=== PATIENT | male | born 1980 ===

== ENCOUNTER 2021-01-23 18:41 | Emergency (ER) | payer BC, SELFPAY ==
--- NOTE | ~2021-01-23 | CT_ITS ---
EXAMINATION: CT HEAD WITHOUT CONTRAST CLINICAL INFORMATION: Stroke symptoms, left-sided weakness COMPARISON: None TECHNIQUE: Contiguous axial imaging was performed from the skull base to vertex without intravenous administration of contrast. This CT examination was performed using dose optimization techniques as appropriate, variously including the following: *Automated exposure control *Adjustment of mA and/or kV according to patient size (this includes techniques or standardized protocols for targeted exams where dose is matched to indication/reason for exam; i.e. extremities or head) *Use of iterative reconstruction technique DLP: 674 mGy-cm FINDINGS: No evidence of acute intracranial hemorrhage or extra-axial fluid collection. No evidence of mass lesion, mass effect or midline shift. The ventricles are symmetric in configuration and normal in size. The basal cisterns are patent. No acute territorial infarction. Cystic lesion posterior fossa, most likely an arachnoid cyst. The calvarium is intact. Limited views of the paranasal sinuses are unremarkable. Mastoid air cells are well aerated and middle ear cavities are clear. CT/CT head/brain wo con IMPRESSION: No acute intracranial pathology. Probable arachnoid cyst posterior fossa.
--- NOTE | 2021-01-23 18:55 | ECG_ITS ---
Test Reason : RULING OUT STROKE Blood Pressure : / mmHG Vent. Rate : 065 BPM Atrial Rate : 065 BPM P-R Int : 144 ms QRS Dur : 082 ms QT Int : 380 ms P-R-T Axes : 061 065 052 degrees QTc Int : 395 ms Normal sinus rhythm Early repolarization Normal ECG No previous ECGs available Referred By: America Riggins Electronically Signed By:KIERAN ANG
[2021-01-23 19:10] VITALS: BP 100/66; BP 138/72; PULSE 68; PULSE 71; RESP 16; TEMP 36.5; O2SAT 97; O2SAT 99; BMI 22.7
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
[2021-01-23 19:27] LABS: MANUAL DIFF FLAG NO
[2021-01-23 19:29] LABS: Basophils Percent Auto 0.2 % (0-2); Eosinophils Percent Auto 0.2 % (0-4); Hematocrit 43.6 % (42-52); Hemoglobin 14.3 g/dl (14.0-18.0); Imm Gran Abs Auto 0.01 X10*3/uL (0.00-0.03); Imm Gran Pct Auto 0.2 % (0.0-0.4); Lymphocytes Absolute Auto 1.4 X10*3/uL (1.2-4.9); Lymphocytes Percent Auto 32.9 % (20-40); Mean Corpuscular HGB Conc 32.8 g/dl (31.0-36.0); Mean Corpuscular Hemoglobin 29.5 pg (27.0-33.0); Mean Corpuscular Volume 89.9 fL (80-98); Mean Platelet Volume 9.6 fL (9.4-12.4); Monocytes Absolute Auto 0.2 X10*3/uL (0.1-1.2); Monocytes Percent Auto 4.9 % (2-11); Neutrophils Absolute Auto 2.5 X10*3/uL (2.0-8.3); Neutrophils Percent Auto 61.6 % (45-73); Platelet Count 246 X10*3/uL (160-400); Red Blood Count 4.85 X10*6/uL (4.60-5.80); Red Cell Distribution Width 12.9 % (11.0-16.0); White Blood Count 4.1 X10*3/uL (4.8-10.8)
--- NOTE | 2021-01-23 19:30 | PC.NURSE ---
2ND IV PLACED TO RAC, LABS DRAWN TO LAB. COVID SWAB OBTAINED TO LAB. PT UNABLE TO URINATE AT THIS TIME. PT REQUESTING FOOD AND THE LIGHTS OUT.
[2021-01-23 19:34] LABS: INTERNATIONAL NORM RATIO 1.1 (0.9-1.1); Prothrombin Time 12.6 SEC (9.9-13.0)
[2021-01-23 19:37] LABS: Partial Thromboplastin Time 36.9 SEC (24.1-38.0)
[2021-01-23 19:47] LABS: Alanine Aminotransferase 25 U/L (0-40); Albumin Level 4.7 g/dL (3.5-5.0); Alkaline Phosphatase 43 U/L (39-117); Anion Gap 10 (12-20); Aspartate Amino Transferase 25 U/L (5-37); Bilirubin Direct 0.4 mg/dL (0.0-0.5); Bilirubin Total 1.4 mg/dL (0.0-1.0); Blood Urea Nitrogen 18 mg/dL (9-16); Calcium 10.1 mg/dL (8.4-10.2); Carbon Dioxide 30 mmol/L (22-29); Chloride 104 mmol/L (96-108); Estimated Glomerular Filt Rate > 60; Glucose Random 87 mg/dL (60-115); Lipase 15 U/L (8-78); Potassium 4.3 mmol/L (3.3-5.1); Sodium 140 mmol/L (135-145); Total Protein 7.6 g/dL (6.5-8.0)
[2021-01-23 19:47] LABS: COVID-19 Test Negative (Negative); IDNOW Serial# 9DD0AD1C
[2021-01-23 19:50] LABS: Troponin-I High Sensitivity < 3.5 ng/L (<3.5-35.0)
== END 2021-01-23 21:49 | disposition home or self-care (01) ==
PROVIDERS: Nurse Practitioner Family; Emergency Provider Emergency Medicine
DX: R42 Dizziness and giddiness (principal); R29.810 Facial weakness; Z20.822 Contact with and (suspected) exposure to COVID-19; F14.90 Cocaine use, unspecified, uncomplicated; Z86.73 Personal history of transient ischemic attack (TIA), and cerebral infarction without residual deficits; Z91.19 Patient's noncompliance with other medical treatment and regimen
CPT/HCPCS: 36415; 70450; 80048; 80076; 83690; 84484; 85025; 85610; 85730; 87635; 93005; 99283; 99284

== ENCOUNTER 2021-01-31 00:37 | Emergency (ER) | payer BC, SELFPAY ==
[2021-01-31 00:47] VITALS: BP 112/71; PULSE 88; RESP 14; TEMP 35.9; O2SAT 98; BMI 23.7
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
[2021-01-31 03:20] LABS: MANUAL DIFF FLAG NO
[2021-01-31 03:23] LABS: Basophils Percent Auto 0.2 % (0-2); Eosinophils Absolute Auto 0.1 X10*3/uL (0.0-0.4); Eosinophils Percent Auto 1.6 % (0-4); Hematocrit 37.3 % (42-52); Hemoglobin 12.4 g/dl (14.0-18.0); Lymphocytes Absolute Auto 1.8 X10*3/uL (1.2-4.9); Lymphocytes Percent Auto 39.9 % (20-40); Mean Corpuscular HGB Conc 33.2 g/dl (31.0-36.0); Mean Corpuscular Hemoglobin 29.5 pg (27.0-33.0); Mean Corpuscular Volume 88.6 fL (80-98); Mean Platelet Volume 9.5 fL (9.4-12.4); Monocytes Absolute Auto 0.3 X10*3/uL (0.1-1.2); Neutrophils Absolute Auto 2.3 X10*3/uL (2.0-8.3); Neutrophils Percent Auto 51.3 % (45-73); Platelet Count 207 X10*3/uL (160-400); Red Blood Count 4.21 X10*6/uL (4.60-5.80); White Blood Count 4.4 X10*3/uL (4.8-10.8)
[2021-01-31 03:40] LABS: IDNOW Serial# 9DD0AD1C
[2021-01-31 03:41] LABS: COVID-19 Test Negative (Negative)
[2021-01-31] MEDS: Acetaminophen 325 MG TABLET 975 MG PO (03:44)
[2021-01-31 03:45] LABS: Alanine Aminotransferase 24 U/L (0-40); Albumin Level 3.9 g/dL (3.5-5.0); Alkaline Phosphatase 46 U/L (39-117); Anion Gap 10 (12-20); Aspartate Amino Transferase 26 U/L (5-37); Bilirubin Total 0.9 mg/dL (0.0-1.0); Blood Urea Nitrogen 14 mg/dL (9-16); C Reactive Protein 0.07 mg/dL (< or = 0.50); Calcium 9.4 mg/dL (8.4-10.2); Carbon Dioxide 30 mmol/L (22-29); Chloride 105 mmol/L (96-108); Creatinine Clr Calc Pharmacy 120.2; Estimated Glomerular Filt Rate > 60; Glucose Random 132 mg/dL (60-115); Potassium 3.5 mmol/L (3.3-5.1); Sodium 141 mmol/L (135-145); Total Protein 6.3 g/dL (6.5-8.0)
--- NOTE | 2021-01-31 03:59 | ED.GENADULT ---
HPI - General Adult General Chief complaint: General Medical Stated complaint: headache/hand cramps Time Seen by Provider: 01/31/21 02:56 Source: patient and science interpreter Mode of arrival: ambulatory History of Present Illness HPI narrative: 40-year-old male who is homeless and has a significant past medical history CVA in August of this year presents with complaints of left-sided face pain as well as left-sided abdominal discomfort and has complaints hand cramps. He states that he is supposed to be on medication but does not take any of it and does not have a primary care provider here [place]. He states he is in the middle of transferring primary care providers from [place]. Otherwise, he denies fevers but has to feels and denies nausea, vomiting and states that his residual CVA deficits are left-sided weakness. Related Data Previous Rx's Medication Instructions Recorded tramadol 50 mg tablet 50 mg PO BID PRN #4 tab 01/31/21 Allergies Allergy/AdvReac Type Severity Reaction Status Date / Time ibuprofen Allergy Unknown Unknown Verified 01/23/21 19:29 Iodinated Contrast Media Allergy Unknown Unknown Verified 01/23/21 19:29 [Contrast Dye] shellfish derived Allergy Unknown Verified 01/31/21 00:47 Review of Systems Review of Systems: Pertinent positives and negatives as stated in HPI 10 point review of systems is otherwise negative. PMFSH Past Medical History Source: nursing notes reviewed Medical History CVA (cerebral vascular accident) Social History Social History Advance Directives: No Physical Exam Vital Signs: Vital Signs: Last Vital Signs Temp 98.6 F 01/31/21 05:56 Pulse 62 01/31/21 05:56 Resp 16 01/31/21 05:56 BP 105/63 01/31/21 05:56 Pulse Ox 100 01/31/21 05:56 Body Mass Index 23.7 VITAL SIGNS: Reviewed. GENERAL: Well developed, well nourished, in no acute distress. HEAD: Normocephalic/atraumatic EYES: PERRLA, EOMI intact without pain, no nystagmus EARS: Ext canals without abnormality, TMs non-bulging and non-erythematous NOSE: Nares patent bilateral OROPHARYNX: no oral lesions noted, posterior pharynx clear and non-erythematous without noted tonsillar enlargement/erythema/exudates NECK: Supple, no adenopathy LUNGS: Normal breath sounds. No adventitious sounds or accessory muscle use. SpO2<98> CARDIOVASCULAR: Regular rate and rhythm without noted murmurs ABDOMEN: Soft, non-tender, non-distended with bowel sounds. SKIN: Inspection of the skin reveals no rashes, vesicles NEUROLOGIC: Alert and oriented x 4. Strength and sensation to light touch were grossly intact x 4, BASELINE: Facial asymmetry, left-sided strength deficits with reported sensory difference. Course Course Course Narrative: 40-year-old male with history and clinical presentation not consistent with shingles and will evaluate for presence of infection or electrolyte abnormalities that may better explain patient's hand cramps. Review of all investigations negative for acute findings to better explain patient's cramps within his hands. He was strongly encouraged to establish care with a primary care provider and the slight decrease in H&H is noted without history of hematemesis/melena/hematochezia. Medical Decision Making Lab Data Result diagrams: 01/31/21 03:14 01/31/21 03:14 Labs: Lab Results 01/31/21 01/31/21 01/31/21 Range/Units 03:14 03:14 03:14 WBC 4.4 L (4.8-10.8) X10*3/uL RBC 4.21 L (4.60-5.80) X10*6/uL Hgb 12.4 L (14.0-18.0) g/dl Hct 37.3 L (42-52) % MCV 88.6 (80-98) fL MCH 29.5 (27.0-33.0) pg MCHC 33.2 (31.0-36.0) g/dl RDW 13.0 (11.0-16.0) % Plt Count 207 (160-400) X10*3/uL MPV 9.5 (9.4-12.4) fL Immature Gran % (Auto) 0.0 (0.0-0.4) % Neut % (Auto) 51.3 (45-73) % Lymph % (Auto) 39.9 (20-40) % [place] % (Auto) 7.0 (2-11) % Eos % (Auto) 1.6 (0-4) % Baso % (Auto) 0.2 (0-2) % Lymph # (Auto) 1.8 (1.2-4.9) X10*3/uL [place] # (Auto) 0.3 (0.1-1.2) X10*3/uL Eos # (Auto) 0.1 (0.0-0.4) X10*3/uL Baso # (Auto) 0.0 (0.0-0.2) X10*3/uL Abs Immat Gran (auto) 0.00 (0.00-0.03) X10*3/uL Absolute Neuts (auto) 2.3 (2.0-8.3) X10*3/uL Absolute Nucleated RBC 0.000 (0.0-0.012) X10*3/uL Nucleated RBC % (auto) 0.0 (0.0-0.2) /100WBC ESR 5 (0-15) MM/HR Sodium 141 (135-145) mmol/L Potassium 3.5 (3.3-5.1) mmol/L Chloride 105 (96-108) mmol/L Carbon Dioxide 30 H (22-29) mmol/L Anion Gap 10 L (12-20) BUN 14 (9-16) mg/dL Creatinine 0.87 (0.5-1.4) mg/dL Estim Creat Clear Calc 120.2 Estimated GFR > 60 Random Glucose 132 H D (60-115) mg/dL Calcium 9.4 D (8.4-10.2) mg/dL Total Bilirubin 0.9 (0.0-1.0) mg/dL AST 26 (5-37) U/L ALT 24 (0-40) U/L Alkaline Phosphatase 46 (39-117) U/L C-Reactive Protein 0.07 (< or = 0.50) mg/dL Total Protein 6.3 L (6.5-8.0) g/dL Albumin 3.9 (3.5-5.0) g/dL COVID-19 (DEANDRE) (Negative) COVID-19 Clin Com 01/31/21 Range/Units 03:14 WBC (4.8-10.8) X10*3/uL RBC (4.60-5.80) X10*6/uL Hgb (14.0-18.0) g/dl Hct (42-52) % MCV (80-98) fL MCH (27.0-33.0) pg MCHC (31.0-36.0) g/dl RDW (11.0-16.0) % Plt Count (160-400) X10*3/uL MPV (9.4-12.4) fL Immature Gran % (Auto) (0.0-0.4) % Neut % (Auto) (45-73) % Lymph % (Auto) (20-40) % [place] % (Auto) (2-11) % Eos % (Auto) (0-4) % Baso % (Auto) (0-2) % Lymph # (Auto) (1.2-4.9) X10*3/uL [place] # (Auto) (0.1-1.2) X10*3/uL Eos # (Auto) (0.0-0.4) X10*3/uL Baso # (Auto) (0.0-0.2) X10*3/uL Abs Immat Gran (auto) (0.00-0.03) X10*3/uL Absolute Neuts (auto) (2.0-8.3) X10*3/uL Absolute Nucleated RBC (0.0-0.012) X10*3/uL Nucleated RBC % (auto) (0.0-0.2) /100WBC ESR (0-15) MM/HR Sodium (135-145) mmol/L Potassium (3.3-5.1) mmol/L Chloride (96-108) mmol/L Carbon Dioxide (22-29) mmol/L Anion Gap (12-20) BUN (9-16) mg/dL Creatinine (0.5-1.4) mg/dL Estim Creat Clear Calc Estimated GFR Random Glucose (60-115) mg/dL Calcium (8.4-10.2) mg/dL Total Bilirubin (0.0-1.0) mg/dL AST (5-37) U/L ALT (0-40) U/L Alkaline Phosphatase (39-117) U/L C-Reactive Protein (< or = 0.50) mg/dL Total Protein (6.5-8.0) g/dL Albumin (3.5-5.0) g/dL COVID-19 (DEANDRE) Negative (Negative) COVID-19 Clin Com See Note Discharge Plan Discharge Clinical Impression: Cramping of hands Patient Disposition: Home, Self-Care Instructions: Muscle Cramp (ED), Heat Pack Application (ED) Additional Instructions: Follow-up with your primary care provider at your earliest convenience for re-evaluation and review of your medications. Return to the ER for acute worsening of symptoms. Prescriptions: New tramadol 50 mg tablet 50 mg PO BID PRN (Reason: pain) Qty: 4 RF: 0 Referrals: Physician,None [Primary Care Provider] - 2 days Print Language: Mongolian
[2021-01-31 04:12] LABS: Erythrocyte Sedimentation Rate 5 MM/HR (0-15)
[2021-01-31 04:49] VITALS: BP 112/57; PULSE 58; TEMP 36.4; O2SAT 98
[2021-01-31 04:57] VITALS: RESP 16
[2021-01-31 05:56] VITALS: BP 105/63; PULSE 62; RESP 16; TEMP 37; O2SAT 100
[2021-01-31 07:26] VITALS: BP 112/68; PULSE 56; RESP 14; TEMP 36.5; O2SAT 99
== END 2021-01-31 08:16 | disposition home or self-care (01) ==
PROVIDERS: Emergency Provider Student in an Organized Health Care Education/Training Program
DX: M79.642 Pain in left hand (principal); M79.641 Pain in right hand; R51.9 Headache, unspecified; R10.9 Unspecified abdominal pain; Z20.822 Contact with and (suspected) exposure to COVID-19; Z86.73 Personal history of transient ischemic attack (TIA), and cerebral infarction without residual deficits; Z79.899 Other long term (current) drug therapy
CPT/HCPCS: 36415; 80053; 85025; 85652; 86140; 87086; 87635; 99283; 99284

== ENCOUNTER 2021-02-08 19:52 | Inpatient (IN) | payer BC, SELFPAY ==
--- NOTE | ~2021-02-08 | CT_ITS ---
EXAMINATION: CT HEAD WITHOUT CONTRAST CLINICAL INFORMATION: Stroke like symptoms COMPARISON: 01/23/2021 TECHNIQUE: Contiguous axial imaging was performed from the skull base to vertex without intravenous contrast. This CT examination was performed using dose optimization techniques as appropriate, variously including the following: * Automated exposure control * Adjustment of mA and/or kV according to patient size (this includes techniques or standardized protocols for targeted exams where dose is matched to indication/reason for exam; i.e. extremities or head) Use of iterative reconstruction technique DLP: 686 mGy-cm. FINDINGS: There is no evidence of acute intracranial hemorrhage or territorial infarction. No abnormal mass effect or midline shift is seen. [place] to white matter differentiation is well preserved. No extra-axial fluid collections are identified. No hydrocephalus. No significant volume loss. There is no abnormal attenuation within the brain parenchyma. The osseous structures and soft tissues are normal. The mastoid air cells and visualized portions of the paranasal sinuses are well aerated. CT/CT head for stroke IMPRESSION: No acute intracranial pathology. This critical result was discussed with Moiz Cuellar MD by telephone at 02/08/2021 8:14 PM and it was ascertained that the content and urgency of the report was understood at the time of direct communication.
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
--- NOTE | ~2021-02-08 | MR_ITS ---
EXAMINATION: MRI BRAIN WITHOUT CONTRAST CLINICAL INFORMATION: Evaluate for cerebrovascular accident. COMPARISON: CT scan of the head 02/08/2021. TECHNIQUE: Multiplanar MR imaging of the brain was performed without contrast. FINDINGS: There are scattered nonspecific foci of T2 FLAIR signal hyperintensity within the periventricular white matter. No acute territorial infarct. No pathological magnetic susceptibility artifact. Intracranial vascular flow voids are maintained. There is no intracranial mass effect or midline shift. No abnormal extra-axial collection. Lateral and third ventricles are normal. No hydrocephalus. Midline structures including the cervicomedullary junction are normal. No acute bone marrow signal changes. There is no mastoid or middle ear effusion. Trivial mucosal thickening within ethmoid air cells and the alveolar recess of the right maxillary sinus. Globes and orbits are symmetric. MR/MR head/brain wo con IMPRESSION: No evidence of acute territorial infarct or hemorrhage.
--- NOTE | ~2021-02-08 | XR_ITS ---
EXAMINATION: XR ANKLE, RIGHT CLINICAL INFORMATION: Pain. COMPARISON: None TECHNIQUE: 3 views of the right ankle. FINDINGS: The bones and soft tissues are normal. No fracture. Alignment is anatomic. Joint spaces are maintained. No joint effusion. XR/XR ankle RT 2V IMPRESSION: Normal right ankle.
--- NOTE | ~2021-02-08 | XR_ITS ---
EXAMINATION: XR CHEST CLINICAL INFORMATION: Stroke COMPARISON: None TECHNIQUE: Frontal view of the chest was obtained. FINDINGS: The lungs are well expanded. There is no focal consolidation, edema, or effusion. No pneumothorax. The cardiomediastinal silhouette is within normal limits. No acute osseous abnormality. XR/XR chest 1V IMPRESSION: No acute pulmonary finding.
--- NOTE | 2021-02-08 19:59 | ECG_ITS ---
Test Reason : STROKE Blood Pressure : / mmHG Vent. Rate : 067 BPM Atrial Rate : 067 BPM P-R Int : 138 ms QRS Dur : 084 ms QT Int : 392 ms P-R-T Axes : 066 081 042 degrees QTc Int : 414 ms Normal sinus rhythm Early repolarization Normal ECG When compared with ECG of 23-JAN-2021 19:10, No significant change was found Referred By: Moiz Cuellar Electronically Signed By:KIERAN ANG
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
--- NOTE | 2021-02-08 20:06 | PC.NURSE ---
PT TO ED VIA AMBULANCE WITH C/O LEFT SIDED NUMBNESS/WEAKNESS AND TINGLING. PT SEEN BY MD AT NURSING STATION AND DIRECTLY TO CT. PT ALERT AND IN NAD. 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
--- NOTE | 2021-02-08 20:07 | ED.GENADULT ---
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 Patient had a jaw surgery on the left side so there is some chronic left facial droop. Patient had a history of stroke with tPA treatment 2 years ago at some [place]. Patient declined any headache dizziness. Related Data Previous Rx's Medication Instructions Recorded tramadol 50 mg tablet 50 mg PO BID PRN #4 tab 01/31/21 Allergies Allergy/AdvReac Type Severity Reaction Status Date / Time ibuprofen Allergy Unknown Unknown Verified 01/23/21 19:29 Iodinated Contrast Media Allergy Unknown Unknown Verified 01/23/21 19:29 [Contrast Dye] shellfish derived Allergy Unknown Verified 01/31/21 00:47 Review of Systems Review of Systems: All other systems are reviewed and are negative Constitutional: Reports as per HPI and Reports no additional constitutional complaints Eyes: Reports as per HPI and Reports no additional eye complaints Reports system reviewed and no additional complaints, except as documented Cardiovascular: Reports as per HPI and Reports no additional cardiovascular complaints Respiratory: Reports as per HPI and Reports no additional respiratory complaints Gastrointestinal: Reports as per HPI and Reports no additional gastrointestinal complaints Genitourinary: Reports no additional female genitourinary complaints Musculoskeletal: Reports no additional musculoskeletal complaints Skin/Breast: Reports system reviewed and no additional complaints, except as docu Psychiatric: Reports no additional psychiatric complaints Endocrine: Reports no additional endocrine complaints Hematologic/Lymphatic: Reports no additional hematologic/lymphatic complaints Allergic/Immunologic: Reports no additional allergic/immunologic complaints Reports system reviewed and no additional complaints, except as documented and Reports Abnormal speech present [facility] Past Medical History Medical History CVA (cerebral vascular accident) Social History Social History Advance Directives: No Advance Directives Information Provided: Yes Physical Exam Vital Signs: Vital Signs: Last Vital Signs Temp 98 F 02/08/21 20:12 Pulse 70 02/08/21 20:12 Resp 16 02/08/21 20:12 BP 99/59 L 02/08/21 20:12 Pulse Ox 99 02/08/21 20:12 Body Mass Index 23.0 Vital signs have been reviewed as appeared to be correct. Blood pressure normal. Heart rate normal. Respiration rate normal. Temperature normal. Oxygen saturation normal. Appearance: Alert. Oriented X3. No acute distress. Head: Normal external exam. Normocephalic. Atraumatic. No Cruz signs noted. No raccoon eyes noted Eyes: PERRLA. EOMI. Conjunctiva and sclera normal. Eyelids normal. ENT: TM's Normal. Pharynx normal. Uvula midline. Moist mucous membranes. No trismus noted. No drooling noted. No muffled voice noted. Neck: Normal inspection. Neck supple. FROM. No adenopathy. Thyroid Normal. No meningeal signs. No neck mass noted. CVS: Normal heart rate and rhythm. Heart sound normal. No murmurs noted. Pulses normal throughout. Respiratory: No respiratory distress. Painless inspiration. Breath sounds normal. No wheezes/rales/rhonchi noted. Chest nontender. No accessory muscle usage noted or decreased air movement noted. Abdomen: Soft and nontender. Bowel sounds normal in all 4 quadrants. No distention noted. No organomegaly noted. No visible injury noted. Back: No CVA tenderness. Full range of motion noted. Skin: Skin warm and dry. Normal skin color. Normal skin turgor. No rashes/lesions/lacerations noted. Extremities: No lower extremity edema. Extremities exhibit normal range of motion. Extremities nontender. Neuro: Oriented X 3. Cranial nerve exam: II-XII are grossly intact No motor deficit. No sensory deficit. Reflexes normal. NIH Stroke Scale Level of Consciousness: Alert Level of Consciousness Questions: Answers both questions correctly Level of Consciousness Commands: Performs both tasks correctly Best Gaze: Normal Visual: No visual loss Facial Palsy: Minor paralyis Motor Arm (Right): No drift Motor Arm (Left): No drift Motor Leg (Right): No drift Motor Leg (Left): No drift Limb Ataxia: Absent Sensory: Mild to moderate sensory loss Best Language: No aphasia Dysarthia: Normal Extinction and Inattention: No abnormality Score: 2 Course Course Course Narrative: Assessment and plan. 40-year-old male history of stroke in the past (reportedly received tPA last August), came in with left-sided numbness, NIH score is 2 which is low, no motor deficit, patient had a history of facial surgery that is causing chronic left facial mild droop, CT head is unremarkable, will admit for MRI in the morning. Case discussed with Dr. Giang. Patient is not a candidate for tPA very mild symptoms and low NIH score. Medical Decision Making Lab Data Lab results reviewed: Yes I reviewed the patient's lab results. Result diagrams: 02/08/21 21:13 02/08/21 21:13 Labs: Lab Results 02/08/21 02/08/21 02/08/21 Range/Units 20:14 20:15 21:13 WBC 4.5 L (4.8-10.8) X10*3/uL RBC 4.51 L (4.60-5.80) X10*6/uL Hgb 13.7 L (14.0-18.0) g/dl Hct 40.6 L (42-52) % MCV 90.0 (80-98) fL MCH 30.4 (27.0-33.0) pg MCHC 33.7 (31.0-36.0) g/dl RDW 13.2 (11.0-16.0) % Plt Count 226 (160-400) X10*3/uL MPV 9.7 (9.4-12.4) fL Immature Gran % (Auto) 0.0 (0.0-0.4) % Neut % (Auto) 60.4 (45-73) % Lymph % (Auto) 31.9 (20-40) % [place] % (Auto) 6.2 (2-11) % Eos % (Auto) 1.1 (0-4) % Baso % (Auto) 0.4 (0-2) % Lymph # (Auto) 1.5 (1.2-4.9) X10*3/uL [place] # (Auto) 0.3 (0.1-1.2) X10*3/uL Eos # (Auto) 0.1 (0.0-0.4) X10*3/uL Baso # (Auto) 0.0 (0.0-0.2) X10*3/uL Abs Immat Gran (auto) 0.00 (0.00-0.03) X10*3/uL Absolute Neuts (auto) 2.7 (2.0-8.3) X10*3/uL Absolute Nucleated RBC 0.000 (0.0-0.012) X10*3/uL Nucleated RBC % (auto) 0.0 (0.0-0.2) /100WBC Whole Blood PT 13.8 H (11.1-13.5) sec Whole Blood INR 1.1 (0.9-1.1) Coag Specimen Comment Sodium (135-145) mmol/L Potassium (3.3-5.1) mmol/L Chloride (96-108) mmol/L Carbon Dioxide (22-29) mmol/L Anion Gap (12-20) BUN (9-16) mg/dL Creatinine (0.5-1.4) mg/dL Estim Creat Clear Calc Estimated GFR POC Glucose 153 H (60-115) mg/dL Random Glucose (60-115) mg/dL Calcium (8.4-10.2) mg/dL Total Creatine Kinase (38-174) U/L Troponin I High Sens (<3.5-35.0) ng/L COVID-19 ([facility]RE) (Negative) COVID-19 Clin Com 02/08/21 02/08/21 02/08/21 Range/Units 21:13 21:13 21:13 WBC (4.8-10.8) X10*3/uL RBC (4.60-5.80) X10*6/uL Hgb (14.0-18.0) g/dl Hct (42-52) % MCV (80-98) fL MCH (27.0-33.0) pg MCHC (31.0-36.0) g/dl RDW (11.0-16.0) % Plt Count (160-400) X10*3/uL MPV (9.4-12.4) fL Immature Gran % (Auto) (0.0-0.4) % Neut % (Auto) (45-73) % Lymph % (Auto) (20-40) % [place] % (Auto) (2-11) % Eos % (Auto) (0-4) % Baso % (Auto) (0-2) % Lymph # (Auto) (1.2-4.9) X10*3/uL [place] # (Auto) (0.1-1.2) X10*3/uL Eos # (Auto) (0.0-0.4) X10*3/uL Baso # (Auto) (0.0-0.2) X10*3/uL Abs Immat Gran (auto) (0.00-0.03) X10*3/uL Absolute Neuts (auto) (2.0-8.3) X10*3/uL Absolute Nucleated RBC (0.0-0.012) X10*3/uL Nucleated RBC % (auto) (0.0-0.2) /100WBC Whole Blood PT (11.1-13.5) sec Whole Blood INR (0.9-1.1) Coag Specimen Comment Cancelled Sodium 143 (135-145) mmol/L Potassium 3.8 (3.3-5.1) mmol/L Chloride 105 (96-108) mmol/L Carbon Dioxide 33 H (22-29) mmol/L Anion Gap 9 L (12-20) BUN 16 (9-16) mg/dL Creatinine 0.99 (0.5-1.4) mg/dL Estim Creat Clear Calc 89.5 Estimated GFR > 60 POC Glucose (60-115) mg/dL Random Glucose 78 D (60-115) mg/dL Calcium 9.4 (8.4-10.2) mg/dL Total Creatine Kinase 413 H (38-174) U/L Troponin I High Sens < 3.5 (<3.5-35.0) ng/L COVID-19 ([facility]) (Negative) COVID-19 Clin Com 02/08/21 02/08/21 Range/Units 21:13 21:30 WBC (4.8-10.8) X10*3/uL RBC (4.60-5.80) X10*6/uL Hgb (14.0-18.0) g/dl Hct (42-52) % MCV (80-98) fL MCH (27.0-33.0) pg MCHC (31.0-36.0) g/dl RDW (11.0-16.0) % Plt Count (160-400) X10*3/uL MPV (9.4-12.4) fL Immature Gran % (Auto) (0.0-0.4) % Neut % (Auto) (45-73) % Lymph % (Auto) (20-40) % [place] % (Auto) (2-11) % Eos % (Auto) (0-4) % Baso % (Auto) (0-2) % Lymph # (Auto) (1.2-4.9) X10*3/uL [place] # (Auto) (0.1-1.2) X10*3/uL Eos # (Auto) (0.0-0.4) X10*3/uL Baso # (Auto) (0.0-0.2) X10*3/uL Abs Immat Gran (auto) (0.00-0.03) X10*3/uL Absolute Neuts (auto) (2.0-8.3) X10*3/uL Absolute Nucleated RBC (0.0-0.012) X10*3/uL Nucleated RBC % (auto) (0.0-0.2) /100WBC Whole Blood PT (11.1-13.5) sec Whole Blood INR (0.9-1.1) Coag Specimen Comment DELAY Sodium (135-145) mmol/L Potassium (3.3-5.1) mmol/L Chloride (96-108) mmol/L Carbon Dioxide (22-29) mmol/L Anion Gap (12-20) BUN (9-16) mg/dL Creatinine (0.5-1.4) mg/dL Estim Creat Clear Calc Estimated GFR POC Glucose (60-115) mg/dL Random Glucose (60-115) mg/dL Calcium (8.4-10.2) mg/dL Total Creatine Kinase (38-174) U/L Troponin I High Sens (<3.5-35.0) ng/L COVID-19 ([facility]ANDRE) Negative (Negative) COVID-19 Clin Com See Note Imaging Data CT scan - head: Radiologist's impression: No acute intracranial pathology. Right ankle x-ray: Radiologist's impression: Normal right ankle. Chest x-ray: Radiologist's impression: No acute pulmonary finding. ECG Data Attestation: I personally reviewed and interpreted this ECG as follows: Interpretation: Normal sinus rhythm at 67 beats per minutes, normal intervals, no ST-T changes. Discharge Plan Discharge Clinical Impression: Paresthesia Patient Disposition: Admitted As Inpatient
[2021-02-08 20:12] VITALS: BP 108/64; BP 99/59; PULSE 68; PULSE 70; RESP 16; TEMP 36.6; O2SAT 99; BMI 23.0
[2021-02-08 20:19] LABS: Glucose, Whole Blood 153 mg/dL (60-115)
--- NOTE | 2021-02-08 20:42 | PC.NURSE ---
pt on monitor with hr 65. VS obtained. pt is constantly requesting the MD in room, pillows, phone, and blankets.
[2021-02-08 20:46] LABS: Prothrombin Time Whole Bld POC 13.8 sec (11.1-13.5); ~PT, ~INR - Anti Coag Clinic 1.1 (0.9-1.1)
[2021-02-08 21:20] LABS: MANUAL DIFF FLAG NO
[2021-02-08 21:22] LABS: Basophils Percent Auto 0.4 % (0-2); Eosinophils Absolute Auto 0.1 X10*3/uL (0.0-0.4); Eosinophils Percent Auto 1.1 % (0-4); Hematocrit 40.6 % (42-52); Hemoglobin 13.7 g/dl (14.0-18.0); Lymphocytes Absolute Auto 1.5 X10*3/uL (1.2-4.9); Lymphocytes Percent Auto 31.9 % (20-40); Mean Corpuscular HGB Conc 33.7 g/dl (31.0-36.0); Mean Corpuscular Hemoglobin 30.4 pg (27.0-33.0); Mean Platelet Volume 9.7 fL (9.4-12.4); Monocytes Absolute Auto 0.3 X10*3/uL (0.1-1.2); Monocytes Percent Auto 6.2 % (2-11); Neutrophils Absolute Auto 2.7 X10*3/uL (2.0-8.3); Neutrophils Percent Auto 60.4 % (45-73); Platelet Count 226 X10*3/uL (160-400); Red Blood Count 4.51 X10*6/uL (4.60-5.80); Red Cell Distribution Width 13.2 % (11.0-16.0); White Blood Count 4.5 X10*3/uL (4.8-10.8)
[2021-02-08 21:31] LABS: Delay - Coag DELAY
[2021-02-08 21:36] LABS: COVID-19 Test Negative (Negative)
[2021-02-08 21:41] LABS: Troponin-I High Sensitivity < 3.5 ng/L (<3.5-35.0)
[2021-02-08 21:48] LABS: Anion Gap 9 (12-20); Blood Urea Nitrogen 16 mg/dL (9-16); Calcium 9.4 mg/dL (8.4-10.2); Carbon Dioxide 33 mmol/L (22-29); Chloride 105 mmol/L (96-108); Creatinine Clr Calc Pharmacy 89.5; Estimated Glomerular Filt Rate > 60; Glucose Random 78 mg/dL (60-115); Potassium 3.8 mmol/L (3.3-5.1); Sodium 143 mmol/L (135-145)
[2021-02-08 22:00] VITALS: BP 104/64; PULSE 81; RESP 18
--- NOTE | 2021-02-08 22:00 | PC.NURSE ---
PT APPEARS TO BE EXTREMELY SLEEPY AT THIS TIME. security in room and obtained back pack and pt's belongings.
[2021-02-08 23:15] LABS: Prothrombin Time 11.4 SEC (9.9-13.0)
[2021-02-08 23:17] LABS: Partial Thromboplastin Time 35.9 SEC (24.1-38.0)
[2021-02-08 23:19] LABS: Stroke Lab Use COMPLETE
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
--- NOTE | 2021-02-09 00:05 | PC.NURSE ---
PT YELLING AT STAFF, PT IS CONSTANTLY PACKING [employer]SE [employer] STERLING REQUESTING FOOD.
--- NOTE | 2021-02-09 00:49 | PC.NURSE ---
Pt disrespectful and rude. Yelling requesting food and demanding pain medication. Security at the bed side trying to assist nursing staff. Multiple attempt to explain plan of care. pt continues to be argumentive with nursing staff. Provider in to assess and redirect patient.
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
--- NOTE | 2021-02-09 01:22 | PC.NURSE ---
CHG NURSE IN ROOM WITH VOLUNTEER SERVICES COORDINATOR AT BEDSIDE.
--- NOTE | 2021-02-09 02:07 | PC.NURSE ---
FLOOR IS NOT TAKING REPORT AT THIS TIME.
[2021-02-09 02:09] VITALS: BP 102/58; PULSE 80; RESP 18; O2SAT 98
--- NOTE | 2021-02-09 02:21 | PC.NURSE ---
REPORT GIVEN TO FLOOR. PT TO FLOOR IN STRETCHER. PT LEFT ED IN NAD.
[2021-02-09] MEDS: Enoxaparin Sodium 40 MG/0.4 ML SYRINGE SUBCUT (03:55)
[2021-02-09] MEDS: Acetaminophen 325 MG TABLET 650 MG PO (03:57)
[2021-02-09 04:00] VITALS: BP 116/68; PULSE 62; RESP 16; TEMP 35.9; O2SAT 100
[2021-02-09] MEDS: Lactated Ringers 1,000 ML 125 ML IVCONT ×3 (07:35→22:20)
[2021-02-09 08:00] VITALS: BP 126/71; PULSE 63; RESP 19; TEMP 36.4; O2SAT 99
[2021-02-09 09:41] LABS: MANUAL DIFF FLAG NO
[2021-02-09 09:43] LABS: Basophils Percent Auto 0.2 % (0-2); Eosinophils Absolute Auto 0.1 X10*3/uL (0.0-0.4); Eosinophils Percent Auto 1.2 % (0-4); Hematocrit 45.4 % (42-52); Hemoglobin 14.8 g/dl (14.0-18.0); Lymphocytes Absolute Auto 1.4 X10*3/uL (1.2-4.9); Lymphocytes Percent Auto 33.5 % (20-40); Mean Corpuscular HGB Conc 32.6 g/dl (31.0-36.0); Mean Corpuscular Hemoglobin 29.7 pg (27.0-33.0); Mean Corpuscular Volume 91.2 fL (80-98); Mean Platelet Volume 9.7 fL (9.4-12.4); Monocytes Absolute Auto 0.3 X10*3/uL (0.1-1.2); Monocytes Percent Auto 6.5 % (2-11); Neutrophils Absolute Auto 2.4 X10*3/uL (2.0-8.3); Neutrophils Percent Auto 58.6 % (45-73); Platelet Count 243 X10*3/uL (160-400); Red Blood Count 4.98 X10*6/uL (4.60-5.80); Red Cell Distribution Width 13.2 % (11.0-16.0)
[2021-02-09 09:57] LABS: Anion Gap 11 (12-20); Blood Urea Nitrogen 11 mg/dL (9-16); Calcium 9.2 mg/dL (8.4-10.2); Carbon Dioxide 31 mmol/L (22-29); Chloride 105 mmol/L (96-108); Cholesterol 158 mg/dL; Creatinine Clr Calc Pharmacy 91.3; Estimated Glomerular Filt Rate > 60; Glucose Random 77 mg/dL (60-115); HDL Cholesterol 58 mg/dL; LDL Cholesterol Calculated 79 mg/dl; Potassium 3.8 mmol/L (3.3-5.1); Sodium 143 mmol/L (135-145); Triglycerides 109 mg/dL
[2021-02-09 09:59] LABS: Anion Gap 11 (12-20); Blood Urea Nitrogen 11 mg/dL (9-16); Calcium 9.5 mg/dL (8.4-10.2); Carbon Dioxide 31 mmol/L (22-29); Chloride 106 mmol/L (96-108); Creatinine Clr Calc Pharmacy 89.5; Estimated Glomerular Filt Rate > 60; Glucose Random 75 mg/dL (60-115); Potassium 3.8 mmol/L (3.3-5.1); Sodium 144 mmol/L (135-145)
[2021-02-09] MEDS: Buprenorphine/Naloxone 8/2 mg FILM 1 FILM SUBLINGUAL (10:45)
[2021-02-09] MEDS: Aspirin Enteric Coated 81 MG TABLET.DR PO (10:46)
[2021-02-09] MEDS: Atorvastatin Calcium 80 MG TABLET PO (10:46)
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
[2021-02-09 13:04] LABS: Estimated Average Glucose 111 mg/dL; Hemoglobin A1c % 5.5 %
[2021-02-09 13:33] VITALS: BP 126/71; PULSE 63; O2SAT 99
--- NOTE | 2021-02-09 14:19 | P.CNPS_ITS ---
History of Present Illness Date of Service: 02/09/21 Chief Complaint: TIA Reason for Consult: Question mood disorder Requesting physician: Jeyson De Anda Discussed with referring provider: Yes Sources of Information: patient interviewed and chart reviewed HPI Narrative: Patient is a 40-year-old Liberian-speaking only male, who presented into the hospital with complaints of numbness to his left face. Patient reported he has a history of stroke back in August 2020 status post tPA. Patient has elevated CPK. Psychiatry was asked to meet with patient regarding possibi lity of mood disorder, versus substance use. Patient was already started on Suboxone 8mg-2mg mg SL b.i.d., as he reported that he receives this medication regularly from [facility]. This scenario writer met with patient this afternoon, along with Liberian-speaking lang interpreter. Patient was labile at times during encounter, raising his voice. His speech was pressured at times. He was circumstantial during encounter, and needed redirection back to topic several times. There had also been suspicion that he was using illicit substances within the past 24 hours, while he was in the ED. he denied any type of thoughts of harm to self, although he does report he would like to harm the officer that arrested him. He denies any type of auditory or visual hallucinations, and did not appear to be responding to any. Patient reports that he wished to meet with Psychiatry, ?because I am crazy ?. He reports that he carries a diagnosis of schizoaffective disorder. He also reports that he has experienced traumatizing events since September 06 of this year. He reports a case of mistaken identity, in which he was incarcerated, and that the experience was traumatic. He reports that he now has PTSD. He states that he moved here in August 2020 from [place], when he was arrested for mistaken identity. He reports that since August he has not received any psychiatric medications. He does say that he has been using Percocets and cocaine, as he explains that he has had pain related to mandible surgery within the past several months. A Mass Pat search yielded no results for any medications, either in [place] or [place]. Several version of spellings of his name or ente red, with no results. He does report that at [facility] he was receiving gabapentin 600 mg t.i.d. within the past few months. He had also reported that they prescribed Suboxone. He has asked this scenario writer for Ambien, as well as Abilify. He states that he was prescribed these when he was living in [place]. He does not remember the name of the clinic or the prescriber that he used to see there. Patient is asking for Ambien, Abilify, and medication for his anxiety to be started. Past Psychiatric History: Patient reports that he was under psychiatric care in [place] starting in 2015, up until August 2020. Unknown as to whether patient has histtor of IPLOC, PHP, IOP, therapist. Medical Evaluation Reviewed: Yes Personal & Social History: Patient reports he is homeless, relocated here in August 2020. Reports he incarcerated in [place] recently. Liberian speaking only. Review of Systems Review of Systems A full review of systems was completed and was negative with the exception of pertinent positives noted in the history of the presenting illness (HPI). Constitutional: Reports as per HPI and Reports no additional constitutional complaints Eyes: Reports no additional eye complaints Reports Normal hearing present Cardiovascular: Reports no additional cardiovascular complaints Respiratory: Reports no additional respiratory complaints Gastrointestinal: Reports no additional gastrointestinal complaints Genitourinary: Reports no additional male genitourinary complaints Musculoskeletal: Reports no additional musculoskeletal complaints Reports Normal hearing present Psychiatric: Reports anxiety Endocrine: Reports as per HPI Hematologic/Lymphatic: Reports no additional hematologic/lymphatic complaints Allergic/Immunologic: Reports no additional allergic/immunologic complaints [facility] Medical History CVA (cerebral vascular accident) Surgical History No significant past surgical history Family History: Patient did not report. Social History: Currently homeless in [place]. Substance History: Reports history of Percocets, cocaine, states has relapsed over past few months. Trauma History: Reports being arrested due to mistaken identity has been very traumatic. Diagnostics Vital Signs (24Hr): Vital Signs - 24 hr 02/08/21 20:12 02/08/21 22:00 02/09/21 02:09 Temperature 98 F Pulse Rate 70 81 80 Respiratory Rate 16 18 18 Blood Pressure 99/59 L 104/64 102/58 L Pulse Oximetry 99 98 02/09/21 04:00 02/09/21 08:00 02/09/21 13:33 Temperature 96.6 F L 97.5 F Pulse Rate 62 63 63 Respiratory Rate 16 19 Blood Pressure 116/68 126/71 126/71 Pulse Oximetry 100 99 99 Body Mass Index 23.0 Labs Results: 02/09/21 09:33 02/09/21 09:33 Labs: Laboratory Results - last 48 hr 02/08/21 02/08/21 02/08/21 20:14 20:15 21:13 WBC 4.5 L RBC 4.51 L Hgb 13.7 L Hct 40.6 L MCV 90.0 MCH 30.4 MCHC 33.7 RDW 13.2 Plt Count 226 MPV 9.7 Immature Gran % (Auto) 0.0 Neut % (Auto) 60.4 Lymph % (Auto) 31.9 [place]born % (Auto) 6.2 Eos % (Auto) 1.1 Baso % (Auto) 0.4 Lymph # (Auto) 1.5 [place] # (Auto) 0.3 Eos # (Auto) 0.1 Baso # (Auto) 0.0 Abs Immat Gran (auto) 0.00 Absolute Neuts (auto) 2.7 Absolute Nucleated RBC 0.000 Nucleated RBC % (auto) 0.0 PT Whole Blood PT 13.8 H INR Whole Blood INR 1.1 APTT Coag Specimen Comment Sodium Potassium Chloride Carbon Dioxide Anion Gap BUN Creatinine Estim Creat Clear Calc Estimated GFR POC Glucose 153 H Random Glucose Estimat Average Glucose Hemoglobin A1c % Calcium Total Creatine Kinase Troponin I High Sens Triglycerides Cholesterol LDL Cholesterol, Calc HDL Cholesterol COVID-19 (DEANDRE) COVID-19 Clin Com 02/08/21 02/08/21 02/08/21 21:13 21:13 21:13 WBC RBC Hgb Hct MCV MCH MCHC RDW Plt Count MPV Immature Gran % (Auto) Neut % (Auto) Lymph % (Auto) Sanborn % (Auto) Eos % (Auto) Baso % (Auto) Lymph # (Auto) [place]born # (Auto) Eos # (Auto) Baso # (Auto) Abs Immat Gran (auto) Absolute Neuts (auto) Absolute Nucleated RBC Nucleated RBC % (auto) PT Whole Blood PT INR Whole Blood INR APTT Coag Specimen Comment Cancelled Sodium 143 Potassium 3.8 Chloride 105 Carbon Dioxide 33 H Anion Gap 9 L BUN 16 Creatinine 0.99 Estim Creat Clear Calc 89.5 Estimated GFR > 60 POC Glucose Random Glucose 78 D Estimat Average Glucose Hemoglobin A1c % Calcium 9.4 Total Creatine Kinase 413 H Troponin I High Sens < 3.5 Triglycerides Cholesterol LDL Cholesterol, Calc HDL Cholesterol COVID-19 (DEANDRE) COVID-19 Clin Com 02/08/21 02/08/21 02/08/21 21:13 21:30 23:04 WBC RBC Hgb Hct MCV MCH MCHC RDW Plt Count MPV Immature Gran % (Auto) Neut % (Auto) Lymph % (Auto) San[place] % (Auto) Eos % (Auto) Baso % (Auto) Lymph # (Auto) [place] # (Auto) Eos # (Auto) Baso # (Auto) Abs Immat Gran (auto) Absolute Neuts (auto) Absolute Nucleated RBC Nucleated RBC % (auto) PT 11.4 Whole Blood PT INR 1.0 Whole Blood INR APTT 35.9 Coag Specimen Comment DELAY Sodium Potassium Chloride Carbon Dioxide Anion Gap BUN Creatinine Estim Creat Clear Calc Estimated GFR POC Glucose Random Glucose Estimat Average Glucose Hemoglobin A1c % Calcium Total Creatine Kinase Troponin I High Sens Triglycerides Cholesterol LDL Cholesterol, Calc HDL Cholesterol COVID-19 (DEANDRE) Negative COVID-19 Clin Com See Note 02/09/21 02/09/21 02/09/21 09:33 09:33 09:33 WBC 4.0 L RBC 4.98 Hgb 14.8 Hct 45.4 MCV 91.2 MCH 29.7 MCHC 32.6 RDW 13.2 Plt Count 243 MPV 9.7 Immature Gran % (Auto) 0.0 Neut % (Auto) 58.6 Lymph % (Auto) 33.5 [place] % (Auto) 6.5 Eos % (Auto) 1.2 Baso % (Auto) 0.2 Lymph # (Auto) 1.4 [place] # (Auto) 0.3 Eos # (Auto) 0.1 Baso # (Auto) 0.0 Abs Immat Gran (auto) 0.00 Absolute Neuts (auto) 2.4 Absolute Nucleated RBC 0.000 Nucleated RBC % (auto) 0.0 PT Whole Blood PT INR Whole Blood INR APTT Coag Specimen Comment Sodium 143 Potassium 3.8 Chloride 105 Carbon Dioxide 31 H Anion Gap 11 L BUN 11 Creatinine 0.97 Estim Creat Clear Calc 91.3 Estimated GFR > 60 POC Glucose Random Glucose 77 Estimat Average Glucose Hemoglobin A1c % Calcium 9.2 Total Creatine Kinase 321 H Troponin I High Sens Triglycerides 109 Cholesterol 158 LDL Cholesterol, Calc 79 HDL Cholesterol 58 COVID-19 (DEANDRE) COVID-19 Clin Com 02/09/21 02/09/21 09:33 09:33 WBC RBC Hgb Hct MCV MCH MCHC RDW Plt Count MPV Immature Gran % (Auto) Neut % (Auto) Lymph % (Auto) [place] % (Auto) Eos % (Auto) Baso % (Auto) Lymph # (Auto) [place] # (Auto) Eos # (Auto) Baso # (Auto) Abs Immat Gran (auto) Absolute Neuts (auto) Absolute Nucleated RBC Nucleated RBC % (auto) PT Whole Blood PT INR Whole Blood INR APTT Coag Specimen Comment Sodium 144 Potassium 3.8 Chloride 106 Carbon Dioxide 31 H Anion Gap 11 L BUN 11 Creatinine 0.99 Estim Creat Clear Calc 89.5 Estimated GFR > 60 POC Glucose Random Glucose 75 Estimat Average Glucose 111 Hemoglobin A1c % 5.5 Calcium 9.5 Total Creatine Kinase 318 H Troponin I High Sens Triglycerides Cholesterol LDL Cholesterol, Calc HDL Cholesterol COVID-19 (DEANDRE) COVID-19 Clin Com Imaging Radiology Impressions: ITS Impressions Chest X-Ray 02/08/21 19:59 IMPRESSION: No acute pulmonary finding. Head CT 02/08/21 20:02 IMPRESSION: No acute intracranial pathology. This critical result was discussed with Moiz Cuellar MD by telephone at 02/08/2021 8:14 PM and it was ascertained that the content and urgency of the report was understood at the time of direct communication. Ankle X-Ray 02/08/21 20:08 IMPRESSION: Normal right ankle. Mental Status Exam Mental Status Exam Narrative: Fairly nourished, thin male, in NAD. No active withdrawal s or symptoms of intoxication noted. Patient sitting up at side of bed, somewhat unkempt. Patient Appearance: Disheveled and Unkempt Patient Orientation: Person, Place, Time and Situation Level of Consciousness: Awake, Appropriate and Alert Patient Behavior: Talkative, Restless, Anxious and Good Eye Contact Mood Description: Depressed and Anxious Affect Description: Anxious, Labile and Expansive Patient Cognition Impaired: No Ability to Follow Directions: Good Speech Pattern: Perseverating, Rapid, Pressured and Includes Profanity Memory Description: Episodic Impaired Hallucinations: None Delusions: Not Present Thought Process: Intact Thought Content: positive for Intact and positive for Circumstantial Depressive Symptoms: Increased Anxiety Judgement: Fair Medications Medications Current Medications Acetaminophen (Acetaminophen 325 Mg Tablet) 650 mg PO Q6H PRN PRN Reason: Pain, Mild (Pain Scale 1-3) Last Admin: 02/09/21 03:57 Dose: 650 mg Documented by: Albuterol Sulfate (Albuterol Sulfate 90 Mcg 8 Gm Inhaler) 2 puff INHALE Q4H PRN PRN Reason: Shortness Of Breath Aspirin (Aspirin Enteric Coated 81 Mg Tablet.) 81 mg PO DAILY [facility] Last Admin: 02/09/21 10:46 Dose: 81 mg Documented by: Atorvastatin Calcium (Atorvastatin Calcium 80 Mg Tablet) 80 mg PO DAILY [facility] Last Admin: 02/09/21 10:46 Dose: 80 mg Documented by: Buprenorphine/Naloxone (Buprenorphine/Naloxone 8/2 Mg Film) 1 film SUBLINGUAL BID [facility] Last Admin: 02/09/21 10:45 Dose: 1 film Documented by: Docusate Sodium (Docusate Sodium 100 Mg Capsule) 100 mg PO DAILY PRN PRN Reason: Constipation Enoxaparin Sodium (Enoxaparin Sodium 40 Mg/0.4 Ml Syringe) 40 mg SUBCUT Q24H [facility] Last Admin: 02/09/21 03:55 Dose: 40 mg Documented by: Gabapentin (Gabapentin 600 Mg Tablet) 600 mg PO TID [facility] Lactated Ringer's (Lr) 1,000 mls @ 125 mls/hr IVCONT .Q8H [facility] Last Admin: 02/09/21 07:35 Dose: 125 mls/hr Documented by: Metformin HCl (Metformin Hcl 500 Mg Tablet) 500 mg PO BID [facility] Nicotine (Nicotine 21 Mg Patch.Td24) 21 mg TRANSDERMA DAILY [facility] Ondansetron HCl (Ondansetron Hcl 4 Mg/2 Ml Vial) 4 mg IVPUSH Q8H PRN PRN Reason: Nausea and Vomiting Allergies Allergies Allergy/AdvReac Type Severity Reaction Status Date / Time ibuprofen Allergy Unknown Unknown Verified 01/23/21 19:29 Iodinated Contrast Media Allergy Unknown Unknown Verified 01/23/21 19:29 [Contrast Dye] shellfish derived Allergy Unknown Verified 01/31/21 00:47 Assessment & Plan Assessment & Plan (1) Mood disorder: Status: Acute Code(s): F39 - Unspecified mood [affective] disorder Assessment and Plan: Patient reports he has schizoaffective disorder, however at this time it is unclear as to an actual diagnosis of a mood disorder. He has reported he has been using illicit substances recently, including cocaine. He presents as anxious, but denies any type of thoughts of harm to self, no SI. He also denies any type of auditory or visual, tactile hallucinations, and did not appear to be responding to internal stimuli in any way. He reports that he has taken Abilify in the past for his mood disorder. However, he does not remember doses, and states he has not taken the medications since August of 2020, while in [place]. He does not remember name of provider or clinic. He reports that he has been receiving gabapentin from [facility]. He is already receiving that here. (2) Substance use disorder: Status: Acute Code(s): F19.90 - Other psychoactive substance use, unspecified, uncomplicated Assessment and Plan: Patient reported that he has been taking Suboxone daily. However, a [facility] Pat search yielded no results. Would recommend continuing, as patient has received this medication while here. He did not appear to be in any type of precipitated withdrawals during encounter. He also did not appear to be actively under the influence of any type of substances, and did not appear to be uncomfortable in any way. He did ask several times during encounter if he could please be prescribed Ambien, and ?something for my anxiety ?. It was explained that due to not having a clear history of psychiatric treatment, and the fact that he is stating he has not received any of these medications within the past almost months. I did explain that he is not actively hallucinating, nor experiencing any type of thoughts of self-harm. He became irritated at one point, and stated that he needed ambien and anxiety medications. I did suggest however that he take a list of providers in [facility] that her Liberian speaking. He stated that if he wants to get any psychiatric medications he can go to [facility], as he is already going there. Assessment and Plan: It is difficult at this time to ascertain whether patient actually has mood lability related to a mood disorder, or recent stimulant (cocaine) use. He is however fully alert and oriented, denies any type of SI. There are no safety concerns regarding patient at this time. I had earlier suggested a toxicology screen, due to fact that ED staff had suspected substance use while he was in ED. RECOMMENDATIONS: 1. Would recommend continue with Suboxone as ordered. 2. Recommend continue with gabapentin as ordered. 3. This scenario writer has asked Care team to provide patient with list of Liberian- speaking mental health providers in [place]. I have shared my thoughts and recommendations with Dr. Jeyson De Anda, both in person and via secure messaging. Thank you for this consultation. If you have any further questions or concerns, please do not hesitate to reach out to Psychiatry service. Greater than 50% of the session was spent on counseling and/or coordination of care Patient educated on: diagnosis, medication risk/benefits, substance abuse and therapeutic strategies
[2021-02-09] MEDS: Nicotine 21 MG PATCH.TD24 TRANSDERMA (14:34)
[2021-02-09] MEDS: Gabapentin 600 MG TABLET PO ×2 (14:35→22:22)
[2021-02-09] MEDS: metFORMIN HCl 500 MG TABLET PO ×2 (14:35→22:22)
--- NOTE | 2021-02-09 14:35 | MHC.CARE ---
CARE Team provided Pt with a list of bilingual therapy and psychiatry providers.
--- NOTE | 2021-02-09 15:14 | P.CNNE_ITS ---
History of Present Illness Data of Consult Service Date: 02/09/21 Primary Care Provider: Unknown Physician HPI Reason for consult: Left-sided numbness for 2 days involving face and arm This is a 40-year-old generally healthy man with a history of substance include abuse including alcohol and cocaine who says that he had a stroke a few years ago related to cocaine use another strokelike event in August of this year when he received TPA in [place] and once in [place]. He has previously had left mandible surgery so has facial asymmetry. He has been on Suboxone but used cocaine 2 or 3 days ago. He now comes in with tingling in the left face and left arm, which is slightly better but not resolved. This CAT scan on admission was normal. MRI has not been done. Review of Systems Review of Systems: A full review of systems was completed and was negative with the exception of pertinent positives noted in the history of the presenting illness (HPI). Yes all other systems are reviewed and are negative Constitutional: Constitutional: Reports as per HPI and Reports no additional constitutional complaints Eyes: Eyes: Reports no additional eye complaints ENT: Reports Normal hearing present Cardiovascular: Cardiovascular: Reports no additional cardiovascular complaints Respiratory: Respiratory: Reports no additional respiratory complaints Gastrointestinal: Gastrointestinal: Reports no additional gastrointestinal complaints Genitourinary: Genitourinary: Reports no additional male genitourinary complaints Musculoskeletal: Musculoskeletal: Reports no additional musculoskeletal complaints Neurologic: Reports Normal hearing present Psychiatric: Psychiatric: Reports anxiety Endocrine: Endocrine: Reports as per HPI Hematologic/Lymphatic: Hematologic/Lymphatic: Reports no additional hematologic/lymphatic complaints Allergic/Immunologic: Allergic/Immunologic: Reports no additional allergic/immunologic complaints [facility] Past Medical History Medical History CVA (cerebral vascular accident) Family History Pertinent family history: Denies any past medical history in the family Surgical History Surgical History No significant past surgical history Social History Social History Advance Directives: No Advance Directives Information Provided: Yes service: No Current occupational status: unemployed and other Meds Allergies Allergy/AdvReac Type Severity Reaction Status Date / Time ibuprofen Allergy Unknown Unknown Verified 01/23/21 19:29 Iodinated Contrast Media Allergy Unknown Unknown Verified 01/23/21 19:29 [Contrast Dye] shellfish derived Allergy Unknown Verified 01/31/21 00:47 Active Medications: Current Medications Acetaminophen (Acetaminophen 325 Mg Tablet) 650 mg PO Q6H PRN PRN Reason: Pain, Mild (Pain Scale 1-3) Last Admin: 02/09/21 03:57 Dose: 650 mg Documented by: Albuterol Sulfate (Albuterol Sulfate 90 Mcg 8 Gm Inhaler) 2 puff INHALE Q4H PRN PRN Reason: Shortness Of Breath Aspirin (Aspirin Enteric Coated 81 Mg Tablet.Dr) 81 mg PO DAILY [facility] Last Admin: 02/09/21 10:46 Dose: 81 mg Documented by: Atorvastatin Calcium (Atorvastatin Calcium 80 Mg Tablet) 80 mg PO DAILY [facility] Last Admin: 02/09/21 10:46 Dose: 80 mg Documented by: Buprenorphine/Naloxone (Buprenorphine/Naloxone 8/2 Mg Film) 1 film SUBLINGUAL BID [facility] Last Admin: 02/09/21 10:45 Dose: 1 film Documented by: Docusate Sodium (Docusate Sodium 100 Mg Capsule) 100 mg PO DAILY PRN PRN Reason: Constipation Enoxaparin Sodium (Enoxaparin Sodium 40 Mg/0.4 Ml Syringe) 40 mg SUBCUT Q24H [facility] Last Admin: 02/09/21 03:55 Dose: 40 mg Documented by: Gabapentin (Gabapentin 600 Mg Tablet) 600 mg PO TID [facility] Last Admin: 02/09/21 14:35 Dose: 600 mg Documented by: Lactated Ringer's (Lr) 1,000 mls @ 125 mls/hr IVCONT .Q8H [facility] Last Admin: 02/09/21 14:36 Dose: 125 mls/hr Documented by: Metformin HCl (Metformin Hcl 500 Mg Tablet) 500 mg PO BID [facility] Last Admin: 02/09/21 14:35 Dose: 500 mg Documented by: Nicotine (Nicotine 21 Mg Patch.Td24) 21 mg TRANSDERMA DAILY [facility] Last Admin: 02/09/21 14:34 Dose: 21 mg Documented by: Ondansetron HCl (Ondansetron Hcl 4 Mg/2 Ml Vial) 4 mg IVPUSH Q8H PRN PRN Reason: Nausea and Vomiting Home Medications Medication Instructions Recorded Confirmed Last Taken Type albuterol sulfate 90 mcg/actuation 2 puff INHALATION Q4-6H PRN 02/09/21 02/09/21 Unknown History aerosol inhaler buprenorphine 8 mg-naloxone 2 mg 1 strip SUBLINGUAL BID 02/09/21 02/09/21 Unknown History sublingual film (Suboxone) gabapentin 600 mg tablet 600 mg PO TID 02/09/21 02/09/21 Unknown History metformin 500 mg tablet 500 mg PO BID 02/09/21 02/09/21 Unknown History nicotine (polacrilex) 4 mg buccal 4 mg BUCCAL Q2-4H PRN 02/09/21 02/09/21 Unknown History lozenge nicotine 21 mg/24 hr daily 1 patch TRANSDERMAL DAILY 02/09/21 02/09/21 Unknown History transdermal patch Physical Exam Vital Signs: Vital Signs: Last Vital Signs Temp 97.5 F 02/09/21 08:00 Pulse 63 02/09/21 13:33 Resp 19 02/09/21 08:00 BP 126/71 02/09/21 13:33 Pulse Ox 99 02/09/21 13:33 Body Mass Index 23.0 Const: General: cooperative and no acute distress Orientation/consciousness: patient oriented x3 Eyes: General: appearance normal, both eyes and all related structures Pupils: Equal, round and reactive pupils present Resp: Effort & Inspection: normal respiratory effort Auscultation: clear to auscultation bilaterally Cardio: Rate: regular rate Rhythm: regular rhythm GI: Palpation (GI): Soft to palpation Auscultation: normal bowel sounds Skin: General skin exam: no rashes or lesions noted Neuro: Other: Facial asymmetry due to previous left mandible surgery, otherwise nonfocal examination with no drift. General: patient oriented x3 Cranial nerves: Yes Equal, round and reactive pupils present and Yes Normal hearing present Cognition (Neuro): normal cognition Extrem: General: Yes normal to inspection and Yes no pedal edema Results Labs CBC & Chem 7: 02/09/21 09:33 02/09/21 09:33 Labs: Short CBC 02/08/21 02/09/21 Range/Units 21:13 09:33 WBC 4.5 L 4.0 L (4.8-10.8) X10*3/uL Hgb 13.7 L 14.8 (14.0-18.0) g/dl Hct 40.6 L 45.4 (42-52) % Plt Count 226 243 (160-400) X10*3/uL BMP 02/08/21 02/09/21 02/09/21 21:13 09:33 09:33 Sodium 143 143 144 Potassium 3.8 3.8 3.8 Chloride 105 105 106 Carbon Dioxide 33 H 31 H 31 H BUN 16 11 11 Creatinine 0.99 0.97 0.99 Calcium 9.4 9.2 9.5 Cardiac Enzymes 02/08/21 02/09/21 02/09/21 Range/Units 21:13 09:33 09:33 Total Creatine Kinase 413 H 321 H 318 H (38-174) U/L Assessment and Plan (1) Mood disorder: Status: Acute Patient reports he has schizoaffective disorder, however at this time it is unclear as to an actual diagnosis of a mood disorder. He has reported he has been using illicit substances recently, including cocaine. (2) Substance use disorder: Status: Acute Left-sided paresthesia rule out small thalamic strokes. Recommendation MRI of the brain without contrast with sedation using lorazepam because of his claustrophobia. Counseling for drug use Procedures Date of Service Date of Service: 02/09/21
--- NOTE | 2021-02-09 15:32 | HO.PM.IMPN ---
Subjective Subjective Date of Service: 02/09/21 Interval History: ? tia Review of Systems patient says improving,has left sided paresthesia Physical Exam Vital Signs: Vital Signs: Last Vital Signs Temp 97.5 F 02/09/21 08:00 Pulse 63 02/09/21 13:33 Resp 19 02/09/21 08:00 BP 126/71 02/09/21 13:33 Pulse Ox 99 02/09/21 13:33 Body Mass Index 23.0 Appearance: Alert.? Oriented X3.? not in distress.? cvs: [id number], [id number] , no murmur res: clear to auscultation ,no rhonchii or wheezing abd: no rebound or guarding ,nt, bs present. ext pulses present , no cyanosis . neuro: Alert oriented, has left-sided paresthesia Otherwise moving all extremities Objective Data Active Medications Acetaminophen (Acetaminophen 325 Mg Tablet) 650 mg PO Q6H PRN PRN Reason: Pain, Mild (Pain Scale 1-3) Last Admin: 02/09/21 03:57 Dose: 650 mg Documented by: MADI Albuterol Sulfate (Albuterol Sulfate 90 Mcg 8 Gm Inhaler) 2 puff INHALE Q4H PRN PRN Reason: Shortness Of Breath Aspirin (Aspirin Enteric Coated 81 Mg Tablet.) 81 mg PO DAILY FORMERLY [facility], [facility] Last Admin: 02/09/21 10:46 Dose: 81 mg Documented by: ANI Atorvastatin Calcium (Atorvastatin Calcium 80 Mg Tablet) 80 mg PO DAILY FORMERLY [facility], [facility]1983 Last Admin: 02/09/21 10:46 Dose: 80 mg Documented by: ANI Buprenorphine/Naloxone (Buprenorphine/Naloxone 8/2 Mg Film) 1 film SUBLINGUAL BID FORMERLY [facility], [facility]1983 Last Admin: 02/09/21 10:45 Dose: 1 film Documented by: ANI Docusate Sodium (Docusate Sodium 100 Mg Capsule) 100 mg PO DAILY PRN PRN Reason: Constipation Enoxaparin Sodium (Enoxaparin Sodium 40 Mg/0.4 Ml Syringe) 40 mg SUBCUT Q24H FOR[facility]LY [facility], [facility]1983 Last Admin: 02/09/21 03:55 Dose: 40 mg Documented by: MADI Gabapentin (Gabapentin 600 Mg Tablet) 600 mg PO TID FOR[facility]LY [facility], [facility] Last Admin: 02/09/21 14:35 Dose: 600 mg Documented by: ANI Lactated Ringer's (Lr) 1,000 mls @ 125 mls/hr IVCONT .Q8H FOR[facility]LY [facility], [facility] Last Admin: 02/09/21 14:36 Dose: 125 mls/hr Documented by: ANI Metformin HCl (Metformin Hcl 500 Mg Tablet) 500 mg PO BID FOR[facility]LY [facility] Last Admin: 02/09/21 14:35 Dose: 500 mg Documented by: ANI Nicotine (Nicotine 21 Mg Patch.Td24) 21 mg TRANSDERMA DAILY FOR[facility] Last Admin: 02/09/21 14:34 Dose: 21 mg Documented by: ANI Ondansetron HCl (Ondansetron Hcl 4 Mg/2 Ml Vial) 4 mg IVPUSH Q8H PRN PRN Reason: Nausea and Vomiting Tramadol HCl (Tramadol Hcl 50 Mg Tablet) 25 mg PO Q6H PRN PRN Reason: Pain, Mild (Pain Scale 1-3) Labs CBC & Chem 7: 02/09/21 09:33 02/09/21 09:33 Labs: Laboratory Results - last 24 hr 02/08/21 02/08/21 02/08/21 20:14 20:15 21:13 MCV 90.0 MCH 30.4 MCHC 33.7 RDW 13.2 Plt Count 226 MPV 9.7 Immature Gran % (Auto) 0.0 Neut % (Auto) 60.4 Lymph % (Auto) 31.9 Hunt % (Auto) 6.2 Eos % (Auto) 1.1 Baso % (Auto) 0.4 Lymph # (Auto) 1.5 Hunt # (Auto) 0.3 Eos # (Auto) 0.1 Baso # (Auto) 0.0 Abs Immat Gran (auto) 0.00 Absolute Neuts (auto) 2.7 Absolute Nucleated RBC 0.000 Nucleated RBC % (auto) 0.0 PT Whole Blood PT 13.8 H INR Whole Blood INR 1.1 APTT Coag Specimen Comment Anion Gap Estim Creat Clear Calc Estimated GFR POC Glucose 153 H Random Glucose Estimat Average Glucose Hemoglobin A1c % Calcium Total Creatine Kinase Troponin I High Sens Triglycerides Cholesterol LDL Cholesterol, Calc HDL Cholesterol COVID-19 (DEANDRE) COVID-19 Clin Com 02/08/21 02/08/21 02/08/21 21:13 21:13 21:13 MCV MCH MCHC RDW Plt Count MPV Immature Gran % (Auto) Neut % (Auto) Lymph % (Auto) Hunt % (Auto) Eos % (Auto) Baso % (Auto) Lymph # (Auto) Hunt # (Auto) Eos # (Auto) Baso # (Auto) Abs Immat Gran (auto) Absolute Neuts (auto) Absolute Nucleated RBC Nucleated RBC % (auto) PT Whole Blood PT INR Whole Blood INR APTT Coag Specimen Comment Cancelled Anion Gap 9 L Estim Creat Clear Calc 89.5 Estimated GFR > 60 POC Glucose Random Glucose 78 D Estimat Average Glucose Hemoglobin A1c % Calcium 9.4 Total Creatine Kinase 413 H Troponin I High Sens < 3.5 Triglycerides Cholesterol LDL Cholesterol, Calc HDL Cholesterol COVID-19 (DEANDRE) COVID-19 Clin Com 02/08/21 02/08/21 02/08/21 21:13 21:30 23:04 MCV MCH MCHC RDW Plt Count MPV Immature Gran % (Auto) Neut % (Auto) Lymph % (Auto) Hunt % (Auto) Eos % (Auto) Baso % (Auto) Lymph # (Auto) Hunt # (Auto) Eos # (Auto) Baso # (Auto) Abs Immat Gran (auto) Absolute Neuts (auto) Absolute Nucleated RBC Nucleated RBC % (auto) PT 11.4 Whole Blood PT INR 1.0 Whole Blood INR APTT 35.9 Coag Specimen Comment DELAY Anion Gap Estim Creat Clear Calc Estimated GFR POC Glucose Random Glucose Estimat Average Glucose Hemoglobin A1c % Calcium Total Creatine Kinase Troponin I High Sens Triglycerides Cholesterol LDL Cholesterol, Calc HDL Cholesterol COVID-19 (DEANDRE) Negative COVID-19 Clin Com See Note 02/09/21 02/09/21 02/09/21 09:33 09:33 09:33 MCV 91.2 MCH 29.7 MCHC 32.6 RDW 13.2 Plt Count 243 MPV 9.7 Immature Gran % (Auto) 0.0 Neut % (Auto) 58.6 Lymph % (Auto) 33.5 Hunt % (Auto) 6.5 Eos % (Auto) 1.2 Baso % (Auto) 0.2 Lymph # (Auto) 1.4 Hunt # (Auto) 0.3 Eos # (Auto) 0.1 Baso # (Auto) 0.0 Abs Immat Gran (auto) 0.00 Absolute Neuts (auto) 2.4 Absolute Nucleated RBC 0.000 Nucleated RBC % (auto) 0.0 PT Whole Blood PT INR Whole Blood INR APTT Coag Specimen Comment Anion Gap 11 L Estim Creat Clear Calc 91.3 Estimated GFR > 60 POC Glucose Random Glucose 77 Estimat Average Glucose Hemoglobin A1c % Calcium 9.2 Total Creatine Kinase 321 H Troponin I High Sens Triglycerides 109 Cholesterol 158 LDL Cholesterol, Calc 79 HDL Cholesterol 58 COVID-19 (DEANDRE) COVID-19 Clin Com 02/09/21 02/09/21 09:33 09:33 MCV MCH MCHC RDW Plt Count MPV Immature Gran % (Auto) Neut % (Auto) Lymph % (Auto) Hunt % (Auto) Eos % (Auto) Baso % (Auto) Lymph # (Auto) Hunt # (Auto) Eos # (Auto) Baso # (Auto) Abs Immat Gran (auto) Absolute Neuts (auto) Absolute Nucleated RBC Nucleated RBC % (auto) PT Whole Blood PT INR Whole Blood INR APTT Coag Specimen Comment Anion Gap 11 L Estim Creat Clear Calc 89.5 Estimated GFR > 60 POC Glucose Random Glucose 75 Estimat Average Glucose 111 Hemoglobin A1c % 5.5 Calcium 9.5 Total Creatine Kinase 318 H Troponin I High Sens Triglycerides Cholesterol LDL Cholesterol, Calc HDL Cholesterol COVID-19 (DEANDRE) COVID-19 Clin Com Assessment and Plan (1) Elevated CPK: Status: Acute (2) Paresthesia: Status: Acute Assessment and Plan: 49-year-old male with reported history of CVA presents to the hospital with complaints of paresthesia of his left-side of his body 1. paresthesia- stroke versus secondary to drug use - no neurological deficits continue aspirin high-dose statin -? neurology consulted- MRI added 2. elevated CPK - patient homeless therefore this may be secondary to immobility - no kidney failure - will start on IV fluids - follow CPK level and BMP 3. asthma: continue home albuterol 4. dm : hold metformin , poc with sliding scale coverage. Quality Stroke Does the patient have a stroke diagnosis?: No VTE Prior VTE?: No VTE Risk Level:: Medical - moderate - high VTE Device Contraindication: Treatment Not Indicated VTE Drug Contraindication: N/A - Med Ordered
[2021-02-09 15:33] VITALS: BP 102/60; PULSE 66; RESP 14; TEMP 36.4; O2SAT 99
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
[2021-02-09] MEDS: LORazepam 2 MG/ML VIAL 1 MG IVPUSH (16:02)
[2021-02-09] MEDS: traMADoL HCL 50 MG TABLET 25 MG PO (16:03)
[2021-02-09 16:47] LABS: Glucose, Whole Blood 107 mg/dL (60-115)
[2021-02-09 16:50] LABS: Amphetamine Screen Urine Not Detected (Not Detect); Barbiturates, Urine Not Detected (Not Detect); Benzodiazepines Screen Urine Not Detected (Not Detect); Cannabinoid Screen Urine Not Detected (Not Detect); Cocaine Screen Urine POSITIVE (Not Detect); Fentanyl, urine Not Detected (Not Detect); Opiate Screen Urine Not Detected (Not Detect); Phencyclidine Screen Urine Not Detected (Not Detect)
[2021-02-09 19:29] VITALS: BP 141/64; PULSE 62; RESP 16; TEMP 36.1; O2SAT 99
[2021-02-09 20:33] LABS: Glucose, Whole Blood 116 mg/dL (60-115)
--- NOTE | 2021-02-09 22:40 | PC.NURSE ---
Patient sent down to MRI around 21:15, patient refused to go in unless he had more Ativan because he is claustrophobic. This nurse reluctant to ask for more at this time because patient was confused after last dose. Will tell doctors in the morning.
[2021-02-10] VITALS: BP 116/61; PULSE 75; RESP 18; TEMP 36.3; O2SAT 100
[2021-02-10] MEDS: Enoxaparin Sodium 40 MG/0.4 ML SYRINGE SUBCUT (00:09)
[2021-02-10 04:00] VITALS: BP 106/64; PULSE 73; RESP 18; TEMP 36.6; O2SAT 100
[2021-02-10] MEDS: Lactated Ringers 1,000 ML 125 ML IVCONT ×2 (06:04→15:06)
[2021-02-10 07:01] VITALS: BP 136/96; PULSE 66; RESP 20; TEMP 36.1; O2SAT 100
[2021-02-10 08:00] VITALS: BP 136/96; PULSE 66; RESP 20; TEMP 36.1; O2SAT 100
[2021-02-10 08:07] LABS: Glucose, Whole Blood 85 mg/dL (60-115)
[2021-02-10] MEDS: Gabapentin 600 MG TABLET PO ×2 (09:29→15:06)
[2021-02-10] MEDS: Buprenorphine/Naloxone 8/2 mg FILM 1 FILM SUBLINGUAL (09:29)
[2021-02-10] MEDS: metFORMIN HCl 500 MG TABLET PO (09:29)
[2021-02-10] MEDS: Aspirin Enteric Coated 81 MG TABLET.DR PO (09:29)
[2021-02-10] MEDS: Nicotine 21 MG PATCH.TD24 TRANSDERMA (09:29)
[2021-02-10] MEDS: Atorvastatin Calcium 80 MG TABLET PO (09:29)
[2021-02-10 11:23] VITALS: BP 112/58; PULSE 74; RESP 20; TEMP 36.8; O2SAT 99
[2021-02-10] MEDS: traMADoL HCL 50 MG TABLET 25 MG PO (11:28)
[2021-02-10] MEDS: LORazepam 2 MG/ML VIAL IVPUSH (11:28)
[2021-02-10 12:16] LABS: Glucose, Whole Blood 114 mg/dL (60-115)
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
== END 2021-02-10 17:36 | disposition home or self-care (01) | DRG 816 ==
LOC: HO.ED 23:07 → HO.EDOVER 02-09 00:37 → HO.S3 02-09 01:17
PROVIDERS: Admitting Provider Internal Medicine; Emergency Provider Emergency Medicine; Visit Provider Internal Medicine
DX: T40.5X1A Poisoning by cocaine, accidental (unintentional), initial encounter (principal); M62.82 Rhabdomyolysis; F11.20 Opioid dependence, uncomplicated; R20.2 Paresthesia of skin; Y92.9 Unspecified place or not applicable; F39 Unspecified mood [affective] disorder; F19.90 Other psychoactive substance use, unspecified, uncomplicated; Z20.822 Contact with and (suspected) exposure to COVID-19; Z86.73 Personal history of transient ischemic attack (TIA), and cerebral infarction without residual deficits; Z59.0 Homelessness; Z88.6 Allergy status to analgesic agent; Z79.82 Long term (current) use of aspirin; Z79.84 Long term (current) use of oral hypoglycemic drugs; Z79.899 Other long term (current) drug therapy
CPT/HCPCS: 36415; 70450; 70551; 71045; 73552; 73600; 80048; 80061; 80307; 82550; 82947; 83036; 84484; 85025; 85610; 85730; 87635; 93005; 97162; 97166; 99285; J1650; J2060

== ENCOUNTER 2021-02-19 13:40 | Emergency (ER) | payer BC, SELFPAY ==
[2021-02-19 14:00] VITALS: BP 108/70; PULSE 74; O2SAT 100
== END 2021-02-19 14:30 | disposition left against medical advice (07) ==
PROVIDERS: Emergency Provider Emergency Medicine
DX: M79.673 Pain in unspecified foot (principal)

== ENCOUNTER 2021-02-19 15:45 | Emergency (ER) | payer BC, SELFPAY ==
--- NOTE | ~2021-02-19 | XR_ITS ---
EXAMINATION: XR FOOT, BILATERAL CLINICAL INFORMATION: Foot pain. COMPARISON: None TECHNIQUE: 3 views right foot and 2 views left foot. Patient refused third view of the left foot FINDINGS: Right Foot: There is no visible fracture, dislocation or soft tissue abnormality. The ankle mortise and subtalar joints are normal. The intermetatarsal and metatarsophalangeal joints are normal as well. Left Foot: There is no visible acute fracture, dislocation seen. There is a small calcaneal heel enthesophyte. The ankle mortise and subtalar joints are normal. XR/XR foot LT 2V IMPRESSION: 1. Small calcaneal heel enthesophyte. No visible acute fracture, dislocation or subluxation seen. 2. Unremarkable right foot exam.
--- NOTE | ~2021-02-19 | XR_ITS ---
EXAMINATION: XR FOOT, BILATERAL CLINICAL INFORMATION: Foot pain. COMPARISON: None TECHNIQUE: 3 views right foot and 2 views left foot. Patient refused third view of the left foot FINDINGS: Right Foot: There is no visible fracture, dislocation or soft tissue abnormality. The ankle mortise and subtalar joints are normal. The intermetatarsal and metatarsophalangeal joints are normal as well. Left Foot: There is no visible acute fracture, dislocation seen. There is a small calcaneal heel enthesophyte. The ankle mortise and subtalar joints are normal. XR/XR foot RT 2V IMPRESSION: 1. Small calcaneal heel enthesophyte. No visible acute fracture, dislocation or subluxation seen. 2. Unremarkable right foot exam.
[2021-02-19 16:32] VITALS: BP 116/64; PULSE 69; RESP 19; TEMP 36.6; O2SAT 99; BMI 22.6
--- NOTE | 2021-02-19 16:41 | ED.GENADULT ---
HPI - General Adult General Chief complaint: General Medical Stated complaint: unk Time Seen by Provider: 02/19/21 16:40 Related Data Home Medications Medication Instructions Recorded Confirmed albuterol sulfate 90 mcg/actuation 2 puff INHALATION Q4-6H PRN 02/09/21 02/09/21 aerosol inhaler buprenorphine 8 mg-naloxone 2 mg 1 strip SUBLINGUAL BID 02/09/21 02/09/21 sublingual film (Suboxone) gabapentin 600 mg tablet 600 mg PO TID 02/09/21 02/09/21 metformin 500 mg tablet 500 mg PO BID 02/09/21 02/09/21 nicotine (polacrilex) 4 mg buccal 4 mg BUCCAL Q2-4H PRN 02/09/21 02/09/21 lozenge nicotine 21 mg/24 hr daily 1 patch TRANSDERMAL DAILY 02/09/21 02/09/21 transdermal patch Previous Rx's Medication Instructions Recorded aspirin 81 mg tablet,delayed 81 mg PO DAILY #30 tab 02/10/21 release Allergies Allergy/AdvReac Type Severity Reaction Status Date / Time ibuprofen Allergy Unknown Unknown Verified 01/23/21 19:29 Iodinated Contrast Media Allergy Unknown Unknown Verified 01/23/21 19:29 [Contrast Dye] shellfish derived Allergy Unknown Verified 01/31/21 00:47 [facility] Past Medical History Medical History CVA (cerebral vascular accident) Surgical History No significant past surgical history Social History Social History service: No Current occupational status: unemployed and other Physical Exam Vital Signs: Vital Signs: Last Vital Signs Temp 98 F 02/19/21 16:32 Pulse 69 02/19/21 16:32 Resp 19 02/19/21 16:32 BP 116/64 02/19/21 16:32 Pulse Ox 99 02/19/21 16:32 Body Mass Index 22.6 Course Course Course Narrative: Patient presents to the ED for bilateral plantar rash and in between toes and also foot pain due to walking all day. Patient informed he has fungal rash and can benefit from cream and be discharged, but patient refused. no ulcers on feet. patient wants work up. Xrays ordered. Rapid medical screening done in terms of imaging only Discharge Plan Discharge Prescriptions: No Action buprenorphine-naloxone [Suboxone] 8-2 mg film 1 strip sublingual BID RF: 0 metformin 500 mg Tablet 500 mg PO BID RF: 0 gabapentin 600 mg Tablet 600 mg PO TID RF: 0 nicotine 21 mg/24 hr Patch 24 Hour 1 patch TRANSDERMAL DAILY RF: 0 albuterol sulfate 90 mcg/actuation Hfa Aerosol Inhaler 2 puff INHALATION Q4-6H PRN (Reason: Shortness Of Breath) RF: 0 nicotine (polacrilex) 4 mg Lozenge 4 mg BUCCAL Q2-4H PRN (Reason: Nicotine Cravings) RF: 0 aspirin 81 mg Tablet,Delayed Release (Dr/Ec) 81 mg PO DAILY Qty: 30 RF: 0
--- NOTE | 2021-02-19 18:14 | PC.NURSE ---
PT NOT COOPERATIVE WITH RADIOLOGY. PROVIDER AT BEDSIDE TO TALK TO PATIENT IN [place]. PT SAYING CAN'T BEND R LEG. THEN CAN'T BEND LEFT LEG. THEN PATIENT BENDING BOTH LEGS. PT IS MOVING ALL EXTREMITIES FREELY AND FULL ROM. PT STATED TO PROVIDER LEAVE ME ALONE JUST LET ME SLEEP.
[2021-02-19 18:17] LABS: Glucose, Whole Blood 122 mg/dL (60-115)
[2021-02-19 18:42] LABS: MANUAL DIFF FLAG NO
[2021-02-19] MEDS: Acetaminophen 325 MG TABLET 975 MG PO (18:47)
[2021-02-19 18:49] LABS: Basophils Percent Auto 0.2 % (0-2); Eosinophils Absolute Auto 0.1 X10*3/uL (0.0-0.4); Eosinophils Percent Auto 1.3 % (0-4); Hemoglobin 12.8 g/dl (14.0-18.0); Imm Gran Abs Auto 0.01 X10*3/uL (0.00-0.03); Imm Gran Pct Auto 0.2 % (0.0-0.4); Lymphocytes Absolute Auto 2.2 X10*3/uL (1.2-4.9); Lymphocytes Percent Auto 40.7 % (20-40); Mean Corpuscular HGB Conc 33.7 g/dl (31.0-36.0); Mean Corpuscular Hemoglobin 29.9 pg (27.0-33.0); Mean Corpuscular Volume 88.8 fL (80-98); Mean Platelet Volume 9.7 fL (9.4-12.4); Monocytes Absolute Auto 0.5 X10*3/uL (0.1-1.2); Monocytes Percent Auto 9.2 % (2-11); Neutrophils Absolute Auto 2.6 X10*3/uL (2.0-8.3); Neutrophils Percent Auto 48.4 % (45-73); Platelet Count 222 X10*3/uL (160-400); Red Blood Count 4.28 X10*6/uL (4.60-5.80); Red Cell Distribution Width 12.9 % (11.0-16.0); White Blood Count 5.4 X10*3/uL (4.8-10.8)
--- NOTE | 2021-02-19 18:49 | ED_ITS ---
HPI - Extremity Problem General Chief complaint: General Medical <YAEL Fonseca - Last Filed: 02/19/21 19:16> Stated complaint: unk <YAEL Fonseca - Last Filed: 02/19/21 19:16> Time Seen by Provider: 02/19/21 16:40 <YAEL Fonseca - Last Filed: 02/19/21 19:16> Source: patient <YAEL Fonseca Last Filed: 02/19/21 19:16> Mode of arrival: ambulatory <YAEL Fonseca - Last Filed: 02/19/21 19:16> Limitations: language barrier (Cam[place]onian Speaking) <YAEL Fonseca Last Filed: 02/19/21 19:16> History of Present Illness HPI Narrative: 48-year-old Cam[place]onian-speaking male who is homeless presenting to the ED with complaints of pain to his bilateral feet with redness. He reports associated chills. He reports he may have an elevated blood glucose level due to he has not taking his blood glucose level in a few days. He denies any measured fevers, dizziness, headaches, change in vision, nausea/vomiting, neck pain or stiffness, chest pain or shortness of breath, dyspnea exertion, orthopnea, palpitations, abdominal pain, back pain, dysuria, hematuria, general weakness or focal weakness, recent travel or sick contacts or any other symptoms complaints or concerns at this time. Denies any recent falls or injuries. <YAEL Fonseca - Last Filed: 02/19/21 19:16> MD Complaint: extremity pain <YAEL Fonseca - Last Filed: 02/19/21 19:16> Onset (ago): day(s) <YAEL Fonseca - Last Filed: 02/19/21 19:16> Pain Consistency: constant <YAEL Fonseca Last Filed: 02/19/21 19:16> Location: left, right and lower extremity (Feet) <YAEL Fonseca Last Filed: 02/19/21 19:16> Severity scale (1-10): >10 <YAEL Fonseca - Last Filed: 02/19/21 19:16> Quality: aching and constant <YAEL Fonseca Last Filed: 02/19/21 19:16> Radiation: none <YAEL Fonseca - Last Filed: 02/19/21 19:16> Relieving factors: nothing <YAEL Fonseca - Last Filed: 02/19/21 19:16> Exacerbating factors: range of motion, weight bearing and walking <YAEL Fonseca - Last Filed: 02/19/21 19:16> Associated symptoms: other (Chills) <YAEL Fonseca - Last Filed: 02/19/21 19:16> Related Data Home medications: Home Medications Medication Instructions Recorded Confirmed albuterol sulfate 90 mcg/actuation 2 puff INHALATION Q4-6H PRN 02/09/21 02/09/21 aerosol inhaler buprenorphine 8 mg-naloxone 2 mg 1 strip SUBLINGUAL BID 02/09/21 02/09/21 sublingual film (Suboxone) gabapentin 600 mg tablet 600 mg PO TID 02/09/21 02/09/21 metformin 500 mg tablet 500 mg PO BID 02/09/21 02/09/21 nicotine (polacrilex) 4 mg buccal 4 mg BUCCAL Q2-4H PRN 02/09/21 02/09/21 lozenge nicotine 21 mg/24 hr daily 1 patch TRANSDERMAL DAILY 02/09/21 02/09/21 transdermal patch Previous Rx's Medication Instructions Recorded aspirin 81 mg tablet,delayed 81 mg PO DAILY #30 tab 02/10/21 release acetaminophen 500 mg tablet 1,000 mg PO QID PRN #14 tab 02/19/21 (Tylenol Extra Strength) cephalexin 500 mg capsule 500 mg PO Q6H 10 Days #40 cap 02/19/21 clotrimazole 1 % topical ointment 1 appl TOPICAL BID 56 Days #56.7 g 02/19/21 doxycycline hyclate 100 mg tablet 100 mg PO BID 10 Days #20 tab 02/19/21 fluconazole 150 mg tablet 150 mg PO Q3D #2 tab 02/19/21 (Diflucan) <YAEL Fonseca Last Filed: 02/19/21 19:16> Allergies/Adverse reactions: Allergies Allergy/AdvReac Type Severity Reaction Status Date / Time ibuprofen Allergy Unknown Unknown Verified 01/23/21 19:29 Iodinated Contrast Media Allergy Unknown Unknown Verified 01/23/21 19:29 [Contrast Dye] shellfish derived Allergy Unknown Verified 01/31/21 00:47 <YAEL Fonseca - Last Filed: 02/19/21 19:16> Review of Systems Review of Systems: Constitutional : + Chills, No Weight loss, No Fever, No Chills, No Night Sweats, No Fatigue, No Malaise ENT/Mouth : No Hearing loss, No Ear Pain, No Nasal Congestion, No Sinus Pain, No Hoarseness, No sore throat, No Rhinorrhea, No Swallowing Difficulty Eyes: No Eye Pain, No Swelling, No Redness, No Foreign Body, No Discharge, No Vision Changes Cardiovascular : No Chest Pain, No SOB, No Dyspnea on Exertion, No Orthopnea, No Edema, No Palpitations Respiratory : No Cough, No Sputum, No Wheezing, No Smoke Exposure, No Dyspnea Gastrointestinal : No Nausea, No Vomiting, No Diarrhea, No Constipation, No abdominal Pain, No Hematochezia, No Melena Genitourinary : no irregular bleeding, No Dysuria, No Urinary Frequency, No Hematuria, No Urinary Incontinence, No Urgency, No Flank Pain, No Urinary Flow Changes, No Hesitancy Musculoskeletal : + b/l feet pain, No joint pain, No Myalgias, No Joint Swelling Skin : + fungal infection to b/l feet and between toes Neuro : No Weakness, No Numbness, No Paresthesias, No Loss of Consciousness, No Dizziness, No Headache Psych : + Homeless, No Anxiety/Panic, No Depression, No SI/HI/AH/VH Heme/Lymph: No Bruising, No Bleeding,No Lymphadenopathy Endocrine : No Polyuria, No Polydipsia, No Temperature Intolerance <YAEL Fonseca - Last Filed: 02/19/21 19:16> Yes all other systems are reviewed and are negative <YAEL Fonseca - Last Filed: 02/19/21 19:16> [facility] Past Medical History Attestation statement: The following information was validated with the patient. <YAEL Fonseca - Last Filed: 02/19/21 19:16> Medical History: Medical History CVA (cerebral vascular accident) Mood disorder <YAEL Fonseca Last Filed: 02/19/21 19:16> Surgical History: Surgical History No significant past surgical history <YAEL Fonseca - Last Filed: 02/19/21 19:16> Social History Social History: Social History Advance Directives: No Advance Directives Information Provided: No service: No Current occupational status: unemployed and other <YAEL Fonseca - Last Filed: 02/19/21 19:16> Physical Exam Vital Signs: Vital Signs: Last Vital Signs Temp 98.4 F 02/19/21 20:00 Pulse 73 02/19/21 20:00 Resp 18 02/19/21 20:00 BP 127/64 02/19/21 20:00 Pulse Ox 97 02/19/21 20:00 Body Mass Index 22.6 vital signs have been reviewed as normal and appeared to be correct. Blood pressure normal. Heart rate normal. Respiration rate normal. Temperature normal. Oxygen saturation normal. <YAEL Fonseca - Last Filed: 02/19/21 19:16> Vital Signs: Last Vital Signs Temp 98.4 F 02/19/21 20:00 Pulse 73 02/19/21 20:00 Resp 18 02/19/21 20:00 BP 127/64 02/19/21 20:00 Pulse Ox 97 02/19/21 20:00 Body Mass Index 22.6 <YAEL Garza - Last Filed: 02/20/21 15:29> Appearance: Alert. Oriented X3. No acute distress. Head: Normal external exam. Normocephalic. Atraumatic. Eyes: PERRLA. EOMI. Conjunctiva and sclera normal. Eyelids normal. ENT: Pharynx normal. Uvula midline. Moist mucous membranes. Neck: Normal inspection. Neck supple. FROM. No adenopathy. No meningeal signs. CVS: Normal heart rate and rhythm. Heart sound normal. Pulses normal throughout. No murmurs/rales/gallops. Respiratory: No respiratory distress. Painless inspiration. Breath sounds normal. No wheezes/rales/rhonchi noted. Chest nontender. No accessory muscle usage noted or decreased air movement noted. Back:Full range of motion noted. No rashes/lesion/induration/fluctuance or signs of infection noted. Skin: Skin warm and dry. Normal skin color. Normal skin turgor. Bilateral feet are erythematous and macerated and between the toes patient has severe onychomycosis. No purulent drainage/fluctuance/streaking/induration noted. No additional rashes/lesions/lacerations noted. Extremities: Patient with moderate to severe tenderness to bilateral feet. No bony tenderness is noted. No obvious deformities are noted. No lower extremity edema. No calf tenderness are noted. Otherwise all other extremities exhibit normal range of motion and nontender. Neuro: Oriented X 3. No motor deficit. No sensory deficit. Reflexes normal. Normal steady gait. No focal neuro deficits noted. Vascular: + radial pulses/+ 2 distal pedal pulses/+2 dorsalis pedis b/l. Normal cap refill. No cyanosis noted to upper extremity nails and lower extremity toes nails. <YAEL Fonseca - Last Filed: 02/19/21 19:16> Course Course Course Narrative: 18pm - 40-year-old male who is Cam[place]onian-speaking only currently homeless presenting to the ED with pain to his bilateral feet for days worse today. On exam patient is noted to have erythema/maceration and onychomycosis. No streak ing/induration/purulent drainage or fluctuance. Plan: Labs, bilateral foot x-ray then re-evaluate. <YAEL Fonseca - Last Filed: 02/19/21 19:16> Reevaluation(s) Reevaluation #1: - patient mild anemia worse when compared to prior therefore I explained to him the importance of doing a rectal exam to evaluate for possible rectal bleeding/stool occult although patient adamantly refused. - anion gap 11. - random glucose 122. - total bilirubin 1.2. - CRP 1.30. - Covarrubias swab is negative. - x-rays revealed chronic changes no acute processes were noted. Not consistent with osteo. - Cpk is still pending at this time. - sign out to ALEENA Robison if CPK is within normal limits patient will be discharged with antibiotics for cellulitic infection and antifungal for onychomycosis <YAEL Fonseca Last Filed: 02/19/21 19:16> Time: 19:04 <YAEL Fonseca Last Filed: 02/19/21 19:16> Reevaluation #2: Patient's CPK normal. Labs reviewed showing normal. X-ray negative for fracture. Patient to be discharged. <YAEL Garza - Last Filed: 02/20/21 15:29> Time: 20:40 <YAEL Garza - Last Filed: 02/20/21 15:29> MDM - Extremity (Nontraumatic) Lab Data Attestation: I reviewed the patient's lab results. <YAEL Fonseca - Last Filed: 02/19/21 19:16> Result diagrams: : 02/19/21 18:36 02/19/21 18:36 <YAEL Fonseca - Last Filed: 02/19/21 19:16> Labs: Lab Results 02/19/21 02/19/21 02/19/21 Range/Units 18:13 18:36 18:36 WBC 5.4 (4.8-10.8) X10*3/uL RBC 4.28 L (4.60-5.80) X10*6/uL Hgb 12.8 L (14.0-18.0) g/dl Hct 38.0 L (42-52) % MCV 88.8 (80-98) fL MCH 29.9 (27.0-33.0) pg MCHC 33.7 (31.0-36.0) g/dl RDW 12.9 (11.0-16.0) % Plt Count 222 (160-400) X10*3/uL MPV 9.7 (9.4-12.4) fL Immature Gran % (Auto) 0.2 (0.0-0.4) % Neut % (Auto) 48.4 (45-73) % Lymph % (Auto) 40.7 H (20-40) % [place] % (Auto) 9.2 (2-11) % Eos % (Auto) 1.3 (0-4) % Baso % (Auto) 0.2 (0-2) % Lymph # (Auto) 2.2 (1.2-4.9) X10*3/uL [place] # (Auto) 0.5 (0.1-1.2) X10*3/uL Eos # (Auto) 0.1 (0.0-0.4) X10*3/uL Baso # (Auto) 0.0 (0.0-0.2) X10*3/uL Abs Immat Gran (auto) 0.01 (0.00-0.03) X10*3/uL Absolute Neuts (auto) 2.6 (2.0-8.3) X10*3/uL Absolute Nucleated RBC 0.000 (0.0-0.012) X10*3/uL Nucleated RBC % (auto) 0.0 (0.0-0.2) /100WBC ESR 7 (0-15) MM/HR Sodium (135-145) mmol/L Potassium (3.3-5.1) mmol/L Chloride (96-108) mmol/L Carbon Dioxide (22-29) mmol/L Anion Gap (12-20) BUN (9-16) mg/dL Creatinine (0.5-1.4) mg/dL Estim Creat Clear Calc Estimated GFR POC Glucose 122 H (60-115) mg/dL Random Glucose (60-115) mg/dL Calcium (8.4-10.2) mg/dL Magnesium (1.6-2.6) mg/dL Total Bilirubin (0.0-1.0) mg/dL AST (5-37) U/L ALT (0-40) U/L Alkaline Phosphatase (39-117) U/L Total Creatine Kinase (38-174) U/L C-Reactive Protein (< or = 0.50) mg/dL Total Protein (6.5-8.0) g/dL Albumin (3.5-5.0) g/dL COVID-19 (DEANDRE) (Negative) COVID-19 Clin Com 02/19/21 02/19/21 Range/Units 18:36 18:36 WBC (4.8-10.8) X10*3/uL RBC (4.60-5.80) X10*6/uL Hgb (14.0-18.0) g/dl Hct (42-52) % MCV (80-98) fL MCH (27.0-33.0) pg MCHC (31.0-36.0) g/dl RDW (11.0-16.0) % Plt Count (160-400) X10*3/uL MPV (9.4-12.4) fL Immature Gran % (Auto) (0.0-0.4) % Neut % (Auto) (45-73) % Lymph % (Auto) (20-40) % [place] % (Auto) (2-11) % Eos % (Auto) (0-4) % Baso % (Auto) (0-2) % Lymph # (Auto) (1.2-4.9) X10*3/uL [place] # (Auto) (0.1-1.2) X10*3/uL Eos # (Auto) (0.0-0.4) X10*3/uL Baso # (Auto) (0.0-0.2) X10*3/uL Abs Immat Gran (auto) (0.00-0.03) X10*3/uL Absolute Neuts (auto) (2.0-8.3) X10*3/uL Absolute Nucleated RBC (0.0-0.012) X10*3/uL Nucleated RBC % (auto) (0.0-0.2) /100WBC ESR (0-15) MM/HR Sodium 140 (135-145) mmol/L Potassium 3.5 (3.3-5.1) mmol/L Chloride 104 (96-108) mmol/L Carbon Dioxide 29 (22-29) mmol/L Anion Gap 11 L (12-20) BUN 10 (9-16) mg/dL Creatinine 0.88 (0.5-1.4) mg/dL Estim Creat Clear Calc 115.9 Estimated GFR > 60 POC Glucose (60-115) mg/dL Random Glucose 122 H D (60-115) mg/dL Calcium 9.3 (8.4-10.2) mg/dL Magnesium 2.1 (1.6-2.6) mg/dL Total Bilirubin 1.2 H (0.0-1.0) mg/dL AST 23 (5-37) U/L ALT 25 (0-40) U/L Alkaline Phosphatase 52 (39-117) U/L Total Creatine Kinase 365 H D (38-174) U/L C-Reactive Protein 1.30 H (< or = 0.50) mg/dL Total Protein 6.8 (6.5-8.0) g/dL Albumin 4.1 (3.5-5.0) g/dL COVID-19 (DEANDRE) Negative (Negative) COVID-19 Clin Com See Note <YAEL Fonseca - Last Filed: 02/19/21 19:16> Lab Results 02/19/21 02/19/21 02/19/21 Range/Units 18:13 18:36 18:36 WBC 5.4 (4.8-10.8) X10*3/uL RBC 4.28 L (4.60-5.80) X10*6/uL Hgb 12.8 L (14.0-18.0) g/dl Hct 38.0 L (42-52) % MCV 88.8 (80-98) fL MCH 29.9 (27.0-33.0) pg MCHC 33.7 (31.0-36.0) g/dl RDW 12.9 (11.0-16.0) % Plt Count 222 (160-400) X10*3/uL MPV 9.7 (9.4-12.4) fL Immature Gran % (Auto) 0.2 (0.0-0.4) % Neut % (Auto) 48.4 (45-73) % Lymph % (Auto) 40.7 H (20-40) % [place] % (Auto) 9.2 (2-11) % Eos % (Auto) 1.3 (0-4) % Baso % (Auto) 0.2 (0-2) % Lymph # (Auto) 2.2 (1.2-4.9) X10*3/uL [place] # (Auto) 0.5 (0.1-1.2) X10*3/uL Eos # (Auto) 0.1 (0.0-0.4) X10*3/uL Baso # (Auto) 0.0 (0.0-0.2) X10*3/uL Abs Immat Gran (auto) 0.01 (0.00-0.03) X10*3/uL Absolute Neuts (auto) 2.6 (2.0-8.3) X10*3/uL Absolute Nucleated RBC 0.000 (0.0-0.012) X10*3/uL Nucleated RBC % (auto) 0.0 (0.0-0.2) /100WBC ESR 7 (0-15) MM/HR Sodium (135-145) mmol/L Potassium (3.3-5.1) mmol/L Chloride (96-108) mmol/L Carbon Dioxide (22-29) mmol/L Anion Gap (12-20) BUN (9-16) mg/dL Creatinine (0.5-1.4) mg/dL Estim Creat Clear Calc Estimated GFR POC Glucose 122 H (60-115) mg/dL Random Glucose (60-115) mg/dL Calcium (8.4-10.2) mg/dL Magnesium (1.6-2.6) mg/dL Total Bilirubin (0.0-1.0) mg/dL AST (5-37) U/L ALT (0-40) U/L Alkaline Phosphatase (39-117) U/L Total Creatine Kinase (38-174) U/L C-Reactive Protein (< or = 0.50) mg/dL Total Protein (6.5-8.0) g/dL Albumin (3.5-5.0) g/dL COVID-19 (DEANDRE) (Negative) COVID-19 Clin Com 02/19/21 02/19/21 Range/Units 18:36 18:36 WBC (4.8-10.8) X10*3/uL RBC (4.60-5.80) X10*6/uL Hgb (14.0-18.0) g/dl Hct (42-52) % MCV (80-98) fL MCH (27.0-33.0) pg MCHC (31.0-36.0) g/dl RDW (11.0-16.0) % Plt Count (160-400) X10*3/uL MPV (9.4-12.4) fL Immature Gran % (Auto) (0.0-0.4) % Neut % (Auto) (45-73) % Lymph % (Auto) (20-40) % [place] % (Auto) (2-11) % Eos % (Auto) (0-4) % Baso % (Auto) (0-2) % Lymph # (Auto) (1.2-4.9) X10*3/uL [place] # (Auto) (0.1-1.2) X10*3/uL Eos # (Auto) (0.0-0.4) X10*3/uL Baso # (Auto) (0.0-0.2) X10*3/uL Abs Immat Gran (auto) (0.00-0.03) X10*3/uL Absolute Neuts (auto) (2.0-8.3) X10*3/uL Absolute Nucleated RBC (0.0-0.012) X10*3/uL Nucleated RBC % (auto) (0.0-0.2) /100WBC ESR (0-15) MM/HR Sodium 140 (135-145) mmol/L Potassium 3.5 (3.3-5.1) mmol/L Chloride 104 (96-108) mmol/L Carbon Dioxide 29 (22-29) mmol/L Anion Gap 11 L (12-20) BUN 10 (9-16) mg/dL Creatinine 0.88 (0.5-1.4) mg/dL Estim Creat Clear Calc 115.9 Estimated GFR > 60 POC Glucose (60-115) mg/dL Random Glucose 122 H D (60-115) mg/dL Calcium 9.3 (8.4-10.2) mg/dL Magnesium 2.1 (1.6-2.6) mg/dL Total Bilirubin 1.2 H (0.0-1.0) mg/dL AST 23 (5-37) U/L ALT 25 (0-40) U/L Alkaline Phosphatase 52 (39-117) U/L Total Creatine Kinase 365 H D (38-174) U/L C-Reactive Protein 1.30 H (< or = 0.50) mg/dL Total Protein 6.8 (6.5-8.0) g/dL Albumin 4.1 (3.5-5.0) g/dL COVID-19 (DEANDRE) Negative (Negative) COVID-19 Clin Com See Note <YAEL Garza - Last Filed: 02/20/21 15:29> Imaging Data Bilateral feet x-ray: Attestation: I personally reviewed and interpreted this imaging study as follows: <YAEL Fonseca - Last Filed: 02/19/21 19:16> Radiologist's impression: FINDINGS: Right Foot: There is no visible fracture, dislocation or soft tissue abnormality. The ankle mortise and subtalar joints are normal. The intermetatarsal and metatarsophalangeal joints are normal as well. Left Foot: There is no visible acute fracture, dislocation seen. There is a small calcaneal heel enthesophyte. The ankle mortise and subtalar joints are normal.? XR/XR foot RT 2V IMPRESSION: 1. Small calcaneal heel enthesophyte. No visible acute fracture, dislocation or subluxation seen. ? 2. Unremarkable right foot exam.? <YAEL Fonseca - Last Filed: 02/19/21 19:16> Discharge Plan Discharge Clinical Impression: Cellulitis, Onychomycosis <YAEL Fonseca Last Filed: 02/19/21 19:16> Patient Disposition: Home, Self-Care <YAEL Fonseca Last Filed: 02/19/21 19:16> Instructions: Cellulitis (ED), Skin Yeast Infection (ED) <YAEL Fonseca Last Filed: 02/19/21 19:16> Additional Instructions: You were treated for skin infection and foot fungus. Blood work and x-ray came back normal. Return to the ED for worsening foot pain, swelling, redness, calf pain, fever, chills, chest pain, shortness of breath, or any other concerning symptoms. Please follow-up with primary care provider and chicken tender. <YAEL Fonseca Last Filed: 02/19/21 19:16> Prescriptions: New cephalexin 500 mg capsule 500 mg PO Q6H 10 Days Qty: 40 RF: 0 clotrimazole 1 % ointment 1 appl topical BID 56 Days Qty: 56.7 RF: 3 doxycycline hyclate 100 mg tablet 100 mg PO BID 10 Days Qty: 20 RF: 0 fluconazole [Diflucan] 150 mg tablet 150 mg PO Q3D Qty: 2 RF: 0 acetaminophen [Tylenol Extra Strength] 500 mg tablet 1,000 mg PO QID PRN (Reason: fever or pain) Qty: 14 RF: 0 No Action buprenorphine-naloxone [Suboxone] 8-2 mg film 1 strip sublingual BID RF: 0 metformin 500 mg Tablet 500 mg PO BID RF: 0 gabapentin 600 mg Tablet 600 mg PO TID RF: 0 nicotine 21 mg/24 hr Patch 24 Hour 1 patch TRANSDERMAL DAILY RF: 0 albuterol sulfate 90 mcg/actuation Hfa Aerosol Inhaler 2 puff INHALATION Q4-6H PRN (Reason: Shortness Of Breath) RF: 0 nicotine (polacrilex) 4 mg Lozenge 4 mg BUCCAL Q2-4H PRN (Reason: Nicotine Cravings) RF: 0 aspirin 81 mg Tablet,Delayed Release (Dr/Ec) 81 mg PO DAILY Qty: 30 RF: 0 <YAEL Fonseca - Last Filed: 02/19/21 19:16> Referrals: Jaguar Hogan [Physician] - 2 days <YAEL Fonseca - Last Filed: 02/19/21 19:16> Interventions: ED Discharge Assessment Last Done: 02/19/21 20:48 <YAEL Fonseca - Last Filed: 02/19/21 19:16> Discharge Date/Time: 02/19/21 21:19 <YAEL Fonseca - Last Filed: 02/19/21 19:16> Print Language: Cam[place]onian <YAEL Fonseca - Last Filed: 02/19/21 19:16>
[2021-02-19 18:57] LABS: COVID-19 Test Negative (Negative)
[2021-02-19 19:00] LABS: Alanine Aminotransferase 25 U/L (0-40); Albumin Level 4.1 g/dL (3.5-5.0); Alkaline Phosphatase 52 U/L (39-117); Anion Gap 11 (12-20); Aspartate Amino Transferase 23 U/L (5-37); Bilirubin Total 1.2 mg/dL (0.0-1.0); Blood Urea Nitrogen 10 mg/dL (9-16); Calcium 9.3 mg/dL (8.4-10.2); Carbon Dioxide 29 mmol/L (22-29); Chloride 104 mmol/L (96-108); Creatinine Clr Calc Pharmacy 115.9; Estimated Glomerular Filt Rate > 60; Glucose Random 122 mg/dL (60-115); Magnesium 2.1 mg/dL (1.6-2.6); Potassium 3.5 mmol/L (3.3-5.1); Sodium 140 mmol/L (135-145); Total Protein 6.8 g/dL (6.5-8.0)
[2021-02-19 19:36] LABS: Erythrocyte Sedimentation Rate 7 MM/HR (0-15)
[2021-02-19 20:00] VITALS: BP 127/64; PULSE 73; RESP 18; TEMP 36.9; O2SAT 97
[2021-02-19] MEDS: cephALEXin 500 MG CAPSULE PO (21:14)
--- NOTE | 2021-02-19 21:16 | PC.NURSE ---
FIRST DOSE OF ABX GIVEN PRIOR TO D/C. PT ALSO GIVEN SANDWICH AND JUICE. PT WAS REFUSING TO LEAVE. CHARGE NURSE SPOKE WITH PATIENT. LABS WNL. XRAYS WNL. SECURITY ESCORTED PAT TO [facility] VIA WHEEL CHAIR. PT TO ARRANGE RIDE OR WAIT FOR BUS IN AM.
== END 2021-02-19 21:19 | disposition home or self-care (01) ==
PROVIDERS: Physician Assistant Medical; Emergency Provider Emergency Medicine
DX: L03.119 Cellulitis of unspecified part of limb (principal); B35.1 Tinea unguium; M79.672 Pain in left foot; M79.671 Pain in right foot; Z20.822 Contact with and (suspected) exposure to COVID-19; Z79.899 Other long term (current) drug therapy
CPT/HCPCS: 36415; 73620; 80053; 82550; 82947; 83735; 85025; 85652; 86140; 87635; 99284

== ENCOUNTER 2021-04-28 07:48 | Emergency (ER) | payer BC, SELFPAY ==
--- NOTE | ~2021-04-28 | XR_ITS ---
EXAMINATION: XR CHEST CLINICAL INFORMATION: Right-sided bronchi COMPARISON: Previous chest x-ray January 2021 TECHNIQUE: 2 views of the chest were obtained. FINDINGS: No significant abnormality is noted involving the heart, lungs, mediastinum, bony thorax or soft tissues. There are degenerative changes of the spine. XR/XR chest 2V IMPRESSION: No evidence for acute disease in the chest.
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
[2021-04-28 08:12] VITALS: BP 104/58; BP 134/71; PULSE 73; PULSE 87; RESP 16; TEMP 35.6; O2SAT 97; O2SAT 98; BMI 23.7
[2021-04-28 09:05] LABS: MANUAL DIFF FLAG NO
[2021-04-28 09:11] LABS: Basophils Percent Auto 0.4 % (0-2); Eosinophils Percent Auto 0.9 % (0-4); Hematocrit 44.6 % (42.0-52.0); Hemoglobin 14.5 g/dl (14.0-18.0); Imm Gran Abs Auto 0.01 X10*3/uL (0.00-0.03); Imm Gran Pct Auto 0.2 % (0.0-0.4); Lymphocytes Absolute Auto 0.9 X10*3/uL (1.2-4.9); Lymphocytes Percent Auto 20.7 % (20-40); Mean Corpuscular HGB Conc 32.5 g/dl (31.0-36.0); Mean Corpuscular Hemoglobin 29.5 pg (27.0-33.0); Mean Corpuscular Volume 90.7 fL (80.0-98.0); Mean Platelet Volume 9.4 fL (9.4-12.4); Monocytes Absolute Auto 0.4 X10*3/uL (0.1-1.2); Neutrophils Absolute Auto 3.1 x10*3/uL (2.0-8.3); Neutrophils Percent Auto 68.8 % (45-73); Platelet Count 216 X10*3/uL (160-400); Red Blood Count 4.92 X10*6/uL (4.60-5.80); Red Cell Distribution Width 12.9 % (11.0-16.0); White Blood Count 4.5 X10*3/uL (4.8-10.8)
[2021-04-28 09:24] LABS: COVID-19 Test Negative (Negative); IDNOW Serial# 9DD0AD1C
[2021-04-28 09:41] LABS: Alanine Aminotransferase 21 U/L (0-40); Albumin Level 4.3 g/dL (3.5-5.0); Alkaline Phosphatase 51 U/L (39-117); Anion Gap 11 (12-20); Aspartate Amino Transferase 25 U/L (5-37); Bilirubin Direct 0.5 mg/dL (0.0-0.5); Bilirubin Total 1.3 mg/dL (0.0-1.0); Blood Urea Nitrogen 12 mg/dL (9-16); Calcium 9.6 mg/dL (8.4-10.2); Carbon Dioxide 29 mmol/L (22-29); Chloride 104 mmol/L (96-108); Creatinine Clr Calc Pharmacy 100.5; Estimated Glomerular Filt Rate > 60; Glucose Random 91 mg/dL (60-115); Magnesium 2.2 mg/dL (1.6-2.6); Potassium 4.1 mmol/L (3.3-5.1); Sodium 140 mmol/L (135-145); Total Protein 7.2 g/dL (6.5-8.0)
[2021-04-28 09:42] LABS: IDNOW Serial# 9DD0AD1C; Strep A Nucleic Acid Positive (Negative)
--- NOTE | 2021-04-28 10:15 | PC.NURSE ---
pt is not at bedside, mlp Sis aware.
== END 2021-04-28 10:20 | disposition left against medical advice (07) ==
PROVIDERS: Physician Assistant; Emergency Provider Emergency Medicine
DX: J02.0 Streptococcal pharyngitis (principal); R68.84 Jaw pain; Z20.822 Contact with and (suspected) exposure to COVID-19; F19.10 Other psychoactive substance abuse, uncomplicated; F11.20 Opioid dependence, uncomplicated; Z86.73 Personal history of transient ischemic attack (TIA), and cerebral infarction without residual deficits; Z59.00 Homelessness unspecified
CPT/HCPCS: 36415; 71046; 80048; 80076; 83735; 85025; 87635; 87651; 99283

== ENCOUNTER 2021-04-29 12:11 | Emergency (ER) | payer BC, SELFPAY ==
[2021-04-29 12:16] VITALS: BP 115/78; PULSE 78; RESP 18; TEMP 36.9; O2SAT 100; BMI 20.9
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
[2021-04-29] MEDS: Penicillin G Benzathine 2,400,000 UNIT/4 ML SYRINGE 2400000 UNIT IM (12:30)
[2021-04-29] MEDS: Cyclobenzaprine HCl 10 MG TABLET PO (12:31)
== END 2021-04-29 12:46 | disposition home or self-care (01) ==
LOC: HO.ED 12:42
PROVIDERS: Emergency Provider Emergency Medicine
DX: J02.0 Streptococcal pharyngitis (principal); M26.603 Bilateral temporomandibular joint disorder, unspecified; F19.90 Other psychoactive substance use, unspecified, uncomplicated; Z86.73 Personal history of transient ischemic attack (TIA), and cerebral infarction without residual deficits
CPT/HCPCS: 96372; 99284; J0561

== ENCOUNTER 2021-05-09 07:52 | Emergency (ER) | payer BC, SELFPAY ==
[2021-05-09 08:01] VITALS: BP 100/61; PULSE 63; RESP 18; TEMP 37; O2SAT 97
[2021-05-09 08:19] VITALS: BP 100/61; BP 120/76; PULSE 62; PULSE 63; RESP 18; TEMP 36.8; O2SAT 96; O2SAT 97; BMI 24.4
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
== END 2021-05-09 09:00 | disposition home or self-care (01) ==
PROVIDERS: Emergency Provider Emergency Medicine Emergency Medical Services
DX: J45.20 Mild intermittent asthma, uncomplicated (principal); R06.02 Shortness of breath; Z79.899 Other long term (current) drug therapy
CPT/HCPCS: 99283

== ENCOUNTER 2021-05-23 09:27 | Emergency (ER) | payer BC, SELFPAY ==
[2021-05-23 09:32] VITALS: BP 118/70; PULSE 64; O2SAT 98
[2021-05-23 09:46] LABS: Glucose, Whole Blood 97 mg/dL (60-115)
== END 2021-05-23 13:59 | disposition left against medical advice (07) ==
PROVIDERS: Emergency Provider Emergency Medicine
DX: Z04.3 Encounter for examination and observation following other accident (principal)
CPT/HCPCS: 82947; 99282

== ENCOUNTER 2021-05-25 07:27 | Emergency (ER) | payer BC, SELFPAY ==
[2021-05-25 07:31] VITALS: BP 112/62; PULSE 64; O2SAT 100
== END 2021-05-25 09:41 | disposition left against medical advice (07) ==
PROVIDERS: Emergency Provider Emergency Medicine
DX: R06.02 Shortness of breath (principal)

== ENCOUNTER 2021-06-13 10:44 | Emergency (ER) | payer BC, SELFPAY ==
--- NOTE | ~2021-06-13 | XR_ITS ---
EXAMINATION: XR HAND, RIGHT CLINICAL INFORMATION: Fall. COMPARISON: None TECHNIQUE: PA, lateral, and oblique views of the right hand. FINDINGS: The bones and soft tissues are normal. No fracture. Alignment is anatomic. Joint spaces are maintained. No erosions or soft tissue calcifications. XR/XR hand RT 2V IMPRESSION: Unremarkable right hand.
[2021-06-13 10:50] VITALS: BP 146/65; PULSE 77; O2SAT 100
[2021-06-13 11:06] VITALS: BP 120/64; PULSE 69; RESP 16; TEMP 37; O2SAT 98; BMI 22.3
--- NOTE | 2021-06-13 11:31 | ED_ITS ---
HPI - General Adult General Chief complaint: General Medical <YAEL Dickerson - Last Filed: 06/13/21 13:43> Stated complaint: FALL, RT HAND PAIN/NUMBNESS <YAEL Dickerson - Last Filed: 06/13/21 13:43> Time Seen by Provider: 06/13/21 11:11 <YAEL Dickerson - Last Filed: 06/13/21 13:43> Source: patient <YAEL Dickerson - Last Filed: 06/13/21 13:43> Mode of arrival: ambulatory <YAEL Dickerson - Last Filed: 06/13/21 13:43> History of Present Illness HPI narrative: 40-year-old male with a PMHx asthma, CVA, DM, mood disorder, neuropathy, opiate abuse on Suboxone, presenting to the ED complaining of right hand pain, numbness/tingling s/p mechanical fall yesterday downhill. Denies symptoms prior to fall, denies head trauma or LOC. Reports acute on chronic numbness to right hand s/p CVA. Also requesting Suboxone, states was not dosed the past 2 days, because he will not go back to his clinic because they are racist. Denies opiate/drug abuse, weakness, fever, chills, injury to other area <YAEL Dickerson - Last Filed: 06/13/21 13:43> Onset (ago): day(s) <YAEL Dickerson - Last Filed: 06/13/21 13:43> Related Data Home medications: Home Medications Medication Instructions Recorded Confirmed albuterol sulfate 90 mcg/actuation 2 puff INHALATION Q4-6H PRN 02/09/21 02/09/21 aerosol inhaler gabapentin 600 mg tablet 600 mg PO TID 02/09/21 02/09/21 metformin 500 mg tablet 500 mg PO BID 02/09/21 02/09/21 nicotine (polacrilex) 4 mg buccal 4 mg BUCCAL Q2-4H PRN 02/09/21 02/09/21 lozenge nicotine 21 mg/24 hr daily 1 patch TRANSDERMAL DAILY 02/09/21 02/09/21 transdermal patch Previous Rx's Medication Instructions Recorded aspirin 81 mg tablet,delayed 81 mg PO DAILY #30 tab 02/10/21 release acetaminophen 500 mg tablet 1,000 mg PO QID PRN #14 tab 02/19/21 (Tylenol Extra Strength) cephalexin 500 mg capsule 500 mg PO Q6H 10 Days #40 cap 02/19/21 clotrimazole 1 % topical ointment 1 appl TOPICAL BID 56 Days #56.7 g 02/19/21 doxycycline hyclate 100 mg tablet 100 mg PO BID 10 Days #20 tab 02/19/21 fluconazole 150 mg tablet 150 mg PO Q3D #2 tab 02/19/21 (Diflucan) cyclobenzaprine 10 mg tablet 10 mg PO BEDTIME PRN #7 tab 04/29/21 albuterol sulfate 90 mcg/actuation 2 inh INHALATION QID PRN #6.7 g 05/09/21 aerosol inhaler albuterol sulfate 90 mcg/actuation 2 puff INHALATION Q4-6H PRN #8.5 g 06/22/21 aerosol inhaler prednisone 20 mg tablet 60 mg PO DAILY 5 Days #15 tab 06/22/21 clonidine HCl 0.1 mg tablet 0.1 mg PO TID 7 Days #21 tab 06/27/21 buprenorphine 8 mg-naloxone 2 mg 3 film SUBLINGUAL DAILY 30 Days 07/11/21 sublingual film (Suboxone) #90 ea prednisone 50 mg tablet 50 mg PO DAILY #4 tab 07/16/21 <YAEL Dickerson - Last Filed: 06/13/21 13:43> Allergies/adverse reactions: Allergies Allergy/AdvReac Type Severity Reaction Status Date / Time ibuprofen Allergy Unknown Unknown Verified 07/11/21 13:40 Iodinated Contrast Media Allergy Unknown Unknown Verified 07/11/21 13:40 [Contrast Dye] acetaminophen Allergy Rash Verified 07/11/21 13:40 shellfish derived Allergy Unknown Verified 07/11/21 13:40 <YAEL Dickerson - Last Filed: 06/13/21 13:43> Review of Systems Review of Systems: Constitutional: No Fever, No Chills, No Night Sweats, No Fatigue, No Malaise ENT/Mouth: No Ear Pain, No Nasal Congestion, No sore throat, No Rhinorrhea Eyes: No Eye Pain, No Swelling, No Redness Cardiovascular: No Chest Pain, No SOB, No Palpitations Respiratory: No Cough, No Dyspnea Gastrointestinal: No Nausea, No Vomiting, No Diarrhea, No Abdominal pain Genitourinary: No Dysuria, No Hematuria,No Flank Pain Musculoskeletal: + joint pain, No Myalgias, No Joint Swelling Skin: No Skin Lesions, No rash Neuro: No Weakness, + Numbness, + Paresthesias, No Loss of Consciousness, No Dizziness, No Headache <YAEL Dickerson - Last Filed: 06/13/21 13:43> Yes all other systems are reviewed and are negative <YAEL Dickerson - Last Filed: 06/13/21 13:43> [facility] Past Medical History Attestation statement: The following information was validated with the patient. <YAEL Dickerson - Last Filed: 06/13/21 13:43> Medical History: Medical History Asthma CVA (cerebral vascular accident) Diabetes Mood disorder Neuropathy Opiate addiction <YAEL Dickerson - Last Filed: 06/13/21 13:43> Surgical History: Surgical History History of carpal tunnel surgery of left wrist No significant past surgical history <YAEL Dickerson - Last Filed: 06/13/21 13:43> Social History Social History: Social History Alcohol intake: unknown Patient Tobacco Use Status: Never used Tobacco Advance Directives: No Advance Directives Information Provided: Yes service: No Current occupational status: unemployed and other <YAEL Dickerson - Last Filed: 06/13/21 13:43> Course Course Course Narrative: -1147--XR hand RT 2V IMPRESSION: Unremarkable right hand. -1220-- rhea Camilo coach was able to get patient an appointment at the [facility] [place] for 130pm today, patient will be escorted after discharge -1314--tox screen positive for cocaine and THC. Will dose the patient with Suboxone in the ED and then discharged to [facility] appt -1340--patient refused Suboxone dose in the ED secondary to not eating enough food, even though patient ate cheese stick and multiple crackers, and was offered more crackers in the emergency department. There were no sandwiches available. Patient was then escorted to [facility] by recovery engineer <YAEL Dickerson - Last Filed: 06/13/21 13:43> Medical Decision Making MDM Narrative Medical decision making narrative: 40-year-old male with a PMHx asthma, CVA, DM, mood disorder, neuropathy, opiate abuse on Suboxone, presenting to the ED complaining of right hand pain, numbness/tingling s/p mechanical fall yesterday downhill. Also requesting Suboxone, states was not dosed the past 2 days. On exam vital signs stable, NAD/nontoxic, physical exam as above. Rule out fracture vs strain vs MSK pain, Low concern for vascular injury, NV intact Per [facility] review patient filled 6 days worth of Suboxone on 06/07, would be due today should not have run out prior to today > will obtain LAURA and have recovery engineer speak to patient Plan: XR <YAEL Dickerson - Last Filed: 06/13/21 13:43> Medical Records Medical records reviewed: Yes I reviewed the patient's medical records. <YAEL Dickerson - Last Filed: 06/13/21 13:43> Lab Data Lab results reviewed: Yes I reviewed the patient's lab results. <YAEL Dickerson - Last Filed: 06/13/21 13:43> Labs: Lab Results 06/13/21 Range/Units 11:33 Urine Opiates Screen Not Detected (Not Detect) Urine Fentanyl Screen Not Detected (Not Detect) Ur Barbiturates Screen Not Detected (Not Detect) Ur Phencyclidine Scrn Not Detected (Not Detect) Ur Amphetamines Screen Not Detected (Not Detect) U Benzodiazepines Scrn Not Detected (Not Detect) Urine Cocaine Screen POSITIVE H (Not Detect) U Marijuana (THC) Screen POSITIVE H (Not Detect) <YAEL Dickerson Last Filed: 06/13/21 13:43> Discharge Plan Discharge Clinical Impression: Paresthesia, Multiple substance abuse, Fall <YAEL Dickerson Last Filed: 06/13/21 13:43> Patient Disposition: Home, Self-Care <YAEL Dickerson Last Filed: 06/13/21 13:43> Instructions: Paresthesia (ED), Polysubstance Abuse (ED) <YAEL Dickerson - Last Filed: 06/13/21 13:43> Additional Instructions: Your x-rays were unremarkable. Her tox screen was positive for marijuana and cocaine, avoid using drugs. Your given a dose of Suboxone today in the emergency department and then you are scheduled to go to the [facility] [place] for further maintenance therapy/recovery support If your symptoms persist or worsen please return to the ED Tus radiograf?as no ten?an nada especial. Cardozo examen toxicol?gico fue positivo para marihuana y coca?na, evite el uso de drogas. Le dieron bharat dosis de Suboxone hoy en el departamento de emergencias y luego est? programado para ir [facility] para recibir m?s terapia de mantenimiento/apoyo de recuperaci?n. Si juana s?ntomas persisten o empeoran, regrese al servicio de urgencias. <YAEL Dickerson - Last Filed: 06/13/21 13:43> Prescriptions: No Action metformin 500 mg Tablet 500 mg PO BID 0RF gabapentin 600 mg Tablet 600 mg PO TID 0RF nicotine 21 mg/24 hr Patch 24 Hour 1 patch TRANSDERMAL DAILY 0RF albuterol sulfate 90 mcg/actuation Hfa Aerosol Inhaler 2 puff INHALATION Q4-6H PRN (Reason: Shortness Of Breath) 0RF nicotine (polacrilex) 4 mg Lozenge 4 mg BUCCAL Q2-4H PRN (Reason: Nicotine Cravings) 0RF aspirin 81 mg Tablet,Delayed Release (Dr/Ec) 81 mg PO DAILY Qty: 30 0RF cyclobenzaprine 10 mg tablet 10 mg PO BEDTIME PRN (Reason: muscle spasm) Qty: 7 0RF prednisone 50 mg tablet 50 mg PO DAILY Qty: 4 0RF cephalexin 500 mg capsule 500 mg PO Q6H 10 Days Qty: 40 0RF clotrimazole 1 % ointment 1 appl topical BID 56 Days Qty: 56.7 3RF doxycycline hyclate 100 mg tablet 100 mg PO BID 10 Days Qty: 20 0RF fluconazole [Diflucan] 150 mg tablet 150 mg PO Q3D Qty: 2 0RF Rx Instructions: may repeat second dose 72 hrs after first dose if symptoms persist acetaminophen [Tylenol Extra Strength] 500 mg tablet 1,000 mg PO QID PRN (Reason: fever or pain) Qty: 14 0RF albuterol sulfate 90 mcg/actuation HFA aerosol inhaler 2 inh inhalation QID PRN (Reason: shortness of breath or wheezing) Qty: 6.7 0RF prednisone 20 mg tablet 60 mg PO DAILY 5 Days Qty: 15 0RF albuterol sulfate 90 mcg/actuation HFA aerosol inhaler 2 puff inhalation Q4-6H PRN (Reason: shortness of breath or wheezing) Qty: 8.5 0RF clonidine HCl 0.1 mg tablet 0.1 mg PO TID 7 Days Qty: 21 1RF buprenorphine-naloxone [Suboxone] 8-2 mg film 3 film sublingual DAILY 30 Days Qty: 90 0RF Rx Instructions: place 1 strip/tab under (each) side of tongue <YAEL Dickerson - Last Filed: 06/13/21 13:43> Referrals: [facility] [Primary Care Provider] - 2 days <YAEL Dickerson - Last Filed: 06/13/21 13:43> Interventions: ED Discharge Assessment Last Done: 06/13/21 13:44 <YAEL Dickerson - Last Filed: 06/13/21 13:43> Discharge Date/Time: 06/13/21 13:47 <YAEL Dickerson - Last Filed: 06/13/21 13:43> Print Language: Mohawk <YAEL Dickerson - Last Filed: 06/13/21 13:43>
--- NOTE | 2021-06-13 12:10 | MHC.RECOVSUP ---
Addendum entered by Ton Palencia 06/13/21 13:48: Patient was escorted to the [facility] by this press room supervisor at 1:35pm Original Note: ? Reason for consult:recovery support o Current location:[facility]- o Identified substance use concern: Percocet - Withdrawal - Support ? Intervention: o MAT started or to be started o Community resources provided o Harm reduction discussion ? Plan: o Referral to [facility] o Patient to follow up with [facility] after discharge ? Additional information:Patient seeking MAT. referred patient to the [facility]. Patient has a 1:30 appt@the [facility] today.
[2021-06-13 12:52] LABS: Amphetamine Screen Urine Not Detected (Not Detect); Barbiturates, Urine Not Detected (Not Detect); Benzodiazepines Screen Urine Not Detected (Not Detect); Cannabinoid Screen Urine POSITIVE (Not Detect); Cocaine Screen Urine POSITIVE (Not Detect); Fentanyl, urine Not Detected (Not Detect); Opiate Screen Urine Not Detected (Not Detect); Phencyclidine Screen Urine Not Detected (Not Detect)
== END 2021-06-13 13:47 | disposition home or self-care (01) ==
PROVIDERS: Physician Assistant; Emergency Provider Emergency Medicine
DX: R20.2 Paresthesia of skin (principal); M79.641 Pain in right hand; F11.20 Opioid dependence, uncomplicated; F14.10 Cocaine abuse, uncomplicated; F12.10 Cannabis abuse, uncomplicated; E11.9 Type 2 diabetes mellitus without complications
CPT/HCPCS: 73120; 80307; 99284

== ENCOUNTER 2021-06-15 13:14 | Outpatient (REF) | payer MEDICAID, SELFPAY ==
[2021-06-15 17:45] LABS: Fentanyl, urine Not Detected (Not Detect)
== END 2021-06-15 13:15 | disposition home or self-care (01) ==
LOC: HO.LNP 13:14
PROVIDERS: Visit Provider Internal Medicine
DX: F19.20 Other psychoactive substance dependence, uncomplicated (principal); Z79.899 Other long term (current) drug therapy
CPT/HCPCS: 80305; 80307; 99202

== ENCOUNTER → 2021-06-22 11:43 | Outpatient (BNVA) | payer MEDICAID, SELFPAY | PROVIDERS: Visit Provider Internal Medicine ==

== ENCOUNTER 2021-06-22 12:13 | Emergency (ER) | payer MEDICAID, SELFPAY ==
[2021-06-22 12:23] VITALS: BP 117/65; PULSE 78; RESP 16; TEMP 35.9; BMI 26.6
--- NOTE | 2021-06-22 13:07 | ED_ITS ---
HPI - General Adult General Chief complaint: Upper Respiratory Symptoms Stated complaint: SOB Time Seen by Provider: 06/22/21 12:54 History of Present Illness HPI narrative: Patient complains of frequent inhaler use for the last several days, he has both an asthma albuterol inhaler and a Flovent inhaler but he continues with chest tightness that is only briefly relieved with the albuterol and then he comes back, no cough no recent illness no leg pain no calf pain and he says this is similar to many prior asthma flares, no chest pain Related Data Home Medications Medication Instructions Recorded Confirmed albuterol sulfate 90 2 puff INHALATION Q4-6H PRN 02/09/21 02/09/21 mcg/actuation aerosol inhaler buprenorphine 8 mg-naloxone 1 strip SUBLINGUAL BID 02/09/21 02/09/21 2 mg sublingual film (Suboxone) gabapentin 600 mg tablet 600 mg PO TID 02/09/21 02/09/21 metformin 500 mg tablet 500 mg PO BID 02/09/21 02/09/21 nicotine (polacrilex) 4 mg 4 mg BUCCAL Q2-4H PRN 02/09/21 02/09/21 buccal lozenge nicotine 21 mg/24 hr daily 1 patch TRANSDERMAL DAILY 02/09/21 02/09/21 transdermal patch Previous Rx's Medication Instructions Recorded aspirin 81 mg tablet,delayed 81 mg PO DAILY #30 tab 02/10/21 release acetaminophen 500 mg tablet 1,000 mg PO QID PRN #14 tab 02/19/21 (Tylenol Extra Strength) cephalexin 500 mg capsule 500 mg PO Q6H 10 Days #40 cap 02/19/21 clotrimazole 1 % topical ointment 1 appl TOPICAL BID 56 Days #56.7 02/19/21 g doxycycline hyclate 100 mg tablet 100 mg PO BID 10 Days #20 tab 02/19/21 fluconazole 150 mg tablet 150 mg PO Q3D #2 tab 02/19/21 (Diflucan) cyclobenzaprine 10 mg tablet 10 mg PO BEDTIME PRN #7 tab 04/29/21 albuterol sulfate 90 mcg/actuation 2 inh INHALATION QID PRN #6.7 g 05/09/21 aerosol inhaler albuterol sulfate 90 mcg/actuation 2 puff INHALATION Q4-6H PRN #8.5 06/22/21 g aerosol inhaler buprenorphine 8 mg-naloxone 2 mg 3 film SUBLINGUAL DAILY 7 Days 06/22/21 #21 sublingual film (Suboxone) ea prednisone 20 mg tablet 60 mg PO DAILY 5 Days #15 tab 06/22/21 Allergies Allergy/AdvReac Type Severity Reaction Status Date / Time ibuprofen Allergy Unknown Unknown Verified 06/15/21 13:40 Iodinated Contrast Media Allergy Unknown Unknown Verified 06/15/21 13:40 [Contrast Dye] shellfish derived Allergy Unknown Verified 06/15/21 13:40 Review of Systems Verdana 4l Review of Systems: Verdana 4d Verdana 4d Positive for chest tightness and wheezing similar to many prior asthma flares Negatives no fever no chills no fainting no feeling faint no dizziness no weakness no confusion no headache no neck pain no chest pain no palpitations no cough nono sputum no abdominal pain no vomiting no calf pain no leg pain no leg or calf swelling Yes all other systems are reviewed and are negative PMFSH Past Medical History Source: nursing notes reviewed Medical History Asthma CVA (cerebral vascular accident) Diabetes Mood disorder Neuropathy Surgical History No significant past surgical history Social History Social History Alcohol intake: unknown Patient Tobacco Use Status: Never used Tobacco Advance Directives: No Advance Directives Information Provided: No service: No Current occupational status: unemployed and other Physical Exam Verdana 4l Vital Signs: Verdana 4d Verdana 4d Vital Signs: Verdana 4d Verdana 4Bd Last Vital Signs Verdana 4d Felt Puller New 4d Felt Puller New 4d Temp 96.7 F L 06/22/21 12:23 Felt Puller New 4d Pulse 78 06/22/21 12:23 Felt Puller New 4d Resp 16 06/22/21 12:23 BP 117/65 06/22/21 12:23 BMI result Body Mass Index 26.6 General appearance comfortable no acute distress no respiratory distress speaking full sentences ambulates easily The head is normocephalic atraumatic The eyes no redness or discharge The pharynx is clear no redness swelling or exudate mucous membranes moist Neck is supple The chest had faint wheezes and decreased breath sounds mildly bilaterally, good air entry no prolonged expiration no other adventitious sounds Heart no murmur Extremities full range of motion x4 No pedal edema no calf tenderness or swelling Skin no rashes Course Course Course Narrative: Patient with findings consistent with asthma who has been using his inhaler frequently is started on a course of steroids, he remained comfortable, breathing easily ambulating talking on the phone with no problem throughout his ER visit Discharge Plan Discharge Clinical Impression: Asthma Patient Disposition: Home, Self-Care Additional Instructions: We are giving you steroids because the pumps alone at home have not been working, take the prednisone for the next several days as directed, use albuterol pump as needed Return to the ER any time for difficulty breathing any worse condition or any concerns Prescriptions: New prednisone 20 mg tablet 60 mg PO DAILY 5 Days Qty: 15 0RF albuterol sulfate 90 mcg/actuation HFA aerosol inhaler 2 puff inhalation Q4-6H PRN (Reason: shortness of breath or wheezing) Qty: 8.5 0RF No Action buprenorphine-naloxone [Suboxone] 8-2 mg film 1 strip sublingual BID 0RF metformin 500 mg Tablet 500 mg PO BID 0RF gabapentin 600 mg Tablet 600 mg PO TID 0RF nicotine 21 mg/24 hr Patch 24 Hour 1 patch TRANSDERMAL DAILY 0RF albuterol sulfate 90 mcg/actuation Hfa Aerosol Inhaler 2 puff INHALATION Q4-6H PRN (Reason: Shortness Of Breath) 0RF nicotine (polacrilex) 4 mg Lozenge 4 mg BUCCAL Q2-4H PRN (Reason: Nicotine Cravings) 0RF aspirin 81 mg Tablet,Delayed Release (Dr/Ec) 81 mg PO DAILY Qty: 30 0RF cyclobenzaprine 10 mg tablet 10 mg PO BEDTIME PRN (Reason: muscle spasm) Qty: 7 0RF cephalexin 500 mg capsule 500 mg PO Q6H 10 Days Qty: 40 0RF clotrimazole 1 % ointment 1 appl topical BID 56 Days Qty: 56.7 3RF doxycycline hyclate 100 mg tablet 100 mg PO BID 10 Days Qty: 20 0RF fluconazole [Diflucan] 150 mg tablet 150 mg PO Q3D Qty: 2 0RF Rx Instructions: may repeat second dose 72 hrs after first dose if symptoms persist acetaminophen [Tylenol Extra Strength] 500 mg tablet 1,000 mg PO QID PRN (Reason: fever or pain) Qty: 14 0RF albuterol sulfate 90 mcg/actuation HFA aerosol inhaler 2 inh inhalation QID PRN (Reason: shortness of breath or wheezing) Qty: 6.7 0RF buprenorphine-naloxone [Suboxone] 8-2 mg film 3 film sublingual DAILY 7 Days Qty: 21 0RF Rx Instructions: place 1 strip/tab under (each) side of tongue Interventions: ED Discharge Assessment Last Done: 06/22/21 13:17 Discharge Date/Time: 06/22/21 13:19
[2021-06-22] MEDS: predniSONE 20 MG TABLET 60 MG PO (13:17)
== END 2021-06-22 13:19 | disposition home or self-care (01) ==
PROVIDERS: Emergency Provider Emergency Medicine
DX: J45.909 Unspecified asthma, uncomplicated (principal); Z79.51 Long term (current) use of inhaled steroids; Z79.899 Other long term (current) drug therapy
CPT/HCPCS: 99283

== ENCOUNTER → 2021-06-27 11:41 | Outpatient (BNVA) | payer MEDICAID, SELFPAY | PROVIDERS: Visit Provider Internal Medicine | DX: Z51.81 Encounter for therapeutic drug level monitoring (principal); F19.20 Other psychoactive substance dependence, uncomplicated; F14.90 Cocaine use, unspecified, uncomplicated | CPT/HCPCS: 80305; 99212 ==

== ENCOUNTER 2021-06-28 11:12 | Emergency (ER) | payer MEDICAID, SELFPAY ==
[2021-06-28 11:16] VITALS: BP 127/72; PULSE 63; O2SAT 100
--- NOTE | 2021-06-28 12:19 | PC.NURSE ---
no answer to triage at 1219
== END 2021-06-28 12:19 | disposition left against medical advice (07) ==
PROVIDERS: Emergency Provider Emergency Medicine
DX: R68.84 Jaw pain (principal)

== ENCOUNTER 2021-06-30 10:43 | Emergency (ER) | payer MEDICAID, SELFPAY ==
--- NOTE | ~2021-06-30 | CT_ITS ---
EXAMINATION: CT HEAD WITHOUT CONTRAST CT CERVICAL SPINE WITHOUT CONTRAST CT MAXILLOFACIAL WITHOUT CONTRAST CLINICAL INFORMATION: Left-sided facial pain status post fall. Hit head. COMPARISON: None. TECHNIQUE: Multidetector volumetric imaging of the head was performed without the administration of intravenous contrast. Images were also obtained with through the cervical spine as well as the facial bones from the frontal sinuses through the mandible. Multiplanar reconstructed images in coronal and sagittal orientations were submitted. This CT examination was performed using dose optimization techniques as appropriate, variously including the following: *Automated exposure control *Adjustment of mA and/or kV according to patient size (this includes techniques or standardized protocols for targeted exams where dose is matched to indication/reason for exam; i.e. extremities or head) *Use of iterative reconstruction technique DOSE: 1540 mGy-cm FINDINGS: HEAD: There is no evidence of acute intracranial hemorrhage or territorial infarction. No abnormal mass-effect or midline shift. No extra-axial fluid collections. [place] to white matter differentiation is well preserved. The ventricles are normal in size and configuration. There is no abnormal attenuation within the brain parenchyma. The soft tissues and osseous structures are normal. The sinuses and mastoid air cells are clear. MAXILLOFACIAL: The mandible, maxilla, pterygoid plates, nasal bones, zygomatic arches, paranasal sinus [place], and bony orbits are intact. No acute osseous abnormality within the maxillofacial region. The paranasal sinuses and mastoid air cells remain well-aerated. Dental caries are present at multiple maxillary and mandibular teeth bilaterally, most notably on the right at the remaining 2 right maxillary molars. There is significant periapical osteolysis in this region consistent with apical periodontitis. There is an old healed left mandibular fracture status post plate and screw fixation. No significant soft tissue abnormalities are identified. Hypopharynx, nasopharynx, and oropharynx are unremarkable. CERVICAL SPINE: Vertebral body heights are normal. No fractures of the vertebral bodies or posterior elements. Vertebral alignment is normal. No subluxation. Degenerative osteophytes and sclerosis are present at the atlantodental articulation, though normal alignment is maintained. Craniocervical junction is normal. There is moderate degenerative disc disease in lower cervical spine at C4-C5, C5-C6, and C6-C7 with loss of intervertebral disc height, anterior osteophytes, and uncovertebral osteophytes. Facet joints are normal. Posterior disc osteophyte complex produces mild central canal narrowing at the C5-C6 and C6-C7 levels. Uncovertebral osteophytes produce mild multilevel neural foraminal encroachment, most notably at C5-C6 on the right and C5-C6 and C6-C7 on the left. No significant paravertebral soft tissue swelling. Cervical soft tissues are unremarkable. Imaged portions of the lung apices are clear. CT/CT cervical spine wo con IMPRESSION: 1. No acute intracranial pathology. 2. No acute facial fractures or soft tissue injuries are identified. 3. No acute fracture or malalignment in the cervical spine. 4. Multiple dental caries with associated apical periodontitis at the remaining right maxillary molars. 5. Degenerative disc disease in the lower cervical spine.
[2021-06-30 11:06] VITALS: BP 130/62; BP 130/70; PULSE 62; RESP 16; TEMP 36.1; O2SAT 96; O2SAT 98; BMI 32.9
--- NOTE | 2021-06-30 11:22 | ED.GENADULT ---
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 Denies LOC. Denies any fall to the ground. He is reporting since the face strike he has some neck pain and left 3rd-5th finger numbness. No AC use. NO headache, dizziness (had initially but now resolved), vision changes, vomiting. Patient tells me my doctor is crazy and stopped filling all my medications one month ago. unclear why Related Data Home Medications Medication Instructions Recorded Confirmed albuterol sulfate 90 mcg/actuation 2 puff INHALATION Q4-6H PRN 02/09/21 02/09/21 aerosol inhaler gabapentin 600 mg tablet 600 mg PO TID 02/09/21 02/09/21 metformin 500 mg tablet 500 mg PO BID 02/09/21 02/09/21 nicotine (polacrilex) 4 mg buccal 4 mg BUCCAL Q2-4H PRN 02/09/21 02/09/21 lozenge nicotine 21 mg/24 hr daily 1 patch TRANSDERMAL DAILY 02/09/21 02/09/21 transdermal patch Previous Rx's Medication Instructions Recorded aspirin 81 mg tablet,delayed 81 mg PO DAILY #30 tab 02/10/21 release acetaminophen 500 mg tablet 1,000 mg PO QID PRN #14 tab 02/19/21 (Tylenol Extra Strength) cephalexin 500 mg capsule 500 mg PO Q6H 10 Days #40 cap 02/19/21 clotrimazole 1 % topical ointment 1 appl TOPICAL BID 56 Days #56.7 g 02/19/21 doxycycline hyclate 100 mg tablet 100 mg PO BID 10 Days #20 tab 02/19/21 fluconazole 150 mg tablet 150 mg PO Q3D #2 tab 02/19/21 (Diflucan) cyclobenzaprine 10 mg tablet 10 mg PO BEDTIME PRN #7 tab 04/29/21 albuterol sulfate 90 mcg/actuation 2 inh INHALATION QID PRN #6.7 g 05/09/21 aerosol inhaler albuterol sulfate 90 mcg/actuation 2 puff INHALATION Q4-6H PRN #8.5 g 06/22/21 aerosol inhaler prednisone 20 mg tablet 60 mg PO DAILY 5 Days #15 tab 06/22/21 buprenorphine 8 mg-naloxone 2 mg 3 film SUBLINGUAL DAILY 7 Days #21 06/27/21 sublingual film (Suboxone) ea clonidine HCl 0.1 mg tablet 0.1 mg PO TID 7 Days #21 tab 06/27/21 Allergies Allergy/AdvReac Type Severity Reaction Status Date / Time ibuprofen Allergy Unknown Unknown Verified 06/27/21 11:47 Iodinated Contrast Media Allergy Unknown Unknown Verified 06/27/21 11:47 [Contrast Dye] acetaminophen Allergy Rash Verified 06/30/21 11:19 shellfish derived Allergy Unknown Verified 06/27/21 11:47 Review of Systems Review of Systems: Yes all other systems are reviewed and are negative Constitutional: Constitutional: Reports no additional constitutional complaints, Denies body ache(s), Denies chills, Denies fever(s), Denies headache(s) and Denies weakness Eyes: Eyes: Reports no additional eye complaints and Denies change in vision ENT: Reports system reviewed and no additional complaints, except as documented, Denies dizziness, Denies headache(s), Denies nasal congestion, Denies nasal discharge and Reports neck pain Comments: +face pain Cardiovascular: Cardiovascular: Reports no additional cardiovascular complaints, Denies chest pain, Denies leg edema and Denies dyspnea Respiratory: Respiratory: Reports no additional respiratory complaints, Denies cough and Denies dyspnea Gastrointestinal: Gastrointestinal: Reports no additional gastrointestinal complaints, Denies abdominal pain, Denies diarrhea, Denies nausea and Denies vomiting Genitourinary: Genitourinary: Denies urinary incontinence Musculoskeletal: Musculoskeletal: Reports no additional musculoskeletal complaints, Denies back pain, Denies arthralgias, Denies joint swelling, Reports neck pain, Reports numbness and Denies tingling Integumentary/Breasts: Skin/Breast: Reports system reviewed and no additional complaints, except as docu and Denies rash Neurologic: Reports system reviewed and no additional complaints, except as documented, Denies dizziness, Denies headache(s), Reports numbness, Denies tingling and Denies weakness PMF Past Medical History Attestation statement: The following information was validated with the patient. Source: old records reviewed and nursing notes reviewed Medical History Asthma CVA (cerebral vascular accident) Diabetes Mood disorder Neuropathy Surgical History History of carpal tunnel surgery of left wrist No significant past surgical history Social History Social History Alcohol intake: unknown Patient Tobacco Use Status: Never used Tobacco Advance Directives: No Advance Directives Information Provided: No service: No Current occupational status: unemployed and other Physical Exam ED Vital Signs: Vital Signs - 24 hr 06/30/21 11:06 Temperature 96.9 F Pulse Rate 62 Respiratory Rate 16 Blood Pressure 130/62 Pulse Oximetry 98 BMI result Body Mass Index 32.9 Const General: cooperative, healthy appearing, comfortable and no acute distress Orientation/consciousness: patient oriented x3 Limitations: language barrier HENMT Other: No trismus No hemotympanum Head: Yes normal to inspection, No Cruz's sign and No raccoon eyes Head images: 1. Tenderness with no crepitus, ecchymosis or swelling Ears: hearing grossly normal bilaterally and TM's normal bilaterally General nose exam: Normal external nose present Face and sinus: Yes normal facial exam Mouth: Normal oral and palatal mucosa present Throat: Yes posterior oropharynx normal, Yes tonsils normal and Yes uvula midline Neck Other: lower cervical spine tenderness-patient sent in with EMS in cervical collar. When I went into the room he had removed it himself. It was re-applied. Did not assess ROM d/t reports of pain No step offs or deformities Neck: Yes no lymphadenopathy Chest Chest palpation & inspection: normal inspection of the chest Resp Effort & Inspection: normal respiratory effort Auscultation: clear to auscultation bilaterally Cardio Rate: regular rate Peripheral pulses: Peripheral pulses 2+ throughout GI Inspection: Yes normal to inspection Back/Spine/Pelvis Thoracic/Lumbar Spine: thoracic and lumbar spine normal to inspection Skin General skin exam: no rashes or lesions noted Neuro General: patient oriented x3, moves all extremities, Normal light touch and pain sensation and Unable to assess gait Cranial nerves: Yes CN's II-XII intact bilaterally, Yes Bilaterally intact EOM present, Yes Nystagmus not present, Yes Normal facial strength present and Yes Midline tongue present Cognition (Neuro): normal cognition Gait exam (Neuro): Unable to assess gait Motor exam (neuro): 5/5 motor strength present throughout Sensory Exam: Normal double simultaneous stimulation for sensation Deep tendon reflexes (DTR's): Right triceps reflex intensity grade: 2+, Left triceps reflex intensity grade: 2+, Rt Biceps (C5, C6): 2+, Left biceps reflex intensity grade: 2+, Right brachioradialis reflex intensity grade: 2+ and Left brachioradialis reflex intensity grade: 2+ Coordination: [id number] test normal and [id number] test normal Extrem General: Yes normal to inspection and Yes full ROM Course Course Course Narrative: 40yo male with history of CVA with ?residual vision loss left eye, mood disorder, DM, diabetic neuropathy, OUD off all medications >1 month for unclear reasons here after opening the door and hitting his left side of his face. No LOC. initially had dizziness but no headache, vision changes, vomiting. NO fall to the ground or any other injury. After the face strike the patient called EMS and walked out to the front yard to meet them. He reports since hitting his face he has numbness to the left hand only in the 3rd to 5th digits. He was placed in a cervical collar from EMS but removed this prior to my being in the room. On my exam his neuro exam is intact w/ the exception of reporting numbness to the left 3rd to 5th digits and tells me he cannot feel me touching him. Motor intact. He tells me this is new since the ? face strike with no other reports of head injury or fall. He tells me prior to the injury his sensation was normal. He does have some lower cervical tenderness on exam and so the cervical collar was re-applied. On review of chart patient has had several previous visits (one in which he reports chronic right hand numbness/tingling, then on another occasion bilateral hand numbness. Difficult to obtain clear history from patient. Will need CT head, neck, facial bones, labs. 1230-Pt refusing to wear a cervical collar. he is aware he may have a spinal injury and this may cause further damage 1340-Patient didnt want to wait for CT scan results. He is A&Ox4. He is aware he may have a cervical injury, ICH, stroke and/or facial fracture but does not want to wait. Prior to my talking to him about leaving AMA he eloped from the department. Medical Decision Making MDM Narrative Medical decision making narrative: Cervical injury, ICH Medical Records Medical records reviewed: Yes I reviewed the patient's medical records. Lab Data Lab results reviewed: Yes I reviewed the patient's lab results. Result diagrams: 06/30/21 12:12 06/30/21 12:12 Labs: Lab Results 06/30/21 06/30/21 06/30/21 Range/Units 12:12 12:12 12:12 WBC 3.8 L (4.8-10.8) X10*3/uL RBC 4.36 L (4.60-5.80) X10*6/uL Hgb 12.7 L (14.0-18.0) g/dl Hct 39.2 L (42.0-52.0) % MCV 89.9 (80.0-98.0) fL MCH 29.1 (27.0-33.0) pg MCHC 32.4 (31.0-36.0) g/dl RDW 12.9 (11.0-16.0) % Plt Count 211 (160-400) X10*3/uL MPV 10.0 (9.4-12.4) fL Immature Gran % (Auto) 0.0 (0.0-0.4) % Neut % (Auto) 52.5 (45-73) % Lymph % (Auto) 40.4 H (20-40) % [place] % (Auto) 5.5 (2-11) % Eos % (Auto) 1.1 (0-4) % Baso % (Auto) 0.5 (0-2) % Lymph # (Auto) 1.5 (1.2-4.9) X10*3/uL [place] # (Auto) 0.2 (0.1-1.2) X10*3/uL Eos # (Auto) 0.0 (0.0-0.4) X10*3/uL Baso # (Auto) 0.0 (0.0-0.2) X10*3/uL Abs Immat Gran (auto) 0.00 (0.00-0.03) X10*3/uL Absolute Neuts (auto) 2.0 (2.0-8.3) x10*3/uL Absolute Nucleated RBC 0.000 (0.0-0.012) X10*3/uL Nucleated RBC % (auto) 0.0 (0.0-0.2) /100WBC PT 11.1 (9.9-13.0) SEC INR 1.0 (0.9-1.1) APTT 33.9 (24.1-38.0) SEC Sodium 141 (135-145) mmol/L Potassium 4.0 (3.3-5.1) mmol/L Chloride 104 (96-108) mmol/L Carbon Dioxide 31 H (22-29) mmol/L Anion Gap 10 L (12-20) BUN 10 (9-16) mg/dL Creatinine 0.82 (0.5-1.4) mg/dL Estim Creat Clear Calc 149.0 Estimated GFR > 60 Random Glucose 109 (60-115) mg/dL Calcium 9.3 (8.4-10.2) mg/dL Magnesium 1.9 (1.6-2.6) mg/dL Total Bilirubin 0.6 (0.0-1.0) mg/dL Direct Bilirubin 0.2 (0.0-0.5) mg/dL AST 23 (5-37) U/L ALT 18 (0-40) U/L Alkaline Phosphatase 55 (39-117) U/L Total Creatine Kinase 245 H (38-174) U/L Total Protein 6.5 (6.5-8.0) g/dL Albumin 4.0 (3.5-5.0) g/dL Ethyl Alcohol mg/dL 06/30/21 Range/Units 12:12 WBC (4.8-10.8) X10*3/uL RBC (4.60-5.80) X10*6/uL Hgb (14.0-18.0) g/dl Hct (42.0-52.0) % MCV (80.0-98.0) fL MCH (27.0-33.0) pg MCHC (31.0-36.0) g/dl RDW (11.0-16.0) % Plt Count (160-400) X10*3/uL MPV (9.4-12.4) fL Immature Gran % (Auto) (0.0-0.4) % Neut % (Auto) (45-73) % Lymph % (Auto) (20-40) % [place] % (Auto) (2-11) % Eos % (Auto) (0-4) % Baso % (Auto) (0-2) % Lymph # (Auto) (1.2-4.9) X10*3/uL [place] # (Auto) (0.1-1.2) X10*3/uL Eos # (Auto) (0.0-0.4) X10*3/uL Baso # (Auto) (0.0-0.2) X10*3/uL Abs Immat Gran (auto) (0.00-0.03) X10*3/uL Absolute Neuts (auto) (2.0-8.3) x10*3/uL Absolute Nucleated RBC (0.0-0.012) X10*3/uL Nucleated RBC % (auto) (0.0-0.2) /100WBC PT (9.9-13.0) SEC INR (0.9-1.1) APTT (24.1-38.0) SEC Sodium (135-145) mmol/L Potassium (3.3-5.1) mmol/L Chloride (96-108) mmol/L Carbon Dioxide (22-29) mmol/L Anion Gap (12-20) BUN (9-16) mg/dL Creatinine (0.5-1.4) mg/dL Estim Creat Clear Calc Estimated GFR Random Glucose (60-115) mg/dL Calcium (8.4-10.2) mg/dL Magnesium (1.6-2.6) mg/dL Total Bilirubin (0.0-1.0) mg/dL Direct Bilirubin (0.0-0.5) mg/dL AST (5-37) U/L ALT (0-40) U/L Alkaline Phosphatase (39-117) U/L Total Creatine Kinase (38-174) U/L Total Protein (6.5-8.0) g/dL Albumin (3.5-5.0) g/dL Ethyl Alcohol < 10 mg/dL Discharge Plan Discharge Clinical Impression: Contusion of face, Arm paresthesia, left Patient Disposition: Elopement Prescriptions: No Action metformin 500 mg Tablet 500 mg PO BID 0RF gabapentin 600 mg Tablet 600 mg PO TID 0RF nicotine 21 mg/24 hr Patch 24 Hour 1 patch TRANSDERMAL DAILY 0RF albuterol sulfate 90 mcg/actuation Hfa Aerosol Inhaler 2 puff INHALATION Q4-6H PRN (Reason: Shortness Of Breath) 0RF nicotine (polacrilex) 4 mg Lozenge 4 mg BUCCAL Q2-4H PRN (Reason: Nicotine Cravings) 0RF aspirin 81 mg Tablet,Delayed Release (Dr/Ec) 81 mg PO DAILY Qty: 30 0RF cyclobenzaprine 10 mg tablet 10 mg PO BEDTIME PRN (Reason: muscle spasm) Qty: 7 0RF cephalexin 500 mg capsule 500 mg PO Q6H 10 Days Qty: 40 0RF clotrimazole 1 % ointment 1 appl topical BID 56 Days Qty: 56.7 3RF doxycycline hyclate 100 mg tablet 100 mg PO BID 10 Days Qty: 20 0RF fluconazole [Diflucan] 150 mg tablet 150 mg PO Q3D Qty: 2 0RF Rx Instructions: may repeat second dose 72 hrs after first dose if symptoms persist acetaminophen [Tylenol Extra Strength] 500 mg tablet 1,000 mg PO QID PRN (Reason: fever or pain) Qty: 14 0RF albuterol sulfate 90 mcg/actuation HFA aerosol inhaler 2 inh inhalation QID PRN (Reason: shortness of breath or wheezing) Qty: 6.7 0RF prednisone 20 mg tablet 60 mg PO DAILY 5 Days Qty: 15 0RF albuterol sulfate 90 mcg/actuation HFA aerosol inhaler 2 puff inhalation Q4-6H PRN (Reason: shortness of breath or wheezing) Qty: 8.5 0RF buprenorphine-naloxone [Suboxone] 8-2 mg film 3 film sublingual DAILY 7 Days Qty: 21 0RF Rx Instructions: place 1 strip/tab under (each) side of tongue clonidine HCl 0.1 mg tablet 0.1 mg PO TID 7 Days Qty: 21 1RF Stand Alone Forms: Against Medical Advice
[2021-06-30 12:16] LABS: MANUAL DIFF FLAG NO
[2021-06-30 12:20] LABS: Basophils Percent Auto 0.5 % (0-2); Eosinophils Percent Auto 1.1 % (0-4); Hematocrit 39.2 % (42.0-52.0); Hemoglobin 12.7 g/dl (14.0-18.0); Lymphocytes Absolute Auto 1.5 X10*3/uL (1.2-4.9); Lymphocytes Percent Auto 40.4 % (20-40); Mean Corpuscular HGB Conc 32.4 g/dl (31.0-36.0); Mean Corpuscular Hemoglobin 29.1 pg (27.0-33.0); Mean Corpuscular Volume 89.9 fL (80.0-98.0); Monocytes Absolute Auto 0.2 X10*3/uL (0.1-1.2); Monocytes Percent Auto 5.5 % (2-11); Neutrophils Percent Auto 52.5 % (45-73); Platelet Count 211 X10*3/uL (160-400); Red Blood Count 4.36 X10*6/uL (4.60-5.80); Red Cell Distribution Width 12.9 % (11.0-16.0); White Blood Count 3.8 X10*3/uL (4.8-10.8)
[2021-06-30 12:25] LABS: Prothrombin Time 11.1 SEC (9.9-13.0)
[2021-06-30] MEDS: Cyclobenzaprine HCl 10 MG TABLET PO (12:26)
[2021-06-30 12:28] LABS: Partial Thromboplastin Time 33.9 SEC (24.1-38.0)
[2021-06-30 12:37] LABS: Ethanol < 10 mg/dL
[2021-06-30 12:40] LABS: Alanine Aminotransferase 18 U/L (0-40); Alkaline Phosphatase 55 U/L (39-117); Anion Gap 10 (12-20); Aspartate Amino Transferase 23 U/L (5-37); Bilirubin Direct 0.2 mg/dL (0.0-0.5); Bilirubin Total 0.6 mg/dL (0.0-1.0); Blood Urea Nitrogen 10 mg/dL (9-16); Calcium 9.3 mg/dL (8.4-10.2); Carbon Dioxide 31 mmol/L (22-29); Chloride 104 mmol/L (96-108); Estimated Glomerular Filt Rate > 60; Glucose Random 109 mg/dL (60-115); Magnesium 1.9 mg/dL (1.6-2.6); Sodium 141 mmol/L (135-145); Total Protein 6.5 g/dL (6.5-8.0)
== END 2021-06-30 15:31 | disposition left against medical advice (07) ==
PROVIDERS: Nurse Practitioner Family; Emergency Provider Emergency Medicine Emergency Medical Services; PCP Internal Medicine
DX: S00.83XA Contusion of other part of head, initial encounter (principal); W22.09XA Striking against other stationary object, initial encounter; R20.2 Paresthesia of skin; E11.9 Type 2 diabetes mellitus without complications; I69.398 Other sequelae of cerebral infarction; H54.62 Unqualified visual loss, left eye, normal vision right eye; Z79.82 Long term (current) use of aspirin; Y93.89 Activity, other specified; Y92.9 Unspecified place or not applicable; Y99.9 Unspecified external cause status
CPT/HCPCS: 36415; 70450; 70486; 72125; 80048; 80076; 82077; 82550; 83735; 85025; 85610; 85730; 99284

== ENCOUNTER → 2021-07-03 12:04 | Outpatient (BNVA) | payer MEDICAID, SELFPAY | PROVIDERS: Visit Provider Internal Medicine | DX: F19.90 Other psychoactive substance use, unspecified, uncomplicated (principal); Z51.81 Encounter for therapeutic drug level monitoring; Z79.899 Other long term (current) drug therapy | CPT/HCPCS: 80305; 99212 ==

== ENCOUNTER 2021-07-04 11:56 | Emergency (ER) | payer MEDICAID, SELFPAY ==
[2021-07-04 12:05] VITALS: BP 122/75; PULSE 63; O2SAT 100
[2021-07-04 12:13] VITALS: BP 99/42; PULSE 64; RESP 16; TEMP 36.6; O2SAT 99; BMI 20.7
== END 2021-07-04 13:20 | disposition left against medical advice (07) ==
LOC: HO.ED 13:03
PROVIDERS: Emergency Provider Emergency Medicine; PCP Internal Medicine
DX: S29.9XXA Unspecified injury of thorax, initial encounter (principal); Y04.2XXA Assault by strike against or bumped into by another person, initial encounter; Y93.9 Activity, unspecified; Y92.410 Unspecified street and highway as the place of occurrence of the external cause; Y99.9 Unspecified external cause status
CPT/HCPCS: 99281; 99282

== ENCOUNTER → 2021-07-11 11:28 | Outpatient (BNVA) | payer MEDICAID, SELFPAY | PROVIDERS: Visit Provider Internal Medicine | DX: F19.90 Other psychoactive substance use, unspecified, uncomplicated (principal); Z51.81 Encounter for therapeutic drug level monitoring; Z79.899 Other long term (current) drug therapy | CPT/HCPCS: 80305; 99212 ==

== ENCOUNTER 2021-07-16 05:30 | Emergency (ER) | payer MEDICAID, SELFPAY ==
--- NOTE | 2021-07-16 05:41 | ED_ITS ---
HPI - General Adult General Chief complaint: Dental/Oral Stated complaint: lip swelling Time Seen by Provider: 07/16/21 05:31 Source: patient and EMS Mode of arrival: EMS Limitations: no limitations History of Present Illness HPI narrative: Patient comes to emergency room complaining of lip swelling, and a sore on the tongue that has been present for 10 days. Patient states that it started 10 days ago after he had an MRI done. Patient denies any difficulty breathing, no wheezing, no chest pain, no shortness of breath. Related Data Home Medications Medication Instructions Recorded Confirmed albuterol sulfate 90 mcg/actuation 2 puff INHALATION Q4-6H PRN 02/09/21 02/09/21 aerosol inhaler gabapentin 600 mg tablet 600 mg PO TID 02/09/21 02/09/21 metformin 500 mg tablet 500 mg PO BID 02/09/21 02/09/21 nicotine (polacrilex) 4 mg buccal 4 mg BUCCAL Q2-4H PRN 02/09/21 02/09/21 lozenge nicotine 21 mg/24 hr daily 1 patch TRANSDERMAL DAILY 02/09/21 02/09/21 transdermal patch Previous Rx's Medication Instructions Recorded aspirin 81 mg tablet,delayed 81 mg PO DAILY #30 tab 02/10/21 release acetaminophen 500 mg tablet 1,000 mg PO QID PRN #14 tab 02/19/21 (Tylenol Extra Strength) cephalexin 500 mg capsule 500 mg PO Q6H 10 Days #40 cap 02/19/21 clotrimazole 1 % topical ointment 1 appl TOPICAL BID 56 Days #56.7 g 02/19/21 doxycycline hyclate 100 mg tablet 100 mg PO BID 10 Days #20 tab 02/19/21 fluconazole 150 mg tablet 150 mg PO Q3D #2 tab 02/19/21 (Diflucan) cyclobenzaprine 10 mg tablet 10 mg PO BEDTIME PRN #7 tab 04/29/21 albuterol sulfate 90 mcg/actuation 2 inh INHALATION QID PRN #6.7 g 05/09/21 aerosol inhaler albuterol sulfate 90 mcg/actuation 2 puff INHALATION Q4-6H PRN #8.5 g 06/22/21 aerosol inhaler prednisone 20 mg tablet 60 mg PO DAILY 5 Days #15 tab 06/22/21 clonidine HCl 0.1 mg tablet 0.1 mg PO TID 7 Days #21 tab 06/27/21 buprenorphine 8 mg-naloxone 2 mg 3 film SUBLINGUAL DAILY 30 Days 07/11/21 sublingual film (Suboxone) #90 ea prednisone 50 mg tablet 50 mg PO DAILY #4 tab 07/16/21 Allergies Allergy/AdvReac Type Severity Reaction Status Date / Time ibuprofen Allergy Unknown Unknown Verified 07/11/21 13:40 Iodinated Contrast Media Allergy Unknown Unknown Verified 07/11/21 13:40 [Contrast Dye] acetaminophen Allergy Rash Verified 07/11/21 13:40 shellfish derived Allergy Unknown Verified 07/11/21 13:40 Review of Systems Review of Systems: Constitutional : No Weight loss, No Fever, No Chills, No Night Sweats, No Fatigue, No Malaise ENT/Mouth : No Hearing loss, No Ear Pain, No Nasal Congestion, No Sinus Pain, No Hoarseness, No sore throat, No Rhinorrhea, No Swallowing Difficulty, complaining of lower lip swelling, and lateral tongue swelling Eyes: No Eye Pain, No Swelling, No Redness, No Foreign Body, No Discharge, No Vision Changes Cardiovascular : No Chest Pain, No SOB, No Dyspnea on Exertion, No Orthopnea, No Edema, No Palpitations Respiratory : No Cough, No Sputum, No Wheezing, No Smoke Exposure, No Dyspnea Gastrointestinal : No Nausea, No Vomiting, No Diarrhea, No Constipation, No abdominal Pain, No Hematochezia, No Melena Genitourinary : no irregular bleeding, No Dysuria, No Urinary Frequency, No Hematuria, No Urinary Incontinence, No Urgency, No Flank Pain, No Urinary Flow Changes, No Hesitancy Musculoskeletal : No joint pain, No Myalgias, No Joint Swelling Skin : No Skin Lesions, No rash Neuro : No Weakness, No Numbness, No Paresthesias, No Loss of Consciousness, No Dizziness, No Headache Psych : No Anxiety/Panic, No Depression, No SI/HI/AH/VH, No Social Issues, Heme/Lymph: No Bruising, No Bleeding,No Lymphadenopathy Endocrine : No Polyuria, No Polydipsia, No Temperature Intolerance [facility] Past Medical History Medical History Asthma CVA (cerebral vascular accident) Diabetes Mood disorder Neuropathy Opiate addiction Surgical History History of carpal tunnel surgery of left wrist No significant past surgical history Social History Social History Alcohol intake: unknown Patient Tobacco Use Status: Never used Tobacco Advance Directives: No Advance Directives Information Provided: Yes service: No Current occupational status: unemployed and other Physical Exam ED Const Other: Appearance: Alert. Oriented X3. No acute distress. Eyes: Pupils equal, round and reactive to light. ENT: Pharynx normal. No angioedema present. Uvula within normal limits, lateral aspect of the left side of the tongue has hypertrophic lingual papillae, not edematous. Patient has a small cold sore/aphthous ulcer in the lower inner lip. Neck: Normal inspection. Neck supple. No lymph nodes noted. No crepitus CVS: Normal heart rate and rhythm. Pulses normal. Normal S1 and S2 Respiratory: No respiratory distress. Breath sounds normal. No Wheezing. No rales Abdomen: Soft and nontender. No rigidity. No distention. Skin: Skin warm and dry. Normal skin color. Normal skin turgor. Extremities: No lower extremity edema. No lower extremity edema. No Lacerations. No Rash Neuro: Oriented X 3. No motor deficit. No sensory deficit. Moving all extermities. No slurred speech. Course Course Course Narrative: I discussed with the patient that it is unlikely that he is having an allergic reaction 10 days after his initial MRI. On physical exam, patient's findings are not consistent with an allergic reaction, the lower lip is swollen only in the middle, accompanied by a sore. No drainage, mildly tender to touch. Tongues findings are most likely secondary to transient lingual papillitis Patient was given 1 dose of prednisone. Patient instructed to follow-up with his primary care physician. Discharge Plan Discharge Clinical Impression: Aphthous ulcer of mouth, Transient lingual papillitis Patient Disposition: Home, Self-Care Additional Instructions: Please follow-up with your primary care physician tomorrow. If you have any worsening or new symptoms, please return to the emergency room or call 911 Prescriptions: New prednisone 50 mg tablet 50 mg PO DAILY Qty: 4 0RF No Action metformin 500 mg Tablet 500 mg PO BID 0RF gabapentin 600 mg Tablet 600 mg PO TID 0RF nicotine 21 mg/24 hr Patch 24 Hour 1 patch TRANSDERMAL DAILY 0RF albuterol sulfate 90 mcg/actuation Hfa Aerosol Inhaler 2 puff INHALATION Q4-6H PRN (Reason: Shortness Of Breath) 0RF nicotine (polacrilex) 4 mg Lozenge 4 mg BUCCAL Q2-4H PRN (Reason: Nicotine Cravings) 0RF aspirin 81 mg Tablet,Delayed Release (Dr/Ec) 81 mg PO DAILY Qty: 30 0RF cyclobenzaprine 10 mg tablet 10 mg PO BEDTIME PRN (Reason: muscle spasm) Qty: 7 0RF cephalexin 500 mg capsule 500 mg PO Q6H 10 Days Qty: 40 0RF clotrimazole 1 % ointment 1 appl topical BID 56 Days Qty: 56.7 3RF doxycycline hyclate 100 mg tablet 100 mg PO BID 10 Days Qty: 20 0RF fluconazole [Diflucan] 150 mg tablet 150 mg PO Q3D Qty: 2 0RF Rx Instructions: may repeat second dose 72 hrs after first dose if symptoms persist acetaminophen [Tylenol Extra Strength] 500 mg tablet 1,000 mg PO QID PRN (Reason: fever or pain) Qty: 14 0RF albuterol sulfate 90 mcg/actuation HFA aerosol inhaler 2 inh inhalation QID PRN (Reason: shortness of breath or wheezing) Qty: 6.7 0RF prednisone 20 mg tablet 60 mg PO DAILY 5 Days Qty: 15 0RF albuterol sulfate 90 mcg/actuation HFA aerosol inhaler 2 puff inhalation Q4-6H PRN (Reason: shortness of breath or wheezing) Qty: 8.5 0RF clonidine HCl 0.1 mg tablet 0.1 mg PO TID 7 Days Qty: 21 1RF buprenorphine-naloxone [Suboxone] 8-2 mg film 3 film sublingual DAILY 30 Days Qty: 90 0RF Rx Instructions: place 1 strip/tab under (each) side of tongue
[2021-07-16 05:46] VITALS: BP 135/88; PULSE 81; RESP 16; TEMP 36.9; O2SAT 98; BMI 26.6
[2021-07-16] MEDS: predniSONE 20 MG TABLET 60 MG PO (05:55)
== END 2021-07-16 06:13 | disposition home or self-care (01) ==
LOC: HO.ED 05:56
PROVIDERS: Emergency Provider Emergency Medicine
DX: K12.0 Recurrent oral aphthae (principal); K14.4 Atrophy of tongue papillae; E11.9 Type 2 diabetes mellitus without complications; Z86.73 Personal history of transient ischemic attack (TIA), and cerebral infarction without residual deficits
CPT/HCPCS: 99283

== ENCOUNTER 2021-08-20 08:56 | Emergency (ER) | payer MEDICAID, SELFPAY ==
[2021-08-20 09:02] VITALS: BP 123/67; PULSE 73; O2SAT 100
== END 2021-08-20 09:36 | disposition left against medical advice (07) ==
DX: M79.604 Pain in right leg (principal)

== ENCOUNTER 2021-10-17 02:55 | Emergency (ER) | payer MEDICAID, SELFPAY ==
--- NOTE | 2021-10-17 | ECG_ITS ---
Test Reason : DIZZINESS Blood Pressure : / mmHG Vent. Rate : 068 BPM Atrial Rate : 068 BPM P-R Int : 156 ms QRS Dur : 092 ms QT Int : 388 ms P-R-T Axes : 048 047 030 degrees QTc Int : 412 ms Normal sinus rhythm Early repolarization Normal ECG When compared with ECG of 08-FEB-2021 20:25, No significant change was found Referred By: Generic ED Physician Electronically Signed By:ERASMO FLORES MD
--- NOTE | ~2021-10-17 | XR_ITS ---
EXAMINATION: XR CHEST CLINICAL INFORMATION: Chest pain COMPARISON: 04/28/2021 TECHNIQUE: Frontal view of the chest was obtained. FINDINGS: The lungs are clear with no focal consolidation. No evidence of pneumothorax, pulmonary edema, or pleural effusions. The cardiomediastinal silhouette is unremarkable. No acute osseous findings. XR/XR chest 1V IMPRESSION: No acute cardiopulmonary findings.
[2021-10-17 03:25] VITALS: BP 106/70; BP 119/78; PULSE 72; PULSE 73; RESP 12; TEMP 37; O2SAT 100; O2SAT 99; BMI 24.0
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
--- NOTE | 2021-10-17 03:58 | PC.NURSE ---
when asked about daily medications, pt states that he should be taking tramadol. when asked for clarification if pt has been taking suboxone, he states no, its just been the tramadol and albuterol
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
--- NOTE | 2021-10-17 04:20 | PC.NURSE ---
pt denies etoh/drug use tonight, states he stopped doing cocaine 4 days ago. pt prompted for a urine sample, states he is unable at this time
[2021-10-17 04:49] LABS: COVID-19 Test Negative (Negative); IDNOW Serial# 16C4AD1C; Influenza A Negative (Negative); Influenza B2 Negative (Negative)
[2021-10-17 04:55] VITALS: PULSE 62; RESP 18; O2SAT 96
[2021-10-17 04:59] LABS: MANUAL DIFF FLAG NO
[2021-10-17 05:02] LABS: Basophils Percent Auto 0.2 % (0-2); Eosinophils Percent Auto 0.4 % (0-4); Hemoglobin 14.3 g/dl (14.0-18.0); Imm Gran Abs Auto 0.01 X10*3/uL (0.00-0.03); Imm Gran Pct Auto 0.2 % (0.0-0.4); Lymphocytes Absolute Auto 1.8 X10*3/uL (1.2-4.9); Lymphocytes Percent Auto 35.6 % (20-40); Mean Corpuscular HGB Conc 33.3 g/dl (31.0-36.0); Mean Corpuscular Hemoglobin 29.7 pg (27.0-33.0); Mean Corpuscular Volume 89.4 fL (80.0-98.0); Mean Platelet Volume 9.7 fL (9.4-12.4); Monocytes Absolute Auto 0.4 X10*3/uL (0.1-1.2); Monocytes Percent Auto 7.2 % (2-11); Neutrophils Absolute Auto 2.8 x10*3/uL (2.0-8.3); Neutrophils Percent Auto 56.4 % (45-73); Platelet Count 225 X10*3/uL (160-400); Red Blood Count 4.81 X10*6/uL (4.60-5.80); Red Cell Distribution Width 12.4 % (11.0-16.0)
[2021-10-17 05:17] LABS: D Dimer High Sensitivity < 150 NG/ML
[2021-10-17 05:18] LABS: Ethanol < 10 mg/dL
[2021-10-17 05:21] LABS: Alanine Aminotransferase 25 U/L (0-40); Albumin Level 4.2 g/dL (3.5-5.0); Alkaline Phosphatase 48 U/L (39-117); Anion Gap 12 (12-20); Aspartate Amino Transferase 27 U/L (5-37); Bilirubin Total 0.6 mg/dL (0.0-1.0); Blood Urea Nitrogen 13 mg/dL (9-16); Calcium 9.6 mg/dL (8.4-10.2); Carbon Dioxide 27 mmol/L (22-29); Chloride 104 mmol/L (96-108); Creatinine Clr Calc Pharmacy 111.3; Estimated Glomerular Filt Rate > 60; Glucose Random 98 mg/dL (60-115); Potassium 3.9 mmol/L (3.3-5.1); Sodium 139 mmol/L (135-145)
[2021-10-17] MEDS: diphenhydrAMINE HCL 25 MG TABLET PO (06:02)
[2021-10-17] MEDS: Acetaminophen 325 MG TABLET 975 MG PO (06:02)
[2021-10-17] MEDS: Ketorolac Tromethamine 15 MG/ML VIAL IM (06:03)
[2021-10-17] MEDS: Lidocaine 4 % Patch ADH..PATCH 1 PATCH TRANSDERMA (06:04)
== END 2021-10-17 06:35 | disposition home or self-care (01) ==
PROVIDERS: Emergency Provider Student in an Organized Health Care Education/Training Program
DX: G89.29 Other chronic pain (principal); R07.9 Chest pain, unspecified; R68.84 Jaw pain; M79.604 Pain in right leg; F11.20 Opioid dependence, uncomplicated; J45.909 Unspecified asthma, uncomplicated; E11.9 Type 2 diabetes mellitus without complications; Z86.73 Personal history of transient ischemic attack (TIA), and cerebral infarction without residual deficits; Z20.822 Contact with and (suspected) exposure to COVID-19
CPT/HCPCS: 36415; 71045; 80053; 82077; 85025; 85379; 87502; 87635; 93005; 96372; 99284; J1885; Q0163

== ENCOUNTER 2021-10-26 08:22 | Emergency (ER) | payer MEDICAID, SELFPAY ==
--- NOTE | ~2021-10-26 | XR_ITS ---
EXAMINATION: XR CERVICAL SPINE CLINICAL INFORMATION: Neck pain with radicular pain. COMPARISON: None TECHNIQUE: 3 views of the cervical spine were obtained. FINDINGS: There is mild reversal the normal cervical lordosis with mild disc space narrowing and marginal osteophyte formation from C4 to C7. There is normal spinal alignment. The vertebral bodies are intact. The odontoid process is intact. The soft tissues are unremarkable. Incidental note of left mandibular reconstruction plate and screws without abnormality. XR/XR cervical spine 3V IMPRESSION: 1. Mild reversal the normal cervical lordosis may be secondary to positioning and cisternal muscle spasm. 2. Mild degenerative disc disease in the inferior lumbar spine as detailed above.
[2021-10-26 08:29] VITALS: BP 116/66; PULSE 72
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
[2021-10-26 09:11] VITALS: BP 121/71; PULSE 65; RESP 14; TEMP 37.2; O2SAT 99; BMI 24.0
[2021-10-26] MEDS: Ketorolac Tromethamine 60 MG/2 ML VIAL IM (09:18)
== END 2021-10-26 10:41 | disposition home or self-care (01) ==
PROVIDERS: Emergency Provider Emergency Medicine
DX: M54.12 Radiculopathy, cervical region (principal); E11.9 Type 2 diabetes mellitus without complications; J45.909 Unspecified asthma, uncomplicated; Z86.73 Personal history of transient ischemic attack (TIA), and cerebral infarction without residual deficits; Z79.891 Long term (current) use of opiate analgesic; Z79.899 Other long term (current) drug therapy
CPT/HCPCS: 72040; 96372; 99283; 99284; J1885

== ENCOUNTER 2021-11-01 13:30 | Emergency (ER) | payer MEDICAID, SELFPAY ==
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
--- NOTE | 2021-11-01 14:22 | PC.NURSE ---
SPOKE TO TRIPE FINISHER MARTINEZ AT [facility] PER PT'S REQUEST. HE IS AWARE THAT PT IS HERE IN BEHAVIORAL POD.
[2021-11-01 14:40] VITALS: BP 118/82; PULSE 74; RESP 18; TEMP 36.2; O2SAT 98; BMI 24.4
[2021-11-01] MEDS: LORazepam 1 MG TABLET 2 MG PO (14:52)
[2021-11-01] MEDS: HaloperidoL 5 MG TABLET 10 MG PO (14:54)
[2021-11-01 14:58] LABS: COVID-19 Test Negative (Negative); IDNOW Serial# 16C4AD1C
[2021-11-01 15:05] LABS: Amphetamine Screen Urine Not Detected (Not Detect); Barbiturates, Urine Not Detected (Not Detect); Benzodiazepines Screen Urine Not Detected (Not Detect); Cannabinoid Screen Urine POSITIVE (Not Detect); Cocaine Screen Urine POSITIVE (Not Detect); Fentanyl, urine Not Detected (Not Detect); Opiate Screen Urine POSITIVE (Not Detect); Phencyclidine Screen Urine Not Detected (Not Detect)
--- NOTE | 2021-11-01 17:36 | PHA.MEDREC ---
Pharmacy Consult ? Medication Reconciliation Pharmacy has completed the medication reconciliation. spoke with pt
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
[2021-11-02 04:12] VITALS: RESP 17
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
--- NOTE | 2021-11-02 07:34 | PC.NURSE ---
patient appears to remain asleep at present respirations are even and unlabored patient appears in no distress
[2021-11-02] MEDS: traMADoL HCL 50 MG TABLET PO (08:46)
== END 2021-11-02 11:09 | disposition home or self-care (01) ==
PROVIDERS: Nurse Practitioner Family; Emergency Provider Student in an Organized Health Care Education/Training Program
DX: R45.850 Homicidal ideations (principal); R45.1 Restlessness and agitation; Z20.822 Contact with and (suspected) exposure to COVID-19; F11.20 Opioid dependence, uncomplicated; E11.9 Type 2 diabetes mellitus without complications; F39 Unspecified mood [affective] disorder; Z86.73 Personal history of transient ischemic attack (TIA), and cerebral infarction without residual deficits; Z79.82 Long term (current) use of aspirin; Z79.899 Other long term (current) drug therapy
CPT/HCPCS: 80307; 87635; 99284

== ENCOUNTER 2021-11-09 22:11 | Emergency (ER) | payer MEDICAID, SELFPAY ==
[2021-11-09 22:21] VITALS: BP 110/64; PULSE 82; O2SAT 99
--- NOTE | 2021-11-09 23:26 | PC.NURSE ---
Called pt for the second time in the waiting room and no response.
--- NOTE | 2021-11-09 23:35 | PC.NURSE ---
Pt called for 3rd time for traige from waiting room. No response. Pt LWBS
== END 2021-11-09 23:50 | disposition left against medical advice (07) ==
PROVIDERS: Emergency Provider Emergency Medicine
DX: R06.02 Shortness of breath (principal); M54.50 Low back pain, unspecified

== ENCOUNTER 2021-11-20 23:58 | Inpatient (IN) | payer MEDICAID, SELFPAY ==
--- NOTE | ~2021-11-20 | MR_ITS ---
EXAMINATION: MRI BRAIN WITHOUT CONTRAST MRA HEAD WITHOUT CONTRAST MRA NECK WITHOUT CONTRAST CLINICAL INFORMATION: Headache. Blurry vision. COMPARISON: CT head from 11/21/2021 and 02/08/2021. Brain MRI from 02/10/2021. TECHNIQUE: Multiplanar multisequence MR imaging of the brain was obtained without contrast. Routine MRA of the head and neck was also performed. Routine axial 2D [id number] of the neck and 3D [id number] of the head were performed. 3D postprocessing including acquisition of multiplanar MIP reformats are obtained at the technologist workstation and utilized for image interpretation. Stenoses are assessed in accordance with NASCET criteria unless otherwise indicated. FINDINGS: MRI Brain: No focal restricted diffusion is demonstrated to suggest acute or subacute cerebral ischemia. No evidence of acute or chronic hemorrhagic products on heme-sensitive imaging. Normal parenchymal signal characteristics. The ventricles are normal in morphology and size. No abnormal mass effect. No midline shift. Normal appearance of the pituitary gland. The suprasellar cistern remains widely patent. Normal positioning of the cerebellar tonsils. Mild prominence of the CSF space posterior to the cerebellum. The right transverse sinus appears diminutive. Differential signal within the right sigmoid sinus and internal jugular vein at the skull base (similar to exam from 2020) suggestive of slowed blood flow. Otherwise, normal arterial and venous vascular flow voids are present. Normal, homogeneous marrow signal. Mild mucosal thickening of the paranasal sinuses. No signal abnormalities within the mastoids. MRA Head: Normal flow-related signal within the anterior circulation without evidence of focal stenosis or occlusion of the intradural internal carotid, middle cerebral, or anterior cerebral arteries. Normal flow-related signal within the posterior circulation without evidence of focal stenosis or occlusion of the intradural vertebral, basilar, superior cerebellar, or posterior cerebral arteries. No demonstrated intradural aneurysms. MRA Neck: Mildly motion degraded exam. The MRA of the neck was not completed within its entirety secondary to patient's inability to cooperate with the exam. Normal appearance of the mid and distal common carotid arteries. Normal flow-related signal within the carotid bulbs and cervical segments of internal carotid arteries bilaterally. Left dominant vertebral artery. Otherwise, normal appearance of the V2 and V3 segments of the vertebral arteries bilaterally. No evidence of significant stenosis or occlusion. Limited evaluation of the neck is without significant abnormality. MR/MR angio head wo con IMPRESSION: 1. No acute intracranial abnormalities. 2. MRA of the head and neck without evidence of proximal occlusion or flow-limiting stenosis.
--- NOTE | ~2021-11-20 | MR_ITS ---
EXAMINATION: MRI BRAIN WITHOUT CONTRAST MRA HEAD WITHOUT CONTRAST MRA NECK WITHOUT CONTRAST CLINICAL INFORMATION: Headache. Blurry vision. COMPARISON: CT head from 11/21/2021 and 02/08/2021. Brain MRI from 02/10/2021. TECHNIQUE: Multiplanar multisequence MR imaging of the brain was obtained without contrast. Routine MRA of the head and neck was also performed. Routine axial 2D nlew-uh-oaklgr of the neck and 3D ldlk-xs-pplqgh of the head were performed. 3D postprocessing including acquisition of multiplanar MIP reformats are obtained at the technologist workstation and utilized for image interpretation. Stenoses are assessed in accordance with NASCET criteria unless otherwise indicated. FINDINGS: MRI Brain: No focal restricted diffusion is demonstrated to suggest acute or subacute cerebral ischemia. No evidence of acute or chronic hemorrhagic products on heme-sensitive imaging. Normal parenchymal signal characteristics. The ventricles are normal in morphology and size. No abnormal mass effect. No midline shift. Normal appearance of the pituitary gland. The suprasellar cistern remains widely patent. Normal positioning of the cerebellar tonsils. Mild prominence of the CSF space posterior to the cerebellum. The right transverse sinus appears diminutive. Differential signal within the right sigmoid sinus and internal jugular vein at the skull base (similar to exam from 2020) suggestive of slowed blood flow. Otherwise, normal arterial and venous vascular flow voids are present. Normal, homogeneous marrow signal. Mild mucosal thickening of the paranasal sinuses. No signal abnormalities within the mastoids. MRA Head: Normal flow-related signal within the anterior circulation without evidence of focal stenosis or occlusion of the intradural internal carotid, middle cerebral, or anterior cerebral arteries. Normal flow-related signal within the posterior circulation without evidence of focal stenosis or occlusion of the intradural vertebral, basilar, superior cerebellar, or posterior cerebral arteries. No demonstrated intradural aneurysms. MRA Neck: Mildly motion degraded exam. The MRA of the neck was not completed within its entirety secondary to patient's inability to cooperate with the exam. Normal appearance of the mid and distal common carotid arteries. Normal flow-related signal within the carotid bulbs and cervical segments of internal carotid arteries bilaterally. Left dominant vertebral artery. Otherwise, normal appearance of the V2 and V3 segments of the vertebral arteries bilaterally. No evidence of significant stenosis or occlusion. Limited evaluation of the neck is without significant abnormality. MR/MR head/brain wo con IMPRESSION: 1. No acute intracranial abnormalities. 2. MRA of the head and neck without evidence of proximal occlusion or flow-limiting stenosis.
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
--- NOTE | ~2021-11-20 | CT_ITS ---
EXAMINATION: CT AND WITHOUT CONTRAST, LEFT CLINICAL INFORMATION: Low suspicion of tenosynovitis COMPARISON: None TECHNIQUE: Multidetector volumetric imaging of the left hand performed without IV contrast. Coronal and sagittal reformatted images are obtained and reviewed. This CT examination was performed using dose optimization techniques as appropriate, variously including the following: *Automated exposure control *Adjustment of mA and/or kV according to patient size (this includes techniques or standardized protocols for targeted exams where dose is matched to indication/reason for exam; i.e. extremities or head) *Use of iterative reconstruction technique DLP: 98 mGy-cm FINDINGS: No fracture or malalignment. Joint spaces are maintained. No osseous erosion. Carpal rows are well aligned. There is dorsal soft tissue swelling throughout the hand. No significant fluid seen along the extensor tendons. CT/CT hand LT wo con IMPRESSION: Diffuse edema throughout the dorsum of the hand. No fluid seen tracking along the extensor tendons to suggest tenosynovitis.
--- NOTE | ~2021-11-20 | XR_ITS ---
EXAMINATION: XR HAND, LEFT CLINICAL INFORMATION: Left hand pain COMPARISON: CT from earlier in the day. TECHNIQUE: PA, lateral, and oblique views of the left hand. FINDINGS: There is diffuse soft tissue edema. No acute fracture or dislocation. Alignment is anatomic. Joint spaces are maintained. XR/XR hand LT min 3V IMPRESSION: Diffuse soft tissue edema with no acute osseous abnormality.
[2021-11-21] VITALS (10 sets, daily range): BP systolic 108–136; BP diastolic 64–78; PULSE 52–88; RESP 12–18; TEMP 36.3–37; O2SAT 97–100; BMI 24.4
--- NOTE | 2021-11-21 00:44 | ECG_ITS ---
Test Reason : CHEST PAIN Blood Pressure : / mmHG Vent. Rate : 059 BPM Atrial Rate : 059 BPM P-R Int : 154 ms QRS Dur : 090 ms QT Int : 414 ms P-R-T Axes : 050 057 031 degrees QTc Int : 409 ms Sinus bradycardia Otherwise normal ECG When compared with ECG of 21-NOV-2021 00:36, No significant change was found Referred By: Latoya Salinas Electronically Signed By:Srevando Puga
[2021-11-21 00:54] LABS: MANUAL DIFF FLAG NO
[2021-11-21 00:56] LABS: Basophils Percent Auto 0.2 % (0-2); Eosinophils Percent Auto 0.4 % (0-4); Hematocrit 38.3 % (42.0-52.0); Hemoglobin 12.6 g/dl (14.0-18.0); Imm Gran Abs Auto 0.02 X10*3/uL (0.00-0.03); Imm Gran Pct Auto 0.4 % (0.0-0.4); Lymphocytes Absolute Auto 1.4 X10*3/uL (1.2-4.9); Lymphocytes Percent Auto 27.3 % (20-40); Mean Corpuscular HGB Conc 32.9 g/dl (31.0-36.0); Mean Corpuscular Hemoglobin 29.4 pg (27.0-33.0); Mean Corpuscular Volume 89.3 fL (80.0-98.0); Monocytes Absolute Auto 0.4 X10*3/uL (0.1-1.2); Monocytes Percent Auto 7.1 % (2-11); Neutrophils Absolute Auto 3.2 x10*3/uL (2.0-8.3); Neutrophils Percent Auto 64.6 % (45-73); Platelet Count 204 X10*3/uL (160-400); Red Blood Count 4.29 X10*6/uL (4.60-5.80); Red Cell Distribution Width 12.8 % (11.0-16.0)
[2021-11-21 01:23] LABS: Alanine Aminotransferase 27 U/L (0-40); Albumin Level 3.8 g/dL (3.5-5.0); Alkaline Phosphatase 49 U/L (39-117); Anion Gap 10 (12-20); Aspartate Amino Transferase 46 U/L (5-37); Bilirubin Total 0.9 mg/dL (0.0-1.0); Blood Urea Nitrogen 16 mg/dL (9-16); Calcium 8.5 mg/dL (8.4-10.2); Carbon Dioxide 26 mmol/L (22-29); Chloride 108 mmol/L (96-108); Creatinine Clr Calc Pharmacy 91.6; Estimated Glomerular Filt Rate > 60; Glucose Random 103 mg/dL (60-115); Potassium 3.8 mmol/L (3.3-5.1); Sodium 140 mmol/L (135-145); Total Protein 5.9 g/dL (6.5-8.0)
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
--- NOTE | 2021-11-21 02:04 | ECG_ITS ---
Test Reason : LEFT SIDED WEAKNESS Blood Pressure : / mmHG Vent. Rate : 063 BPM Atrial Rate : 063 BPM P-R Int : 164 ms QRS Dur : 086 ms QT Int : 382 ms P-R-T Axes : 055 054 036 degrees QTc Int : 390 ms Normal sinus rhythm Normal ECG When compared with ECG of 17-OCT-2021 03:38, No significant change was found Referred By: Latoya Salinas Electronically Signed By:Servando Puga
[2021-11-21] MEDS: 0.9 % Sodium Chloride 1,000 ML 999 ML IVCONT (02:22)
[2021-11-21] MEDS: Piperacillin Sodium/Tazobactam 3.375 GM in 0.9 % Sodium Chloride 50 ML IV ×2 (02:27→10:25)
[2021-11-21 04:05] LABS: Lactic Acid 0.7 mmol/L (0.5-2.0)
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
[2021-11-21] MEDS: Heparin Sodium,Porcine 5,000 UNIT/ML VIAL 5000 UNIT SUBCUT ×2 (06:30→15:07)
[2021-11-21 06:53] LABS: Troponin-I High Sensitivity 8.9 ng/L (<3.5-35.0)
[2021-11-21 07:11] LABS: Glucose, Whole Blood 75 mg/dL (60-115)
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
--- NOTE | 2021-11-21 08:14 | PHA.PROG ---
Admission Date/Time: November 21, 2021 05:39 Indication: cellulitis Weight in k.379 kg Adjusted body weight in K.9 kg [place] body weight in K.3 kg Obesity Dosing Indication % IBW: Serum Creatinine - Last 168 Hours 11/21/21 00:50 Creatinine 1.13 Estimated CrCl and GFR - Last 168 Hours 11/21/21 00:50 Estim Creat Clear Calc 91.6 Estimated GFR > 60 Vancomycin Loading Dose: 2000 mg Current Vancomycin Dosing Regimen: 1000 mg q12h Vancomycin Monitoring using AUC goal of 400 - 600 range with trough as surrogate marker: predicted AUC 523 Date and Time for next Vancomycin Level to be drawn: 11/22/21 @1400 Pharmacist Comments on Vancomycin Plan: Vancomycin dosing will take advantage of [employer] as a clinical decision support tool that uses Bayesian modeling to calculate individual patient's pharmacokinetic parameters and forecast the patient's drug concentration time course with the target goal AUC 24 range of 400 - 600 mg/L/hr.
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
--- NOTE | 2021-11-21 09:25 | PHA.MEDREC ---
Pharmacy Consult ? Medication Reconciliation RN has completed the medication reconciliation.Pharmacy reviewed
[2021-11-21] MEDS: 0.9 % Sodium Chloride Flush 3 ML SYRINGE IVFLUSH ×2 (10:26→17:49)
[2021-11-21] MEDS: oxyCODONE HCl Immed Release 5 MG TABLET PO (10:29)
[2021-11-21 11:21] LABS: Glucose, Whole Blood 102 mg/dL (60-115)
[2021-11-21 12:09] LABS: COVID-19 Test Negative (Negative)
--- NOTE | 2021-11-21 12:59 | MHC.CM.PN ---
Met with patient using wrapping machine operator regarding dc planning. Patient reports he has been living at the hotel at [address] [facility] in [facility] provided through [facility] [employer] [facility], and his SW is Lia Otero. Call placed to Lia Otero at patient's request at [phone] and left voice message informing her patient as admitted here and requested a return call to patient. Provided patient with phone number and encouraged him to contact Lia directly as well. Patient reports his PCP is from longterm in [place] and fills oxycode scrips for him at [facility]. Call to [facility] and was informed Dr. Yuan Borges fills patients scripts, updated chart with PCP name. Assisted patient in completing HCP. He chose his brother Mj as HCP and [employer] as alternate agent. Provided patient original and copies and placed a copy in the chart. [facility] Patient reports he uses public bus for transportation and will be able to get home via bus.
[2021-11-21] MEDS: hydrOXYzine HCL 50 MG TABLET PO (13:38)
[2021-11-21] MEDS: Gabapentin 600 MG TABLET PO (15:07)
[2021-11-21 15:13] LABS: Amphetamine Screen Urine Not Detected (Not Detect); Barbiturates, Urine Not Detected (Not Detect); Benzodiazepines Screen Urine Not Detected (Not Detect); Cannabinoid Screen Urine Not Detected (Not Detect); Cocaine Screen Urine POSITIVE (Not Detect); Fentanyl, urine Not Detected (Not Detect); Opiate Screen Urine Not Detected (Not Detect); Phencyclidine Screen Urine Not Detected (Not Detect)
--- NOTE | 2021-11-21 15:21 | PM.EVENT ---
Event Note Date of Service: 11/21/21 Event Note: patient was seen and evaluated this morning Complaining of pain in his left upper extremity Orthopedic input appreciated Infection team to discuss with him Cocaine abuse,opioid dependence continue current antibiotics
[2021-11-21] MEDS: vancomycin HCL 1,000 MG in 0.9 % Sodium Chloride 250 ML 270 MG IV (16:05)
[2021-11-21] MEDS: HYDROmorphone HCl 1 MG/ML SYRINGE 0.5 MG IVPUSH (16:55)
[2021-11-21 17:10] LABS: Glucose, Whole Blood 115 mg/dL (60-115)
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
--- NOTE | 2021-11-21 19:17 | HO.ADDICT_ITS ---
History of Present Illness Date of Service: 11/21/2021 Chief Complaint: Left hand cellulitis Reason for Consult: cocaine use Requesting physician: Melvin Chambers [facility] Narrative: Patient is a 41 year old Lithuanian speaking male who is currently medically admitted with cellulitis of the hand. Consult requested as patient reported cocaine use. Patient seen in [facility], bed 1. Awake, alert engaged in interview. Patient reported occasional cocaine use, and uses when he is overwhlemed . Denies any other substance use. Prescribed oxycodone via primary care provider at [facility]. Declines any resources related to substance use at this time. Past Psychiatric History: Patient reports that he was under psychiatric care in [place] starting in 2015, up until August 2020. Unknown as to whether patient has histtor of IPLOC, PHP, IOP, therapist. Review of Systems Constitutional: Reports as per HPI and Reports no additional constitutional complaints Diagnostics Vital Signs (24Hr): Vital Signs - 24 hr 11/21/21 00:36 11/21/21 01:19 11/21/21 03:31 Temperature 98.2 F Pulse Rate 78 68 76 Respiratory Rate 18 18 12 Blood Pressure 126/76 108/67 136/76 Pulse Oximetry 98 98 100 Oxygen Delivery Method Room Air Room Air Room Air 11/21/21 06:04 11/21/21 15:15 Temperature 98.6 F Pulse Rate 52 88 Respiratory Rate 12 18 Blood Pressure 126/78 128/68 Pulse Oximetry 100 99 Oxygen Delivery Method Room Air Room Air BMI result Body Mass Index 24.4 Labs Results: 11/21/21 00:50 11/21/21 00:50 Labs: Laboratory Results - last 48 hr 11/21/21 11/21/21 11/21/21 00:50 00:50 00:50 WBC 5.0 RBC 4.29 L Hgb 12.6 L Hct 38.3 L MCV 89.3 MCH 29.4 MCHC 32.9 RDW 12.8 Plt Count 204 MPV 10.0 Immature Gran % (Auto) 0.4 Neut % (Auto) 64.6 Lymph % (Auto) 27.3 [place] % (Auto) 7.1 Eos % (Auto) 0.4 Baso % (Auto) 0.2 Lymph # (Auto) 1.4 [place] # (Auto) 0.4 Eos # (Auto) 0.0 Baso # (Auto) 0.0 Abs Immat Gran (auto) 0.02 Absolute Neuts (auto) 3.2 Absolute Nucleated RBC 0.000 Nucleated RBC % (auto) 0.0 Sodium 140 Potassium 3.8 Chloride 108 Carbon Dioxide 26 Anion Gap 10 L BUN 16 Creatinine 1.13 Estim Creat Clear Calc 91.6 Estimated GFR > 60 POC Glucose Random Glucose 103 Lactic Acid Calcium 8.5 D Total Bilirubin 0.9 AST 46 H D ALT 27 Alkaline Phosphatase 49 Troponin I High Sens 12.0 Total Protein 5.9 L Albumin 3.8 Urine Opiates Screen Urine Fentanyl Screen Ur Barbiturates Screen Ur Phencyclidine Scrn Ur Amphetamines Screen U Benzodiazepines Scrn Urine Cocaine Screen U Marijuana (THC) Screen COVID-19 (DEANDRE) COVID-19 [employer] 11/21/21 11/21/21 11/21/21 02:21 06:25 07:07 WBC RBC Hgb Hct MCV MCH MCHC RDW Plt Count MPV Immature Gran % (Auto) Neut % (Auto) Lymph % (Auto) [place] % (Auto) Eos % (Auto) Baso % (Auto) Lymph # (Auto) [place] # (Auto) Eos # (Auto) Baso # (Auto) Abs Immat Gran (auto) Absolute Neuts (auto) Absolute Nucleated RBC Nucleated RBC % (auto) Sodium Potassium Chloride Carbon Dioxide Anion Gap BUN Creatinine Estim Creat Clear Calc Estimated GFR POC Glucose 75 Random Glucose Lactic Acid 0.7 Calcium Total Bilirubin AST ALT Alkaline Phosphatase Troponin I High Sens 8.9 Total Protein Albumin Urine Opiates Screen Urine Fentanyl Screen Ur Barbiturates Screen Ur Phencyclidine Scrn Ur Amphetamines Screen U Benzodiazepines Scrn Urine Cocaine Screen U Marijuana (THC) Screen COVID-19 (DEANDRE) COVID-19 [employer] 11/21/21 11/21/21 11/21/21 11:08 11:41 14:35 WBC RBC Hgb Hct MCV MCH MCHC RDW Plt Count MPV Immature Gran % (Auto) Neut % (Auto) Lymph % (Auto) [place] % (Auto) Eos % (Auto) Baso % (Auto) Lymph # (Auto) [place] # (Auto) Eos # (Auto) Baso # (Auto) Abs Immat Gran (auto) Absolute Neuts (auto) Absolute Nucleated RBC Nucleated RBC % (auto) Sodium Potassium Chloride Carbon Dioxide Anion Gap BUN Creatinine Estim Creat Clear Calc Estimated GFR POC Glucose 102 Random Glucose Lactic Acid Calcium Total Bilirubin AST ALT Alkaline Phosphatase Troponin I High Sens Total Protein Albumin Urine Opiates Screen Not Detected Urine Fentanyl Screen Not Detected Ur Barbiturates Screen Not Detected Ur Phencyclidine Scrn Not Detected Ur Amphetamines Screen Not Detected U Benzodiazepines Scrn Not Detected Urine Cocaine Screen POSITIVE H U Marijuana (THC) Screen Not Detected COVID-19 (DEANDRE) Negative COVID-19 Clin Com See Note 11/21/21 17:08 WBC RBC Hgb Hct MCV MCH MCHC RDW Plt Count MPV Immature Gran % (Auto) Neut % (Auto) Lymph % (Auto) [place] % (Auto) Eos % (Auto) Baso % (Auto) Lymph # (Auto) [place] # (Auto) Eos # (Auto) Baso # (Auto) Abs Immat Gran (auto) Absolute Neuts (auto) Absolute Nucleated RBC Nucleated RBC % (auto) Sodium Potassium Chloride Carbon Dioxide Anion Gap BUN Creatinine Estim Creat Clear Calc Estimated GFR POC Glucose 115 Random Glucose Lactic Acid Calcium Total Bilirubin AST ALT Alkaline Phosphatase Troponin I High Sens Total Protein Albumin Urine Opiates Screen Urine Fentanyl Screen Ur Barbiturates Screen Ur Phencyclidine Scrn Ur Amphetamines Screen U Benzodiazepines Scrn Urine Cocaine Screen U Marijuana (THC) Screen COVID-19 (DEANDRE) COVID-19 Clin Com Imaging Radiology Impressions: ITS Impressions Head CT 11/21/21 02:45 IMPRESSION: No acute intracranial pathology. Hand CT 11/21/21 02:46 IMPRESSION: Diffuse edema throughout the dorsum of the hand. No fluid seen tracking along the extensor tendons to suggest tenosynovitis. Mental Status Exam Mental Status Exam Patient Appearance: Appropriate Mood Description: Anxious Affect Description: Anxious Speech Pattern: Animated and Pressured Medications Medications Current Medications Albuterol Sulfate (Albuterol Sulfate 90 Mcg 8 Gm Inhaler) 2 puff INHALE Q4H PRN PRN Reason: shortness of breath or wheezin Dextrose (Dextrose 50 % 25 Gm/50 Ml Syringe) 25 gm IVPUSH Q15M PRN; Protocol PRN Reason: per Hypoglycemia Standing Ord. Gabapentin (Gabapentin 600 Mg Tablet) 600 mg PO TID [facility] Last Admin: 11/21/21 15:07 Dose: 600 mg Glucose (Glucose Gel 15 Gm Gel..Gram.) 15 gm PO Q15M PRN; Protocol PRN Reason: per Hypoglycemia Standing Ord. Heparin Sodium (Porcine) (Heparin Sodium,Porcine 5,000 Unit/Ml Vial) 5,000 unit SUBCUT Q8H [facility] Last Admin: 11/21/21 15:07 Dose: 5,000 unit Hydromorphone HCl (Hydromorphone Hcl 1 Mg/Ml Syringe) 0.5 mg IVPUSH Q4H PRN; Pr otocol PRN Reason: Pain, Severe (Pain Scale 7-10) Last Admin: 11/21/21 16:55 Dose: 0.5 mg Hydroxyzine HCl (Hydroxyzine Hcl 50 Mg Tablet) 50 mg PO Q8H PRN PRN Reason: anxiety/restlessness Last Admin: 11/21/21 13:38 Dose: 50 mg Piperacillin Sod/Tazobactam (Sod 3.375 gm/ Sodium Chloride) 50 mls @ 12.5 mls/hr IV 0200,1000,1800 [facility] Last Infusion: 11/21/21 10:55 Dose: 12.5 mls/hr Vancomycin HCl 1,000 mg/ (Sodium Chloride) 270 mls @ 270 mls/hr IV Q12H [facility] Last Infusion: 11/21/21 17:50 Dose: Infused Insulin Human Lispro (Insulin Lispro 100 Unit/Ml 3 Ml Vial) 0 unit SUBCUT QIDACHS [facility]; Protocol Last Admin: 11/21/21 17:48 Dose: Not Given Melatonin (Melatonin 3 Mg Tablet) 6 mg PO BEDTIME PRN PRN Reason: Insomnia Oxycodone HCl (Oxycodone Hcl Immed Release 5 Mg Tablet) 5 mg PO Q6H PRN PRN Reason: Pain, Moderate (Pain Scale 4-6 Last Admin: 11/21/21 10:29 Dose: 5 mg Pharmacy Consult (Consult Rx Perform Med Rec) 1 each MISCELLANE ONCE PRN PRN Reason: Consult order Pharmacy Consult (Consult Rx Vancomycin Dosing) 1 each MISCELLANE DAILY PRN PRN Reason: Consult order Senna (Sennosides 8.6 Mg Tablet) 17.2 mg PO BEDTIME PRN PRN Reason: Constipation Sodium Chloride (0.9 % Sodium Chloride Flush 3 Ml Syringe) 3 ml IVFLUSH QSHIFT [facility] Last Admin: 11/21/21 17:49 Dose: 3 ml Allergies Allergies Allergy/AdvReac Type Severity Reaction Status Date / Time ibuprofen Allergy Unknown Unknown Verified 07/11/21 13:40 Iodinated Contrast Media Allergy Unknown Unknown Verified 07/11/21 13:40 [Contrast Dye] acetaminophen Allergy Rash Verified 07/11/21 13:40 shellfish derived Allergy Unknown Verified 07/11/21 13:40 Assessment & Plan Assessment & Plan (1) Cellulitis of hand: Status: Acute Code(s): L03.119 - Cellulitis of unspecified part of limb Assessment and Plan: * declines resources at this time, very concerned about housing and belongings * no follow up indicated at this time * narcan at time of discharge I spent ___25___ minutes with the patient and/or on the patient floor today, greater than?50% of which was spent counseling/coordinating care. [facility] Past Medical History Medical History Asthma CVA (cerebral vascular accident) Diabetes Mood disorder Neuropathy Opiate addiction Surgical History Surgical History History of carpal tunnel surgery of left wrist No significant past surgical history Social History Social History Alcohol intake: unknown Patient Tobacco Use Status: Never used Tobacco Advance Directives: No service: No Current occupational status: unemployed and other
--- NOTE | 2021-11-21 19:19 | PC.NURSE ---
Patient reports a new onset of blurry vision with red spots in right eye and continues with pressure like headache. Patient denies nausea/vomiting/dizziness. Findings reported to a hospitalist.
[2021-11-21] MEDS: LORazepam 2 MG/ML VIAL 0.5 MG IVPUSH (20:11)
--- NOTE | 2021-11-21 20:27 | PC.NURSE ---
Report called to Sara BERRIOS , patient to be transferred to room 385 after MRI done.
--- NOTE | 2021-11-21 20:59 | PC.NURSE ---
Telephone call from MRI-patient is moving-unable to obtain a clear MRI image-patient requesting more medication for anxiety. Hospitalist notified. put in an order for Lorazepam 1 mg IV push. This RN arrived to MRI, unable to scan med-Lorazepam 1 mg IV push administered-patient tolerated well.
[2021-11-21] MEDS: LORazepam 2 MG/ML VIAL 1 MG IVPUSH (21:05)
[2021-11-21] MEDS: diazePAM 10 MG/2 ML CARTRIDGE 5 MG IVPUSH (21:43)
[2021-11-21 22:58] LABS: Glucose, Whole Blood 90 mg/dL (60-115)
[2021-11-22 01:00] VITALS: BMI 25.0
[2021-11-22] MEDS: Heparin Sodium,Porcine 5,000 UNIT/ML VIAL 5000 UNIT SUBCUT ×3 (01:03→14:37)
[2021-11-22] MEDS: Piperacillin Sodium/Tazobactam 3.375 GM in 0.9 % Sodium Chloride 50 ML IV ×3 (01:05→18:09)
[2021-11-22] MEDS: 0.9 % Sodium Chloride Flush 3 ML SYRINGE IVFLUSH ×3 (01:07→15:35)
--- NOTE | 2021-11-22 01:19 | PC.NURSE ---
Pt arrived on unit at 22:55. Pt had to arouse but would wake up and fall right back to sleep. Attempted to again assess patient when patient woke up at 01:10 to use the bathroom. Pt voided and went right back to bed. Pt falls asleep right away. Again, hard to arouse-shook patient and called name loudly. Pt would startle awake and fall right back to sleep. Maria D [employer] interpreter was at bedside and neither of us could keep patient awake long enough to answer admission questions. Pt's POC was checked upon arrival to unit. Was given jose crackers an milk. See assessment for charting. Bed alarm on for patient safety. Will continue to monitor.
--- NOTE | 2021-11-22 03:13 | PM.EVENT ---
Event Note Date of Service: 11/22/21 Event Note: Headache/blurry vision: Patient reported brief episode of cardiac lab evaluation. MRI brain and MRA head and neck showed no acute findings. Neuro checks Neurology consult
[2021-11-22 04:00] VITALS: BP 129/58; PULSE 67; RESP 17; TEMP 36.7; O2SAT 99
[2021-11-22] MEDS: vancomycin HCL 1,000 MG in 0.9 % Sodium Chloride 250 ML 270 MG IV ×2 (04:02→15:26)
--- NOTE | 2021-11-22 04:25 | PC.NURSE ---
Pt awake. lang interpreter called and able to help with admission assessment questions. See charting. Pt answered questions, had snack and is now sleeping with IV antibiotics infusing. Pt does not remember coming to this room after MRI nor conversing with me earlier. Will continue to monitor.
[2021-11-22 06:10] LABS: MANUAL DIFF FLAG NO
[2021-11-22 06:14] LABS: Basophils Percent Auto 0.3 % (0-2); Eosinophils Absolute Auto 0.1 X10*3/uL (0.0-0.4); Eosinophils Percent Auto 1.5 % (0-4); Hematocrit 40.8 % (42.0-52.0); Hemoglobin 13.5 g/dl (14.0-18.0); Lymphocytes Absolute Auto 1.2 X10*3/uL (1.2-4.9); Lymphocytes Percent Auto 34.8 % (20-40); Mean Corpuscular HGB Conc 33.1 g/dl (31.0-36.0); Mean Corpuscular Hemoglobin 29.5 pg (27.0-33.0); Mean Corpuscular Volume 89.1 fL (80.0-98.0); Monocytes Absolute Auto 0.2 X10*3/uL (0.1-1.2); Monocytes Percent Auto 6.4 % (2-11); Platelet Count 175 X10*3/uL (160-400); Red Blood Count 4.58 X10*6/uL (4.60-5.80); Red Cell Distribution Width 12.7 % (11.0-16.0); White Blood Count 3.4 X10*3/uL (4.8-10.8)
[2021-11-22 06:29] LABS: Creatinine Clr Calc Pharmacy 124.7; Estimated Glomerular Filt Rate > 60
[2021-11-22 06:31] LABS: Anion Gap 8 (12-20); Blood Urea Nitrogen 10 mg/dL (9-16); Calcium 8.9 mg/dL (8.4-10.2); Carbon Dioxide 28 mmol/L (22-29); Chloride 108 mmol/L (96-108); Creatinine Clr Calc Pharmacy 124.7; Estimated Glomerular Filt Rate > 60; Glucose Random 130 mg/dL (60-115); Potassium 3.8 mmol/L (3.3-5.1); Sodium 140 mmol/L (135-145)
[2021-11-22 07:05] VITALS: BP 132/57; PULSE 60; RESP 18; TEMP 36.7; O2SAT 100
[2021-11-22 07:25] LABS: Glucose, Whole Blood 81 mg/dL (60-115)
[2021-11-22] MEDS: Gabapentin 600 MG TABLET PO ×2 (09:22→14:37)
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
[2021-11-22] MEDS: HYDROmorphone HCl 1 MG/ML SYRINGE 0.5 MG IVPUSH ×2 (09:46→17:56)
[2021-11-22 11:08] VITALS: BP 119/65; PULSE 60; RESP 16; TEMP 36.6; O2SAT 99
[2021-11-22 11:34] LABS: Glucose, Whole Blood 119 mg/dL (60-115)
--- NOTE | 2021-11-22 12:08 | MHC.CM.PN ---
ANTICIPATED DC PLAN FOR Friday11/23/21
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
[2021-11-22 14:31] LABS: Vancomycin Trough 7.7 mcg/mL (10.0-20.0)
--- NOTE | 2021-11-22 14:41 | HE.PHANOTE ---
ELENA POLLACK Trough came back at 7.7 today. Increased to q8h dosing. next trough is 11/23 @1300
[2021-11-22] MEDS: oxyCODONE HCl Immed Release 5 MG TABLET PO (14:56)
[2021-11-22 15:28] VITALS: BP 124/71; PULSE 66; RESP 18; TEMP 36.7; O2SAT 100
[2021-11-22 15:46] LABS: Glucose, Whole Blood 120 mg/dL (60-115)
[2021-11-22 19:05] VITALS: BP 120/58; PULSE 71; RESP 18; TEMP 36.9; O2SAT 98
[2021-11-22] MEDS: hydrOXYzine HCL 50 MG TABLET PO (19:29)
[2021-11-22 20:02] LABS: Glucose, Whole Blood 124 mg/dL (60-115)
--- NOTE | 2021-11-22 20:03 | PC.NURSE ---
Addendum entered by Sara Jean Baptiste RN 11/22/21 20:29: patient alert and oriented .ambulated himself out of this unit Addendum entered by Sara Jean Baptiste RN 11/22/21 20:21: Patient seen by Dr. Chambers,patient decided to go home against medical advise,prescription given by Dr. Chambers for Doxycycline,importance for antibiotic explained to patient. Original Note: P patient wants to go home ,asking for PO antibiotics,stating his family member is in the hospital I Dr. Chambers notified,need for IV antibiotics explained to patient,assessed need for anxiety medication E Dr. Chambers is coming to speak with patient,historic interpreter called.
--- NOTE | 2021-11-22 21:22 | PM.EVENT ---
Event Note Date of Service: 11/22/21 Event Note: against medical advice discharge note: Patient mentioned that he wanted to leave the hospital. Explained the patient importance of staying in the hospital in continuing IV antibiotics for his hand cellulitis. Also explained about the risks involving leaving the hospital against medical advise, interpreting medical therapy which can lead to worsening medical condition and can lead to complications like tenosynovitis. patient verbalized that he understood the recent is still wanted to leave AMA. Patient was given p.o. doxycycline prescription and recommended to follow-up with the PCP in 2 days. Patient signed AMA forms and left the hospital.
== END 2021-11-22 20:36 | disposition left against medical advice (07) | DRG 383 ==
LOC: HO.ED 11-21 02:09 → HO.EDOVER 11-21 05:53 → HO.S3 11-21 19:50
PROVIDERS: Nurse Practitioner Psychiatric/Mental Health; Student in an Organized Health Care Education/Training Program; Admitting Provider Hospitalist; Emergency Provider Emergency Medicine; PCP Internal Medicine; Visit Provider Physician Assistant Medical
DX: L03.114 Cellulitis of left upper limb (principal); E11.40 Type 2 diabetes mellitus with diabetic neuropathy, unspecified; F11.20 Opioid dependence, uncomplicated; Z59.02 Unsheltered homelessness; R51.9 Headache, unspecified; R42 Dizziness and giddiness; G43.909 Migraine, unspecified, not intractable, without status migrainosus; Z20.822 Contact with and (suspected) exposure to COVID-19; F14.10 Cocaine abuse, uncomplicated; Z86.73 Personal history of transient ischemic attack (TIA), and cerebral infarction without residual deficits; Z91.041 Radiographic dye allergy status; Z56.0 Unemployment, unspecified; Z91.013 Allergy to seafood; Z88.6 Allergy status to analgesic agent; Z79.84 Long term (current) use of oral hypoglycemic drugs; Z79.899 Other long term (current) drug therapy
CPT/HCPCS: 36415; 70450; 70544; 70547; 70549; 70551; 73130; 73200; 80048; 80053; 80202; 80307; 82565; 82947; 83605; 84484; 85025; 87040; 87635; 93005; 96361; 96374; 99218; 99285; J1170; J2060; J2543; J3360; J3370

== ENCOUNTER 2021-11-23 19:50 | Observation (INO) | payer MEDICAID, SELFPAY ==
--- NOTE | 2021-11-23 | ECG_ITS ---
Test Reason : CHEST PAIN Blood Pressure : / mmHG Vent. Rate : 080 BPM Atrial Rate : 080 BPM P-R Int : 154 ms QRS Dur : 086 ms QT Int : 358 ms P-R-T Axes : 065 060 032 degrees QTc Int : 412 ms Normal sinus rhythm Early repolarization Normal ECG When compared with ECG of 21-NOV-2021 02:11, No significant change was found Referred By: Juan Villalpando Electronically Signed By:Servando Puga
[2021-11-23 19:54] VITALS: BP 102/66; PULSE 89; RESP 16; TEMP 36.6; O2SAT 98; BMI 23.3
--- NOTE | 2021-11-23 20:13 | ED.GENADULT ---
HPI - General Adult General Chief complaint: General Medical Stated complaint: ? Left hand infection Time Seen by Provider: 11/23/21 19:52 Source: patient Mode of arrival: EMS Limitations: language barrier (Icelandic-speaking outside medical sales representative utilized) History of Present Illness HPI narrative: Patient presents emergency department for evaluation of left hand pain swelling and redness. He reports that he currently has an infection there. He was admitted to the hospital 2 days ago and left he has stirred a against medical advice stating that his family member was in a hospital in [place] and he needed to leave right away. 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 In addition, he states that he is experiencing right-sided chest pain that radiates down the right side of his arm. Onset 30 minutes ago. It feels like stabbing pain. It is intermittent. Currently 06/28, received aspirin 324mg PO by EMS. Denies headache, dizziness, lightheadedness, neck pain, neck stiffness, shortness of breath, difficulty breathing, nausea, vomiting, abdominal pain, fevers, chills. Does report that he smokes cocaine, denies any additional drug usage. Related Data Home Medications Medication Instructions Recorded Confirmed gabapentin 600 mg tablet 600 mg PO TID 02/09/21 11/23/21 metformin 500 mg tablet 500 mg PO BIDAC 02/09/21 11/23/21 oxycodone 10 mg tablet 1 tab PO Q8H PRN Pain (Scale Score 11/21/21 11/23/21 7-10) Previous Rx's Medication Instructions Recorded albuterol sulfate 90 mcg/actuation 2 puff inhalation Q4-6H PRN 06/22/21 aerosol inhaler shortness of breath or wheezing #8.5 grams Allergies Allergy/AdvReac Type Severity Reaction Status Date / Time ibuprofen Allergy Unknown Unknown Verified 07/11/21 13:40 Iodinated Contrast Media Allergy Unknown Unknown Verified 07/11/21 13:40 [Contrast Dye] acetaminophen Allergy Rash Verified 07/11/21 13:40 shellfish derived Allergy Unknown Verified 07/11/21 13:40 Review of Systems Review of Systems: Constitutional:. No fever. No chills. No weakness. No fatigue. No night sweats. Eye: No swelling. No redness. ENT: No sore throat. No rhinorrhea. No nasal congestion. No sore throat. No difficulty swallowing. Skin: No rash. No itching. Cardiovascular: No chest pain. No chest pressure. No palpitations. No pedal edema. Respiratory: No shortness of breath. No cough. No sputum production. Gastrointestinal: No anorexia. No nausea. No vomiting. No diarrhea. No abdominal pain. No blood in stool. Genitourinary: No burning micturition. No urinary frequency. Neurologic: No headache. No dizziness. No pre-syncope/ syncope. No unilateral weakness. No numbness. No tingling. No change in bowel or bladder control. Musculoskeletal: Positive left hand pain and swelling. Hematologic: No bleeding. No bruising. Lymphatics: No enlarged lymph nodes. Psychiatric:No depression. No anxiety. Endocrine: No polyuria. No polydipsia. Yes all other systems are reviewed and are negative [facility] Past Medical History Attestation statement: The following information was validated with the patient. Source: old records reviewed Medical History Asthma CVA (cerebral vascular accident) Diabetes Mood disorder Neuropathy Opiate addiction Surgical History History of carpal tunnel surgery of left wrist No significant past surgical history Social History Social History Household Members: Unknown / Unable to assess Housing: Unknown / Unable to assess Unable to assess alcohol history related to: Unable to respond Alcohol intake: unknown Patient Tobacco Use Status: Never used Tobacco Substance Use Type: Crack/Cocaine Advance Directives: No Advance Directives Information Provided: No service: No Current occupational status: unemployed and other Physical Exam ED Vital Signs: Vital Signs - 24 hr 11/23/21 19:54 11/23/21 20:47 11/23/21 22:53 Temperature 98 F Pulse Rate 89 65 66 Respiratory Rate 16 12 13 Blood Pressure 102/66 102/59 L 105/59 L Pulse Oximetry 98 98 97 Oxygen Delivery Method Room Air Room Air Room Air 11/24/21 00:34 Temperature Pulse Rate 57 Respiratory Rate 14 Blood Pressure 97/55 L Pulse Oximetry 100 Oxygen Delivery Method Room Air BMI result Body Mass Index 23.3 Vital signs have been reviewed as normal and appeared to be correct. Blood pressure normal.? Heart rate normal.? Respiration rate normal. Temperature normal.? Oxygen saturation normal. Appearance: Alert.?Oriented to person, place and time. No acute distress.?Normal affect. Eyes: Pupils equal, round and reactive to light.? ENT: Pharynx normal.?? Neck: Normal inspection.? Neck supple.?? CVS: Heart sounds normal. Normal heart rate and rhythm.? Pulses normal.?? Respiratory: No respiratory distress.? Lung sounds clear to auscultation bilaterally?? Abdomen: Soft and non-tender. Normoactive bowel sounds. No pulsatile mass.?? Skin: Skin warm and dry.? Normal skin color.? Normal skin turgor.?? Extremities: No lower extremity edema.? No calf ttp. Left hand swelling, erythema, warmth, 2+ palpable radial pulse Neuro: Moves all extremities spontaneously. Sensation intact bilaterally. CN II-XII intact. No focal neuro deficits. Ambulates with normal steady gait. Course Course Course Narrative: Patient is a 41-year-old male with a past medical history of asthma, CVA, diabetes, disorder, neuropathy, opiate use presenting to emergency department for cellulitis of the left hand. Patient was admitted 11/21/2021 and left against medical advice 11/22/2021 with prescription for oral doxycycline, which he did not take. On physical exam appears worse than presentation while inpatient. Will obtain CBC, CMP, ESR, CRP, and repeat blood cultures and lactic acid. Hemodynamically stable. Oxycodone p.o. for pain at this time, IV vancomycin and IV Zosyn to be administered. Disposition pending results, however patient likely will require inpatient admission for IV antibiotic. Reevaluation(s) Reevaluation #1: CBC is overall unremarkable, BUN elevated likely secondary to dehydration. Tropinin 7.3, EKG reveals normal sinus rhythm with no acute ischemic changes. Time: 21:30 Reevaluation #2: Discussed with patient plan of care for hospital admission, he reports that he is willing to stay at this time. Spoke with hospitalist Dr. Chambers, who Accepted patient for admission to medicine service. Time: 23:22 Medical Decision Making Medical Records Medical records reviewed: Yes I reviewed the patient's medical records. Lab Data Lab results reviewed: Yes I reviewed the patient's lab results. Result diagrams: 11/23/21 20:29 11/23/21 20:29 Labs: Lab Results 11/23/21 11/23/21 11/23/21 Range/Units 20:29 20:29 20:29 WBC 6.5 (4.8-10.8) X10*3/uL RBC 4.92 (4.60-5.80) X10*6/uL Hgb 14.6 (14.0-18.0) g/dl Hct 43.2 (42.0-52.0) % MCV 87.8 (80.0-98.0) fL MCH 29.7 (27.0-33.0) pg MCHC 33.8 (31.0-36.0) g/dl RDW 12.8 (11.0-16.0) % Plt Count 236 D (160-400) X10*3/uL MPV 9.7 (9.4-12.4) fL Immature Gran % (Auto) 0.3 (0.0-0.4) % Neut % (Auto) 74.4 H (45-73) % Lymph % (Auto) 19.6 L (20-40) % [place] % (Auto) 5.4 (2-11) % Eos % (Auto) 0.0 (0-4) % Baso % (Auto) 0.3 (0-2) % Lymph # (Auto) 1.3 (1.2-4.9) X10*3/uL [place] # (Auto) 0.4 (0.1-1.2) X10*3/uL Eos # (Auto) 0.0 (0.0-0.4) X10*3/uL Baso # (Auto) 0.0 (0.0-0.2) X10*3/uL Abs Immat Gran (auto) 0.02 (0.00-0.03) X10*3/uL Absolute Neuts (auto) 4.8 (2.0-8.3) x10*3/uL Absolute Nucleated RBC 0.000 (0.0-0.012) X10*3/uL Nucleated RBC % (auto) 0.0 (0.0-0.2) /100WBC ESR 7 (0-15) MM/HR Sodium 139 (135-145) mmol/L Potassium 3.8 (3.3-5.1) mmol/L Chloride 100 (96-108) mmol/L Carbon Dioxide 29 (22-29) mmol/L Anion Gap 14 (12-20) BUN 24 H D (9-16) mg/dL Creatinine 1.14 (0.5-1.4) mg/dL Estim Creat Clear Calc 90.8 Estimated GFR > 60 Random Glucose 114 (60-115) mg/dL Lactic Acid (0.5-2.0) mmol/L Calcium 9.9 D (8.4-10.2) mg/dL Magnesium 2.2 (1.6-2.6) mg/dL Total Bilirubin 1.1 H (0.0-1.0) mg/dL AST 48 H (5-37) U/L ALT 31 (0-40) U/L Alkaline Phosphatase 57 (39-117) U/L Troponin I High Sens (<3.5-35.0) ng/L C-Reactive Protein 0.49 (< or = 0.50) mg/dL Total Protein 7.3 D (6.5-8.0) g/dL Albumin 4.7 D (3.5-5.0) g/dL Ethyl Alcohol mg/dL COVID-19 (DEANDRE) (Negative) COVID-19 Clin Com 11/23/21 11/23/21 11/23/21 Range/Units 20:29 20:29 20:29 WBC (4.8-10.8) X10*3/uL RBC (4.60-5.80) X10*6/uL Hgb (14.0-18.0) g/dl Hct (42.0-52.0) % MCV (80.0-98.0) fL MCH (27.0-33.0) pg MCHC (31.0-36.0) g/dl RDW (11.0-16.0) % Plt Count (160-400) X10*3/uL MPV (9.4-12.4) fL Immature Gran % (Auto) (0.0-0.4) % Neut % (Auto) (45-73) % Lymph % (Auto) (20-40) % [place] % (Auto) (2-11) % Eos % (Auto) (0-4) % Baso % (Auto) (0-2) % Lymph # (Auto) (1.2-4.9) X10*3/uL [place] # (Auto) (0.1-1.2) X10*3/uL Eos # (Auto) (0.0-0.4) X10*3/uL Baso # (Auto) (0.0-0.2) X10*3/uL Abs Immat Gran (auto) (0.00-0.03) X10*3/uL Absolute Neuts (auto) (2.0-8.3) x10*3/uL Absolute Nucleated RBC (0.0-0.012) X10*3/uL Nucleated RBC % (auto) (0.0-0.2) /100WBC ESR (0-15) MM/HR Sodium (135-145) mmol/L Potassium (3.3-5.1) mmol/L Chloride (96-108) mmol/L Carbon Dioxide (22-29) mmol/L Anion Gap (12-20) BUN (9-16) mg/dL Creatinine (0.5-1.4) mg/dL Estim Creat Clear Calc Estimated GFR Random Glucose (60-115) mg/dL Lactic Acid 1.0 (0.5-2.0) mmol/L Calcium (8.4-10.2) mg/dL Magnesium (1.6-2.6) mg/dL Total Bilirubin (0.0-1.0) mg/dL AST (5-37) U/L ALT (0-40) U/L Alkaline Phosphatase (39-117) U/L Troponin I High Sens 7.4 (<3.5-35.0) ng/L C-Reactive Protein (< or = 0.50) mg/dL Total Protein (6.5-8.0) g/dL Albumin (3.5-5.0) g/dL Ethyl Alcohol mg/dL COVID-19 (DEANDRE) Negative (Negative) COVID-19 Clin Com See Note 11/23/21 Range/Units 20:29 WBC (4.8-10.8) X10*3/uL RBC (4.60-5.80) X10*6/uL Hgb (14.0-18.0) g/dl Hct (42.0-52.0) % MCV (80.0-98.0) fL MCH (27.0-33.0) pg MCHC (31.0-36.0) g/dl RDW (11.0-16.0) % Plt Count (160-400) X10*3/uL MPV (9.4-12.4) fL Immature Gran % (Auto) (0.0-0.4) % Neut % (Auto) (45-73) % Lymph % (Auto) (20-40) % [place] % (Auto) (2-11) % Eos % (Auto) (0-4) % Baso % (Auto) (0-2) % Lymph # (Auto) (1.2-4.9) X10*3/uL [place] # (Auto) (0.1-1.2) X10*3/uL Eos # (Auto) (0.0-0.4) X10*3/uL Baso # (Auto) (0.0-0.2) X10*3/uL Abs Immat Gran (auto) (0.00-0.03) X10*3/uL Absolute Neuts (auto) (2.0-8.3) x10*3/uL Absolute Nucleated RBC (0.0-0.012) X10*3/uL Nucleated RBC % (auto) (0.0-0.2) /100WBC ESR (0-15) MM/HR Sodium (135-145) mmol/L Potassium (3.3-5.1) mmol/L Chloride (96-108) mmol/L Carbon Dioxide (22-29) mmol/L Anion Gap (12-20) BUN (9-16) mg/dL Creatinine (0.5-1.4) mg/dL Estim Creat Clear Calc Estimated GFR Random Glucose (60-115) mg/dL Lactic Acid (0.5-2.0) mmol/L Calcium (8.4-10.2) mg/dL Magnesium (1.6-2.6) mg/dL Total Bilirubin (0.0-1.0) mg/dL AST (5-37) U/L ALT (0-40) U/L Alkaline Phosphatase (39-117) U/L Troponin I High Sens (<3.5-35.0) ng/L C-Reactive Protein (< or = 0.50) mg/dL Total Protein (6.5-8.0) g/dL Albumin (3.5-5.0) g/dL Ethyl Alcohol < 10 mg/dL COVID-19 (DEANDRE) (Negative) COVID-19 Clin Com Discharge Plan Discharge Clinical Impression: Cellulitis of hand Patient Disposition: Admitted As Inpatient
[2021-11-23 20:35] LABS: MANUAL DIFF FLAG NO
[2021-11-23] MEDS: oxyCODONE HCl Immed Release 5 MG TABLET 10 MG PO (20:36)
[2021-11-23] MEDS: Piperacillin Sodium/Tazobactam 3.375 GM in 0.9 % Sodium Chloride 50 ML IV (20:36)
[2021-11-23 20:37] LABS: Basophils Percent Auto 0.3 % (0-2); Hematocrit 43.2 % (42.0-52.0); Hemoglobin 14.6 g/dl (14.0-18.0); Imm Gran Abs Auto 0.02 X10*3/uL (0.00-0.03); Imm Gran Pct Auto 0.3 % (0.0-0.4); Lymphocytes Absolute Auto 1.3 X10*3/uL (1.2-4.9); Lymphocytes Percent Auto 19.6 % (20-40); Mean Corpuscular HGB Conc 33.8 g/dl (31.0-36.0); Mean Corpuscular Hemoglobin 29.7 pg (27.0-33.0); Mean Corpuscular Volume 87.8 fL (80.0-98.0); Mean Platelet Volume 9.7 fL (9.4-12.4); Monocytes Absolute Auto 0.4 X10*3/uL (0.1-1.2); Monocytes Percent Auto 5.4 % (2-11); Neutrophils Absolute Auto 4.8 x10*3/uL (2.0-8.3); Neutrophils Percent Auto 74.4 % (45-73); Platelet Count 236 X10*3/uL (160-400); Red Blood Count 4.92 X10*6/uL (4.60-5.80); Red Cell Distribution Width 12.8 % (11.0-16.0); White Blood Count 6.5 X10*3/uL (4.8-10.8)
[2021-11-23 20:47] VITALS: BP 102/59; PULSE 65; RESP 12; O2SAT 98
[2021-11-23] MEDS: vancomycin HCL 1,000 MG, vancomycin HCL 750 MG in 0.9 % Sodium Chloride 500 ML 267.5 MG IV (20:49)
[2021-11-23 20:51] LABS: Ethanol < 10 mg/dL
[2021-11-23 20:54] LABS: Alanine Aminotransferase 31 U/L (0-40); Albumin Level 4.7 g/dL (3.5-5.0); Alkaline Phosphatase 57 U/L (39-117); Anion Gap 14 (12-20); Aspartate Amino Transferase 48 U/L (5-37); Bilirubin Total 1.1 mg/dL (0.0-1.0); Blood Urea Nitrogen 24 mg/dL (9-16); C Reactive Protein 0.49 mg/dL (< or = 0.50); COVID-19 Test Negative (Negative); Calcium 9.9 mg/dL (8.4-10.2); Carbon Dioxide 29 mmol/L (22-29); Chloride 100 mmol/L (96-108); Creatinine Clr Calc Pharmacy 90.8; Estimated Glomerular Filt Rate > 60; Glucose Random 114 mg/dL (60-115); IDNOW Serial# 55D5AD1C; Magnesium 2.2 mg/dL (1.6-2.6); Potassium 3.8 mmol/L (3.3-5.1); Sodium 139 mmol/L (135-145); Total Protein 7.3 g/dL (6.5-8.0)
[2021-11-23 21:01] LABS: Troponin-I High Sensitivity 7.4 ng/L (<3.5-35.0)
--- NOTE | 2021-11-23 21:05 | PHA.MEDREC ---
Pharmacy Consult ? Medication Reconciliation Pharmacy has completed the medication reconciliation. Patient previously admitted and left AMA yesterday, used medical record to complete med rec. Shannon Goetz, KrzysztofD
[2021-11-23 21:23] LABS: Erythrocyte Sedimentation Rate 7 MM/HR (0-15)
[2021-11-23 22:53] VITALS: BP 105/59; PULSE 66; RESP 13; O2SAT 97
[2021-11-24 00:34] VITALS: BP 97/55; PULSE 57; RESP 14; O2SAT 100
[2021-11-24] MEDS: Enoxaparin Sodium 40 MG/0.4 ML SYRINGE SUBCUT ×2 (01:43→20:33)
[2021-11-24 01:48] VITALS: BP 102/60; PULSE 58; RESP 13; TEMP 36.6; O2SAT 99
--- NOTE | 2021-11-24 02:12 | PM.IMHP ---
History of Present Illness Date of Service: 11/24/21 Chief Complaint: Left hand pain 41-year-old male with a past medical history of CVA, diabetes, asthma, mood disorder, neuropathy, recent admission to the hospital for left hand cellulitis-left AMA; presented back to the hospital with a chief complaint of increased pain and swelling of the left hand. Patient reports that since he left the hospital he noted to have increased pain in his left hand hence decided to come to the ER for further evaluation. Also reported had an episode of chest pain. Currently denies any chest pain at the time of my interview. Denies any shortness of breath. Denies any cough or sputum production. Denies any fevers and chills. Denies any GI symptoms. Patient denies using any illicit drugs after he left the hospital. Review of all other systems is negative except mentioned above ER course: Per ER team patient noted to have left hand tenderness and swelling on the dorsum consider cellulitis.; patient was given IV vancomycin and Zosyn. Admitted to the hospital for further management. [facility] Medical History (Updated 12/21/21 @ 22:58 by Melvin Chambers MD) Asthma CVA (cerebral vascular accident) Diabetes Mood disorder Neuropathy Opiate addiction Pertinent family history: Denies any significant cardiac history in the family Surgical History History of carpal tunnel surgery of left wrist No significant past surgical history Social History Household Members: None Housing: Homeless Do you presently have visiting nurse or other home services: No Unable to assess alcohol history related to: Unable to respond Alcohol intake: unknown Patient Tobacco Use Status: Never used Tobacco Substance Use Type: Crack/Cocaine service: No Current occupational status: unemployed and other Meds Allergies Allergy/AdvReac Type Severity Reaction Status Date / Time ibuprofen Allergy Unknown Unknown Verified 07/11/21 13:40 Iodinated Contrast Media Allergy Unknown Unknown Verified 07/11/21 13:40 [Contrast Dye] acetaminophen Allergy Rash Verified 07/11/21 13:40 shellfish derived Allergy Unknown Verified 07/11/21 13:40 Active Medications: Current Medications Dextrose (Dextrose 50 % 25 Gm/50 Ml Syringe) 25 gm IVPUSH Q15M PRN; Protocol PRN Reason: per Hypoglycemia Standing Ord. Enoxaparin Sodium (Enoxaparin Sodium 40 Mg/0.4 Ml Syringe) 40 mg SUBCUT BEDTIME [facility] Last Admin: 11/24/21 01:43 Dose: 40 mg Glucose (Glucose Gel 15 Gm Gel..Gram.) 15 gm PO Q15M PRN; Protocol PRN Reason: per Hypoglycemia Standing Ord. Piperacillin Sod/Tazobactam (Sod 3.375 gm/ Sodium Chloride) 50 mls @ 100 mls/hr IV Q6H [facility] Insulin Human Lispro (Insulin Lispro 100 Unit/Ml 3 Ml Vial) 0 unit SUBCUT QIDACHS [facility]; Protocol Melatonin (Melatonin 3 Mg Tablet) 6 mg PO BEDTIME PRN PRN Reason: Insomnia Oxycodone HCl (Oxycodone Hcl Immed Release 5 Mg Tablet) 5 mg PO Q6H PRN PRN Reason: Pain, Severe (Pain Scale 7-10) Pharmacy Consult (Consult Rx Perform Med Rec) 1 each MISCELLANE ONCE PRN PRN Reason: Consult order Pharmacy Consult (Consult Rx Vancomycin Dosing) 1 each MISCELLANE DAILY PRN PRN Reason: Consult order Senna (Sennosides 8.6 Mg Tablet) 17.2 mg PO BEDTIME PRN PRN Reason: Constipation Sodium Chloride (0.9 % Sodium Chloride Flush 3 Ml Syringe) 3 ml IVFLUSH [facility] Home Medications Medication Instructions Recorded Confirmed Last Taken Type gabapentin 600 mg tablet 600 mg PO TID 02/09/21 11/23/21 Unknown History metformin 500 mg tablet 500 mg PO BIDAC 02/09/21 11/23/21 Unknown History Physical Exam Vital Signs and Narrative: Vital Signs: Last Vital Signs Temp 97.9 F 11/24/21 01:48 Pulse 58 11/24/21 01:48 Resp 13 11/24/21 01:48 BP 102/60 11/24/21 01:48 Pulse Ox 99 11/24/21 01:48 O2 Del Method 11/24/21 01:48 BMI result Body Mass Index 23.3 Gen: Appears be in no acute distress HEENT: NCAT, Moist mucosa. Pulmonary: Vesicular breath sounds, fair air entry CVS: Normal S1-S2 Abdomen: BS+, Soft, Nontender Extremities: Warm well perfused; left hand dorsum is tender, swollen; range of motion of the fingers limited secondary to the pain. Neuro: Alert and awake. Results Labs CBC and Chem 7: 11/25/21 05:57 11/27/21 06:00 Labs: Laboratory Results - last 24 hr 11/23/21 11/23/21 11/23/21 20:29 20:29 20:29 MCV 87.8 MCH 29.7 MCHC 33.8 RDW 12.8 Plt Count 236 D MPV 9.7 Immature Gran % (Auto) 0.3 Neut % (Auto) 74.4 H Lymph % (Auto) 19.6 L [place] % (Auto) 5.4 Eos % (Auto) 0.0 Baso % (Auto) 0.3 Lymph # (Auto) 1.3 [place] # (Auto) 0.4 Eos # (Auto) 0.0 Baso # (Auto) 0.0 Abs Immat Gran (auto) 0.02 Absolute Neuts (auto) 4.8 Absolute Nucleated RBC 0.000 Nucleated RBC % (auto) 0.0 ESR 7 Anion Gap 14 Estim Creat Clear Calc 90.8 Estimated GFR > 60 Random Glucose 114 Lactic Acid Calcium 9.9 D Magnesium 2.2 Total Bilirubin 1.1 H AST 48 H ALT 31 Alkaline Phosphatase 57 Troponin I High Sens C-Reactive Protein 0.49 Total Protein 7.3 D Albumin 4.7 D Ethyl Alcohol COVID-19 ([facility]RE) COVID-[place] Clin Com 11/23/21 11/23/21 11/23/21 20:29 20:29 20:29 MCV MCH MCHC RDW Plt Count MPV Immature Gran % (Auto) Neut % (Auto) Lymph % (Auto) [place] % (Auto) Eos % (Auto) Baso % (Auto) Lymph # (Auto) [place] # (Auto) Eos # (Auto) Baso # (Auto) Abs Immat Gran (auto) Absolute Neuts (auto) Absolute Nucleated RBC Nucleated RBC % (auto) ESR Anion Gap Estim Creat Clear Calc Estimated GFR Random Glucose Lactic Acid 1.0 Calcium Magnesium Total Bilirubin AST ALT Alkaline Phosphatase Troponin I High Sens 7.4 C-Reactive Protein Total Protein Albumin Ethyl Alcohol COVID-19 (DEANDRE) Negative COVID-19 Clin Com See Note 11/23/21 20:29 MCV MCH MCHC RDW Plt Count MPV Immature Gran % (Auto) Neut % (Auto) Lymph % (Auto) [place] % (Auto) Eos % (Auto) Baso % (Auto) Lymph # (Auto) [place] # (Auto) Eos # (Auto) Baso # (Auto) Abs Immat Gran (auto) Absolute Neuts (auto) Absolute Nucleated RBC Nucleated RBC % (auto) ESR Anion Gap Estim Creat Clear Calc Estimated GFR Random Glucose Lactic Acid Calcium Magnesium Total Bilirubin AST ALT Alkaline Phosphatase Troponin I High Sens C-Reactive Protein Total Protein Albumin Ethyl Alcohol < 10 COVID-19 (DEANDRE) COVID-19 Clin Com Assessment and Plan (1) Cellulitis: Status: Acute Plan 41-year-old male with a past medical history of CVA, diabetes, asthma, mood disorder, neuropathy, recent admission to the hospital for left hand cellulitis-left AMA; presented back to the hospital with a chief complaint of increased pain and swelling of the left hand. Noted to have left hand cellulitis. Admitted for further management. Left hand cellulitis: Continue IV vancomycin and Zosyn Orthopedics follow-up Pain control Chest pain: Atypical in nature. Currently resolved. EKG nonischemic. Initial troponin 7.4. Repeat troponin pending. History of diabetes: Insulin sliding scale History of neuropathy: Continue home gabapentin DVT prophylaxis: Lovenox Code status: Full code Quality Stroke Does the patient have a stroke diagnosis?: No VTE Prior VTE?: No VTE Risk Level:: Medical - moderate - high VTE Device Contraindication: Treatment Not Indicated VTE Drug Contraindication: N/A - Med Ordered
[2021-11-24 02:44] LABS: MANUAL DIFF FLAG NO
[2021-11-24 02:46] LABS: Basophils Percent Auto 0.6 % (0-2); Eosinophils Percent Auto 0.8 % (0-4); Hematocrit 41.5 % (42.0-52.0); Hemoglobin 13.8 g/dl (14.0-18.0); Lymphocytes Absolute Auto 1.5 X10*3/uL (1.2-4.9); Lymphocytes Percent Auto 29.6 % (20-40); Mean Corpuscular HGB Conc 33.3 g/dl (31.0-36.0); Mean Corpuscular Hemoglobin 29.5 pg (27.0-33.0); Mean Corpuscular Volume 88.7 fL (80.0-98.0); Mean Platelet Volume 9.9 fL (9.4-12.4); Monocytes Absolute Auto 0.3 X10*3/uL (0.1-1.2); Monocytes Percent Auto 6.4 % (2-11); Neutrophils Absolute Auto 3.2 x10*3/uL (2.0-8.3); Neutrophils Percent Auto 62.6 % (45-73); Platelet Count 202 X10*3/uL (160-400); Red Blood Count 4.68 X10*6/uL (4.60-5.80); White Blood Count 5.1 X10*3/uL (4.8-10.8)
[2021-11-24 03:11] LABS: Anion Gap 14 (12-20); Blood Urea Nitrogen 21 mg/dL (9-16); Calcium 8.9 mg/dL (8.4-10.2); Carbon Dioxide 26 mmol/L (22-29); Chloride 103 mmol/L (96-108); Creatinine Clr Calc Pharmacy 108.9; Estimated Glomerular Filt Rate > 60; Glucose Random 94 mg/dL (60-115); Potassium 3.6 mmol/L (3.3-5.1); Sodium 139 mmol/L (135-145)
[2021-11-24 03:12] LABS: Troponin-I High Sensitivity 3.5 ng/L (<3.5-35.0)
[2021-11-24] MEDS: Piperacillin Sodium/Tazobactam 3.375 GM in 0.9 % Sodium Chloride 50 ML IV ×3 (05:57→18:09)
[2021-11-24 06:02] VITALS: BP 103/57; PULSE 50; RESP 12; O2SAT 96
--- NOTE | 2021-11-24 06:45 | PHA.PROG ---
Admission Date/Time: November 24, 2021 01:11 Indication: OTHER SKIN Weight in k.75 kg Adjusted body weight in Kg: [place] body weight in Kg: Obesity Dosing Indication % IBW: Serum Creatinine - Last 168 Hours 11/23/21 11/24/21 20:29 02:38 Creatinine 1.14 0.95 Estimated CrCl and GFR - Last 168 Hours 11/23/21 11/24/21 20:29 02:38 Estim Creat Clear Calc 90.8 108.9 Estimated GFR > 60 > 60 Vancomycin Loading Dose: 1750 Current Vancomycin Dosing Regimen: 1250MG Q12H Vancomycin Monitoring using AUC goal of 400 - 600 range with trough as surrogate marker: AUC 431, TROUGH 11 Date and Time for next Vancomycin Level to be drawn: 11/25 @0600 Pharmacist Comments on Vancomycin Plan: PATIENT LEFT AMA Vancomycin dosing will take advantage of Pi-Cardia[employer] as a clinical decision support tool that uses Bayesian modeling to calculate individual patient's pharmacokinetic parameters and forecast the patient's drug concentration time course with the target goal AUC 24 range of 400 - 600 mg/L/hr.
[2021-11-24 07:16] LABS: Glucose, Whole Blood 81 mg/dL (60-115)
[2021-11-24] MEDS: vancomycin HCL 1,250 MG in 0.9 % Sodium Chloride 250 ML 166.67 MG IV ×2 (08:42→20:29)
[2021-11-24] MEDS: Gabapentin 600 MG TABLET PO ×3 (08:42→20:33)
[2021-11-24] MEDS: oxyCODONE HCl Immed Release 5 MG TABLET PO ×3 (08:45→20:40)
--- NOTE | 2021-11-24 10:31 | PC.NURSE ---
PT ATE BREAKFAST THIS AM, RESTING COMFORTABLY ON STRETCHER, IV ABX INFUSED WITH NO ISSUE, NO COMPLAINTS AT THIS TIME.
--- NOTE | 2021-11-24 10:46 | HO.PM.IMPN ---
Subjective Subjective Date of Service: 11/24/21 Interval History: cc: left hand pain interval history:unchanged Respiratory Respiratory: Reports no additional respiratory complaints Gastrointestinal Gastrointestinal: Reports no additional gastrointestinal complaints Physical Exam Vital Signs: Vital Signs: Last Vital Signs Temp 97.9 F 11/24/21 01:48 Pulse 50 11/24/21 06:02 Resp 12 11/24/21 06:02 BP 103/57 L 11/24/21 06:02 Pulse Ox 96 11/24/21 06:02 O2 Del Method 11/24/21 06:02 BMI result Body Mass Index 23.3 General: AO X 3, no acute distress Resp: CTA bilateral, no accessory muscles used CVS: S1,S2,RRR GI: soft, non tender, non distended Neuro: motor grossly intact, alert Psych: appropriate affect, appropriate insight Objective Data Active Medications Dextrose (Dextrose 50 % 25 Gm/50 Ml Syringe) 25 gm IVPUSH Q15M PRN; Protocol PRN Reason: per Hypoglycemia Standing Ord. Enoxaparin Sodium (Enoxaparin Sodium 40 Mg/0.4 Ml Syringe) 40 mg SUBCUT BEDTIME [facility] Last Admin: 11/24/21 01:43 Dose: 40 mg Documented By: YA Gabapentin (Gabapentin 600 Mg Tablet) 600 mg PO TID [facility] Last Admin: 11/24/21 08:42 Dose: 600 mg Documented By: JONY Glucose (Glucose Gel 15 Gm Gel..Gram.) 15 gm PO Q15M PRN; Protocol PRN Reason: per Hypoglycemia Standing Ord. Piperacillin Sod/Tazobactam (Sod 3.375 gm/ Sodium Chloride) 50 mls @ 100 mls/hr IV Q6H [facility] Last Infusion: 11/24/21 06:37 Dose: 0 mls/hr Documented By: YA Vancomycin HCl 1,250 mg/ (Sodium Chloride) 250 mls @ 166.667 mls/hr IV Q12H [facility] Last Infusion: 11/24/21 10:20 Dose: 0 mls/hr Documented By: VIDHI Insulin Human Lispro (Insulin Lispro 100 Unit/Ml 3 Ml Vial) 0 unit SUBCUT QIDACHS [facility]; Protocol Last Admin: 11/24/21 07:20 Dose: Not Given Documented By: JONY Non-Admin Reason: No Insulin Coverage Melatonin (Melatonin 3 Mg Tablet) 6 mg PO BEDTIME PRN PRN Reason: Insomnia Oxycodone HCl (Oxycodone Hcl Immed Release 5 Mg Tablet) 5 mg PO Q6H PRN PRN Reason: Pain, Severe (Pain Scale 7-10) Last Admin: 11/24/21 08:45 Dose: 5 mg Documented By: JONY Pharmacy Consult (Consult Rx Perform Med Rec) 1 each MISCELLANE ONCE PRN PRN Reason: Consult order Pharmacy Consult (Consult Rx Vancomycin Dosing) 1 each MISCELLANE DAILY PRN PRN Reason: Consult order Senna (Sennosides 8.6 Mg Tablet) 17.2 mg PO BEDTIME PRN PRN Reason: Constipation Sodium Chloride (0.9 % Sodium Chloride Flush 3 Ml Syringe) 3 ml IVFLUSH QSHIFT [facility] Last Admin: 11/24/21 08:50 Dose: Not Given Documented By: STACIA Non-Admin Reason: IV Running Labs CBC & Chem 7: 11/24/21 02:38 11/24/21 02:38 Labs: Laboratory Results - last 24 hr 11/23/21 11/23/21 11/23/21 20:29 20:29 20:29 MCV 87.8 MCH 29.7 MCHC 33.8 RDW 12.8 Plt Count 236 D MPV 9.7 Immature Gran % (Auto) 0.3 Neut % (Auto) 74.4 H Lymph % (Auto) 19.6 L Hale % (Auto) 5.4 Eos % (Auto) 0.0 Baso % (Auto) 0.3 Lymph # (Auto) 1.3 Hale # (Auto) 0.4 Eos # (Auto) 0.0 Baso # (Auto) 0.0 Abs Immat Gran (auto) 0.02 Absolute Neuts (auto) 4.8 Absolute Nucleated RBC 0.000 Nucleated RBC % (auto) 0.0 ESR 7 Anion Gap 14 Estim Creat Clear Calc 90.8 Estimated GFR > 60 POC Glucose Random Glucose 114 Lactic Acid Calcium 9.9 D Magnesium 2.2 Total Bilirubin 1.1 H AST 48 H ALT 31 Alkaline Phosphatase 57 Troponin I High Sens C-Reactive Protein 0.49 Total Protein 7.3 D Albumin 4.7 D Ethyl Alcohol COVID-19 ([facility]RE) COVID-19 Clin Com 11/23/21 11/23/21 11/23/21 20:29 20:29 20:29 MCV MCH MCHC RDW Plt Count MPV Immature Gran % (Auto) Neut % (Auto) Lymph % (Auto) Hale % (Auto) Eos % (Auto) Baso % (Auto) Lymph # (Auto) Hale # (Auto) Eos # (Auto) Baso # (Auto) Abs Immat Gran (auto) Absolute Neuts (auto) Absolute Nucleated RBC Nucleated RBC % (auto) ESR Anion Gap Estim Creat Clear Calc Estimated GFR POC Glucose Random Glucose Lactic Acid 1.0 Calcium Magnesium Total Bilirubin AST ALT Alkaline Phosphatase Troponin I High Sens 7.4 C-Reactive Protein Total Protein Albumin Ethyl Alcohol COVID-19 (DEANDRE) Negative COVID-19 Clin Com See Note 11/23/21 11/24/21 11/24/21 20:29 02:38 02:38 MCV 88.7 MCH 29.5 MCHC 33.3 RDW 13.0 Plt Count 202 MPV 9.9 Immature Gran % (Auto) 0.0 Neut % (Auto) 62.6 Lymph % (Auto) 29.6 Hale % (Auto) 6.4 Eos % (Auto) 0.8 Baso % (Auto) 0.6 Lymph # (Auto) 1.5 Hale # (Auto) 0.3 Eos # (Auto) 0.0 Baso # (Auto) 0.0 Abs Immat Gran (auto) 0.00 Absolute Neuts (auto) 3.2 Absolute Nucleated RBC 0.000 Nucleated RBC % (auto) 0.0 ESR Anion Gap 14 Estim Creat Clear Calc 108.9 Estimated GFR > 60 POC Glucose Random Glucose 94 Lactic Acid Calcium 8.9 D Magnesium Total Bilirubin AST ALT Alkaline Phosphatase Troponin I High Sens C-Reactive Protein Total Protein Albumin Ethyl Alcohol < 10 COVID-19 ([facility]ANDRE) COVID-19 Clin Com 11/24/21 11/24/21 02:38 07:13 MCV MCH MCHC RDW Plt Count MPV Immature Gran % (Auto) Neut % (Auto) Lymph % (Auto) Hale % (Auto) Eos % (Auto) Baso % (Auto) Lymph # (Auto) Hale # (Auto) Eos # (Auto) Baso # (Auto) Abs Immat Gran (auto) Absolute Neuts (auto) Absolute Nucleated RBC Nucleated RBC % (auto) ESR Anion Gap Estim Creat Clear Calc Estimated GFR POC Glucose 81 Random Glucose Lactic Acid Calcium Magnesium Total Bilirubin AST ALT Alkaline Phosphatase Troponin I High Sens 3.5 D C-Reactive Protein Total Protein Albumin Ethyl Alcohol COVID-19 (DEANDRE) COVID-19 Clin Com Assessment and Plan (1) Cellulitis of hand: Status: Acute Plan 41M presented with left hand pain and swelling left hand cellulitis vanc, zosyn, follow up cultures DM inuslin neuropahty gabapentin dvt prophylaxis - lovenox full code reason for continued hospitalization:iv abx for infection in high risk area (hand) Quality Stroke Does the patient have a stroke diagnosis?: No VTE Prior VTE?: No VTE Risk Level:: Medical - moderate - high VTE Device Contraindication: Treatment Not Indicated VTE Drug Contraindication: N/A - Med Ordered
[2021-11-24 11:50] LABS: Glucose, Whole Blood 108 mg/dL (60-115)
[2021-11-24 12:00] VITALS: RESP 17
[2021-11-24] MEDS: hydrOXYzine HCL 25 MG TABLET PO (15:57)
[2021-11-24 17:57] VITALS: BP 103/63; PULSE 56; RESP 12; TEMP 36.5; O2SAT 99
[2021-11-24 18:05] LABS: Glucose, Whole Blood 92 mg/dL (60-115)
[2021-11-24] MEDS: 0.9 % Sodium Chloride Flush 3 ML SYRINGE IVFLUSH (18:08)
--- NOTE | 2021-11-24 19:35 | PC.NURSE ---
pt talking on phone with family. pt complained of pain but was just given pain meds not due for next dose. A&O x3. [place] speaking. Ate all dinner. Will continue with plan of care.
[2021-11-24] MEDS: Melatonin 3 MG TABLET 6 MG PO (20:41)
[2021-11-24 21:51] LABS: Glucose, Whole Blood 140 mg/dL (60-115)
[2021-11-25] MEDS: Piperacillin Sodium/Tazobactam 3.375 GM in 0.9 % Sodium Chloride 50 ML IV ×5 (01:00→23:47)
[2021-11-25 01:01] VITALS: BP 92/56; PULSE 55; RESP 16; TEMP 36.8; O2SAT 99
[2021-11-25 06:05] LABS: Hematocrit 42.1 % (42.0-52.0); Hemoglobin 13.6 g/dl (14.0-18.0); Mean Corpuscular HGB Conc 32.3 g/dl (31.0-36.0); Mean Corpuscular Hemoglobin 29.2 pg (27.0-33.0); Mean Corpuscular Volume 90.3 fL (80.0-98.0); Platelet Count 191 X10*3/uL (160-400); Red Blood Count 4.66 X10*6/uL (4.60-5.80); Red Cell Distribution Width 12.9 % (11.0-16.0); White Blood Count 2.9 X10*3/uL (4.8-10.8)
[2021-11-25 06:25] LABS: Anion Gap 7 (12-20); Blood Urea Nitrogen 15 mg/dL (9-16); Calcium 8.7 mg/dL (8.4-10.2); Carbon Dioxide 29 mmol/L (22-29); Chloride 106 mmol/L (96-108); Creatinine Clr Calc Pharmacy 111.3; Estimated Glomerular Filt Rate > 60; Glucose Fasting 96 mg/dL (60-99); Potassium 4.3 mmol/L (3.3-5.1); Sodium 138 mmol/L (135-145)
[2021-11-25 06:32] LABS: Vancomycin Trough 12.2 mcg/mL (10.0-20.0)
--- NOTE | 2021-11-25 06:38 | HE.PHANOTE ---
Addendum entered by Easton Segovia RPh 11/26/21 07:28: RE WILDAO CONTINUE CURRENT DOSE, NEXT TROUGH DUE 11/26 @1800 Original Note: RE WILDAO CONTINUE CURRENT DOSE, NEXT TROUGH DUE 11/26 @1800
--- NOTE | 2021-11-25 07:27 | PC.NURSE ---
Assumed care of this pt. at 0700. Report from Tita Zhang RN
--- NOTE | 2021-11-25 07:32 | PC.NURSE ---
Per overnight RN, Q6hrs Zosyn needed to be re-timed for 0800 this morning. Called pharmacy. Per pharmacy, re-time not necessary and OK to give now.
[2021-11-25 08:15] LABS: Glucose, Whole Blood 95 mg/dL (60-115)
[2021-11-25] MEDS: Gabapentin 600 MG TABLET PO ×3 (08:19→20:52)
[2021-11-25] MEDS: 0.9 % Sodium Chloride Flush 3 ML SYRINGE IVFLUSH ×3 (08:19→20:54)
[2021-11-25] MEDS: vancomycin HCL 1,250 MG in 0.9 % Sodium Chloride 250 ML 166.67 MG IV ×2 (08:20→20:52)
[2021-11-25] MEDS: oxyCODONE HCl Immed Release 5 MG TABLET PO ×2 (08:27→18:35)
[2021-11-25 10:14] VITALS: BP 114/55; PULSE 63; RESP 18; TEMP 36.6; O2SAT 97
--- NOTE | 2021-11-25 10:14 | PC.NURSE ---
Pt resting in hospital bed, vss no complaints at this time. medicated by prior rn. callbell and belongings within reach.
--- NOTE | 2021-11-25 10:28 | P.PNIM_ITS ---
Subjective Subjective Date of Service: 11/25/21 Interval History: cc: left hand pain interval history:unchanged Respiratory Respiratory: Reports no additional respiratory complaints Gastrointestinal Gastrointestinal: Reports no additional gastrointestinal complaints Physical Exam Vital Signs: Vital Signs: Last Vital Signs Temp 97.9 F 11/25/21 10:14 Pulse 63 11/25/21 10:14 Resp 18 11/25/21 10:14 BP 114/55 L 11/25/21 10:14 Pulse Ox 97 11/25/21 10:14 O2 Del Method 11/25/21 10:14 BMI result Body Mass Index 23.3 General: AO X 3, no acute distress Resp: CTA bilateral, no accessory muscles used CVS: S1,S2,RRR GI: soft, non tender, non distended Neuro: motor grossly intact, alert Psych: appropriate affect, appropriate insight Objective Data Active Medications Dextrose (Dextrose 50 % 25 Gm/50 Ml Syringe) 25 gm IVPUSH Q15M PRN; Protocol PRN Reason: per Hypoglycemia Standing Ord. Enoxaparin Sodium (Enoxaparin Sodium 40 Mg/0.4 Ml Syringe) 40 mg SUBCUT BEDTIME [facility] Last Admin: 11/24/21 20:33 Dose: 40 mg Documented By: MASHA Gabapentin (Gabapentin 600 Mg Tablet) 600 mg PO TID [facility] Last Admin: 11/25/21 08:19 Dose: 600 mg Documented By: TARAH Glucose (Glucose Gel 15 Gm Gel..Gram.) 15 gm PO Q15M PRN; Protocol PRN Reason: per Hypoglycemia Standing Ord. Hydroxyzine HCl (Hydroxyzine Hcl 25 Mg Tablet) 25 mg PO Q8H PRN PRN Reason: anxiety Last Admin: 11/24/21 15:57 Dose: 25 mg Documented By: NETTIE Piperacillin Sod/Tazobactam (Sod 3.375 gm/ Sodium Chloride) 50 mls @ 100 mls/hr IV Q6H [facility] Last Infusion: 11/25/21 08:12 Dose: 0 mls/hr Documented By: TARAH Vancomycin HCl 1,250 mg/ (Sodium Chloride) 250 mls @ 166.667 mls/hr IV Q12H [facility] Last Admin: 11/25/21 08:20 Dose: 166.67 mls/hr Documented By: TARAH Insulin Human Lispro (Insulin Lispro 100 Unit/Ml 3 Ml Vial) 0 unit SUBCUT QIDACHS [facility]; Protocol Last Admin: 11/25/21 08:13 Dose: Not Given Documented By: TARAH Non-Admin Reason: No Insulin Coverage Melatonin (Melatonin 3 Mg Tablet) 6 mg PO BEDTIME PRN PRN Reason: Insomnia Last Admin: 11/24/21 20:41 Dose: 6 mg Documented By: MASHA Oxycodone HCl (Oxycodone Hcl Immed Release 5 Mg Tablet) 5 mg PO Q6H PRN PRN Reason: Pain, Severe (Pain Scale 7-10) Last Admin: 11/25/21 08:27 Dose: 5 mg Documented By: TARAH Pharmacy Consult (Consult Rx Perform Med Rec) 1 each MISCELLANE ONCE PRN PRN Reason: Consult order Pharmacy Consult (Consult Rx Vancomycin Dosing) 1 each MISCELLANE DAILY PRN PRN Reason: Consult order Senna (Sennosides 8.6 Mg Tablet) 17.2 mg PO BEDTIME PRN PRN Reason: Constipation Sodium Chloride (0.9 % Sodium Chloride Flush 3 Ml Syringe) 3 ml IVFLUSH [facility] Last Admin: 11/25/21 08:19 Dose: 3 ml Documented By: TARAH Labs CBC & Chem 7: 11/25/21 05:57 11/25/21 05:57 Labs: Laboratory Results - last 24 hr 11/24/21 11/24/21 11/24/21 11:47 17:57 21:47 MCV MCH MCHC RDW Plt Count MPV Absolute Nucleated RBC Nucleated RBC % (auto) Anion Gap Estim Creat Clear Calc Estimated GFR POC Glucose 108 92 140 H Fasting Glucose Calcium Vancomycin Trough 11/25/21 11/25/21 11/25/21 05:57 05:57 05:57 MCV 90.3 MCH 29.2 MCHC 32.3 RDW 12.9 Plt Count 191 MPV 10.0 Absolute Nucleated RBC 0.000 Nucleated RBC % (auto) 0.0 Anion Gap 7 L Estim Creat Clear Calc 111.3 Estimated GFR > 60 POC Glucose Fasting Glucose 96 Calcium 8.7 Vancomycin Trough 12.2 11/25/21 08:11 MCV MCH MCHC RDW Plt Count MPV Absolute Nucleated RBC Nucleated RBC % (auto) Anion Gap Estim Creat Clear Calc Estimated GFR POC Glucose 95 Fasting Glucose Calcium Vancomycin Trough Microbiology Microbiology Results: Microbiology 11/23/21 20:29 Blood Culture - Preliminary Blood - Venous No growth after 24 hours. 11/23/21 20:29 Blood Culture - Preliminary Blood - Venous No growth after 24 hours. Assessment and Plan (1) Cellulitis of hand: Status: Acute Plan 41M presented with left hand pain and swelling left hand cellulitis vanc, zosyn, negative cultures elevate hand no surgical intervention at this time per ortho screen for hiv, hcv DM insulin neuropahty gabapentin dvt prophylaxis - lovenox full code reason for continued hospitalization:iv abx for infection in high risk area (hand) Quality Stroke Does the patient have a stroke diagnosis?: No VTE Prior VTE?: No VTE Risk Level:: Medical - moderate - high VTE Device Contraindication: Treatment Not Indicated VTE Drug Contraindication: N/A - Med Ordered
[2021-11-25 11:29] LABS: Glucose, Whole Blood 94 mg/dL (60-115)
--- NOTE | 2021-11-25 12:53 | PC.NURSE ---
[facility] contacted per patient request of detox services.
[2021-11-25 16:35] LABS: Glucose, Whole Blood 109 mg/dL (60-115)
[2021-11-25 16:39] VITALS: BP 114/52; PULSE 65; RESP 16; TEMP 37.1; O2SAT 99
[2021-11-25 17:40] VITALS: BP 135/79; PULSE 69; RESP 18; TEMP 36.3; O2SAT 98
[2021-11-25 18:00] LABS: Glucose, Whole Blood 93 mg/dL (60-115)
[2021-11-25 19:27] VITALS: BP 136/69; PULSE 63; RESP 20; TEMP 36.8; O2SAT 98
[2021-11-25 19:41] LABS: Glucose, Whole Blood 107 mg/dL (60-115)
[2021-11-25] MEDS: Enoxaparin Sodium 40 MG/0.4 ML SYRINGE SUBCUT (20:51)
[2021-11-26] VITALS: BP 106/57; PULSE 55; RESP 16; TEMP 36.5; O2SAT 98
[2021-11-26] MEDS: Piperacillin Sodium/Tazobactam 3.375 GM in 0.9 % Sodium Chloride 50 ML IV ×2 (05:48→12:03)
[2021-11-26 07:15] LABS: Creatinine Clr Calc Pharmacy 103.5; Estimated Glomerular Filt Rate > 60
[2021-11-26 07:20] VITALS: BP 124/66; PULSE 73; RESP 18; TEMP 36.6; O2SAT 97
[2021-11-26 07:44] LABS: Glucose, Whole Blood 90 mg/dL (60-115)
[2021-11-26] MEDS: Gabapentin 600 MG TABLET PO ×3 (08:11→20:10)
[2021-11-26] MEDS: oxyCODONE HCl Immed Release 5 MG TABLET PO ×2 (08:11→16:19)
[2021-11-26] MEDS: vancomycin HCL 1,250 MG in 0.9 % Sodium Chloride 250 ML 166.67 MG IV (08:13)
[2021-11-26 08:17] LABS: HBS Num1 26.88 mIU/mL (0-7.99); HBsAGNum1 0.51 S/CO (0.00-0.99); HIV AB/AG Nonreactive (Nonreactive); HIV Num 1 0.11 S/CO (0.00-0.99); Hepatitis B Surface Antigen Negative (Negative); ~HepC Num1 0.06 S/CO (0.00-0.79); ~Hepatitis B Surface Antibody REACTIVE (Nonreactive); ~Hepatitis C Antibody Nonreactive (Nonreactive)
[2021-11-26 08:41] LABS: HBc Num1 0.18 S/CO (0.00-0.79); Hepatitis B Core Antibody Nonreactive (Nonreactive)
--- NOTE | 2021-11-26 09:39 | HO.PM.IMPN ---
Subjective Subjective Date of Service: 11/26/21 Interval History: seen and examined with freelance interpreter/translator services reports hand pain concerned about pain management once he is discharged home Review of Systems negative except interval history Physical Exam Vital Signs: Vital Signs: Last Vital Signs Temp 97.8 F 11/26/21 07:20 Pulse 73 11/26/21 07:20 Resp 18 11/26/21 07:20 BP 124/66 11/26/21 07:20 Pulse Ox 97 11/26/21 07:20 O2 Del Method 11/26/21 07:20 BMI result Body Mass Index 23.3 Const: Other: General - no acute distress, appears comfortable Cardiovascular - regular rate and rhythm, S1-S2 Lungs - normal respiratory effort, clear to auscultation bilaterally, no wheezing Abdomen - soft, nontender, no rebound or guarding Extremities - LUE hand edema, with ? puncture wound; ROM limited secondary to swelling Neuro - awake and alert, no focal deficits Objective Data Active Medications Dextrose (Dextrose 50 % 25 Gm/50 Ml Syringe) 25 gm IVPUSH Q15M PRN; Protocol PRN Reason: per Hypoglycemia Standing Ord. Enoxaparin Sodium (Enoxaparin Sodium 40 Mg/0.4 Ml Syringe) 40 mg SUBCUT BEDTIME [facility] Last Admin: 11/25/21 20:51 Dose: 40 mg Documented By: RIKKI Gabapentin (Gabapentin 600 Mg Tablet) 600 mg PO TID [facility] Last Admin: 11/26/21 08:11 Dose: 600 mg Documented By: RAMANDEEP Glucose (Glucose Gel 15 Gm Gel..Gram.) 15 gm PO Q15M PRN; Protocol PRN Reason: per Hypoglycemia Standing Ord. Hydroxyzine HCl (Hydroxyzine Hcl 25 Mg Tablet) 25 mg PO Q8H PRN PRN Reason: anxiety Last Admin: 11/24/21 15:57 Dose: 25 mg Documented By: NETTIE Piperacillin Sod/Tazobactam (Sod 3.375 gm/ Sodium Chloride) 50 mls @ 100 mls/hr IV Q6H [facility] Last Infusion: 11/26/21 06:22 Dose: 0 mls/hr Documented By: RIKKI Vancomycin HCl 1,250 mg/ (Sodium Chloride) 250 mls @ 166.667 mls/hr IV Q12H [facility] Last Admin: 11/26/21 08:13 Dose: 166.67 mls/hr Documented By: RAMANDEEP Insulin Human Lispro (Insulin Lispro 100 Unit/Ml 3 Ml Vial) 0 unit [facility]; Protocol Last Admin: 11/26/21 07:50 Dose: Not Given Documented By: RAMANDEEP Non-Admin Reason: No Insulin Coverage Melatonin (Melatonin 3 Mg Tablet) 6 mg PO BEDTIME PRN PRN Reason: Insomnia Last Admin: 11/24/21 20:41 Dose: 6 mg Documented By: MASHA Oxycodone HCl (Oxycodone Hcl Immed Release 5 Mg Tablet) 5 mg PO Q6H PRN PRN Reason: Pain, Severe (Pain Scale 7-10) Last Admin: 11/26/21 08:11 Dose: 5 mg Documented By: RAMANDEEP Pharmacy Consult (Consult Rx Perform Med Rec) 1 each MISCELLANE ONCE PRN PRN Reason: Consult order Pharmacy Consult (Consult Rx Vancomycin Dosing) 1 each MISCELLANE DAILY PRN PRN Reason: Consult order Senna (Sennosides 8.6 Mg Tablet) 17.2 mg PO BEDTIME PRN PRN Reason: Constipation Sodium Chloride (0.9 % Sodium Chloride Flush 3 Ml Syringe) 3 ml [facility] [facility] Last Admin: 11/25/21 20:54 Dose: 3 ml Documented By: RIKKI Labs CBC & Chem 7: 11/25/21 05:57 11/26/21 05:41 Labs: Laboratory Results - last 24 hr 11/25/21 11/25/21 11/25/21 05:57 11:26 16:32 Estim Creat Clear Calc Estimated GFR POC Glucose 94 109 Hep Bs Antigen Negative Hep Bs Antibody REACTIVE Hep B Core Total Ab Nonreactive Hepatitis C Ab (EIA) Nonreactive HIV 1&2 Ab/P24 Ag 4thGn Nonreactive 11/25/21 11/25/21 11/26/21 17:56 19:29 05:41 Estim Creat Clear Calc 103.5 Estimated GFR > 60 POC Glucose 93 107 Hep Bs Antigen Hep Bs Antibody Hep B Core Total Ab Hepatitis C Ab (EIA) HIV 1&2 Ab/P24 Ag 4thGn 11/26/21 07:40 Estim Creat Clear Calc Estimated GFR POC Glucose 90 Hep Bs Antigen Hep Bs Antibody Hep B Core Total Ab Hepatitis C Ab (EIA) HIV 1&2 Ab/P24 Ag 4thGn Microbiology Microbiology Results: Microbiology 11/23/21 20:29 Blood Culture - Preliminary Blood - Venous No growth after 48 hours. 11/23/21 20:29 Blood Culture - Preliminary Blood - Venous No growth after 48 hours. Assessment and Plan (1) Cellulitis of hand: Status: Acute Plan This is a 41 yo M admitted for LUE cellulitis 1. LUE cellulitis braod spec iv antibiotics orthopedic follow up f/u cultures hep C neg, hiv neg 2. Dm insulin 3. neuropathy gabapentin full code dvt pptx -- lovenox needs continued hospitalization due to need for iv antibiotics / orthopedic f/u possible transition to oral meds if no surgical intervention indicated Quality Stroke Does the patient have a stroke diagnosis?: No VTE Prior VTE?: No VTE Risk Level:: Medical - moderate - high VTE Device Contraindication: Treatment Not Indicated VTE Drug Contraindication: N/A - Med Ordered
[2021-11-26] MEDS: hydrOXYzine HCL 25 MG TABLET PO (11:16)
[2021-11-26 11:43] LABS: Glucose, Whole Blood 100 mg/dL (60-115)
--- NOTE | 2021-11-26 15:09 | MHC.CLN ---
NUTRITION CONSULT FOR NEW ADM. WEIGHT LOSS 14-# REPORTED. REVIEW OF WEIGHT HX SHOWS VARYING WEIGHTS. SOME WIDE FLUCTUATIONS RECORDED AND DO NOT APPEAR ACCURATE. DIET=DIABETIC 1800 KCALS. NO NEW NUTRITION INTERVENTIONS AT THIS TIME.
[2021-11-26 15:41] VITALS: BP 110/55; PULSE 64; RESP 14; TEMP 36.7; O2SAT 98
[2021-11-26 15:49] LABS: Glucose, Whole Blood 116 mg/dL (60-115)
--- NOTE | 2021-11-26 16:09 | MHC.CM.PN ---
ROMEL 11/26/21, original to pt and copy left to be filed in chart. Pt reports he is currently homeless, he's unable to return to [facility]. He reports he is independent, does not use any DME and does not receive any services. HCP on file. COVID [employer] and Booster ([employer]). Pt reports he does have anyone to provide transportation and may need assistance. He confirmed Mayelin Nieves as PCP. D/C Plan: Return to Community
--- NOTE | 2021-11-26 16:13 | PM.PNORT ---
Subjective Subjective Date of Service: 11/26/21 Interval history: left hand cellulitis patient left AMA and returned due to ongoing pain . her continues to c/o numbness from his CTS Physical Exam Vital Signs: Vital Signs: Last Vital Signs Temp 98.0 F 11/26/21 15:41 Pulse 64 11/26/21 15:41 Resp 14 11/26/21 15:41 BP 110/55 L 11/26/21 15:41 Pulse Ox 98 11/26/21 15:41 O2 Del Method 11/26/21 15:41 BMI result Body Mass Index 23.3 Extrem: Other: left hand normal to inspection, no swelling or redness. he has full extension. difficulty with making a fist. decreased sensation over the 2,3rd finger. NVI. Procedures Date of Service Date of Service: 11/26/21 Progress Note: A&P Assessment and plan (1) Cellulitis of hand: Status: Acute Assessment and Plan: no evidence of infective process, work with OT for ROM. can f/u out patient for repeat EMG if symptoms of n/t persist. Time Spent With Patient Time: Total time spent is greater than 50% in coordination of care (as documented) at patient's floor/unit and/or counseling patient: Quality Stroke Does the patient have a stroke diagnosis?: No VTE Prior VTE?: No VTE Risk Level:: Medical - moderate - high VTE Device Contraindication: Treatment Not Indicated VTE Drug Contraindication: N/A - Med Ordered
[2021-11-26] MEDS: 0.9 % Sodium Chloride Flush 3 ML SYRINGE IVFLUSH ×2 (16:20→20:44)
[2021-11-26 19:09] LABS: Vancomycin Trough 11.6 mcg/mL (10.0-20.0)
[2021-11-26 19:36] LABS: Glucose, Whole Blood 136 mg/dL (60-115)
[2021-11-26] MEDS: Enoxaparin Sodium 40 MG/0.4 ML SYRINGE SUBCUT (20:10)
[2021-11-26 23:30] VITALS: BP 113/65; PULSE 60; RESP 15; TEMP 36.5; O2SAT 98
[2021-11-27 07:16] LABS: Glucose, Whole Blood 87 mg/dL (60-115)
[2021-11-27] MEDS: Gabapentin 600 MG TABLET PO (07:23)
[2021-11-27] MEDS: oxyCODONE HCl Immed Release 5 MG TABLET 10 MG PO (07:23)
[2021-11-27] MEDS: 0.9 % Sodium Chloride Flush 3 ML SYRINGE IVFLUSH (07:23)
[2021-11-27 07:31] LABS: Creatinine Clr Calc Pharmacy 126.2; Estimated Glomerular Filt Rate > 60
[2021-11-27 07:55] VITALS: BP 124/58; PULSE 55; RESP 18; TEMP 36.5; O2SAT 98
[2021-11-27] MEDS: Amoxicillin/Potassium Clav 875 MG TABLET PO (08:44)
[2021-11-27] MEDS: hydrOXYzine HCL 25 MG TABLET PO (09:20)
--- NOTE | 2021-11-27 09:37 | PM.DS ---
DS: Providers Provider Date of Service: 11/27/21 Date of admission: 11/24/21 01:11 Primary care physician: Mayelin Nieves MD Consults: 11/24/21 02:15 Consult to Orthopedics Routine Consulting Provider: Grover [place] Reason for consultation: hand cellulitis 11/26/21 12:06 Consult to Care Team Routine Comment: Reason for consultation: depressed / anxious DS: Diagnosis Discharge Diagnosis (1) Cellulitis of hand: Status: Acute (2) Traumatic injury of hand: Status: Acute (3) Diabetes: Status: Acute DS: Summary Hospital Course Hospital Course: HPI from admission H&P: 1-year-old male with a past medical history of CVA, diabetes, asthma, mood disorder, neuropathy, recent admission to the hospital for left hand cellulitis-left AMA; presented back to the hospital with a chief complaint of increased pain and swelling of the left hand.? Patient reports that since he left the hospital he noted to have increased pain in his left hand hence decided to come to the ER for further evaluation.? Also reported had an episode of chest pain.? Currently denies any chest pain at the time of my interview.? Denies any shortness of breath.? Denies any cough or sputum production.? Denies any fevers and chills.? Denies any GI symptoms.? Hospital Course: Patient had left from the hospital against medical advice 2 days prior to this admission. During that admission there is a concern for hand cellulitis/deeper infection. He was empirically treated with IV vanco ice in and Zosyn. Orthopedics saw him in consultation again and felt that there was no signs of infection. Once his blood cultures were negative his IV antibiotics were discontinued and he will be discharged home on 7 more days of p.o. antibiotics. In regards to his hand, occupational therapy has been seeing him in the hospital and he should continue this with outpatient OT. He can follow-up with orthopedics in a few weeks should his symptoms not improve or worsen. Time Spent with Patient Time attestation: Total time spent providing and/or coordinating discharge services: Discharge coordination time: Greater than 30 minutes Quality: Safe Use of Opioids Does Pt have an Active Cancer Diagnosis on the Problem List?: No Quality: Stroke Does the patient have a stroke diagnosis?: No Physical Exam Vital Signs: Vital Signs: Last Vital Signs Temp 97.7 F 11/27/21 07:55 Pulse 55 11/27/21 07:55 Resp 18 11/27/21 07:55 BP 124/58 L 11/27/21 07:55 Pulse Ox 98 11/27/21 07:55 O2 Del Method 11/27/21 07:55 BMI result Body Mass Index 23.3 DS: Data Data Completed and Pending Labs on day of discharge: Laboratory Results - last 24 hr 11/26/21 11/26/21 11/26/21 11:38 15:46 18:10 Creatinine Estim Creat Clear Calc Estimated GFR POC Glucose 100 116 H Vancomycin Trough 11.6 11/26/21 11/27/21 11/27/21 19:29 06:00 07:10 Creatinine 0.82 Estim Creat Clear Calc 126.2 Estimated GFR > 60 POC Glucose 136 H 87 Vancomycin Trough Preliminary micro results at discharge 11/23/21 20:29 Blood Culture - Preliminary Blood - Venous No growth after 48 hours. 11/23/21 20:29 Blood Culture - Preliminary Blood - Venous No growth after 48 hours. Discharge Plan Discharge Patient Disposition: Hospice - Home Discharge Diagnosis: Hand trauma Referrals: Mayelin Nieves MD [Primary Care Provider] - 1 Week Elaine Ballesteros PA-C [Physician Executive Administrative Asst] - 2 Weeks Discharge Medications: New amoxicillin-pot clavulanate 875-125 mg tablet 1 tab PO Q12H Qty: 14 0RF doxycycline hyclate 100 mg tablet 100 mg PO BID Qty: 14 0RF Continued metformin 500 mg Tablet 500 mg PO BIDAC gabapentin 600 mg Tablet 600 mg PO TID oxycodone 10 mg tablet 1 tab PO Q8H PRN (Reason: Pain (Scale Score 7-10)) Qty: 20 0RF albuterol sulfate 90 mcg/actuation HFA aerosol inhaler 2 puff inhalation Q4-6H PRN (Reason: shortness of breath or wheezing) Qty: 8.5 0RF Discharge Orders: Discharge Order (Routine); Ordered 11/27/21 Ordered By: Gucci Payan Diet: Advance to usual diet Activity on Discharge: As tolerated Stand Alone Forms: Patient Portal Discharge page Care Plan Goals: To stay healthy and out of the hospital. Health Concerns: Arm/hand injury Plan of Treatment: Continue OT as an ouppatient finish 7 more days of antibiotics f/u with orthopedics in a few weeks as needed Assessment: see d/c summary
--- NOTE | 2021-11-27 09:51 | MHC.CM.PN ---
Addendum entered by Anette Griffin RN 11/27/21 10:17: PT GIVEN COPY OF ID ON FILE. Original Note: PER CAR DISTRIBUTOR PT REQUESTING TO LEAVE AT 11:30, STAFF CLARIFIED PT'S BROTHER HAS FOUND A PLACE FOR PT TO GO AND HE NEEDS TO BE AT [facility] BY 11:30AM, PT REPORTS HE CAN WALK, DISCHARGE PAPERWORK HAS BEEN FINALIZED.
== END 2021-11-27 10:41 | disposition hospice, home (50) ==
LOC: HO.ED 11-24 01:21 → HO.EDOVER 11-24 07:44 → HO.S3 11-25 17:48
PROVIDERS: Internal Medicine; Nurse Practitioner Family; Admitting Provider Hospitalist; Emergency Provider Internal Medicine; PCP Family Medicine; Visit Provider Family Medicine
DX: L03.114 Cellulitis of left upper limb (principal); S69.92XA Unspecified injury of left wrist, hand and finger(s), initial encounter; X58.XXXA Exposure to other specified factors, initial encounter; M79.642 Pain in left hand; E11.9 Type 2 diabetes mellitus without complications; R07.9 Chest pain, unspecified; F41.9 Anxiety disorder, unspecified; F32.A Depression, unspecified; F11.20 Opioid dependence, uncomplicated; J45.909 Unspecified asthma, uncomplicated; F39 Unspecified mood [affective] disorder; Z20.822 Contact with and (suspected) exposure to COVID-19; Z86.73 Personal history of transient ischemic attack (TIA), and cerebral infarction without residual deficits; Z79.82 Long term (current) use of aspirin; Z79.84 Long term (current) use of oral hypoglycemic drugs; Y93.9 Activity, unspecified; Y92.9 Unspecified place or not applicable; Y99.9 Unspecified external cause status
CPT/HCPCS: 36415; 80048; 80053; 80202; 82077; 82565; 82947; 83605; 83735; 84484; 85025; 85027; 85652; 86140; 86704; 86706; 86803; 87040; 87340; 87389; 87635; 93005; 96365; 96366; 96367; 96372; 96374; 97110; 97165; 99218; 99285; J1650; J2543; J3370

== ENCOUNTER 2022-06-23 22:51 | Emergency (ER) | payer MEDICAID, SELFPAY ==
--- NOTE | ~2022-06-23 | CT_ITS ---
EXAMINATION: NONCONTRAST HEAD CT INDICATION INFORMATION: Left-sided weakness, question CVA COMPARISON: 11/21/2021 TECHNIQUE: Noncontrast CT of the head was performed. DLP: 726 mGy-cm DOSE LOWERING TECHNIQUES: This CT examination was performed using dose optimization techniques as appropriate, variously including the following: - Automated exposure control - Adjustment of mA and/or kV according to patient size (this includes techniques or standardized protocols for targeted exams were dose is matched to indication/reason for exam; i.e. extremities or head) - Use of iterative reconstruction technique FINDINGS: Suboptimal assessment in some regions due to motion artifact. There is no definite evidence of acute intracranial hemorrhage or territorial infarction. No abnormal mass-effect or midline shift is seen. Corrales to white matter differentiation is well preserved. No extra-axial fluid collections are identified. The ventricles are normal in size. There is no abnormal attenuation within the brain parenchyma. The osseous structures and soft tissues are normal. The mastoid air cells and visualized portions of the paranasal sinuses are well-aerated. CT/CT head/brain wo IV con IMPRESSION: Suboptimal assessment in some regions due to motion artifact. No definite acute findings identified.
[2022-06-23 23:06] VITALS: BP 140/90; PULSE 97; O2SAT 97
[2022-06-24 00:52] VITALS: BP 97/58; PULSE 73; RESP 18; TEMP 36.2; O2SAT 98; BMI 19.2
--- OUTSIDE RECORDS SUMMARY | 2022-06-24 01:19 | XMS_ITS | Continuity of Care Document ---
:1980 Author Organization [facility] Address [address] [place] [address]- Care Team Providers Name Role Phone Not on Staff, PCP Primary Care Physician Unavailable [place] [facility] [place](s): 03/31/21 - 04/03/[address] [address]- Discharge Disposition: A-D/C Home Attending Physician: Jeffery Fernandes MD Admitting Physician: Jeffery Fernandes MD Referring Physician: Not on Staff, Referring MD Allergies, Adverse Reactions, Alerts Substance Reaction Severity Status ibuprofen Active Contrast Dye pruritis Mild Active Seafood Active iodine Active Immunizations Given and Recorded Vaccine Date Status Refusal Reason tetanus/diphtheria/pertussis, acel(Tdap) 04/01/21 Given Medications aspirin 81 mg oral delayed release tablet 81 mg, By Mouth, Daily, # 21 tablet, Refills 0, Tot. Refills 0, Maintenance, 12/21/20 12:28:00 EDT, Route to Pharmacy Electronically, [facility] #[id number], Partial fill upon patient request if the prescription is for a schedule II opioid drug.,... Start Date: 12/21/20 Stop Date: 01/11/21 Status: Orderedatorvastatin 40 mg oral tablet 1 tablet = 40 mg, By Mouth, Daily at bedtime, # 30 tablet, 0 Refills, Maintenance, 12/21/20 12:28:00EDT, Tablet, [facility] #[id number], Partial fill upon patient request if the prescription is for a schedule II opioid drug., 180, cm, 08/24/20 3... Start Date: 12/21/20 Stop Date: 01/20/21 Status: Orderedgabapentin 100 mg oral capsule 100 mg, Capsule, By Mouth, 04/03/21 9:00:00 EST Start Date: 04/03/21 Stop Date: 04/03/21 Status: Completedgabapentin 100 mg oral capsule 100 mg, 1, capsule, By Mouth, 3 times a day, # 90 capsule, Refills 0, Tot. Refills 0, Maintenance, 12/21/20 12:31:00 EDT, Route to Pharmacy Electronically, [facility] #[id number], Partial fill upon patient request if the prescription is for a mario... Start Date: 12/21/20 Stop Date: 01/20/21 Status: OrderedmetFORMIN 500 mg oral tablet 1 tablet = 500 mg, By Mouth, 2 times a day, # 60 tablet, 0 Refills, Maintenance, 03/25/21 11:27:00 EST, Tablet, Partial fill upon patient request if the prescription is for a schedule II opioid drug. Start Date: 03/25/21 Status: OrderedPlavix 75 mg oral tablet 75 mg, 1, tablet, By Mouth, Daily, # 30 tablet, Refills 1, Tot. Refills 1, Maintenance, 03/26/21 15:14:00 EST, Route to Pharmacy Electronically, [facility], Partial fill upon patient request if the prescription is for a schedule II opioi... Start Date: 03/26/21 Status: OrderedSuboxone 8 mg-2 mg sublingual film 1 film, Sublingual, Daily, dissolve under the tongue, 0 Refills, Maintenance, 03/25/21 11:27:00 EST,Film, Partial fill upon patient request if the prescription is for a schedule II opioid drug. Start Date: 03/25/21 Status: Ordered Vital Signs Most recent to oldest 1 2 3 [Reference Range]: Height 180 cm 180 cm 180 cm (04/03/21 4:49 AM) (04/02/21 10:12 PM) (04/02/21 5:49 AM) Weight 79.5 kg 79.5 kg 79.5 kg (04/03/21 4:49 AM) (04/02/21 10:12 PM) (04/02/21 5:49 AM) Oxygen Saturation [94-100 100 % 100 % 97 % %] (04/03/21 9:42 AM) (04/03/21 4:49 AM) (04/02/21 10:12 PM) Pulse Rate [55-90 bpm] 67 bpm 66 bpm 69 bpm (04/03/21 9:42 AM) (04/03/21 4:49 AM) (04/02/21 10:12 PM) Body Mass Index 24.54 24.54 24.54 [18.5-24.99] (04/03/21 4:49 AM) (04/02/21 10:12 PM) (04/02/21 5:49 AM) Blood Pressure 101/60 mm Hg 100/58 mm Hg 111/64 mm Hg [90-138/55-84 mm Hg] (04/03/21 9:42 AM) (04/03/21 4:49 AM) (03/19 10/06 10:12 PM) Respiratory Rate [16-30 16 br/min 18 br/min 16 br/mi n br/min] (04/03/21 9:42 AM) (04/03/21 8:13 AM) (04/03/21 4:49 AM) Temperature [96.8-100.4 98.0 DegF 98.0 DegF 97.9 Deg F DegF] (04/03/21 4:49 AM) (04/02/21 10:12 PM) (04/02/21 5:49 AM) Mode of Delivery (Oxygen) Room air Room air Room a ir (04/03/21 9:42 AM) (04/03/21 4:49 AM) (04/02/21 10:12 PM) Blood pressure sites Arm, left Arm, right Arm, right (04/03/21 9:42 AM) (04/03/21 4:49 AM) (04/02/21 10:12 PM) Temperature Route Oral Oral Oral (04/03/21 4:49 AM) (04/02/21 10:12 PM) (04/02/21 5:49 AM) Dry Weight 79.5 kg 79.5 kg 79.5 kg (04/03/21 4:49 AM) (04/02/21 10:12 PM) (04/02/21 5:49 AM) Weight Obtained Via Patient/family stated (04/01/21 12:30 AM) Dry Weight Obtained Via Patient/family stated (04/01/21 12:30 AM)
--- OUTSIDE RECORDS SUMMARY | 2022-06-24 01:19 | XMS_ITS | Continuity of Care Document ---
:1980 Author Organization [facility] Address [address] [place] [address], [address] [place] [address]- Care Team Providers Name Role Phone Katerina HUGHES, Yuan Brown Primary Care Physician Encounter [facility] [place] Date(s): 04/17/22 - 05/17/22 [facility] [address] [place] [address], [address] [place] [id number] Allergies, Adverse Reactions, Alerts Substance Reaction Severity Status ibuprofen Active Contrast Dye pruritis Mild Active iodine Active Seafood Active Immunizations Given and Recorded Vaccine Date Status Refusal Reason tetanus/diphtheria/pertussis, acel(Tdap) 04/01/21 Given Medications aspirin 81 mg oral delayed release tablet 81 mg, By Mouth, Daily, # 21 tablet, Refills 0, Tot. Refills 0, Maintenance, 12/21/20 12:28:00 EDT, Route to Pharmacy Electronically, [facility] #[id number], Partial fill upon patient request if the prescription is for a schedule II opioid drug.,... Start Date: 12/21/20 Stop Date: 01/11/21 Status: Orderedatorvastatin 40 mg oral tablet 1 tablet = 40 mg, By Mouth, Daily at bedtime, # 30 tablet, 0 Refills, Maintenance, 12/21/20 12:28:00EDT, Tablet, [facility] #[id number], Partial fill upon patient request if the prescription is for a schedule II opioid drug., 180, cm, 08/24/20 3... Start Date: 12/21/20 Stop Date: 01/20/21 Status: Orderedgabapentin 100 mg oral capsule 100 mg, 1, capsule, By Mouth, 3 times a day, # 90 capsule, Refills 0, Tot. Refills 0, Maintenance, 12/21/20 12:31:00 EDT, Route to Pharmacy Electronically, [facility] #[id number], Partial fill upon patient request if the [...] 03/26/21 15:14:00 EST, Route to Pharmacy Electronically, [facility], Partial fill upon patient request if the prescription is for a schedule II opioi... Start Date: 03/26/21 Status: OrderedSuboxone 8 mg-2 mg sublingual film 1 film, Sublingual, Daily, dissolve under the tongue, 0 Refills, Maintenance, 03/25/21 11:27:00 EST,Film, Partial fill upon patient request if the prescription is for a schedule II opioid drug. Start Date: 03/25/21 Status: OrderedSuboxone 8 mg-2 mg sublingual film 1 film, Sublingual, Daily, dissolve under the tongue, # 14 film, 0 Refills, Maintenance, 05/22/21 14:31:00 EST, Film, Partial fill upon patient request if the prescription is for a schedule II opioid drug. [id number] Start Date: 05/22/21 Stop Date: 06/05/21 Status: Ordered Patient Care team information Care Team PersonnelName: Yuan Borges MD Position: [facility] Primary Care Physician Member Role: PCP Address: Address: [address] [place] [address]- Name: Suri Rodriguez RN Position: S RN Member Role: Primary Care Nurse Care Team Related PersonsName: RAJ SILVERIO Name: ANNELIESE ARTHUR Address: [place] [address] Name: EZRA ARTHUR
--- OUTSIDE RECORDS SUMMARY | 2022-06-24 01:19 | XMS_ITS | Continuity of Care Document ---
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 Refills 0, Maintenance, 12/21/20 12:28:00 EDT, Route to Pharmacy Electronically, [facility] #[id number], Partial fill upon patient request if the prescription is for a schedule II opioid drug.,... Start Date: 12/21/20 Stop Date: 01/11/21 Status: Orderedatorvastatin 40 mg oral tablet 1 tablet = 40 mg, By Mouth, Daily at bedtime, # 30 tablet, 0 Refills, Maintenance, 12/21/20 12:28:00EDT, Tablet, [facility] #[id number], Partial fill upon patient request if the prescription is for a schedule II opioid drug., 180, cm, 08/24/20 3... Start Date: 12/21/20 Stop Date: 01/20/21 Status: Orderedgabapentin 100 mg oral capsule 100 mg, 1, capsule, By Mouth, 3 times a day, # 90 capsule, Refills 0, Tot. Refills 0, Maintenance, 12/21/20 12:31:00 EDT, Route to Pharmacy Electronically, [facility] #[id number], Partial fill upon patient request if the [...] 03/26/21 15:14:00 EST, Route to Pharmacy Electronically, [facility], Partial fill upon patient request if the prescription is for a schedule II opioi... Start Date: 03/26/21 Status: OrderedSuboxone 8 mg-2 mg sublingual film 1 film, Sublingual, Daily, dissolve under the tongue, 0 Refills, Maintenance, 03/25/21 11:27:00 EST,Film, Partial fill upon patient request if the prescription is for a schedule II opioid drug. Start Date: 03/25/21 Status: Ordered Results Radiology Reports Exam Date Time Procedure Performing Provider Status 03/25/21 2:06 AM Chest 2 Views Frontal and Lat Eli Escobedo [facility] (Verified) Notes:(Chest 2 Views Frontal and Lat) Reason For Exam: Stroke;Other:RESULT: Chest 2 Views Frontal and Lat Chest 2 Views Frontal and Lat Hx of Present Illness: Stroke; Clinical Question(s): CHF COMPARISON: None. FINDINGS: LINES AND TUBES: None. LUNGS AND PLEURA: Clear lungs. Normal pulmonary vascularity. No pleural effusion. No pneumothorax. HEART, MEDIASTINUM AND YIMI: Heart is normal in size. Normal upper mediastinal and hilar contour. BONES AND SOFT TISSUES: No acute abnormality. IMPRESSION: No acute abnormality. WSN: [id number] Ordering Physician: Anette Moncada Dictated By: Jorge Edward MD Dictated Date/Time: 03/25/21 11:54 a Reviewed By: Jorge Edward MD Signed By: Jorge Edward MD Signed Date/Time: 03/25/21 11:54 am Transcribed By: DEEP Transcribed Date/Time: 03/25/21 11:53 am Vital Signs Most recent to oldest 1 2 3 [Reference Range]: Height 180 cm 180 cm 180 cm (03/26/21 2:34 PM) (03/26/21 11:57 AM) (03/26/21 7: 16 AM) Weight 71.3 kg 73 kg (03/25/21 11:33 AM) (03/25/21 10:13 AM) Oxygen Saturation [94-100 %] 100 % 99 % 100 % (03/26/21 2:34 PM) (03/26/21 11:57 AM) (03/26/21 7: 16 AM) Pulse Rate [55-90 bpm] 78 bpm 72 bpm 60 bpm (03/26/21 2:34 PM) (03/26/21 11:57 AM) (03/26/21 7: 16 AM) Body Mass Index [18.5-24.99] 22.53 (03/25/21 10:13 AM) Blood Pressure [90-138/55-84 110/78 mm Hg 108/65 mm Hg 115 /75 mm Hg mm Hg] (03/26/21 2:34 PM) (03/26/21 11:57 AM) (03/26/21 7: 16 AM) Respiratory Rate [16-30 20 br/min 20 br/min 18 br/mi n br/min] (03/26/21 2:34 PM) (03/26/21 11:57 AM) (03/26/21 9: 57 AM) Temperature [96.8-100.4 DegF] 97.6 DegF 97.8 DegF 97 .7 DegF (03/26/21 2:34 PM) (03/26/21 11:57 AM) (03/26/21 7: 16 AM) Mode of Delivery (Oxygen) Room air Room air Room a ir (03/26/21 2:34 PM) (03/26/21 11:57 AM) (03/26/21 7: 16 AM) Blood pressure sites Arm, left Arm, left Arm, left (03/26/21 2:34 PM) (03/26/21 11:57 AM) (03/26/21 7: 16 AM) Temperature Route Oral Oral Oral (03/26/21 2:34 PM) (03/26/21 11:57 AM) (03/26/21 7: 16 AM) Dry Weight 73 kg 71.3 kg (03/25/21 10:13 AM) (03/25/21 8:20 AM) Dry Weight Obtained Via Bed scale (03/25/21 8:20 AM)
--- OUTSIDE RECORDS SUMMARY | 2022-06-24 01:19 | XMS_ITS | Continuity of Care Document ---
:1980 Author Organization [facility] Address [address] [place] [address]- Care Team Providers Name Role Phone Not on Staff, PCP Primary Care Physician Unavailable Encounter [facility] [place] Date(s): 12/19/20 - 12/21/20 [facility] [address] [place], [place] [address] Discharge Disposition: A-D/C Home Attending Physician: Blanca Garcia MD Admitting Physician: Sanjuana HUGHES, Fabian Lind Referring Physician: Not on Staff, Referring MD Allergies, Adverse Reactions, Alerts Substance Reaction Severity Status ibuprofen Active Contrast Dye pruritis Mild Active Seafood Active iodine Active Medications acetaminophen 325 mg oral tablet 650 mg, By Mouth, 4 times a day, PRN, for 5 days, Temperature Greater than 100.5 not to exceed 4000 mg/day, # 40 tablet, Refills 0, Tot. Refills 0, Acute 12/26/20 12:27:00 EDT, Pain , Mild, 12/21/20 12:27:00 EDT, [facility], [facility] Start Date: 12/21/20 Stop Date: 12/26/20 Status: OrderedARIPiprazole 30 mg oral tablet 1 tablet = 30 mg, By Mouth, Daily, # 30 tablet, 0 Refills, Maintenance, 12/21/20 12:28:00 EDT, Tablet, [facility] #[id number], Partial fill upon patient request if the prescription is for a schedule II opioid drug., 180, cm, 08/24/20 3:59:00 EDT,... Start Date: 12/21/20 Stop Date: 01/20/21 Status: Orderedaspirin 81 mg oral delayed release tablet 81 mg, By Mouth, Daily, # 30 tablet, Refills 0, Tot. Refills 0, Maintenance, 12/21/20 12:28:00 EDT, Route to Pharmacy Electronically, [facility] #[id number], Partial fill upon patient request if the prescription is for a schedule II opioid drug.,... Start Date: 12/21/20 Stop Date: 01/20/21 Status: Orderedatorvastatin 40 mg oral tablet 1 tablet = 40 mg, By Mouth, Daily at bedtime, # 30 tablet, 0 Refills, Maintenance, 12/21/20 12:28:00EDT, Tablet, [facility] #[id number], Partial fill upon patient request if the prescription is for a schedule II opioid drug., 180, cm, 08/24/20 3... Start Date: 12/21/20 Stop Date: 01/20/21 Status: Orderedgabapentin 100 mg oral capsule 100 mg, Capsule, By Mouth, 12/21/20 9:00:00 EDT Start Date: 12/21/20 Stop Date: 12/21/20 Status: Completedgabapentin 100 mg oral capsule 100 mg, 1, capsule, By Mouth, 3 times a day, # 90 capsule, Refills 0, Tot. Refills 0, Maintenance, 12/21/20 12:31:00 EDT, Route to Pharmacy Electronically, [facility] #[id number], Partial fill upon patient request if the prescription is for a mario... Start Date: 12/21/20 Stop Date: 01/20/21 Status: Ordered Results Radiology Reports Exam Date Time Procedure Performing Provider Status 12/19/20 1:55 AM Chest Portable Devin Beckwith; [place] (Verified) Notes:(Chest Portable) Reason For Exam: Stroke;Other:RESULT: Chest Portable Chest Portable semiupright 1:47 AM Reason: Other:; Stroke; Clinical Question(s): CHF COMPARISON: None. FINDINGS: LINES AND TUBES: None. LUNGS AND PLEURA: Large lung volumes. Otherwise, lungs are clear. No pleural effusion. No pneumothorax. HEART, MEDIASTINUM AND YIMI: Heart is normal in size. Normal upper mediastinal and hilar contour. BONES AND SOFT TISSUES: No acute abnormality. IMPRESSION: No acute cardiopulmonary process. I have personally reviewed the images and I agree with this report. WSN: [id number] Ordering Physician: Billie Romero Dictated By: Madison House MD Dictated Date/Time: 12/19/20 9:40 am Reviewed By: Betty Eller MD Signed By: Betty Eller MD Signed Date/Time: 12/19/20 9:45 am Transcribed By: DEEP Transcribed Date/Time: 12/19/20 7:58 am Vital Signs Most recent to oldest 1 2 3 [Reference Range]: Oxygen Saturation [94-100 %] 99 % 100 % 100 % (12/21/20 11:25 AM) (12/21/20 8:13 AM) (12/20/20 11:58 PM) Pulse Rate [55-90 bpm] 64 bpm 60 bpm 58 bpm (12/21/20 11:25 AM) (12/21/20 8:13 AM) (12/20/20 11:58 PM) Blood Pressure [90-138/55-84 mm 103/57 mm Hg 106/61 mm Hg 105/60 mm Hg Hg] (12/21/20 11:25 AM) (12/21/20 8:13 AM) (12/20/20 11:58 PM) Respiratory Rate [16-30 br/min] 16 br/min 18 br/min 16 br/min (12/21/20 11:25 AM) (12/21/20 10:52 AM) (12/21/20 8:13 AM) Temperature [96.8-100.4 DegF] 98.3 DegF 97.5 DegF 99 .4 DegF (12/21/20 11:25 AM) (12/21/20 8:13 AM) (12/20/20 11:58 PM) Liters per Minute 0 L/min 0 L/min 0 L/min (12/21/20 11:25 AM) (12/21/20 8:13 AM) (12/20/20 2:32 PM) Mode of Delivery (Oxygen) Room air Room air Room a ir (12/21/20 11:25 AM) (12/21/20 8:13 AM) (12/20/20 11:58 PM) Blood pressure sites Arm, left Arm, left Arm, left (12/21/20 11:25 AM) (12/21/20 8:13 AM) (12/20/20 11:58 PM) Temperature Route Temporal Temporal Oral (12/21/20 11:25 AM) (12/21/20 8:13 AM) (12/20/20 11:58 PM)
--- OUTSIDE RECORDS SUMMARY | 2022-06-24 01:19 | XMS_ITS | Continuity of Care Document ---
:1980 Author Organization [facility] Address [address] [place] [address]- Care Team Providers Name Role Phone Not on Staff, PCP Primary Care Physician Unavailable [place] [facility] [place] [facility] [address] [place] [address]- Discharge Disposition: A-D/C Walkout Attending Physician: Not on Staff, Attending MD Admitting Physician: Not on Staff, Admitting MD Referring Physician: Not on Staff, Referring MD Allergies, Adverse Reactions, Alerts Substance Reaction Severity Status ibuprofen Active Contrast Dye pruritis Mild Active Seafood Active iodine Active Medications ARIPiprazole 30 mg oral tablet 1 tablet = 30 mg, By Mouth, Daily, # 30 tablet, 0 Refills, Maintenance, 12/21/20 12:28:00 EDT, Tablet, [facility] #[id number], Partial fill upon patient request if the prescription is for a schedule II opioid drug., 180, cm, 08/24/20 3:59:00 EDT,... Start Date: 12/21/20 Stop Date: 01/20/21 Status: Orderedaspirin 81 mg oral delayed release tablet 81 mg, By Mouth, Daily, # 30 tablet, Refills 0, Tot. Refills 0, Maintenance, 12/21/20 12:28:00 EDT, Route to Pharmacy Electronically, [facility] #[id number], Partial fill upon patient request if the prescription is for a schedule II opioid drug.,... Start Date: 12/21/20 Stop Date: 01/20/21 Status: Orderedatorvastatin 40 mg oral tablet 1 tablet = 40 mg, By Mouth, Daily at bedtime, # 30 tablet, 0 Refills, Maintenance, 12/21/20 12:28:00EDT, Tablet, [facility] #[id number], Partial fill upon patient request if the prescription is for a schedule II opioid drug., 180, cm, 08/24/20 3... Start Date: 12/21/20 Stop Date: 01/20/21 Status: Orderedgabapentin 100 mg oral capsule 100 mg, 1, capsule, By Mouth, 3 times a day, # 90 capsule, Refills 0, Tot. Refills 0, Maintenance, 12/21/20 12:31:00 EDT, Route to Pharmacy Electronically, [facility] #[id number], Partial fill upon patient request if the prescription is for a mario... Start Date: 12/21/20 Stop Date: 01/20/21 Status: Ordered Vital Signs Most recent to oldest [Reference Range]: 1 Oxygen Saturation [94-100 %] 99 % (12/25/20 7:44 PM) Pulse Rate [55-90 bpm] 69 bpm (12/25/20 7:44 PM) Blood Pressure [90-138/55-84 mm Hg] 94/60 mm Hg (12/25/20 7:44 PM) Respiratory Rate [16-30 br/min] 17 br/min (12/25/20 7:44 PM) Temperature [96.8-100.4 DegF] 97.9 DegF (12/25/20 7:44 PM) Mode of Delivery (Oxygen) room air (12/25/20 7:44 PM) Blood pressure sites Arm, right (12/25/20 7:44 PM) Temperature Route Oral (12/25/20 7:44 PM)
--- OUTSIDE RECORDS SUMMARY | 2022-06-24 01:19 | XMS_ITS | Continuity of Care Document ---
:1980 Author Organization [facility] Address [address] [place] [address]- Care Team Providers Name Role Phone Mayelin Nieves MD Primary Care Physician Encounter [facility] [place] Date(s): 01/28/22 - 01/29/[address] [address]- Encounter Diagnosis Chest pain (Final) - 01/29/22 Discharge Disposition: A-D/C Home Attending Physician: Russell HUGHES, Alayna Braun Admitting Physician: Russell HUGHES, Alayna Braun Referring Physician: Not on Staff, Referring MD [...] 12/21/20 12:28:00 EDT, Route to Pharmacy Electronically, [facility] #[id number], Partial fill upon patient request if the prescription is for a schedule II opioid drug.,... Start Date: 12/21/20 Stop Date: 01/11/21 Status: Orderedatorvastatin 40 mg oral tablet 1 tablet = 40 mg, By Mouth, Daily at bedtime, # 30 tablet, 0 Refills, Maintenance, 12/21/20 12:28:00EDT, Tablet, [facility] #[id number], Partial fill upon patient request if the prescription is for a schedule II opioid drug., 180, cm, 08/24/20 3... Start Date: 12/21/20 Stop Date: 01/20/21 Status: Orderedgabapentin 100 mg oral capsule 100 mg, 1, capsule, By Mouth, 3 times a day, # 90 capsule, Refills 0, Tot. Refills 0, Maintenance, 12/21/20 12:31:00 EDT, Route to Pharmacy Electronically, [facility] #[id number], Partial fill upon patient request if the [...] II opioid drug. Start Date: 03/25/21 Status: OrderedoxyCODONE 10 mg oral tablet, extended release 10 mg, ER Tablet, By Mouth, Once, STAT, 01/29/22 0:32:00 EDT, Stop date 01/29/22 0:32:00 EDT Notes: Do Not Crush. Start Date: 01/29/22 Stop Date: 01/29/22 Status: CompletedPlavix 75 mg oral tablet 75 mg, 1, tablet, By Mouth, Daily, # 30 tablet, Refills 1, Tot. Refills 1, Maintenance, 03/26/21 15:14:00 EST, Route to Pharmacy Electronically, [facility], Partial fill upon patient request [...] is for a schedule II opioid drug. [id number] Start Date: 05/22/21 Stop Date: 06/05/21 Status: Ordered Results Radiology Reports Exam Date Time Procedure Performing Provider Status 01/29/22 12:20 AM Chest 2 Views Frontal and Lat [facility] (Verified) Notes:(Chest 2 Views Frontal and Lat) Reason For Exam: Shortness of Breath RESULT: Chest 2 Views Frontal and Lat Chest 2 Views Frontal and Lat REASON: Shortness of Breath COMPARISON: Chest x-ray 09/16/2021, 07/29/2021 FINDINGS: LINES AND TUBES: None. LUNGS AND PLEURA: Clear lungs. Normal pulmonary vascularity. No pleural effusion. No pneumothorax. HEART, MEDIASTINUM AND YIMI: Heart is normal in size. Normal upper mediastinal and hilar contour. BONES AND SOFT TISSUES: No acute abnormality. IMPRESSION: No evidence of acute abnormality. I have personally reviewed the images and I agree with this report. WSN: [id number] Ordering Physician: Chava Palm Dictated By: Celeste Langley MD Dictated Date/Time: 01/29/22 8:54 am Reviewed By: Kenji Tiwari MD Signed By: Kenji Tiwari MD Signed Date/Time: 01/29/22 8:59 am Transcribed By: DEEP Transcribed Date/Time: 01/29/22 7:49 am Vital Signs Most recent to oldest 1 2 3 [Reference Range]: Oxygen Saturation [94-100 %] 100 % 100 % 98 % (01/28/22 9:35 PM) (01/28/22 5:51 PM) (01/28/22 5:4 5 PM) Pulse Rate [55-90 bpm] 52 bpm 69 bpm 66 bpm *L* (01/28/22 5:51 PM) (01/28/22 5:45 PM) (01/28/22 9:35 PM) Blood Pressure [90-138/55-84 109/62 mm Hg 117/68 mm Hg 117 /68 mm Hg mm Hg] (01/28/22 9:35 PM) (01/28/22 5:51 PM) (01/28/22 5:4 5 PM) Respiratory Rate [16-30 18 br/min 17 br/min 20 br/mi n br/min] (01/29/22 12:47 AM) (01/28/22 9:35 PM) (01/28/22 5: 51 PM) Temperature [96.8-100.4 DegF] 98.3 DegF 98.2 DegF (01/28/22 5:58 PM) (01/28/22 5:51 PM) Mode of Delivery (Oxygen) Room air Room air Room a ir (01/28/22 9:35 PM) (01/28/22 5:51 PM) (01/28/22 5:4 5 PM) Blood pressure sites Arm, left Arm, left Arm, right (01/28/22 9:35 PM) (01/28/22 5:51 PM) (01/28/22 5:4 5 PM) Temperature Route Oral Oral (01/28/22 5:58 PM) (01/28/22 5:51 PM) Note BHSPowerscribe , ZAHRAA S: TRANSCRIBE Kenji Tiwari MD S: VERIFY Celeste Langley MD: SIGN Event Display: Result: Authored Date: [id number] Chest 2 Views Frontal and Lat REASON: Shortness of Breath COMPARISON: Chest x-ray 09/16/2021, 07/29/2021 FINDINGS: LINES AND TUBES: None. LUNGS AND PLEURA: Clear lungs. Normal pulmonary vascularity. No pleural effusion. No pneumothorax. HEART, MEDIASTINUM AND YIMI: Heart is normal in size. Normal upper mediastinal and hilar contour. BONES AND SOFT TISSUES: No acute abnormality. IMPRESSION: No evidence of acute abnormality. I have personally reviewed the images and I agree with this report. WSN: [id number] Ordering Physician: Chava Palm Dictated By: Celeste Langley MD Dictated Date/Time: 01/29/22 8:54 am Reviewed By: Kenji Tiwari MD Signed By: Kenji Tiwari MD Signed Date/Time: 01/29/22 8:59 am Transcribed By: DEEP Transcribed Date/Time: 01/29/22 7:49 am Care Team PersonnelName: Mayelin Nieves MD Address: [address] [place] [address]
--- OUTSIDE RECORDS SUMMARY | 2022-06-24 01:19 | XMS_ITS | Continuity of Care Document ---
:1980 Author Organization [facility] Address [address] [place] [phone]- Care Team Providers Name Role Phone Mayelin Nieves MD Primary Care Physician Encounter [facility] [place] [facility] Date(s): 07/29/21 - 07/29/[address] [address]- Encounter Diagnosis Chest pain (Final) - 07/29/21 Discharge Disposition: A-D/C Home Attending Physician: Homar Recio MD Admitting Physician: Homar Recio MD Referring Physician: Not on Staff, Referring [...] 12/21/20 12:28:00 EDT, Route to Pharmacy Electronically, [facility] #[id number], Partial fill upon patient request if the prescription is for a schedule II opioid drug.,... Start Date: 12/21/20 Stop Date: 01/11/21 Status: Orderedatorvastatin 40 mg oral tablet 1 tablet = 40 mg, By Mouth, Daily at bedtime, # 30 tablet, 0 Refills, Maintenance, 12/21/20 12:28:00EDT, Tablet, [facility] #[id number], Partial fill upon patient request if the prescription is for a schedule II opioid drug., 180, cm, 08/24/20 3... Start Date: 12/21/20 Stop Date: 01/20/21 Status: Orderedgabapentin 100 mg oral capsule 100 mg, 1, capsule, By Mouth, 3 times a day, # 90 capsule, Refills 0, Tot. Refills 0, Maintenance, 12/21/20 12:31:00 EDT, [id number], Partial fill upon patient request if the [...] 03/26/21 15:14:00 EST, Route to Pharmacy Electronically, [facility], Partial fill upon patient request if [...] is for a schedule II opioid drug. [id number] Start Date: 05/22/21 Stop Date: 06/05/21 Status: Ordered Results Radiology Reports Exam Date Time Procedure Performing Provider Status 07/29/21 1:12 PM Chest Portable Tita Zavala; Ruthann (V erified) Notes:(Chest Portable) Reason For Exam: Shortness of BreathRESULT: Chest Portable Chest Portable, AP upright view 1:05 PM Hx of Present Illness: pt reports chest pain x1 day, resting comfortably on stretcher. Reports recent cocaine use; Reason: Shortness of Breath; Clinical Question(s): CHF COMPARISON: 05/22/2021 chest x-ray. FINDINGS: LINES AND TUBES: None. LUNGS AND PLEURA: Clear lungs. Normal pulmonary vascularity. No pleural effusion. No pneumothorax. HEART, MEDIASTINUM AND YIMI: Heart is normal in size. Normal upper mediastinal and hilar contour. BONES AND SOFT TISSUES: No acute abnormality. IMPRESSION: No acute abnormality. WSN: [id number] Ordering Physician: [place] Dictated By: Monique Sultana MD Dictated Date/Time: 07/29/21 1:27 pm Reviewed By: Monique Sultana MD Signed By: Monique Sultana MD Signed Date/Time: 07/29/21 1:27 pm Transcribed By: DEEP Transcribed Date/Time: 07/29/21 1:26 pm Vital Signs Most recent to oldest [Reference Range]: 1 Oxygen Saturation [94-100 %] 100 % (07/29/21 12:30 PM) Pulse Rate [55-90 bpm] 64 bpm (07/29/21 12:30 PM) Blood Pressure [90-138/55-84 mm Hg] 111/68 mm Hg (07/29/21 12:30 PM) Respiratory Rate [16-30 br/min] 16 br/min (07/29/21 12:30 PM) Temperature [96.8-100.4 DegF] 98.3 DegF (07/29/21 12:30 PM) Mode of Delivery (Oxygen) Room air (07/29/21 12:30 PM) Blood pressure sites Arm, left (07/29/21 12:30 PM) Temperature Route Oral (07/29/21 12:30 PM)
--- OUTSIDE RECORDS SUMMARY | 2022-06-24 01:19 | XMS_ITS | Continuity of Care Document ---
:1980 Author Organization [facility] Address [address] [place] [address]- Care Team Providers Name Role Phone Mayelin Nieves MD Primary Care Physician [place] [facility](s[place] 09/16/21 - 09/16/[address] [address]- Discharge Disposition: A-D/C Home Attending Physician: Collin Estrada MD Admitting Physician: Collin Estrada MD Referring Physician: Not on Staff, Referring MD Allergies, Adverse Reactions, Alerts Substance Reaction Severity Status ibuprofen Active Contrast Dye pruritis Mild Active Seafood Active iodine Active Immunizations Given and Recorded Vaccine Date Status Refusal Reason tetanus/diphtheria/pertussis, acel(Tdap) 04/01/21 Given Medications Acetaminophen Tablet 975 mg, Tablet, By Mouth, Once, STAT, 09/16/21 11:02:00 EDT, Stop date 09/16/21 11:02:00 EDT Start Date: 09/16/21 Stop Date: 09/16/21 Status: Completedaspirin 81 mg oral delayed release tablet 81 mg, By Mouth, Daily, # 21 tablet, Refills 0, Tot. Refills 0, Maintenance, 12/21/20 12:28:00 EDT, Route to Pharmacy Electronically, [facility] #[id number], Partial fill upon patient request if the prescription is for a schedule II opioid drug.,... Start Date: 12/21/20 Stop Date: 01/11/21 Status: Orderedatorvastatin 40 mg oral tablet 1 tablet = 40 mg, By Mouth, Daily at bedtime, # 30 tablet, 0 Refills, Maintenance, 12/21/20 12:28:00EDT, Tablet, [facility] #[id number], Partial fill upon patient request if the prescription is for a schedule II opioid drug., 180, cm, 08/24/20 3... Start Date: 12/21/20 Stop Date: 01/20/21 Status: Orderedgabapentin 100 mg oral capsule 100 mg, 1, capsule, By Mouth, 3 times a day, # 90 capsule, Refills 0, Tot. Refills 0, Maintenance, 12/21/20 12:31:00 EDT, Route to Pharmacy Electronically, [facility] #[id number], Partial fill upon patient request if the [...] 03/26/21 15:14:00 EST, Route to Pharmacy Electronically, [facility], Partial fill upon patient [...] is for a schedule II opioid drug. [id number] Start Date: 05/22/21 Stop Date: 06/05/21 Status: Ordered Results Radiology Reports Exam Date Time Procedure Performing Provider Status 09/16/21 10:41 AM Chest Portable Hortencia Bourne; Auth (Verified ) Notes:(Chest Portable) Reason For Exam: Chest Pain;Other:RESULT: Chest Portable Chest Portable Hx of Present Illness: pt homeless coming from the [facility] cp x2 days not relived with asprin; Reason: Other:; Chest Pain; Clinical Question(s): CHF COMPARISON: 07/29/2021. FINDINGS: LINES AND TUBES: None. LUNGS AND PLEURA: Clear lungs. Normal pulmonary vascularity. No pleural effusion. No pneumothorax. HEART, MEDIASTINUM AND YIMI: Heart is normal in size. Normal upper mediastinal and hilar contour. BONES AND SOFT TISSUES: No acute abnormality. IMPRESSION: No acute abnormality. WSN: [id number] Ordering Physician: Elle Wilson Dictated By: Lori Petty MD Dictated Date/Time: 09/16/21 10:42 a Reviewed By: Lori Petty MD Signed By: Lori Petty MD Signed Date/Time: 09/16/21 10:42 am Transcribed By: DEEP Transcribed Date/Time: 09/16/21 10:42 am Vital Signs Most recent to oldest [Reference 1 2 3 Range]: Oxygen Saturation [94-100 %] 100 % 100 % 100 % (09/16/21 3:39 PM) (09/16/21 2:24 PM) (09/16/21 10:27 AM) Pulse Rate [55-90 bpm] 66 bpm 60 bpm 67 bpm (09/16/21 3:39 PM) (09/16/21 2:24 PM) (09/16/21 10:27 AM) Blood Pressure [90-138/55-84 mm 112/64 mm Hg 112/68 mm Hg 114/69 mm Hg Hg] (09/16/21 3:39 PM) (09/16/21 2:24 PM) (09/16/21 10:27 AM) Respiratory Rate [16-30 br/min] 16 br/min 16 br/min 18 br/min (09/16/21 3:39 PM) (09/16/21 2:24 PM) (09/16/21 12:06 PM) Temperature [96.8-100.4 DegF] 98.0 DegF (09/16/21 10:27 AM) Mode of Delivery (Oxygen) Room air Room air Room a ir (09/16/21 3:39 PM) (09/16/21 2:24 PM) (09/16/21 10:27 AM) Blood pressure sites Arm, right Arm, right Arm, left (09/16/21 3:39 PM) (09/16/21 2:24 PM) (09/16/21 10:27 AM) Temperature Route Oral (09/16/21 10:27 AM)
--- OUTSIDE RECORDS SUMMARY | 2022-06-24 01:19 | XMS_ITS | Continuity of Care Document ---
:1980 Author Organization [facility] Address [address] [place] [address]- Care Team Providers Name Role Phone Not on Staff, PCP Primary Care Physician Unavailable Encounter [facility] Date(s): 08/24/20 - 08/24/20 [facility] [address] [place] [address]- Encounter Diagnosis Jaw pain (Final) - 08/24/20 Discharge Disposition: A-D/C Home Attending Physician: Yanna Puri MD Admitting Physician: Yanna Puri MD Referring Physician: Not on Staff, Referring MD Allergies, Adverse Reactions, Alerts Substance Reaction Severity Status ibuprofen Active Seafood Active iodine Active Vital Signs Most recent to oldest 1 2 3 [Reference Range]: Oxygen Saturation [94-100 %] 100 % 100 % 100 % (08/24/20 4:57 PM) (08/24/20 11:18 AM) (08/24/20 11:00 AM) Pulse Rate [55-90 bpm] 70 bpm 69 bpm 90 bpm (08/24/20 4:57 PM) (08/24/20 11:18 AM) (08/24/20 11:00 AM) Blood Pressure [90-138/55-84 mm 98/64 mm Hg 114/59 mm Hg Hg] (08/24/20 4:57 PM) (08/24/20 11:18 AM) Respiratory Rate [16-30 br/min] 18 br/min 18 br/min (08/24/20 4:57 PM) (08/24/20 11:18 AM) Temperature [96.8-100.4 DegF] 98.3 DegF 98.5 DegF (08/24/20 4:57 PM) (08/24/20 11:18 AM) Mode of Delivery (Oxygen) Room air Room air (08/24/20 4:57 PM) (08/24/20 11:18 AM) Blood pressure sites Arm, left (4/8/21 11:18 AM) Temperature Route Axillary Oral (08/24/20 4:57 PM) (08/24/20 11:18 AM)
--- OUTSIDE RECORDS SUMMARY | 2022-06-24 01:19 | XMS_ITS | Continuity of Care Document ---
:1980 Author Organization Address [address] [place] [address]- Care Team Providers Name Role Phone Not on Staff, PCP Primary Care Physician Unavailable Encounter [facility] [place] Date(s): 08/23/20 - 08/24/20 [address] [place] [address]- Encounter Diagnosis Fracture, jaw (Final) - 08/24/20 Discharge Disposition: A-D/C Home Attending Physician: Homar Williamson MD Admitting Physician: Homar Williamson MD Referring Physician: Not on Staff, Referring MD Allergies, Adverse Reactions, Alerts Substance Reaction Severity Status ibuprofen Active Seafood Active iodine Active Vital Signs Most recent to oldest [Reference 1 2 3 Range]: Height 180 cm 180 cm 180 cm (08/24/20 3:59 AM) (08/24/20 12:32 AM) (08/23/20 8:19 PM) Oxygen Saturation [94-100 %] 100 % 100 % 98 % (08/24/20 12:32 AM) (08/23/20 8:19 PM) (08/23/20 3:46 PM) Pulse Rate [55-90 bpm] 75 bpm 84 bpm 69 bpm (08/24/20 12:32 AM) (08/23/20 8:19 PM) (08/23/20 3:46 PM) Blood Pressure [90-138/55-84 mm 128/70 mm Hg 129/98 mm Hg 119/65 mm Hg Hg] (08/24/20 12:32 AM) (08/23/20 8:19 PM) (08/23/20 3:46 PM) Respiratory Rate [16-30 br/min] 18 br/min 20 br/min 18 br/min (08/24/20 12:32 AM) (08/23/20 8:19 PM) (08/23/20 3:46 PM) Temperature [96.8-100.4 DegF] 98.2 DegF 98.8 DegF 98 .1 DegF (08/24/20 12:32 AM) (08/23/20 8:19 PM) (08/23/20 3:46 PM) Mode of Delivery (Oxygen) Room air Room air Room a ir (08/24/20 12:32 AM) (08/23/20 8:19 PM) (08/23/20 3:46 PM) Blood pressure sites Arm, right (08/23/20 3:46 PM) Temperature Route Oral Oral Axillary (08/24/20 12:32 AM) (08/23/20 8:19 PM) (08/23/20 3:46 PM) Weight Obtained Via UTO (08/23/20 3:46 PM) Dry Weight Obtained Via UTO (08/23/20 3:46 PM)
--- OUTSIDE RECORDS SUMMARY | 2022-06-24 01:19 | XMS_ITS | Continuity of Care Document ---
:1980 Author Organization [facility] Address [address] [place] [address]- Care Team Providers Name Role Phone Not on Staff, PCP Primary Care Physician Unavailable Encounter [facility] Date(s): 10/11/20 - 11/10/20 [facility] [address] [place] [id number]- Attending Physician: Luis Boudreaux Admitting Physician: Luis Boudreaux Referring Physician: Luis Boudreaux Allergies, Adverse Reactions, Alerts Substance Reaction Severity Status ibuprofen Active Seafood Active iodine Active
--- OUTSIDE RECORDS SUMMARY | 2022-06-24 01:19 | XMS_ITS | Continuity of Care Document ---
:1980 Author Organization [facility] Address [address] [place] [address]- Care Team Providers Name Role Phone Not on Staff, PCP Primary Care Physician Unavailable Encounter [facility] Date(s): 08/30/20 - 11/10/20 [facility] [address] [place] [address]- Attending Physician: Selma HUGHES, Franki Allergies, Adverse Reactions, Alerts Substance Reaction Severity Status ibuprofen Active Seafood Active iodine Active
--- OUTSIDE RECORDS SUMMARY | 2022-06-24 01:19 | XMS_ITS | Continuity of Care Document ---
:1980 Author Organization [facility] Address [address] [place] [address]- Care Team Providers Name Role Phone Not on Staff, PCP Primary Care Physician Unavailable Encounter [facility] [place] Date(s): 05/22/21 - 05/22/[address] [address]- Encounter Diagnosis Chest pain (Final) - 05/22/21 Chest pain (Final) - 05/22/21 Discharge Disposition: A-D/C Home Attending Physician: Jeffery [...] 12/21/20 12:28:00 EDT, Route to Pharmacy Electronically, [facility] #[id number], Partial fill upon patient request if the prescription is for a schedule II opioid drug.,... Start Date: 12/21/20 Stop Date: 01/11/21 Status: Orderedatorvastatin 40 mg oral tablet 1 tablet = 40 mg, By Mouth, Daily at bedtime, # 30 tablet, 0 Refills, Maintenance, 12/21/20 12:28:00EDT, Tablet, [facility] #[id number], Partial fill upon patient request if the prescription is for a schedule II opioid drug., 180, cm, 08/24/20 3... Start Date: 12/21/20 Stop Date: 01/20/21 Status: Orderedgabapentin 100 mg oral capsule 100 mg, 1, capsule, By Mouth, 3 times a day, # 90 capsule, Refills 0, Tot. Refills 0, Maintenance, 12/21/20 12:31:00 EDT, [id number], Partial fill upon patient request if the [...] 03/26/21 15:14:00 EST, Route to Pharmacy Electronically, [facility], Partial fill upon patient request [...] is for a schedule II opioid drug. [id number] Start Date: 05/22/21 Stop Date: 06/05/21 Status: Ordered Results Radiology Reports Exam Date Time Procedure Performing Provider Status 05/22/21 12:58 PM Chest 2 Views Frontal and Lat Cassandra Sutherland; Au th (Verified) Notes:(Chest 2 Views Frontal and Lat) Reason For Exam: AnginaRESULT: Chest 2 Views Frontal and Lat Chest 2 Views Frontal and Lat CLINICAL INDICATION: Chest pain. COMPARISON: None available. FINDINGS: The cardiac silhouette is within normal limits. Hilar and mediastinal contours are normal.The lungs are clear. There is no pleural effusion, pneumothorax, or evidence of CHF. No acute osseous abnormality is noted. Surgical clips are seen in the upper abdomen. IMPRESSION: No acute cardiopulmonary process. WSN: [id number] Ordering Physician: Zayda Olvera Dictated By: Blanca Chase MD Dictated Date/Time: 05/22/21 1:03 pm Reviewed By: Blanca Chase MD Signed By: Blanca Chase MD Signed Date/Time: 05/22/21 1:03 pm Transcribed By: DEEP Transcribed Date/Time: 05/22/21 1:02 pm Vital Signs Most recent to oldest [Reference 1 2 3 Range]: Height 180 cm 180 cm 180 cm (05/22/21 2:11 PM) (05/22/21 12:18 PM) (05/22/21 10:14 AM) Weight 73 kg 73 kg 73 kg (05/22/21 2:11 PM) (05/22/21 12:18 PM) (05/22/21 10:14 AM) Oxygen Saturation [94-100 %] 100 % 100 % 98 % (05/22/21 2:11 PM) (05/22/21 12:18 PM) (05/22/21 10:14 AM) Pulse Rate [55-90 bpm] 78 bpm 53 bpm 60 bpm (05/22/21 2:11 PM) *L* (05/22/21 10:14 A M) (05/22/21 12:18 PM) Body Mass Index [18.5-24.99] 22.53 22.53 22. 53 (05/22/21 2:11 PM) (05/22/21 12:18 PM) (05/22/21 10:14 AM) Blood Pressure [90-138/55-84 mm 110/78 mm Hg 112/77 mm Hg 110/72 mm Hg Hg] (05/22/21 2:11 PM) (05/22/21 12:18 PM) (05/22/21 10:14 AM) Respiratory Rate [16-30 br/min] 18 br/min 18 br/min 18 br/min (05/22/21 2:11 PM) (05/22/21 12:18 PM) (05/22/21 10:14 AM) Temperature [96.8-100.4 DegF] 97.8 DegF (05/22/21 9:21 AM) Mode of Delivery (Oxygen) Room air Room air Room a ir (05/22/21 2:11 PM) (05/22/21 12:18 PM) (05/22/21 10:14 AM) Blood pressure sites Arm, right Arm, right Arm, right (05/22/21 2:11 PM) (05/22/21 12:18 PM) (05/22/21 10:14 AM) Temperature Route Oral (05/22/21 9:21 AM)
--- OUTSIDE RECORDS SUMMARY | 2022-06-24 01:19 | XMS_ITS | Continuity of Care Document ---
:1980 Author Organization [facility] Address [address] [place] [id number]- Care Team Providers Name Role Phone Mayelin Nieves MD Primary Care Physician Encounter [facility] [place] Date(s): 11/19/21 - 11/20/[address] [address]- Encounter Diagnosis Facial laceration (Final) - 11/20/21 Contusion (Final) - 11/20/21 Discharge Disposition: A-D/C Home Attending Physician: Elizabeth Oro MD Admitting Physician: Elizabeth Oro MD Referring Physician: Not on Staff, Referring [...] 12/21/20 12:28:00 EDT, Route to Pharmacy Electronically, [facility] #[id number], Partial fill upon patient request if the prescription is for a schedule II opioid drug.,... Start Date: 12/21/20 Stop Date: 01/11/21 Status: Orderedatorvastatin 40 mg oral tablet 1 tablet = 40 mg, By Mouth, Daily at bedtime, # 30 tablet, 0 Refills, Maintenance, 12/21/20 12:28:00EDT, Tablet, [facility] #[id number], Partial fill upon patient request if the prescription is for a schedule II opioid drug., 180, cm, 08/24/20 3... Start Date: 12/21/20 Stop Date: 01/20/21 Status: Orderedgabapentin 100 mg oral capsule 100 mg, 1, capsule, By Mouth, 3 times a day, # 90 capsule, Refills 0, Tot. Refills 0, Maintenance, 12/21/20 12:31:00 EDT, Route to Pharmacy Electronically, [facility] #[id number], Partial fill upon patient request if the [...] mg, ER Tablet, By Mouth, Once, STAT, 11/20/21 0:52:00 EDT, Stop date 11/20/21 0:52:00 EDT Notes: Do Not Crush. Start Date: 11/20/21 Stop Date: 11/20/21 Status: CompletedPlavix 75 mg oral tablet 75 mg, 1, tablet, By Mouth, Daily, # 30 tablet, Refills 1, Tot. Refills 1, Maintenance, 03/26/21 15:14:00 EST, Route to Pharmacy Electronically, [facility], Partial fill upon patient request if [...] is for a schedule II opioid drug. [id number] Start Date: 05/22/21 Stop Date: 06/05/21 Status: Ordered Results Radiology Reports Exam Date Time Procedure Performing Provider Status 11/20/21 3:23 AM Forearm 2 Views Left Almita Lock; Ruthann (Verif ied) Notes:(Forearm 2 Views Left) Reason For Exam: with Pain;TraumaRESULT: Forearm 2 Views Left Examination: Left hand and left forearm performed on 11/20/2021. History: Reason: Trauma; with Pain; Clinical Question(s): Fracture Findings: Frontal, oblique, and lateral views of the left hand and frontal and lateral views of the left forearm are submitted. Evaluation of the distal phalanges is limited due to patient positioning. No fractures or dislocations are demonstrated. The soft tissues are grossly unremarkable. IMPRESSION: Limited study. There is no acute osseous abnormality. WSN: [id number] Ordering Physician: Torin Branch Dictated By: Hilda Morris MD Dictated Date/Time: 11/20/21 8:00 am Reviewed By: Hilda Morris MD Signed By: Hilda Morris MD Signed Date/Time: 11/20/21 8:00 am Transcribed By: DEEP Transcribed Date/Time: 11/20/21 7:59 am Exam Date Time Procedure Performing Provider Status 11/20/21 3:23 AM Hand Min 3 Views Left Almita Lock; Ruthann (Veri fied) Notes:(Hand Min 3 Views Left) Reason For Exam: with Pain;TraumaRESULT: Hand Min 3 Views Left Examination: Left hand and left forearm performed on 11/20/2021. History: Reason: Trauma; with Pain; Clinical Question(s): Fracture Findings: Frontal, oblique, and lateral views of the left hand and frontal and lateral views of the left forearm are submitted. Evaluation of the distal phalanges is limited due to patient positioning. No fractures or dislocations are demonstrated. The soft tissues are grossly unremarkable. IMPRESSION: Limited study. There is no acute osseous abnormality. WSN: [id number] Ordering Physician: Torin Branch Dictated By: Hilda Morris MD Dictated Date/Time: 11/20/21 8:00 am Reviewed By: Hilda Morris MD Signed By: Hilda Morris MD Signed Date/Time: 11/20/21 8:00 am Transcribed By: DEEP Transcribed Date/Time: 11/20/21 7:59 am Exam Date Time Procedure Performing Provider Status 11/20/21 3:23 AM Forearm 2 Views Right Almita Lock; Auth (Veri fied) Notes:(Forearm 2 Views Right) Reason For Exam: with Pain;TraumaRESULT: Forearm 2 Views Right Examination: Right hand and right forearm performed on 11/20/2021. History: Reason: Trauma; with Pain; Clinical Question(s): Fracture Findings: Frontal, oblique, and lateral views of the right hand and frontal and lateral views of the right forearm are submitted. No fractures, dislocations, or erosions are seen. Soft tissue swelling overlies the dorsum of the hand. There is no elbow joint effusion. IMPRESSION: Soft tissue swelling. There is no acute osseous abnormality. WSN: [id number] Ordering Physician: Torin Branch Dictated By: Hilda Morris MD Dictated Date/Time: 11/20/21 7:58 am Reviewed By: Hilda Morris MD Signed By: Hilda Morris MD Signed Date/Time: 11/20/21 7:58 am Transcribed By: DEEP Transcribed Date/Time: 11/20/21 7:57 am Exam Date Time Procedure Performing Provider Status 11/20/21 3:23 AM Hand Min 3 Views Right Almita Lock; Auth (Halley ified) Notes:(Hand Min 3 Views Right) Reason For Exam: with Pain;TraumaRESULT: Hand Min 3 Views Right Examination: Right hand and right forearm performed on 11/20/2021. History: Reason: Trauma; with Pain; Clinical Question(s): Fracture Findings: Frontal, oblique, and lateral views of the right hand and frontal and lateral views of the right forearm are submitted. No fractures, dislocations, or erosions are seen. Soft tissue swelling overlies the dorsum of the hand. There is no elbow joint effusion. IMPRESSION: Soft tissue swelling. There is no acute osseous abnormality. WSN: [id number] Ordering Physician: Torin Branch Dictated By: Hilda Morris MD Dictated Date/Time: 11/20/21 7:58 am Reviewed By: Hilda Morris MD Signed By: Hilda Morris MD Signed Date/Time: 11/20/21 7:58 am Transcribed By: DEEP Transcribed Date/Time: 11/20/21 7:57 am Vital Signs Most recent to oldest [Reference Range]: 1 Respiratory Rate [16-30 br/min] 17 br/min (11/20/21 1:07 AM)
--- OUTSIDE RECORDS SUMMARY | 2022-06-24 01:19 | XMS_ITS | Continuity of Care Document ---
:1980 Author Organization [facility] Address [address] [place] [address]- Care Team Providers Name Role Phone Not on Staff, PCP Primary Care Physician Unavailable Encounter [facility] Date(s): 08/30/20 - 11/10/20 [facility] [address] [place] [address]- Attending Physician: Vikki Richardson NP Allergies, Adverse Reactions, Alerts Substance Reaction Severity Status ibuprofen Active Seafood Active iodine Active
[2022-06-24 01:27] LABS: MANUAL DIFF FLAG NO
[2022-06-24 01:28] LABS: Basophils Percent Auto 0.4 % (0-2); Eosinophils Percent Auto 0.1 % (0-4); Hematocrit 44.3 % (42.0-52.0); Hemoglobin 14.5 g/dl (14.0-18.0); Imm Gran Abs Auto 0.01 X10*3/uL (0.00-0.03); Imm Gran Pct Auto 0.1 % (0.0-0.4); Lymphocytes Absolute Auto 1.8 X10*3/uL (1.2-4.9); Lymphocytes Percent Auto 25.4 % (20-40); Mean Corpuscular HGB Conc 32.7 g/dl (31.0-36.0); Mean Corpuscular Hemoglobin 29.4 pg (27.0-33.0); Mean Corpuscular Volume 89.7 fL (80.0-98.0); Monocytes Absolute Auto 0.3 X10*3/uL (0.1-1.2); Monocytes Percent Auto 3.7 % (2-11); Neutrophils Percent Auto 70.3 % (45-73); Platelet Count 255 X10*3/uL (160-400); Red Blood Count 4.94 X10*6/uL (4.60-5.80); Red Cell Distribution Width 13.3 % (11.0-16.0); White Blood Count 7.1 X10*3/uL (4.8-10.8)
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
[2022-06-24 01:39] LABS: Lactic Acid 1.4 mmol/L (0.5-2.0)
[2022-06-24 01:43] LABS: Alanine Aminotransferase 26 U/L (0-40); Albumin Level 4.6 g/dL (3.5-5.0); Alkaline Phosphatase 46 U/L (39-117); Anion Gap 16 (12-20); Aspartate Amino Transferase 29 U/L (5-37); Bilirubin Total 1.4 mg/dL (0.0-1.0); Blood Urea Nitrogen 14 mg/dL (9-16); Calcium 9.7 mg/dL (8.4-10.2); Carbon Dioxide 26 mmol/L (22-29); Chloride 103 mmol/L (96-108); Creatinine Clr Calc Pharmacy 81.9; Estimated Glomerular Filt Rate > 60; Glucose Random 97 mg/dL (60-115); Potassium 3.8 mmol/L (3.3-5.1); Sodium 141 mmol/L (135-145); Total Protein 7.1 g/dL (6.5-8.0)
[2022-06-24 02:21] LABS: COVID-19 Test Negative (Negative); IDNOW Serial# 08D9AD1C
[2022-06-24 05:40] VITALS: BP 100/61; PULSE 62; RESP 18; O2SAT 100
== END 2022-06-24 05:45 | disposition home or self-care (01) ==
PROVIDERS: Emergency Provider Internal Medicine
DX: R53.1 Weakness (principal); Z20.822 Contact with and (suspected) exposure to COVID-19; E11.9 Type 2 diabetes mellitus without complications; F11.20 Opioid dependence, uncomplicated; Z79.84 Long term (current) use of oral hypoglycemic drugs
CPT/HCPCS: 36415; 70450; 80053; 83605; 85025; 87040; 87635; 99283; 99284

== ENCOUNTER 2022-12-22 18:21 | Emergency (ER) | payer MEDICAID, SELFPAY ==
--- NOTE | ~2022-12-22 | CT_ITS ---
EXAMINATION: CT HEAD WITHOUT CONTRAST CLINICAL INFORMATION: Weakness COMPARISON: 06/24/2022 TECHNIQUE: Contiguous axial imaging was performed from the skull base to vertex without intravenous administration of contrast. This CT examination was performed using dose optimization techniques as appropriate, variously including the following: *Automated exposure control *Adjustment of mA and/or kV according to patient size (this includes techniques or standardized protocols for targeted exams where dose is matched to indication/reason for exam; i.e. extremities or head) *Use of iterative reconstruction technique DLP: 776 mGy-cm FINDINGS: There is no evidence of acute intracranial hemorrhage or territorial infarction. No abnormal mass effect or midline shift is seen. [place] to white matter differentiation is well preserved. No extra-axial fluid collections are identified. No hydrocephalus. No significant volume loss. There is no abnormal attenuation within the brain parenchyma. No acute osseous or soft tissue abnormality. The mastoid air cells are well aerated. Mild mucosal thickening throughout the ethmoid air cells and right maxillary sinus. CT/CT head/brain wo IV con IMPRESSION: No acute intracranial pathology.
[2022-12-22 18:28] VITALS: BP 106/74; PULSE 67; O2SAT 97
[2022-12-22 18:42] VITALS: BP 120/67; PULSE 69; RESP 16; TEMP 36.7; O2SAT 98
[2022-12-22 18:51] VITALS: BMI 21.1
--- NOTE | 2022-12-22 18:51 | ECG_ITS ---
Test Reason : OVERDOSE Blood Pressure : / mmHG Vent. Rate : 070 BPM Atrial Rate : 070 BPM P-R Int : 168 ms QRS Dur : 090 ms QT Int : 404 ms P-R-T Axes : 053 064 042 degrees QTc Int : 436 ms Normal sinus rhythm Normal ECG When compared with ECG of 23-NOV-2021 20:05, No significant change was found Referred By: Ricki Kenney Electronically Signed By:Servando Puga
--- OUTSIDE RECORDS SUMMARY | 2022-12-22 18:59 | XMS_ITS | Continuity of Care Document ---
Author Name Unknown Organization [facility] ter Address [address] [place] [address]- Care Team Providers Care Cloth Weaver Name Role Phone Yuan Borges MD Primary Care Physician Encounter [facility] [place] Date(s): 06/24/22 - 06/25/[address] [address]- Discharge Disposition: A-D/C Walkout Attending Physician: Not [...] 0, Tot. Refills 0, Maintenance, 12/21/20 12:28:00 EDT,Route to Pharmacy Electronically, [facility] #[id number], Partial fill upon patient request ifthe prescription is for a schedule II opioid drug.,... Start Date: 12/21/20 Stop Date: 01/11/21 Status: Ordered atorvastatin 40 mg oral tablet 1 tablet = 40 mg, By Mouth, Daily at bedtime, # 30 tablet, 0 Refills, Maintenance, 12/21/20 12:28:00 EDT, Tablet, [facility] #[id number], Partial fill upon patient request if the prescription isfor a schedule II opioid drug., 180, cm, 08/24/20 3... Start Date: 12/21/20 Stop Date: 01/20/21 Status: Ordered gabapentin 100 mg oral capsule 100 mg, 1, capsule, By Mouth, 3 times a day, # 90 capsule, Refills 0, Tot. Refills 0, Maintenance, 12/21/20 12:31:00 EDT, Route to Pharmacy Electronically, [facility] #[id number], Partial fill upon patient request if the prescription is for a mario... Start Date: 12/21/20 Stop Date: 01/20/21 Status: Ordered metFORMIN 500 mg oral tablet 1 tablet = 500 mg, By Mouth, 2 times a day, # 60 tablet, 0 Refills, Maintenance, 03/25/21 11:27:00 EST, Tablet, Partial fill upon patient request if the prescription is for a schedule II opioid drug. Start Date: 03/25/21 Status: Ordered oxyCODONE 5 mg oral tablet 10 mg, Tablet, By Mouth, Once, Routine, 06/24/22 21:00:00 EST, Stop date 06/24/22 21:00:00 EST Start Date: 06/24/22 Stop Date: 06/24/22 Status: Completed Plavix 75 mg oral tablet 75 mg, 1, tablet, By Mouth, Daily, # 30 tablet, Refills 1, Tot. Refills 1, Maintenance, 03/26/21 15:14:00 EST, Route to Pharmacy Electronically, [facility], Partial fill upon patient request if the prescription is for a schedule II opioi... Start Date: 03/26/21 Status: Ordered Readi-Cat 2 oral suspension See Instructions, 1st bottle [address]; 2nd bottle [address], # 450 mL, 0 Refills, Maintenance, 05/29/22 22:17:00 EST, [facility]/pharmacy #[id number], Partial fill upon patient request if the prescription is for a schedule II opioid drug.,... Start Date: 05/29/22 Status: Ordered Suboxone 8 mg-2 mg sublingual film 1 film, Sublingual, Daily, dissolve under the tongue, 0 Refills, Maintenance, 03/25/21 11:27:00 EST, [facility], Partial fill upon patient request if the prescription is for a schedule II opioid drug. Start Date: 03/25/21 Status: Ordered Suboxone 8 mg-2 mg sublingual film 1 film, Sublingual, Daily, dissolve under the tongue, # 14 film, 0 Refills, Maintenance, 05/22/21 14:31:00 EST, [facility], Partial fill upon patient request if the prescription is for a schedule II opioiddrug. [id number] Start Date: 05/22/21 Stop Date: 06/05/21 Status: Ordered Results Radiology Reports * Exam Date Time Procedure Performing Provider Status 06/25/22 12:[address] Cervical Spine W/O Contrast Kalia Schwarz; Ruthann (Verified) Notes: (CT Cervical Spine W/O Contrast) Reason For Exam: Neck trauma, dangerous injury mechanism;Other: RESULT: CT Cervical Spine W/O Contrast CT Head/Brain W/O Contrast, CT Cervical Spine W/O Contrast INDICATION: Hx of Present Illness: pt here with facial numbness sts he feel and was seen at [facility] sts he has pain on his L side and he feels heavy sts he had a head CT and was told he didn't have a stroke sts he was d c and went to a restaurant to sit sts cocaine use days ago; Reason: Headache(s); Clinical Question(s): Hematoma TECHNIQUE: Incremental CT without contrast through the head was formatted in axial and coronal plane. Iterative reconstruction techniques are used to optimize dose and image quality. Spiral CT without contrast through the cervical spine was formatted in 3 planes. Automatic tube modulation was performed to optimize scan parameters. CTDIvol Body: 12.40 mGy, DLP Body: 344 mGy*cm. CTDIvol Head: 39.70 mGy, DLP Head: 672 mGy*cm. COMPARISON: Noncontrast head CT and CT angiogram head and neck 01/28/2022. FINDINGS: Mildly limited at the skull base and vertex due to motion. BRAIN and EXTRA-AXIAL SPACES: No parenchymal hemorrhage, midline shift or mass effect. Corrales-white matter differentiation is well preserved. No acute infarct. Ventricles, sulci and basilar cisterns are normal. Kin cisterna magna. No white matter lesions. No subarachnoid hemorrhage, subdural or epidural collections. CALVARIUM, SKULL BASE AND SOFT TISSUES: No fractures or suspicious bony lesions. No significant opacification in the paranasal sinuses or mastoid air cells. Visualized orbits and globes are intact. The extracranial soft tissues are unremarkable. CERVICAL SPINE: No fracture. No acute osseous abnormalities. No locked or perched facets. Straightening of the cervical lordosis.. Vertebral body heights are normal. Intervertebral discs are normal. OTHER BONES: No acute abnormality. Left mandible fixation plates and screws. CERVICAL SOFT TISSUES AND LUNG APICES: Visualized lung apices are clear. The thyroid is unremarkable. IMPRESSION: 1. No acute intracranial abnormality. 2. No acute abnormality of the cervical spine. I have personally reviewed the images and I agree with this report. WSN: [id number] Ordering Physician: Elizabeth Oro Dictated By: Kiko Lozoya DO Dictated Date/Time: 06/25/22 6:55 am Reviewed By: Ritchie Jameson MD Signed By: Ritchie Jameson MD Signed Date/Time: 06/25/22 7:00 am Transcribed By: DEEP Transcribed Date/Time: 06/25/22 0:16 am * Exam Date Time Procedure Performing Provider Status 06/25/22 12:[address] Head/Brain W/O Contrast Kalia Murillo; Ruthann (Verified) Notes: (CT Head/Brain W/O Contrast) Reason For Exam: Headache(s) RESULT: CT Head/Brain W/O Contrast CT Head/Brain W/O Contrast, CT Cervical Spine W/O Contrast INDICATION: Hx of Present Illness: pt here with facial numbness sts he feel and was seen at [facility] sts he has pain on his L side and he feels heavy sts he had a head CT and was told he didn't have a stroke sts he was d c and went to a restaurant to sit sts cocaine use days ago; Reason: Headache(s); Clinical Question(s): Hematoma TECHNIQUE: Incremental CT without contrast through the head was formatted in axial and coronal plane. Iterative reconstruction techniques are used to optimize dose and image quality. Spiral CT without contrast through the cervical spine was formatted in 3 planes. Automatic tube modulation was performed to optimize scan parameters. CTDIvol Body: 12.40 mGy, DLP Body: 344 mGy*cm. CTDIvol Head: 39.70 mGy, DLP Head: 672 mGy*cm. COMPARISON: Noncontrast head CT and CT angiogram head and neck 01/28/2022. FINDINGS: Mildly limited at the skull base and vertex due to motion. BRAIN and EXTRA-AXIAL SPACES: No parenchymal hemorrhage, midline shift or mass effect. Corrales-white matter differentiation is well preserved. No acute infarct. Ventricles, sulci and basilar cisterns are normal. Kin cisterna magna. No white matter lesions. No subarachnoid hemorrhage, subdural or epidural collections. CALVARIUM, SKULL BASE AND SOFT TISSUES: No fractures or suspicious bony lesions. No significant opacification in the paranasal sinuses or mastoid air cells. Visualized orbits and globes are intact. The extracranial soft tissues are unremarkable. CERVICAL SPINE: No fracture. No acute osseous abnormalities. No locked or perched facets. Straightening of the cervical lordosis.. Vertebral body heights are normal. Intervertebral discs are normal. OTHER BONES: No acute abnormality. Left mandible fixation plates and screws. CERVICAL SOFT TISSUES AND LUNG APICES: Visualized lung apices are clear. The thyroid is unremarkable. IMPRESSION: 1. No acute intracranial abnormality. 2. No acute abnormality of the cervical spine. I have personally reviewed the images and I agree with this report. WSN: [id number] Ordering Physician: Elizabeth Oro Dictated By: Kiko Lozoya DO Dictated Date/Time: 06/25/22 6:55 am Reviewed By: Ritchie Jameson MD Signed By: Ritchie Jameson MD Signed Date/Time: 06/25/22 7:00 am Transcribed By: DEEP Transcribed Date/Time: 06/25/22 0:16 am Vital Signs Most recent to oldest [Reference Range]: 1 2 3 Height 180 cm (06/24/22 8:18 PM) 180 cm (06/24/22 12:54 PM) Weight 63 kg (06/24/22 8:18 PM) 63 kg (06/24/22 12:54 PM) Oxygen Saturation [94-100 %] 98 % (06/25/22 12:14 AM) 98 % (06/24/22 8:18 PM) 95 % (06/24/22 6:40 PM) Pulse Rate [55-90 bpm] 62 bpm (06/25/22 12:14 AM) 67 bpm (06/24/22 8:18 PM) 67 bpm (06/24/22 6:40 PM) Body Mass Index [18.5-24.99 kg/m2] 19.44 kg/m2 (06/24/22 8:18 PM) Blood Pressure [90-138/55-84 mm Hg] 108/58mm Hg (06/25/22 12:14 AM) 107/56mm Hg (06/24/22 8:18 PM) 175/97mm Hg *H* (06/24/22 6:40 PM) Respiratory Rate [16-30 br/min] 20 br/min (06/25/22 12:14 AM) 16 br/min (06/24/22 8:18 PM) 16 br/min (06/24/22 8:17 PM) Temperature [96.8-100.4 DegF] 97.7 DegF (06/25/22 12:14 AM) 98.3 DegF (06/24/22 8:18 PM) 98.3 DegF (06/24/22 6:40 PM) Mode of Delivery (Oxygen) Room air (06/25/22 12:14 AM) Room air (06/24/22 8:18 PM) Room air (06/24/22 6:40 PM) Blood pressure sites Arm, right (06/25/22 12:14 AM) Arm, right (06/24/22 8:18 PM) Arm, right (06/24/22 6:40 PM) Temperature Route Oral (06/25/22 12:14 AM) Oral (06/24/22 8:18 PM) Oral (06/24/22 6:40 PM) Dry Weight 63 kg (06/24/22 8:18 PM) 63 kg (06/24/22 12:54 PM) CT Cervical spine WO contrast * BHSPowerscribe , [facility] S: TRANSCRIBE Ritchie Jameson MD B: VERIFY Kiko Lozoya DO: SIGN Event Display: Result: Authored Date: CT Head/Brain W/O Contrast, CT Cervical Spine W/O Contrast INDICATION: Hx of Present Illness: pt here with facial numbness sts he feel and was seen at [facility] sts he has pain on his L side and he feels heavy sts he had a head CT and was told he didn't have a stroke sts he was d c and went to a restaurant to sit sts cocaine use days ago; Reason: Headache(s); Clinical Question(s): Hematoma TECHNIQUE: Incremental CT without contrast through the head was formatted in axial and coronal plane. Iterative reconstruction techniques are used to optimize dose and image quality. Spiral CT without contrast through the cervical spine was formatted in 3 planes. Automatic tube modulation was performed to optimize scan parameters. CTDIvol Body: 12.40 mGy, DLP Body: 344 mGy*cm. CTDIvol Head: 39.70 mGy, DLP Head: 672 mGy*cm. COMPARISON: Noncontrast head CT and CT angiogram head and neck 01/28/2022. FINDINGS: Mildly limited at the skull base and vertex due to motion. BRAIN and EXTRA-AXIAL SPACES: No parenchymal hemorrhage, midline shift or mass effect. Corrales-white matter differentiation is well preserved. No acute infarct. Ventricles, sulci and basilar cisterns are normal. Kin cisterna magna. No white matter lesions. No subarachnoid hemorrhage, subdural or epidural collections. CALVARIUM, SKULL BASE AND SOFT TISSUES: No fractures or suspicious bony lesions. No significant opacification in the paranasal sinuses or mastoid air cells. Visualized orbits and globes are intact. The extracranial soft tissues are unremarkable. CERVICAL SPINE: No fracture. No acute osseous abnormalities. No locked or perched facets. Straightening of the cervical lordosis.. Vertebral body heights are normal. Intervertebral discs are normal. OTHER BONES: No acute abnormality. Left mandible fixation plates and screws. CERVICAL SOFT TISSUES AND LUNG APICES: Visualized lung apices are clear. The thyroid is unremarkable. IMPRESSION: 1. No acute intracranial abnormality. 2. No acute abnormality of the cervical spine. I have personally reviewed the images and I agree with this report. WSN: [id number] Ordering Physician: Elizabeth Oro Dictated By: Kiko Lozoya DO Dictated Date/Time: 06/25/22 6:55 am Reviewed By: Ritchie Jameson MD Signed By: Ritchie Jameson MD Signed Date/Time: 06/25/22 7:00 am Transcribed By: DEEP Transcribed Date/Time: 06/25/22 0:[address] Head WO contrast * SPowerscriyadiel , [facility] S: TRANSCRIBE Ritchie Jameson MD: VERIFY Kiko Lozoya DO: SIGN Event Display: Result: Authored Date: [id number] CT Head/Brain W/O Contrast, CT Cervical Spine W/O Contrast INDICATION: Hx of Present Illness: pt here with facial numbness sts he feel and was seen at [facility] sts he has pain on his L side and he feels heavy sts he had a head CT and was told he didn't have a stroke sts he was d c and went to a restaurant to sit sts cocaine use days ago; Reason: Headache(s); Clinical Question(s): Hematoma TECHNIQUE: Incremental CT without contrast through the head was formatted in axial and coronal plane. Iterative reconstruction techniques are used to optimize dose and image quality. Spiral CT without contrast through the cervical spine was formatted in 3 planes. Automatic tube modulation was performed to optimize scan parameters. CTDIvol Body: 12.40 mGy, DLP Body: 344 mGy*cm. CTDIvol Head: 39.70 mGy, DLP Head: 672 mGy*cm. COMPARISON: Noncontrast head CT and CT angiogram head and neck 01/28/2022. FINDINGS: Mildly limited at the skull base and vertex due to motion. BRAIN and EXTRA-AXIAL SPACES: No parenchymal hemorrhage, midline shift or mass effect. Corrales-white matter differentiation is well preserved. No acute infarct. Ventricles, sulci and basilar cisterns are normal. Kin cisterna magna. No white matter lesions. No subarachnoid hemorrhage, subdural or epidural collections. CALVARIUM, SKULL BASE AND SOFT TISSUES: No fractures or suspicious bony lesions. No significant opacification in the paranasal sinuses or mastoid air cells. Visualized orbits and globes are intact. The extracranial soft tissues are unremarkable. CERVICAL SPINE: No fracture. No acute osseous abnormalities. No locked or perched facets. Straightening of the cervical lordosis.. Vertebral body heights are normal. Intervertebral discs are normal. OTHER BONES: No acute abnormality. Left mandible fixation plates and screws. CERVICAL SOFT TISSUES AND LUNG APICES: Visualized lung apices are clear. The thyroid is unremarkable. IMPRESSION: 1. No acute intracranial abnormality. 2. No acute abnormality of the cervical spine. I have personally reviewed the images and I agree with this report. WSN: [id number] Ordering Physician: Elizabeth Oro Dictated By: Kiko Lozoya DO Dictated Date/Time: 06/25/22 6:55 am Reviewed By: Ritchie Jameson MD Signed By: Ritchie Jameson MD Signed Date/Time: 06/25/22 7:00 am Transcribed By: DEEP Transcribed Date/Time: 06/25/22 0:16 am Patient Care team information Care Team Personnel Name: Katerina HUGHES, Yuan Brown Position: [facility] Primary Care Physician Member Role: PCP Address: Address: [address] [place] [id number]- Name: Suri Rodriguez RN Position: [facility] RN Member Role: Primary Care Nurse Care Team Related Persons Name: RAJ SILVERIO Name: ANNELIESE ARTHUR Address: [place] [address] Name: EZRA ARTHUR
--- OUTSIDE RECORDS SUMMARY | 2022-12-22 18:59 | XMS_ITS | Continuity of Care Document ---
Author Name Unknown Organization [facility] ter Address [address] [place] [address]- Care Team Providers Care Curbing Stonecutter Name Role Phone Yuan Borges MD Primary Care Physician Encounter [facility] [place] Date(s): 05/31/22 - 07/11/[address] [address] Attending Physician: Yuan Borges MD Admitting Physician: Yuan Borges MD Referring Physician: Yuan Borges MD Allergies, Adverse Reactions, Alerts Substance Reaction Severity Status ibuprofen Active Contrast Dye pruritis Mild Active Seafood Active iodine Active Immunizations Given and Recorded Vaccine Date Status Refusal Reason tetanus/diphtheria/pertussis, acel(Tdap) 04/01/21 Given Medications aspirin 81 mg oral delayed release tablet 81 mg, By Mouth, Daily, # 21 tablet, Refills 0, Tot. Refills 0, Maintenance, 12/21/20 12:28:00 EDT,Route to Pharmacy Electronically, [facility] #[id number], Partial fill upon patient request ifthe prescription is for a schedule II opioid drug.,... Start Date: 12/21/20 Stop Date: 01/11/21 Status: Ordered atorvastatin 40 mg oral tablet 1 tablet = 40 mg, By Mouth, Daily at bedtime, # 30 tablet, 0 Refills, Maintenance, 12/21/20 12:28:00 EDT, Tablet, [facility] #[id number], Partial fill upon patient request if the prescription isfor a schedule II opioid drug., 180, cm, 08/24/20 3... Start Date: 12/21/20 Stop Date: 01/20/21 Status: Ordered gabapentin 100 mg oral capsule 100 mg, 1, capsule, By Mouth, 3 times a day, # 90 capsule, Refills 0, Tot. Refills 0, Maintenance, 12/21/20 12:31:00 EDT, Route to Pharmacy Electronically, [facility] #[id number], Partial fill upon patient request if the [...] opioid drug. Start Date: 03/25/21 Status: Ordered Plavix 75 mg oral tablet 75 mg, 1, tablet, By Mouth, Daily, # 30 tablet, Refills 1, Tot. Refills 1, Maintenance, 03/26/21 15:14:00 EST, Route to Pharmacy Electronically, [facility], Partial fill upon patient request if the prescription is for a schedule II opioi... Start Date: 03/26/21 Status: Ordered Readi-Cat 2 oral suspension See Instructions, 1st bottle [address]; 2nd bottle [address], # 450 mL, 0 Refills, Maintenance, 05/29/22 22:17:00 EST, [facility]/pharmacy #[id number], Partial fill upon patient request if the [...] prescription is for a schedule II opioiddrug. [id number] Start Date: 05/22/21 Stop Date: 06/05/21 Status: Ordered Patient Care team information Care Team Personnel Name: Yuan Borges MD Position: S Primary Care Physician Member Role: PCP Address: Address: [address] [place] [address]- Name: Suri Rodriguez RN Position: S RN Member Role: Primary Care Nurse Care Team Related Persons Name: RAJ SILVERIO Name: ANNELIESE ARTHUR Address: [place] [address] Name: EZRA ARTHUR
--- OUTSIDE RECORDS SUMMARY | 2022-12-22 19:00 | XMS_ITS | Continuity of Care Document ---
Author Name Unknown Organization [facility] Address [address] [place] [address]- Care Team Providers Care Systems Trainer Name Role Phone Yuan Borges MD Primary Care Physician Encounter [facility] [place] Date(s): 05/29/22 - 06/28/[address] [address]- Allergies, Adverse Reactions, Alerts Substance Reaction Severity Status ibuprofen Active Contrast Dye pruritis Mild Active iodine Active Seafood Active Immunizations Given and Recorded Vaccine Date Status Refusal Reason tetanus/diphtheria/pertussis, acel(Tdap) 04/01/21 Given Medications aspirin 81 mg oral delayed release tablet 81 mg, By Mouth, Daily, # 21 tablet, Refills 0, Tot. Refills 0, Maintenance, 12/21/20 12:28:00 EDT,Route to Pharmacy Electronically, [facility] #[id number], Partial fill upon patient request ifthe prescription is for a schedule II opioid drug.,... Start Date: 12/21/20 Stop Date: 01/11/21 Status: Ordered atorvastatin 40 mg oral tablet 1 tablet = 40 mg, By Mouth, Daily at bedtime, # 30 tablet, 0 Refills, Maintenance, 12/21/20 12:28:00 EDT, Tablet, [facility] #[id number], Partial fill upon patient request if the prescription isfor a schedule II opioid drug., 180, cm, 08/24/20 3... Start Date: 12/21/20 Stop Date: 01/20/21 Status: Ordered gabapentin 100 mg oral capsule 100 mg, 1, capsule, By Mouth, 3 times a day, # 90 capsule, Refills 0, Tot. Refills 0, Maintenance, 12/21/20 12:31:00 EDT, Route to Pharmacy Electronically, [facility] #[id number], Partial fill upon patient request if the [...] 03/26/21 15:14:00 EST, Route to Pharmacy Electronically, [facility], Partial fill upon patient request if the prescription is for a schedule II opioi... Start Date: 03/26/21 Status: Ordered Readi-Cat 2 oral suspension See Instructions, 1st bottle [address]; 2nd bottle [address], # 450 mL, 0 Refills, Maintenance, 05/29/22 22:17:00 EST, [facility]/pharmacy #[id number], Partial fill upon patient request if the [...] prescription is for a schedule II opioiddrug. [id number] Start Date: 05/22/21 Stop Date: 06/05/21 Status: Ordered Patient Care team information Care Team Personnel Name: Yuan Borges MD Position: S Primary Care Physician Member Role: PCP Address: Address: [address] [place] [id number]- Name: Suri Rodriguez RN Position: S RN Member Role: Primary Care Nurse Care Team Related Persons Name: RAJ SILVERIO Name: ANNELIESE ARTHUR Address: [place] [address] Name: EZRA ARTHUR
--- OUTSIDE RECORDS SUMMARY | 2022-12-22 19:00 | XMS_ITS | Continuity of Care Document ---
Author Name Unknown Organization [facility] ter Address [address] [place] [address]- Care Team Providers Care Eligibility Examiner Name Role Phone Yuan Borges MD Primary Care Physician Encounter [facility] Date(s): 05/29/22 - 07/10/[address] [address] Attending Physician: Yuan Borges MD Admitting Physician: [...] Maintenance, 12/21/20 12:28:00 EDT,Route to Pharmacy Electronically, [facility] #[id number], Partial fill upon patient request ifthe prescription is for a schedule II opioid drug.,... Start Date: 12/21/20 Stop Date: 01/11/21 Status: Ordered atorvastatin 40 mg oral tablet 1 tablet = 40 mg, By Mouth, Daily at bedtime, # 30 tablet, 0 Refills, Maintenance, 12/21/20 12:28:00 EDT, Tablet, [facility] #[id number], Partial fill upon patient request if the prescription isfor a schedule II opioid drug., 180, cm, 08/24/20 3... Start Date: 12/21/20 Stop Date: 01/20/21 Status: Ordered gabapentin 100 mg oral capsule 100 mg, 1, capsule, By Mouth, 3 times a day, # 90 capsule, Refills 0, Tot. Refills 0, Maintenance, 12/21/20 12:31:00 EDT, Route to Pharmacy Electronically, [facility] #[id number], Partial fill upon patient request if the [...] 03/26/21 15:14:00 EST, Route to Pharmacy Electronically, [facility], Partial fill upon patient request if the prescription is for a schedule II opioi... Start Date: 03/26/21 Status: Ordered Readi-Cat 2 oral suspension See Instructions, 1st bottle [address]; 2nd bottle [address], # 450 mL, 0 Refills, Maintenance, 05/29/22 22:17:00 EST, [facility]/pharmacy #[id number], Partial fill upon patient request if the [...] prescription is for a schedule II opioiddrug. [id number] Start Date: 05/22/21 Stop Date: 06/05/21 Status: Ordered Patient Care team information Care Team Personnel Name: Yuan Borges MD Position: S Primary Care Physician Member Role: PCP Address: Address: [address] [place] [id number]- Name: Suri Rodriguez RN Position: S RN Member Role: Primary Care Nurse Care Team Related Persons Name: RAJ SILVERIO Name: ANNELIESE ARTHUR Address: [place] [address] Name: EZRA ARTHUR
[2022-12-22] MEDS: 0.9 % Sodium Chloride 1,000 ML 999 ML IV (19:08)
[2022-12-22 19:27] LABS: Basophils Percent Auto 0.4 % (0-2); Eosinophils Absolute Auto 0.1 X10*3/uL (0.0-0.4); Eosinophils Percent Auto 0.9 % (0-4); Hematocrit 38.2 % (42.0-52.0); Hemoglobin 12.6 g/dl (14.0-18.0); Imm Gran Abs Auto 0.01 X10*3/uL (0.00-0.03); Imm Gran Pct Auto 0.2 % (0.0-0.4); Lymphocytes Absolute Auto 1.6 X10*3/uL (1.2-4.9); Lymphocytes Percent Auto 28.4 % (20-40); MANUAL DIFF FLAG NO; Mean Corpuscular Hemoglobin 29.4 pg (27.0-33.0); Mean Platelet Volume 9.6 fL (9.4-12.4); Monocytes Absolute Auto 0.4 X10*3/uL (0.1-1.2); Monocytes Percent Auto 6.7 % (2-11); Neutrophils Absolute Auto 3.5 x10*3/uL (2.0-8.3); Neutrophils Percent Auto 63.4 % (45-73); Platelet Count 196 X10*3/uL (160-400); Red Blood Count 4.29 X10*6/uL (4.60-5.80); Red Cell Distribution Width 13.9 % (11.0-16.0); White Blood Count 5.5 X10*3/uL (4.8-10.8)
[2022-12-22 19:44] LABS: Alanine Aminotransferase 19 U/L (0-40); Albumin Level 3.7 g/dL (3.5-5.0); Alkaline Phosphatase 51 U/L (39-117); Anion Gap 14 (12-20); Aspartate Amino Transferase 22 U/L (5-37); Bilirubin Total 0.8 mg/dL (0.0-1.0); Blood Urea Nitrogen 14 mg/dL (9-16); Calcium 8.7 mg/dL (8.4-10.2); Carbon Dioxide 25 mmol/L (22-29); Chloride 108 mmol/L (96-108); Creatinine Clr Calc Pharmacy 102.4; Estimated Glomerular Filt Rate > 60; Ethanol < 10 mg/dL; Glucose Random 128 mg/dL (60-115); Magnesium 2.2 mg/dL (1.6-2.6); Potassium 3.3 mmol/L (3.3-5.1); Sodium 144 mmol/L (135-145); Total Protein 6.2 g/dL (6.5-8.0)
[2022-12-22 19:50] LABS: Troponin-I High Sensitivity < 2.7 ng/L (<3.5-35.0)
--- NOTE | 2022-12-22 20:09 | ED.GENADULT ---
HPI - General Adult General Chief complaint: Weakness Stated complaint: weakness Time Seen by Provider: 12/22/22 18:37 Source: patient and EMS Mode of arrival: ambulatory Limitations: no limitations History of Present Illness HPI narrative: 42 yold male presents to the ED with pmh of subustance abuse, alcohol abuse, and stroke presents to the ED for not feeling well and described generalized weakness. patient went to [facility] walk in clinic to be seen, but it was closed and called the ambulance. As per EMS patient has no Neuro deficits. As per EMS and patient there was no trauma. Patietn was not found on the ground. Related Data Home Medications Medication Instructions Recorded Confirmed gabapentin 600 mg tablet 600 mg PO TID 02/09/21 11/23/21 metformin 500 mg tablet 500 mg PO BIDAC 02/09/21 11/23/21 Previous Rx's Medication Instructions Recorded albuterol sulfate 90 mcg/actuation 2 puff inhalation Q4-6H PRN 06/22/21 aerosol inhaler shortness of breath or wheezing #8.5 grams amoxicillin 875 mg-potassium 1 tab PO Q12H #14 tabs 11/27/21 clavulanate 125 mg tablet doxycycline hyclate 100 mg tablet 100 mg PO BID #14 tabs 11/27/21 oxycodone 10 mg tablet 1 tab PO Q8H PRN Pain (Scale Score 11/27/21 7-10) #20 tabs Allergies Allergy/AdvReac Type Severity Reaction Status Date / Time ibuprofen Allergy Unknown Unknown Verified 07/11/21 13:40 Iodinated Contrast Media Allergy Unknown Unknown Verified 07/11/21 13:40 [Contrast Dye] acetaminophen Allergy Rash Verified 07/11/21 13:40 shellfish derived Allergy Unknown Verified 07/11/21 13:40 Review of Systems Review of Systems: Generalized weakness Yes all other systems are reviewed and are negative PMFSH Past Medical History Medical History Asthma CVA (cerebral vascular accident) Diabetes Mood disorder Neuropathy Opiate addiction Surgical History History of carpal tunnel surgery of left wrist No significant past surgical history Social History Social History Household Members: None Housing: Homeless Do you presently have visiting nurse or other home services: No Unable to assess alcohol history related to: Unable to respond Alcohol intake: unknown Patient Tobacco Use Status: Never used Tobacco Substance Use Type: Crack/Cocaine Advance Directives: No Advance Directives Information Provided: No service: No Current occupational status: unemployed and other Physical Exam ED Vital Signs: Vital Signs - 24 hr 12/22/22 18:42 12/22/22 22:35 12/23/22 01:27 Temperature 98.0 F 97.5 F 97.1 F Pulse Rate 69 59 71 Respiratory Rate 16 18 15 Blood Pressure 120/67 114/79 151/94 H Pulse Oximetry 98 98 99 Oxygen Delivery Method Room Air Room Air Room Air 12/23/22 03:38 Temperature Pulse Rate Respiratory Rate 16 Blood Pressure Pulse Oximetry Oxygen Delivery Method BMI result Body Mass Index 21.1 Const General: cooperative, healthy appearing, comfortable, no acute distress, well developed, alert, awake and Physically active Orientation/consciousness: oriented to person, oriented to place, oriented to time and patient oriented x3 HENMT Head: Yes normal to inspection, Yes No palpable skull fracture present, Yes normocephalic, Yes atraumatic and No abrasion Ears: hearing grossly normal bilaterally, external ears normal, TM's normal bilaterally, TM normal on the right, TM normal on the left, EAC's normal, mastoids normal and no periauricular adenopathy Eyes General: appearance normal, both eyes and all related structures Neck Neck: Yes normal visual inspection, Yes full ROM, Yes no lymphadenopathy, Yes no meningeal signs, Yes trachea midline, Yes supple, No anterior neck swelling and No tender Chest Chest palpation & inspection: normal inspection of the chest and normal palpation of entire chest wall Resp Effort & Inspection: normal respiratory effort and able to speak in complete sentences Auscultation: clear to auscultation bilaterally Cardio Jugular venous distension: no JVD Heart sounds: S1 normal heart sound present and S2 normal heart sound present GI Inspection: Yes normal to inspection and No abdominal wall ecchymosis Palpation (GI): Soft to palpation, not firm, nontender, no guarding and not rigid General: No CVA tenderness and Yes no CVA tenderness Back/Spine/Pelvis Back: no CVA tenderness, No CVA tenderness and No back tenderness Skin General skin exam: no rashes or lesions noted, elasticity normal and turgor normal Neuro Other: NIH score 0 General: oriented to person, oriented to place, oriented to time, patient oriented x3, gait normal, tone normal, moves all extremities, Normal light touch and pain sensation, no meningeal signs, no focal motor deficits, CN's II-XI intact bilaterally and normal sensation to monofilament Extrem General: Yes normal to inspection and Yes full ROM Psych Other: Smell, foul odor clothes Appearance: disheveled Medications Administered Discontinued Medications Generic Name Dose Route Start Last Admin Trade Name Martha PRN Reason Stop Dose Admin Sodium Chloride 1,000 mls @ 999 mls/hr 12/22/22 18:55 12/22/22 20:51 Ns IV 12/22/22 19:55 Infused .Q1H1M STA Infusion Medical Decision Making Medical Decision Making [facility] Narrative: 42 mL history of stroke alcohol abuse cocaine abuse and heroin presents to ED for feeling off and generalized weakness. History physical exam negative negative for any signs of neuro deficit. Patient will have labs fluids EKG ordered. Patient denies any suicidal/homicidal ideation, labs are normal. EKG negative STEMI. Negative troponins. Head CT scan was normal. CPK 446. Patient slept comfortably in the ER. Patient to be discharged. Differential Diagnosis Differential Diagnoses: The differential diagnosis associated with the presentation includes (Stroke, rhabdomyolysis, substance abuse, myocardial infarction, DKA) Admission/Observation Consideration of admission/observation: Escalation of care including admission/observation considered Lab Data [facility] Lab Attestation statement: I reviewed the patient's lab results. 12/22/22 19:23 12/22/22 19:23 Labs: Lab Results 12/22/22 12/22/22 12/22/22 Range/Units 19:23 19:23 19:23 WBC 5.5 (4.8-10.8) X10*3/uL RBC 4.29 L (4.60-5.80) X10*6/uL Hgb 12.6 L (14.0-18.0) g/dl Hct 38.2 L (42.0-52.0) % MCV 89.0 (80.0-98.0) fL MCH 29.4 (27.0-33.0) pg MCHC 33.0 (31.0-36.0) g/dl RDW 13.9 (11.0-16.0) % Plt Count 196 (160-400) X10*3/uL MPV 9.6 (9.4-12.4) fL Immature Gran % (Auto) 0.2 (0.0-0.4) % Neut % (Auto) 63.4 (45-73) % Lymph % (Auto) 28.4 (20-40) % Casey % (Auto) 6.7 (2-11) % Eos % (Auto) 0.9 (0-4) % Baso % (Auto) 0.4 (0-2) % Lymph # (Auto) 1.6 (1.2-4.9) X10*3/uL Casey # (Auto) 0.4 (0.1-1.2) X10*3/uL Eos # (Auto) 0.1 (0.0-0.4) X10*3/uL Baso # (Auto) 0.0 (0.0-0.2) X10*3/uL Abs Immat Gran (auto) 0.01 (0.00-0.03) X10*3/uL Absolute Neuts (auto) 3.5 (2.0-8.3) x10*3/uL Absolute Nucleated RBC 0.000 (0.0-0.012) X10*3/uL Nucleated RBC % (auto) 0.0 (0.0-0.2) /100WBC Sodium 144 (135-145) mmol/L Potassium 3.3 (3.3-5.1) mmol/L Chloride 108 (96-108) mmol/L Carbon Dioxide 25 (22-29) mmol/L Anion Gap 14 (12-20) BUN 14 (9-16) mg/dL Creatinine 0.91 (0.5-1.4) mg/dL Estim Creat Clear Calc 102.4 Estimated GFR > 60 Random Glucose 128 H (60-115) mg/dL Calcium 8.7 D (8.4-10.2) mg/dL Magnesium 2.2 (1.6-2.6) mg/dL Total Bilirubin 0.8 (0.0-1.0) mg/dL AST 22 (5-37) U/L ALT 19 (0-40) U/L Alkaline Phosphatase 51 (39-117) U/L Total Creatine Kinase 446 H (38-174) U/L Troponin I High Sens < 2.7 (<3.5-35.0) ng/L Total Protein 6.2 L (6.5-8.0) g/dL Albumin 3.7 (3.5-5.0) g/dL Ethyl Alcohol < 10 mg/dL 12/23/22 Range/Units 01:24 WBC (4.8-10.8) X10*3/uL RBC (4.60-5.80) X10*6/uL Hgb (14.0-18.0) g/dl Hct (42.0-52.0) % MCV (80.0-98.0) fL MCH (27.0-33.0) pg MCHC (31.0-36.0) g/dl RDW (11.0-16.0) % Plt Count (160-400) X10*3/uL MPV (9.4-12.4) fL Immature Gran % (Auto) (0.0-0.4) % Neut % (Auto) (45-73) % Lymph % (Auto) (20-40) % Casey % (Auto) (2-11) % Eos % (Auto) (0-4) % Baso % (Auto) (0-2) % Lymph # (Auto) (1.2-4.9) X10*3/uL Casey # (Auto) (0.1-1.2) X10*3/uL Eos # (Auto) (0.0-0.4) X10*3/uL Baso # (Auto) (0.0-0.2) X10*3/uL Abs Immat Gran (auto) (0.00-0.03) X10*3/uL Absolute Neuts (auto) (2.0-8.3) x10*3/uL Absolute Nucleated RBC (0.0-0.012) X10*3/uL Nucleated RBC % (auto) (0.0-0.2) /100WBC Sodium (135-145) mmol/L Potassium (3.3-5.1) mmol/L Chloride (96-108) mmol/L Carbon Dioxide (22-29) mmol/L Anion Gap (12-20) BUN (9-16) mg/dL Creatinine (0.5-1.4) mg/dL Estim Creat Clear Calc Estimated GFR Random Glucose (60-115) mg/dL Calcium (8.4-10.2) mg/dL Magnesium (1.6-2.6) mg/dL Total Bilirubin (0.0-1.0) mg/dL AST (5-37) U/L ALT (0-40) U/L Alkaline Phosphatase (39-117) U/L Total Creatine Kinase (38-174) U/L Troponin I High Sens 3.1 (<3.5-35.0) ng/L Total Protein (6.5-8.0) g/dL Albumin (3.5-5.0) g/dL Ethyl Alcohol mg/dL Independent Interpretation I performed an independent interpretation of an: EKG (Normal sinus rhythm. Ventricular rate 70. Pr interval 168. QRS 90. QTC 436. Negative STEMI) and CT Scan Radiology Impression Discussion of test interpretation with radiology: I have reviewed the radiologist's reading. Independent Historian Clinical information obtained from an independent historian. History obtained from or confirmed by: EMS External Record Review External record reviewed: Other (Prior ED visit) Chronic Conditions Patient?s care impacted by: Diabetes Discharge Plan Discharge Clinical Impression: Generalized weakness Patient Disposition: Home, Self-Care Instructions: Weakness (ED) Additional Instructions: Your blood work, EKG, and head CT scan came back normal. Please follow-up with your primary care provider. Return to ED for any chest pain, shortness of breath, headache, slurred speech, facial droop, positive extremities, dizziness, abdominal pain, diarrhea, nausea, vomiting, fever, chills, or any other concerning symptoms. Prescriptions: No Action metformin 500 mg Tablet 500 mg PO BIDAC gabapentin 600 mg Tablet 600 mg PO TID oxycodone 10 mg tablet 1 tab PO Q8H PRN (Reason: Pain (Scale Score 7-10)) Qty: 20 0RF amoxicillin-pot clavulanate 875-125 mg tablet 1 tab PO Q12H Qty: 14 0RF doxycycline hyclate 100 mg tablet 100 mg PO BID Qty: 14 0RF albuterol sulfate 90 mcg/actuation HFA aerosol inhaler 2 puff inhalation Q4-6H PRN (Reason: shortness of breath or wheezing) Qty: 8.5 0RF Interventions: ED Discharge Assessment Last Done: 12/23/22 03:46 Discharge Date/Time: 12/23/22 03:47 Print Language: Yi
[2022-12-22 22:35] VITALS: BP 114/79; PULSE 59; RESP 18; TEMP 36.4; O2SAT 98
--- NOTE | 2022-12-22 22:41 | PC.NURSE ---
PT REMAINS SOMNOLENT, DIAPHORETIC. VS WNL. IVF INFUSED, AWAITING CT RESULTS.
[2022-12-23 01:27] VITALS: BP 151/94; PULSE 71; RESP 15; TEMP 36.2; O2SAT 99
--- NOTE | 2022-12-23 01:28 | PC.NURSE ---
Patient resting with eyes closed, chest rising evenly, patient breathing without difficulty, no s/s of distress noted at this time. Vital signs within normal limits. Blood work obtained on patient. Patient still not answering questions at this time.
[2022-12-23 01:47] LABS: Troponin-I High Sensitivity 3.1 ng/L (<3.5-35.0)
--- NOTE | 2022-12-23 03:15 | PC.NURSE ---
Attempted to discharge patient, woke patient up and informed him that his results came back negative and that he was getting discharged. Patient nodded and then went back to sleep. Attempted to wake patient up again and gave him some juice. Patient drank the juice and went back to sleep. Report given to Ava.
[2022-12-23 03:38] VITALS: RESP 16
== END 2022-12-23 03:47 | disposition home or self-care (01) ==
PROVIDERS: Physician Assistant; Emergency Provider Internal Medicine
DX: R53.1 Weakness (principal); F14.10 Cocaine abuse, uncomplicated; F11.10 Opioid abuse, uncomplicated; Z79.899 Other long term (current) drug therapy; Z86.73 Personal history of transient ischemic attack (TIA), and cerebral infarction without residual deficits
CPT/HCPCS: 36415; 70450; 80053; 80307; 82550; 83735; 84484; 85025; 93005; 99284

== ENCOUNTER → 2022-12-22 18:51 | Outpatient (BNV) | payer MEDICAID, SELFPAY | PROVIDERS: Emergency Provider Internal Medicine; Visit Provider Internal Medicine Cardiovascular Disease | DX: R53.1 Weakness (principal) | CPT/HCPCS: 93010 ==

== ENCOUNTER 2023-07-27 22:45 | Emergency (ER) | payer MEDICAID, SELFPAY | END 2023-07-27 23:52 | disposition left against medical advice (07) | LOC: HO.ED 23:47 | PROVIDERS: Emergency Provider Emergency Medicine | DX: Z53.21 Procedure and treatment not carried out due to patient leaving prior to being seen by health care provider (principal); M25.562 Pain in left knee; M79.642 Pain in left hand; R51.9 Headache, unspecified ==

== ENCOUNTER 2023-07-28 05:39 | Emergency (ER) | payer MEDICAID, SELFPAY ==
[2023-07-28] VITALS (8 sets, daily range): BP systolic 111–126; BP diastolic 60–76; PULSE 70–100; RESP 16–18; TEMP 36.7–36.8; O2SAT 96–99; BMI 26.5
--- NOTE | ~2023-07-28 | XR_ITS ---
EXAMINATION: XR LEFT HAND XR RIGHT HAND CLINICAL INFORMATION: Bilateral hand pain. COMPARISON: 11/21/2021 and 06/13/2021 TECHNIQUE: PA, oblique and lateral views of each hand. FINDINGS: Left hand: There is normal alignment. Mild diffuse interphalangeal joint space narrowing. No displaced fracture or dislocation. No bony erosions. Right hand: Prior amputation of the distal tuft of the first digit distal phalanx. Mild diffuse interphalangeal joint space narrowing. Possible old healed fracture of the fifth metacarpal. No acute displaced fracture or dislocation. No bony erosions. XR/XR hand RT min 3V IMPRESSION: No acute abnormality.
--- NOTE | ~2023-07-28 | XR_ITS ---
EXAMINATION: XR SHOULDER, LEFT CLINICAL INFORMATION: Pain after fall COMPARISON: None available. TECHNIQUE: Three views of the left shoulder. FINDINGS: Bones have normal alignment. No acute fracture or subluxation. The acromiohumeral distance is normal. No evidence of calcium deposition within rotator cuff tendons. The visualized left upper lung is normal. XR/XR shoulder LT 1V IMPRESSION: Normal left shoulder. No evidence of acute fracture or malalignment.
--- NOTE | ~2023-07-28 | XR_ITS ---
EXAMINATION: XR WRIST, LEFT CLINICAL INFORMATION: Pain after fall COMPARISON: 11/21/2021 TECHNIQUE: PA, lateral, and oblique views of the left wrist. FINDINGS: Bones have normal alignment. The joint spaces of the wrist are maintained. The carpal bones are normal. The pronator quadratus fat stripe is preserved. An opacity from dressing material overlies the distal forearm. On the PA view of the wrist, there is a thin longitudinal lucency of the distal radial metaphysis-epiphysis extending toward the scaphoid facet, but it is difficult to determine whether this represents artifact or a subtle nondisplaced fracture. No fracture is seen on the lateral view. XR/XR wrist LT 2V IMPRESSION: * No evidence of carpal bone fracture or carpal malalignment. * The evaluation of the distal radius is partially limited by the overlying dressing material. It is difficult to determine whether there is a subtle nondisplaced longitudinal fracture of the distal radius or merely an artifactual lucency on the PA view, but artifact is suspected. If there is high clinical suspicion for fracture, then obtain follow-up radiographs after removal of the dressing material or perform CT imaging through the wrist region.
--- NOTE | ~2023-07-28 | XR_ITS ---
EXAMINATION: XR LEFT HAND XR RIGHT HAND CLINICAL INFORMATION: Bilateral hand pain. COMPARISON: 11/21/2021 and 06/13/2021 TECHNIQUE: PA, oblique and lateral views of each hand. FINDINGS: Left hand: There is normal alignment. Mild diffuse interphalangeal joint space narrowing. No displaced fracture or dislocation. No bony erosions. Right hand: Prior amputation of the distal tuft of the first digit distal phalanx. Mild diffuse interphalangeal joint space narrowing. Possible old healed fracture of the fifth metacarpal. No acute displaced fracture or dislocation. No bony erosions. XR/XR hand LT min 3V IMPRESSION: No acute abnormality.
--- NOTE | ~2023-07-28 | XR_ITS ---
EXAMINATION: XR KNEE, LEFT CLINICAL INFORMATION: Pain after fall COMPARISON: None available. TECHNIQUE: Four views of the left knee. FINDINGS: Bones have normal alignment. No acute fracture, subluxation or joint effusion. The joint spaces are maintained. There are geographic areas of lucencies with serpiginous sclerotic border from osteonecrosis involving the epiphyseal regions of the medial and lateral femoral condyles. XR/XR knee LT 2V IMPRESSION: * No acute osseous injury at the left knee. * There are areas of osteonecrosis of the femoral condyles. Recommend correlation with regards to any known clinical risk factors for development of osteonecrosis.
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
--- NOTE | 2023-07-28 08:07 | ECG_ITS ---
Test Reason : syncope Blood Pressure : / mmHG Vent. Rate : 080 BPM Atrial Rate : 080 BPM P-R Int : 162 ms QRS Dur : 090 ms QT Int : 384 ms P-R-T Axes : 042 030 012 degrees QTc Int : 442 ms Normal sinus rhythm Normal ECG When compared with ECG of 22-DEC-2022 19:31, T wave inversion now evident in Inferior leads Referred By: Shelby Timmons Electronically Signed By:ERASMO FLORES MD
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
[2023-07-28 08:41] LABS: MANUAL DIFF FLAG NO
--- NOTE | 2023-07-28 08:44 | MHC.EDTECH ---
Offered patient a urine cup for urine sample, patient states not right now . Call byers placed within reach. Patient states they are comfortable. Resting quietly.
[2023-07-28 08:54] LABS: Basophils Percent Auto 0.2 % (0-2); Eosinophils Percent Auto 0.3 % (0-4); Hematocrit 38.3 % (42.0-52.0); Hemoglobin 12.7 g/dl (14.0-18.0); Imm Gran Abs Auto 0.03 X10*3/uL (0.00-0.03); Imm Gran Pct Auto 0.5 % (0.0-0.4); Lymphocytes Absolute Auto 1.2 X10*3/uL (1.2-4.9); Lymphocytes Percent Auto 20.2 % (20-40); Mean Corpuscular HGB Conc 33.2 g/dl (31.0-36.0); Mean Corpuscular Hemoglobin 29.7 pg (27.0-33.0); Mean Corpuscular Volume 89.7 fL (80.0-98.0); Mean Platelet Volume 10.3 fL (9.4-12.4); Monocytes Absolute Auto 0.4 X10*3/uL (0.1-1.2); Monocytes Percent Auto 7.3 % (2-11); Neutrophils Absolute Auto 4.2 x10*3/uL (2.0-8.3); Neutrophils Percent Auto 71.5 % (45-73); Platelet Count 197 X10*3/uL (160-400); Red Blood Count 4.27 X10*6/uL (4.60-5.80); Red Cell Distribution Width 13.1 % (11.0-16.0); White Blood Count 5.9 X10*3/uL (4.8-10.8)
[2023-07-28 09:00] LABS: Alanine Aminotransferase 45 U/L (0-40); Albumin Level 3.8 g/dL (3.5-5.0); Alkaline Phosphatase 57 U/L (39-117); Anion Gap 11 (12-20); Aspartate Amino Transferase 32 U/L (5-37); Bilirubin Direct 0.3 mg/dL (0.0-0.5); Bilirubin Total 0.9 mg/dL (0.0-1.0); Blood Urea Nitrogen 11 mg/dL (9-16); Calcium 8.9 mg/dL (8.4-10.2); Carbon Dioxide 31 mmol/L (22-29); Chloride 104 mmol/L (96-108); Creatinine Clr Calc Pharmacy 112.6; Estimated Glomerular Filt Rate > 60; Glucose Random 134 mg/dL (60-115); Lipase 9 U/L (8-78); Magnesium 2.3 mg/dL (1.6-2.6); Potassium 3.6 mmol/L (3.3-5.1); Sodium 142 mmol/L (135-145); Total Protein 6.5 g/dL (6.5-8.0)
[2023-07-28 09:03] LABS: Ethanol < 10 mg/dL
[2023-07-28 09:07] LABS: Prothrombin Time 12.1 SEC (11.1-13.3)
[2023-07-28 09:08] LABS: Troponin-I High Sensitivity < 2.7 ng/L (<3.5-35.0)
[2023-07-28 09:10] LABS: Partial Thromboplastin Time 27.7 SEC (26.0-36.8)
[2023-07-28 09:19] LABS: Influenza A PCR NEGATIVE (Negative); Influenza B PCR NEGATIVE (Negative); Resp Syncy Virus RNA Qual PCR NEGATIVE (Negative); SARS COV2 PCR INHOUSE NEGATIVE (Negative)
[2023-07-28] MEDS: Morphine Sulfate 4 MG/ML CARTRIDGE IVPUSH ×2 (10:24→14:27)
[2023-07-28] MEDS: 0.9 % Sodium Chloride 1,000 ML 999 ML IV ×2 (10:24→12:52)
[2023-07-28 12:11] LABS: Amphetamine Screen Urine Not Detected (Not Detect); Barbiturates, Urine Not Detected (Not Detect); Benzodiazepines Screen Urine Not Detected (Not Detect); Cannabinoid Screen Urine Not Detected (Not Detect); Cocaine Screen Urine POSITIVE (Not Detect); Fentanyl, urine Not Detected (Not Detect); Opiate Screen Urine POSITIVE (Not Detect); Phencyclidine Screen Urine Not Detected (Not Detect)
[2023-07-28 13:17] LABS: Troponin-I High Sensitivity < 2.7 ng/L (<3.5-35.0)
[2023-07-28] MEDS: Bacitracin Oint 0.9 GM PACKET 1 APPL TOPICAL (14:27)
== END 2023-07-28 16:42 | disposition still patient (30) ==
PROVIDERS: Physician Assistant Medical; Emergency Provider Emergency Medicine
DX: S02.2XXA Fracture of nasal bones, initial encounter for closed fracture (principal); S00.03XA Contusion of scalp, initial encounter; S60.512A Abrasion of left hand, initial encounter; S60.511A Abrasion of right hand, initial encounter; M25.562 Pain in left knee; M25.512 Pain in left shoulder; M47.812 Spondylosis without myelopathy or radiculopathy, cervical region; E11.9 Type 2 diabetes mellitus without complications; F11.20 Opioid dependence, uncomplicated; Z86.73 Personal history of transient ischemic attack (TIA), and cerebral infarction without residual deficits; Y00.XXXA Assault by blunt object, initial encounter; Y93.9 Activity, unspecified; Y92.410 Unspecified street and highway as the place of occurrence of the external cause; Y99.9 Unspecified external cause status; Z59.02 Unsheltered homelessness; Z11.52 Encounter for screening for COVID-19; Z20.828 Contact with and (suspected) exposure to other viral communicable diseases
CPT/HCPCS: 0241U; 36415; 70450; 70486; 72125; 73020; 73100; 73130; 73560; 80048; 80076; 80307; 82550; 83690; 83735; 84484; 85025; 85610; 85730; 93005; 96361; 96374; 96376; 99285; J2270

== ENCOUNTER → 2023-07-28 08:07 | Outpatient (BNV) | payer MEDICAID, SELFPAY | PROVIDERS: Emergency Provider Emergency Medicine; Visit Provider Internal Medicine Cardiovascular Disease | DX: R55 Syncope and collapse (principal) | CPT/HCPCS: 93010 ==

== ENCOUNTER 2024-04-14 17:30 | Emergency (ER) | payer MEDICAID, SELFPAY ==
--- NOTE | ~2024-04-14 | CT_ITS ---
EXAMINATION: CT HEAD WITHOUT CONTRAST CLINICAL INFORMATION: Right-sided weakness. COMPARISON: CT head from 07/28/2023. TECHNIQUE: Contiguous axial imaging was performed from the skull base to vertex without intravenous administration of contrast. This CT examination was performed using dose optimization techniques as appropriate, variously including the following: *Automated exposure control. *Adjustment of mA and/or kV according to patient size (this includes techniques or standardized protocols for targeted exams where dose is matched to indication/reason for exam; i.e. extremities or head). *Use of iterative reconstruction technique. DLP: 717 mGy-cm FINDINGS: There is no evidence of acute intracranial hemorrhage or edematous territorial infarction. Corrales-white matter differentiation is preserved. There is no abnormal attenuation within the brain parenchyma. The ventricles are normal in morphology and size. No evidence for obstructive hydrocephalus. No abnormal mass effect or midline shift. No extra-axial fluid collections. No acute soft tissue or osseous abnormalities. Mild mucosal thickening of the paranasal sinuses. Mild leftward nasal septal deviation. The mastoid air cells and middle ear cavities are clear. CT/CT head/brain wo IV con IMPRESSION: No evidence of acute intracranial hemorrhage or edematous territorial infarction. Electronically signed by: Yvan Ballard DO 04/14/2024 09:19 PM EST
[2024-04-14 17:43] VITALS: BP 120/80; PULSE 70; O2SAT 100
[2024-04-14 17:52] VITALS: BP 112/68; PULSE 70; RESP 16; TEMP 36.2; O2SAT 99; BMI 24.4
--- NOTE | 2024-04-14 17:56 | ECG_ITS ---
Test Reason : WEAKNESS Blood Pressure : / mmHG Vent. Rate : 063 BPM Atrial Rate : 063 BPM P-R Int : 144 ms QRS Dur : 088 ms QT Int : 384 ms P-R-T Axes : 000 131 152 degrees QTc Int : 392 ms Normal sinus rhythm Right axis deviation Abnormal ECG When compared with ECG of 28-JUL-2023 08:15, QRS axis Shifted right Borderline criteria for Inferior infarct are now Present QT has shortened Referred By: Generic ED Physician Electronically Signed By:SUSANNE CARBALLO
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
--- NOTE | 2024-04-14 18:33 | ECG_ITS ---
Test Reason : WEAKNESS Blood Pressure : / mmHG Vent. Rate : 064 BPM Atrial Rate : 064 BPM P-R Int : 148 ms QRS Dur : 086 ms QT Int : 376 ms P-R-T Axes : 038 043 027 degrees QTc Int : 387 ms Normal sinus rhythm Early repolarization Normal ECG When compared with ECG of 14-APR-2024 18:24, QRS axis Shifted left Borderline criteria for Inferior infarct are no longer Present Referred By: Micheal Cartagena Electronically Signed By:SUSANNE CARBALLO
--- NOTE | 2024-04-14 18:37 | PC.NURSE ---
patient from [facility] [address], has sitter at bedside
[2024-04-14 18:41] LABS: Basophils Percent Auto 0.6 % (0-2); Eosinophils Absolute Auto 0.1 X10*3/uL (0.0-0.4); Hematocrit 41.7 % (42.0-52.0); Hemoglobin 13.9 g/dl (14.0-18.0); Imm Gran Abs Auto 0.01 X10*3/uL (0.00-0.03); Imm Gran Pct Auto 0.2 % (0.0-0.4); Lymphocytes Absolute Auto 1.6 X10*3/uL (1.2-4.9); Lymphocytes Percent Auto 32.7 % (20-40); MANUAL DIFF FLAG NO; Mean Corpuscular HGB Conc 33.3 g/dl (31.0-36.0); Mean Corpuscular Hemoglobin 28.8 pg (27.0-33.0); Mean Corpuscular Volume 86.5 fL (80.0-98.0); Mean Platelet Volume 9.8 fL (9.4-12.4); Monocytes Absolute Auto 0.4 X10*3/uL (0.1-1.2); Monocytes Percent Auto 7.8 % (2-11); Neutrophils Absolute Auto 2.8 x10*3/uL (2.0-8.3); Neutrophils Percent Auto 57.7 % (45-73); Platelet Count 260 X10*3/uL (160-400); Red Blood Count 4.82 X10*6/uL (4.60-5.80); Red Cell Distribution Width 14.3 % (11.0-16.0); White Blood Count 4.9 X10*3/uL (4.8-10.8)
[2024-04-14 18:54] LABS: Alanine Aminotransferase 25 U/L (0-40); Alkaline Phosphatase 53 U/L (39-117); Anion Gap 14 (12-20); Aspartate Amino Transferase 20 U/L (5-37); Bilirubin Total 0.4 mg/dL (0.0-1.0); Blood Urea Nitrogen 11 mg/dL (9-16); Calcium 9.4 mg/dL (8.4-10.2); Carbon Dioxide 28 mmol/L (22-29); Chloride 99 mmol/L (96-108); Creatinine Clr Calc Pharmacy 117.9; Estimated Glomerular Filt Rate > 60; Glucose Random 114 mg/dL (60-115); Potassium 4.1 mmol/L (3.3-5.1); Sodium 137 mmol/L (135-145)
[2024-04-14 18:58] LABS: Partial Thromboplastin Time 31.7 SEC (26.0-36.8)
[2024-04-14 19:01] LABS: Troponin-I High Sensitivity < 2.7 ng/L (<3.5-35.0)
[2024-04-14 20:15] VITALS: BP 117/59; PULSE 69; RESP 15; TEMP 36.1; O2SAT 98
--- NOTE | 2024-04-14 20:37 | PC.NURSE ---
Assumed care of pt at 1900. PT resting quietly on stretching. 1:1 sitter at bedside. PT a/o x3, neuro intact, vss, pt endorsing 9/[address] results. Plan of care ongoing
[2024-04-15 06:38] VITALS: BP 117/59; PULSE 69; RESP 16; TEMP 36.1; O2SAT 98
== END 2024-04-14 23:00 ==
PROVIDERS: Emergency Provider Emergency Medicine
DX: R51.9 Headache, unspecified (principal); R53.1 Weakness; R07.9 Chest pain, unspecified; E11.9 Type 2 diabetes mellitus without complications; J45.909 Unspecified asthma, uncomplicated; Z86.73 Personal history of transient ischemic attack (TIA), and cerebral infarction without residual deficits
CPT/HCPCS: 36415; 70450; 80053; 84484; 85025; 85730; 93005; 99285

== ENCOUNTER → 2024-04-14 17:56 | Outpatient (BNV) | payer MEDICAID, SELFPAY | PROVIDERS: Emergency Provider Emergency Medicine; Visit Provider Internal Medicine | DX: R94.31 Abnormal electrocardiogram [ECG] [EKG] (principal); R53.1 Weakness | CPT/HCPCS: 93010 ==